=== PATIENT | female | born 1995 | race Caucasian/White ===

== ENCOUNTER 2017-06-08 09:34 | Emergency (ER) | payer OTHER, MEDICAID, SELFPAY ==
[2017-06-08 09:35] VITALS: BP 121/68; PULSE 123; RESP 18; TEMP 36.9; O2SAT 100; BMI 26.0
--- NOTE | 2017-06-08 10:43 | ED.VISSUMM ---
- ER Visit Summary Date of Service: 06/08/17 Chief Complaint: Stuck by a needle History of Present Illness: The patient is a [address] Perez. 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 Reports that she picked up a dish rag and there was a heroin needle underneath this. Stuck her right thumb. It was an insulin syringe. She denies any pain or complaints. She is a at [address] Dionte Weaver for this. She denies any vaginal bleeding or discharge. She has had normal movement. Physical Examination: Vitals: Stable. Afebrile. General: Well-nourished and well-developed. Head: Normocephalic atraumatic. Neck: Supple, no lymphadenopathy. No JVD. Nontender. Cardiovascular: Regular rate and rhythm. No murmurs. Respiratory: No respiratory distress. Clear to auscultation bilaterally. Abdominal: Soft, nontender, nondistended, normal bowel sounds. No guarding, rebound, or peritoneal signs. Back: Nontender. Extremities: Nontender, no edema. Skin: Normal color, no rash. Neurologic: Alert and oriented ?3. Cranial nerves II through XII are intact. Normal strength and sensation. Psych: Normal affect. Test Results: HIV and hepatitis panel were sent. Emergency Department Course and Treatment: Patient is resting comfortably. At this time I do not think postexposure prophylaxis is indicated. Treatment Plan: She will be discharged instructions to follow-up with [facility] for further evaluation. Return to the emergency department for any worsening symptoms. Disposition: To home in improved and stable condition. Impression: 1. Needlestick right thumb. 2. Third trimester . This note was generated with [employer] dictation software. It may contain incorrect words, spelling, and punctuation that were not noted in review of the chart prior to signing ED Disposition - Plan for ED Patient: Chief Complaint: Occup Expose Instructions: ED Body Fluid Exp HC Worker Referrals: [facility] [GROUP OF PHYSICIANS] - 1 Week
[2017-06-08 12:22] LABS: HIV - WCH Non-Reactive (Nonreactive)
[2017-06-09 08:25] LABS: HEPATITIS B SURFACE AG Negative (Negative); Hep B Surface Antibodies EMP Non Reactive (.); Hep C Antibodies <0.1 s/co ratio (0.0-0.9)
== END 2017-06-08 11:35 | disposition home or self-care (01) ==
LOC: ED 10:26
PROVIDERS: Emergency Provider Emergency Medicine; Family Provider Family Medicine; PCP Family Medicine
DX: O9A.212 Injury, poisoning and certain other consequences of external causes complicating pregnancy, second trimester (principal); Z3A.28 28 weeks gestation of pregnancy; W46.0XXA Contact with hypodermic needle, initial encounter; Y93.9 Activity, unspecified; Y92.009 Unspecified place in unspecified non-institutional (private) residence as the place of occurrence of the external cause; Y99.0 Civilian activity done for income or pay; O99.332 Smoking (tobacco) complicating pregnancy, second trimester; F17.210 Nicotine dependence, cigarettes, uncomplicated
CPT/HCPCS: 36415; 86703; 86803; 87340; 99282

== ENCOUNTER → 2017-06-15 09:11 | Outpatient (CLI) | payer MEDICAID, SELFPAY ==
[2017-06-15 11:14] LABS: Hematocrit 32.4 % (37-47); Hemoglobin 10.8 g/dl (12.0-15.0); Mean Corp Hgb Conc 33.3 g/gl (32-36); Mean Corpuscular Hgb 29.9 pg (27.0-32.0); Mean Corpuscular Volume 89.8 fL (81-99); Mean Platelet Vol. 10.9 fl (6.2-12.0); Platelet Count 145 K/mm3 (150-450); RBC Distribution Width CV 12.6 % (11.6-14.6); RBC Distribution Width SD 40.8 fl (35.1-43.9); Red Blood Count 3.61 M/mm3 (4.2-5.4); White Blood Count 8.8 K/mm3 (4.4-11.0)
[2017-06-15 11:17] LABS: Scan Indicated on CBC? Y/N NO
[2017-06-15 11:24] LABS: Glucose Challenge Gest 1H 50g 100 mg/dL (70-140)
[2017-06-16 17:50] LABS: Ferritin 11 ng/mL (8-252)
== END ==
PROVIDERS: Family Provider Family Medicine; PCP Family Medicine; Visit Provider Obstetrics & Gynecology
DX: Z34.82 Encounter for supervision of other normal pregnancy, second trimester (principal)
CPT/HCPCS: 36415; 82728; 82950; 85027; 86850

== ENCOUNTER 2017-06-26 19:22 | Outpatient (CLI) | payer MEDICAID, SELFPAY ==
[2017-06-26 20:51] LABS: Hematocrit 31.3 % (37-47); Hemoglobin 10.7 g/dl (12.0-15.0); Mean Corp Hgb Conc 34.2 g/gl (32-36); Mean Corpuscular Hgb 30.1 pg (27.0-32.0); Mean Corpuscular Volume 88.2 fL (81-99); Mean Platelet Vol. 10.3 fl (6.2-12.0); Platelet Count 155 K/mm3 (150-450); RBC Distribution Width CV 12.4 % (11.6-14.6); RBC Distribution Width SD 40.3 fl (35.1-43.9); Red Blood Count 3.55 M/mm3 (4.2-5.4); White Blood Count 11.3 K/mm3 (4.4-11.0)
[2017-06-26 20:52] LABS: Scan Indicated on CBC? Y/N NO
[2017-06-26 20:59] LABS: Prothrombin Time (Protime)PT. 12.9 SECONDS (11.7-14.9)
[2017-06-26 21:00] LABS: Partial Thromboplast Time 28.1 Seconds (24.1-36.2)
[2017-06-26 21:01] LABS: Bacteria 0 SEEN /hpf (None Seen); Red Blood Cells-Urine 0 SEEN /hpf (0-5); White Blood Cells 0 SEEN /hpf (0-5)
[2017-06-26 21:08] LABS: Color, Urine Yellow (Yellow); Glucose, Dipstick Normal (Normal); Ketone-Dipstick 5 mg/dl (Negative); Leukocyte Esterase-Dipstick 25 /ul (Negative); Nitrite-Dipstick Negative (Negative); Occult Blood-Urine Negative /ul (Negative); Protein-Dipstick 15 mg/dl (Negative); Urine Bilirubin Dipstick Negative (Negative); Urine Clarity Clear (Clear); Urine Urobilinogen 4 mg/dl (Normal)
[2017-06-26 21:08] LABS: AST(SGOT) 11 U/L (15-37); Alanine Aminotransfer ALT/SGPT 15 U/L (13-56); Creatinine, Serum 0.34 mg/dL (0.55-1.02); EST Glomerular Filtration Rate 253 mL/min (>60); Est Glom Filt Rate - Afr Amer 306 mL/min (>60); Uric Acid 2.6 mg/dL (2.6-6.0)
[2017-06-26 21:11] LABS: ROM Internal Control Test YES-OK TO RESULT pt. (Internal QC); ROM Patient Test Negative (Negative)
[2017-06-26 21:12] LABS: Protein:Creat Ratio 77 mg/g CRE (0-200)
[2017-06-26 21:15] LABS: Mucous, Urine 1+ /hpf (<or=2+); Squamous Epithelial Cells - UA 0-5 SEEN /hpf (5-10)
[2017-06-26 21:58] VITALS: BMI 27.3
--- NOTE | 2017-06-28 09:12 | OB.TRI.NOTE ---
History of Present Illness Date of Service: 06/26/17 Reason For Visit: R/O LABOR Date of Service: 06/26/17 Final MERRY: 09/11/17 Final MERRY Source: US <20 weeks Gestational age: 29 Weeks and 2 Days History of Present Illness: 29 week intrauterine reports mucus discharge in the morning with some dark red blood in it. Patient reports having gelatinous discharge for 2 weeks. She started having contractions earlier in the evening. She is unable to time these but feels that they are irregular was rating her pain 3-4 on a 1-10 pain scale. Patient also reported persistent headache and has been taking Fioricet daily. She indicated her pain was in the right upper quadrant. Home Medications Medication Instructions Recorded Dextroamphetamine/Amphetamine 25 mg PO DAILY 05/14/17 [Adderall 20 mg Tablet] 1 tab PO QDAY 06/15/17 vitamin,calcium,kmotwtqf-eocb-vuvrt acid tablet Ferrous Gluconate 1 tab PO DAILY 06/26/17 Fioricet 1 tab PO DAILY PRN 06/26/17 Allergies No Known Allergies Allergy (Verified 06/26/17 21:59) NST - FHR Rate Baby A NST Reactive:: Yes Impression/Plan 29+ week intrauterine with transient contractions. Cervix is closed and thick and high and no blood was noted. ROM plus was negative. PIH labs were negative. After a period of time of observation the nonstress test was reactive and the patient denied headaches or spotty vision and only reported a dull ache across her lower abdomen. She felt comfortable going home at this time. Patient to follow-up with physician in the office in 1-2 days.
== END 2017-06-26 22:50 | disposition home or self-care (01) ==
LOC: WPOUT 19:46 → WP 19:47
PROVIDERS: Family Provider Family Medicine; PCP Family Medicine; Visit Provider Obstetrics & Gynecology
DX: O26.893 Other specified pregnancy related conditions, third trimester (principal); R51 Headache; N89.8 Other specified noninflammatory disorders of vagina; Z3A.29 29 weeks gestation of pregnancy
CPT/HCPCS: 59025; 59050; 81001; 82565; 82570; 84112; 84156; 84450; 84460; 84550; 85027; 85610; 85730; 99218; G0378

== ENCOUNTER → 2017-06-27 16:58 | Outpatient (CLI) | payer MEDICAID, SELFPAY ==
[2017-06-27 17:20] LABS: ALB/GLOB Ratio 0.8 RATIO (0.9-2.4); AST(SGOT) 13 U/L (15-37); Alanine Aminotransfer ALT/SGPT 18 U/L (13-56); Albumin, Serum 3.1 g/dL (3.2-5.0); Alkaline Phosphatase 70 U/L (45-117); Anion Gap 7 (5-15); BUN 4 mg/dL (7-18); Calcium,Total 8.5 mg/dL (8.5-10.1); Chloride 107 mmol/L (98-107); Creatinine, Serum 0.36 mg/dL (0.55-1.02); EST Glomerular Filtration Rate 235 mL/min (>60); Est Glom Filt Rate - Afr Amer 284 mL/min (>60); Globulin 3.8 g/dL (2.2-4.2); Glucose 73 mg/dL (74-106); Potassium 3.7 mmol/L (3.5-5.1); Protein, Total 6.9 g/dL (6.4-8.2); Sodium Level 138 mmol/L (136-145)
[2017-06-27 17:33] LABS: Absolute Lymphocyte Count 2.21 X10^3/ul (0.83-4.51); Absolute Neutrophil Count 9.1 X10^3/uL (2.0-7.7); Basophil# 0.05 X10^3/uL; Basophil% 0.4 % (0-1); Eosinophil# 0.06 X10^3/uL; Eosinophils% 0.5 % (0-5); Hematocrit 32.2 % (37-47); Hemoglobin 11.1 g/dl (12.0-15.0); Lymphocyte # 2.21 X10^3/ul (4.0); Lymphocyte % 18.5 % (19-41); Mean Corp Hgb Conc 34.5 g/gl (32-36); Mean Corpuscular Hgb 30.4 pg (27.0-32.0); Mean Corpuscular Volume 88.2 fL (81-99); Mean Platelet Vol. 11.3 fl (6.2-12.0); Monocyte# 0.45 X10^3/uL; Monocyte% 3.8 % (0-10); Neutrophil # 9.09 X10^3/uL (2.7-7.7); Neutrophil % 75.9 % (47-70); Platelet Count 131 K/mm3 (150-450); RBC Distribution Width CV 12.1 % (11.6-14.6); RBC Distribution Width SD 38.3 fl (35.1-43.9); Red Blood Count 3.65 M/mm3 (4.2-5.4)
[2017-06-27 17:53] LABS: POSITIVE COUNT NO; POSITIVE DIFFERENTIAL NO; POSITIVE MORPHOLOGY NO
== END ==
PROVIDERS: Family Provider Family Medicine; PCP Family Medicine; Visit Provider Obstetrics & Gynecology
DX: Z34.83 Encounter for supervision of other normal pregnancy, third trimester (principal); R10.11 Right upper quadrant pain
CPT/HCPCS: 80053; 85025

== ENCOUNTER 2017-06-29 13:45 | Outpatient (CLI) | payer MEDICAID, SELFPAY ==
[2017-06-29 14:10] VITALS: BMI 26.7
--- NOTE | 2017-06-29 14:11 | CT_ITS ---
STUDY: CT ABDOMEN AND PELVIS WITH CONTRAST REASON FOR EXAM: Female, 22 years old. Chest pain, shortness of breath and cough. Patient is . RADIATION DOSAGE (If Supplied By Facility): CTDIvol = ( 10.07 ) mGy, DLP = ( 968.36 ) mGycm TECHNIQUE: Transaxial images were obtained from the dome of the diaphragm to the symphysis pubis without oral contrast. 75 ml of Isovue 370 contrast was administered. Sagittal and coronal images were reconstructed. Individualized dose optimization techniques were used for this CT. COMPARISON: None. FINDINGS: The visualized lung bases are unremarkable. The visualized portions of the heart are within normal limits. Normal liver. Normal gallbladder and extrahepatic biliary system. Normal spleen. Normal pancreas. Normal bilateral adrenal glands. Normal right kidney. Normal left kidney. Normal visualized stomach. There is no evidence for dilated bowel, ascites or pneumoperitoneum. Small bowel has a grossly normal appearance. Normal colon. The appendix is visualized and appears normal. Normal abdominal aorta. Normal inferior vena cava. Normal retroperitoneum. Normal urinary bladder. The third trimester gestation is visible with cephalic presentation. The placenta is posterior and has a generally normal appearance. Normal abdominal wall. Normal osseous structures. CT/Abdomen/Pelvis WITH Contrast IMPRESSION: No CT evidence of acute intra-abdominal disease in a patient. Electronically Signed: Nicole Núñez MD at 18:02 EST , Service support ,
--- NOTE | 2017-06-29 14:43 | CT_ITS ---
STUDY: CTA CHEST REASON FOR EXAM: Female, 22 years old. Chest pain, shortness of breath and cough for 2 days. RADIATION DOSAGE (If Supplied By Facility): CTDIvol = ( 10.07 ) mGy, DLP = ( 968.36 ) mGycm TECHNIQUE: The examination was performed with the intravenous administration of 75 ml of Isovue 370 contrast material. Post-processing of the angiographic images was performed, with multiplanar reformation and 3D reconstruction. Individualized dose optimization techniques were used for this CT. COMPARISON: CT of the chest dated December 01, 2015. FINDINGS: Normal enhancement of the main pulmonary artery and right and left pulmonary arteries. Normal enhancement of the bilateral peripheral pulmonary arteries. There is no demonstrated pulmonary embolism. Normal thoracic aorta and visualized great vessels. There is no demonstrated aortic dissection. Normal heart and pericardium. Normal mediastinum. Normal hilar regions. Normal visualized trachea and bronchi. The lungs are hyper expanded, with flattening of the hemidiaphragms. Normal pulmonary parenchyma. Normal pleura. Normal chest wall structures. Normal osseous structures. Patient motion artifact mimics fractures of the right lateral ribs. No definite rib fracture is identified however. Normal visualized upper abdomen. CT/CTA Chest W/WO Contrast IMPRESSION: 1. No CTA demonstrated pulmonary embolism or arterial dissection. 2. Motion artifact mimics right-sided rib fractures. Clinical correlation is suggested. Electronically Signed: Nicole Núñez MD at 18:12 EST , Service support ,
[2017-06-29 15:06] LABS: Absolute Lymphocyte Count 2.13 X10^3/ul (0.83-4.51); Basophil# 0.02 X10^3/uL; Basophil% 0.2 % (0-1); Eosinophil# 0.08 X10^3/uL; Eosinophils% 0.7 % (0-5); Hematocrit 30.8 % (37-47); Hemoglobin 10.8 g/dl (12.0-15.0); Lymphocyte # 2.13 X10^3/ul (4.0); Lymphocyte % 18.2 % (19-41); Mean Corp Hgb Conc 35.1 g/gl (32-36); Mean Corpuscular Hgb 30.9 pg (27.0-32.0); Mean Corpuscular Volume 88.3 fL (81-99); Mean Platelet Vol. 10.8 fl (6.2-12.0); Monocyte# 0.46 X10^3/uL; Monocyte% 3.9 % (0-10); Neutrophil # 8.97 X10^3/uL (2.7-7.7); Neutrophil % 76.7 % (47-70); POSITIVE COUNT NO; POSITIVE DIFFERENTIAL NO; POSITIVE MORPHOLOGY NO; Platelet Count 135 K/mm3 (150-450); RBC Distribution Width CV 12.1 % (11.6-14.6); RBC Distribution Width SD 37.7 fl (35.1-43.9); Red Blood Count 3.49 M/mm3 (4.2-5.4); White Blood Count 11.7 K/mm3 (4.4-11.0)
[2017-06-29 15:19] LABS: ALB/GLOB Ratio 0.8 RATIO (0.9-2.4); AST(SGOT) 9 U/L (15-37); Alanine Aminotransfer ALT/SGPT 14 U/L (13-56); Albumin, Serum 2.9 g/dL (3.2-5.0); Alkaline Phosphatase 65 U/L (45-117); Anion Gap 10 (5-15); BUN 4 mg/dL (7-18); BUN/Creat Ratio 10.8 RATIO (10-20); Calcium,Total 8.5 mg/dL (8.5-10.1); Chloride 107 mmol/L (98-107); Creatinine, Serum 0.37 mg/dL (0.55-1.02); EST Glomerular Filtration Rate 229 mL/min (>60); Est Glom Filt Rate - Afr Amer 277 mL/min (>60); Estimated Creatinine Clearance 195.61 ml/min; Globulin 3.8 g/dL (2.2-4.2); Glucose 80 mg/dL (74-106); LDH 126 U/L (84-246); Potassium 3.5 mmol/L (3.5-5.1); Protein, Total 6.7 g/dL (6.4-8.2); Sodium Level 137 mmol/L (136-145)
--- NOTE | 2017-06-29 16:00 | OB.TRI.NOTE ---
History of Present Illness Date of Service: 06/29/17 Was patient seen by the physician?: Yes Reason For Visit: R/O PIH Date of Service: 06/29/17 Final MERRY: 09/01/17 Final MERRY Source: US <20 weeks Gestational age: 30 Weeks and 6 Days History of Present Illness: 22yo @ 29 2/7wga sent from office with c/o headache, vision changes, abdominal pain, and shortness of breath. She was previously seen in office on 06/27/17 with c/o abdominal pain, headache and vision changes. RUQ and RLQ tenderness was noted with 3+ DTRs. Otherwise, exam unremarkable with no CVA tenderness or clonus. A CT A/P was ordered, but she was unable to obtain it at that time. She had loose stool for 2-3 days, but now resolved; She was seen in office today with continued headache, vision changes, abdominal pain, as well as shortness of breath. Denies fever, chills, vomiting, dysuria, frequency, cough, congestion, ear pain or sore throat. Home Medications Medication Instructions Recorded Dextroamphetamine/Amphetamine 25 mg PO DAILY 05/14/17 [Adderall 20 mg Tablet] 1 tab PO QDAY 06/15/17 vitamin,calcium,aiybscox-gvoi-uzrjq acid tablet Ferrous Gluconate 1 tab PO DAILY 06/26/17 Fioricet 1 tab PO DAILY PRN 06/26/17 Allergies No Known Allergies Allergy (Verified 06/26/17 21:59) - Pertinent Past Medical History Pertinent Past Medical History: SAB x 3 in first trimester Prior 38w IOL for gestational HTN vs. preeclampsia without severe features, VAVD Anxiety Smoker ADD Physical Exam Vitals: AVSS NST - FHR Rate Baby A Baseline: 140 Variability:: Moderate Accelerations:: 15 x 15 Decelerations:: None NST Reactive:: Yes FHR Category:: Category I Uterine Activity:: irritability Impression/Plan 22yo with right abdominal tenderness, chest pain, shortness of breath and tachycardia. -dfdx preeclampsia/HELLP, viral syndrome, appendicitis, hepatitis, reflux or gastritis -prior h/o gestational HTN/preeclampsia - 12h urine collection, serial BPs. -CBC, uric acid, LDH, CMP -Obtain CT A/P to r/o appendicitis. Given presence of chest pain, SOB, tachycardia will also perform CTA to r/o PE.
--- NOTE | 2017-06-29 19:04 | OB.TRI.PN ---
Progress Notes Date of Service: 06/29/17 Progress Note: TRIAGE PROGRESS NOTE Sterling samia headache persists despite Tylenol and Fiorecet taken at home. She denies chest pain but has some shortness of breath. Reviewed with patient laboratory results and normal CT findings with no evidence of appendicitis, hepatic or gallbladder abnormality, and no PE. No laboratory or radiographic evidence of preeclampsia. WBC remains slightly elevated with left shift. Likely viral enteritis. Will give IV Reglan for headache and complete 12h urine collection for baseline given prior. PO hydration, regular diet and NST qshift.
--- NOTE | 2017-06-29 19:27 | OB.TRI.HP_ITS ---
History of Present Illness Date of Service: 06/29/17 Was patient seen by the physician?: Yes Reason For Visit: R/O PIH Date of Service: 06/29/17 Final MERRY: 09/01/17 Final MERRY Source: US <20 weeks Gestational age: 30 Weeks and 6 Days History of Present Illness: 22yo @ 29 2/7wga sent from office with c/o headache, vision changes, abdominal pain, and shortness of breath. She was previously seen in office on with c/o abdominal pain, headache and vision changes. RUQ and RLQ tenderness was noted with 3+ DTRs. Otherwise, exam unremarkable with no CVA tenderness or clonus. A CT A/P was ordered, but she was unable to obtain it at that time. She had loose stool for 2-3 days, but now resolved; She was seen in office today with continued headache, vision changes, abdominal pain, as well as shortness of breath. Denies fever, chills, vomiting, dysuria, frequency, cough, congestion, ear pain or sore throat. Home Medications Medication Instructions Recorded Dextroamphetamine/Amphetamine 25 mg PO DAILY 05/14/17 [Adderall 20 mg Tablet] 1 tab PO QDAY 06/15/17 vitamin,calcium,enqkltrl-ljar-vxuuo acid tablet Ferrous Gluconate 1 tab PO DAILY 06/26/17 Fioricet 1 tab PO DAILY PRN 06/26/17 Allergies No Known Allergies Allergy (Verified 06/26/17 21:59) - Pertinent Past Medical History Pertinent Past Medical History: SAB x 3 in first trimester Prior 38w IOL for gestational HTN vs. preeclampsia without severe features, VAVD Anxiety Smoker ADD Physical Exam Vitals: AVSS NST - FHR Rate Baby A Baseline: 140 Variability:: Moderate Accelerations:: 15 x 15 Decelerations:: None NST Reactive:: Yes FHR Category:: Category I Uterine Activity:: irritability Impression/Plan 22yo with right abdominal tenderness, chest pain, shortness of breath and tachycardia. -dfdx preeclampsia/HELLP, viral syndrome, appendicitis, hepatitis, reflux or gastritis -prior h/o gestational HTN/preeclampsia - 12h urine collection, serial BPs. -CBC, uric acid, LDH, CMP -Obtain CT A/P to r/o appendicitis. Given presence of chest pain, SOB, tachycardia will also perform CTA to r/o PE.
[2017-06-30 20:32] LABS: Urine Protein (24 Hour) 10.9 mg/dL (<11.9)
[2017-06-30 20:33] LABS: 24 Hour Urine Protein 152.6 mg/24HR (<150 MG/24HR); 24HR. UA Prot. Total Volume 1400 mL
== END 2017-06-29 19:45 | disposition home or self-care (01) ==
LOC: WPOUT 13:57 → WP 13:58
PROVIDERS: Family Provider Family Medicine; PCP Family Medicine; Visit Provider Obstetrics & Gynecology
DX: O26.893 Other specified pregnancy related conditions, third trimester (principal); R51 Headache; R10.9 Unspecified abdominal pain; R06.02 Shortness of breath; O99.333 Smoking (tobacco) complicating pregnancy, third trimester; Z3A.30 30 weeks gestation of pregnancy; R00.0 Tachycardia, unspecified
CPT/HCPCS: 36415; 59025; 59050; 71275; 74177; 80053; 83615; 84156; 84550; 85025; 99218; Q9967; A4216; G0378

== ENCOUNTER → 2017-06-30 | Outpatient (CLI) | payer MEDICAID, SELFPAY | END | disposition home or self-care (01) | LOC: LABSPEC 14:49 | PROVIDERS: Family Provider Family Medicine; PCP Family Medicine; Visit Provider Obstetrics & Gynecology | DX: Z34.93 Encounter for supervision of normal pregnancy, unspecified, third trimester (principal); R51 Headache ==

== ENCOUNTER → 2017-07-05 14:14 | Outpatient (CLI) | payer MEDICAID, SELFPAY ==
--- NOTE | 2017-07-05 14:40 | US_ITS ---
STUDY: SECOND AND THIRD TRIMESTER OBSTETRICAL ULTRASOUND - LIMITED REASON FOR EXAM: Female, 22 years old. Routine survey. LMP: December 05, 2016. PRIOR ULTRASOUND: None. TECHNIQUE: Transabdominal and transvaginal ultrasound evaluation was performed. FINDINGS: There is a single intrauterine fetus. The fetus is in a cephalic presentation. There is demonstrated cardiac activity with a heart rate of 144 bpm. There is a normal amniotic fluid volume. The largest amniotic fluid pocket measures 2.9 cm x 3.8 cm. The amniotic fluid index (EDWARD) is 11.2 cm. The placenta is posterior in location and is not low lying. There are Grade 1 placental changes. The cervix measures 4.3 cm in length. Please note that the umbilical cord is seen along the posterior aspect of the neck and crossing the anterior aspect of the chest. BIOMETRY: BPD: 8.0 cm: 32 weeks, 3 days HC: 28.9 cm: 32 weeks, 0 days AC: 27.7 cm: 31 weeks, 6 days FL: 6.1 cm: 31 weeks, 6 days Age by LMP: 30 weeks, 2 days. MERRY by LMP: September 11, 2017. age by current US: 32 weeks, 1 days. MERRY by current US: August 29, 2017. Estimated weight: 1847 grams, +/- 270 grams, 87 percentile. Gender: Indeterminant US/OB Limited With Biometrics IMPRESSION: Single live intrauterine gestation with a mean gestational age of 32 weeks and 1 day. The umbilical cord is seen along the posterior aspect of the neck and crossing the anterior aspect of the chest. Electronically Signed: Curry Means MD at 8:21 EST Tel [phone], Service support ,
== END ==
PROVIDERS: Family Provider Family Medicine; PCP Family Medicine; Visit Provider Obstetrics & Gynecology
DX: O44.20 Partial placenta previa NOS or without hemorrhage, unspecified trimester (principal); Z3A.00 Weeks of gestation of pregnancy not specified
CPT/HCPCS: 76816

== ENCOUNTER 2017-07-18 15:38 | Emergency (ER) | payer MEDICAID, SELFPAY ==
[2017-07-18 15:38] VITALS: BP 137/64; PULSE 116; RESP 26; TEMP 37.1; O2SAT 100; BMI 27.3
--- NOTE | 2017-07-18 15:55 | EKG12_ITS ---
Test Reason : SOB Blood Pressure : / mmHG Vent. Rate : 099 BPM Atrial Rate : 099 BPM P-R Int : 132 ms QRS Dur : 076 ms QT Int : 342 ms P-R-T Axes : 046 065 043 degrees QTc Int : 438 ms Normal sinus rhythm Normal ECG Confirmed by JOVANNI JONES, WAYNE ([id number]), dictionary editor CARLOS ROSENTHAL ([id number]) on 07/21/2017 2:49:21 PM Referred By: COOPER Confirmed By:WAYNE BAIG MD
--- NOTE | 2017-07-18 15:58 | ED.DCSUM_ITS ---
- ER Visit Summary Date of Service: 07/18/17 Chief Complaint: Shortness of breath History of Present Illness: The patient is a 22 F 33 weeks . She is . She is a patient of Dr. Meza. She was seen in the office today by Dr. Vasquez. Patient notes shortness of breath ?2 days. She denies any cough. Dr. Vasquez stated that the baby appeared well. Patient's never had prior DVT. She was treated for preeclampsia with her first has been doing well this . No cough. No recent URI symptoms. Is a smoker and she smoked yesterday. She is on Adderall as vitamins and iron for anemia. June 29 the patient had a CTA of her chest and a abdominal CT. These were negative. Physical Examination: Heart rate 100 respiratory rate is 18 pulse ox is 99% on room air. Temperature is 98.6. Blood pressure 120/73 Gen: Well-nourished well-developed Head: Normocephalic atraumatic Eyes: Perrl EOMI ENT: TMs clear no rhinorrhea moist mucous membranes Neck: Supple no lymphadenopathy no JVD nontender CVS: Regular rate rhythm no murmurs normal S1-S2 Respiratory: No distress clear to auscultation bilaterally chest nontender Abdomen: Soft nontender nondistended normal bowel sounds no masses Back: Nontender Extremity: Nontender no edema Skin: Normal color no rash Neuro: alert orientated ?3 CN II-XII intact normal strength sensation reflexes gait cerebellar Psych: Normal affect normal mood Test Results: EKG shows a sinus rhythm at a rate of 99. White count 13.2 hemoglobin 10.6. Troponin negative. Chest x-ray no acute Emergency Department Course and Treatment: Patient ambulates without difficulty. She is eating and drinking in the room. Heart rate has been down and her breathing is better. I believe her symptoms are most likely related to she will follow-up as scheduled return if worsening. Impression: 1. Dyspnea 2. Third trimester This note was generated with [employer] acquired [employer] dictation software. It may contain incorrect words, spelling, and punctuation that were not noted in review of the chart prior to signing ED Disposition - Plan for ED Patient: Disposition: Home or Assisted Living Chief Complaint: Shortness of Breath Instructions: ED Dyspnea Shortness of Breath Referrals: Jhon Perez MD [Primary Care Provider] - Mariia Vasquez MD [STAFF PHYSICIAN] - Keep Soy appointment
--- NOTE | 2017-07-18 16:00 | RAD_ITS ---
STUDY: X-RAY CHEST REASON FOR EXAM: Female, 22 years old. Shortness of breath. Palpitations and spotty vision TECHNIQUE: Single AP portable view of the chest. COMPARISON: 10/16/16 FINDINGS: There is hyperinflation of the lungs consistent with chronic obstructive lung disease (COPD). Lungs are clear. There is no demonstrated pleural abnormality. Normal size heart. Normal mediastinum and miguel. Normal visualized pulmonary arteries. Normal visualized aortic arch and descending thoracic aorta. Normal visualized thoracic spine. Normal visualized ribs, clavicles, and shoulders. There is no demonstrated abnormality of the visualized soft tissue structures of the upper abdomen. RAD/Chest 1 View IMPRESSION: COPD without acute findings Electronically Signed: Everardo Ambriz DO at 16:28 EST Tel , Service support ,
[2017-07-18 16:25] LABS: Absolute Lymphocyte Count 2.62 X10^3/ul (0.83-4.51); Absolute Neutrophil Count 9.9 X10^3/uL (2.0-7.7); Basophil# 0.03 X10^3/uL; Basophil% 0.2 % (0-1); Eosinophil# 0.07 X10^3/uL; Eosinophils% 0.5 % (0-5); Hematocrit 30.9 % (37-47); Hemoglobin 10.6 g/dl (12.0-15.0); Lymphocyte # 2.62 X10^3/ul (4.0); Lymphocyte % 19.8 % (19-41); Mean Corp Hgb Conc 34.3 g/gl (32-36); Mean Corpuscular Hgb 29.8 pg (27.0-32.0); Mean Corpuscular Volume 86.8 fL (81-99); Mean Platelet Vol. 10.8 fl (6.2-12.0); Monocyte# 0.52 X10^3/uL; Monocyte% 3.9 % (0-10); Neutrophil # 9.91 X10^3/uL (2.7-7.7); Neutrophil % 75.1 % (47-70); Platelet Count 123 K/mm3 (150-450); RBC Distribution Width CV 12.4 % (11.6-14.6); RBC Distribution Width SD 39.7 fl (35.1-43.9); Red Blood Count 3.56 M/mm3 (4.2-5.4); White Blood Count 13.2 K/mm3 (4.4-11.0)
[2017-07-18 16:35] LABS: POSITIVE COUNT NO; POSITIVE DIFFERENTIAL NO; POSITIVE MORPHOLOGY NO
[2017-07-18 16:38] LABS: ALB/GLOB Ratio 0.9 RATIO (0.9-2.4); AST(SGOT) 13 U/L (15-37); Alanine Aminotransfer ALT/SGPT 16 U/L (13-56); Albumin, Serum 3.2 g/dL (3.2-5.0); Alkaline Phosphatase 84 U/L (45-117); Anion Gap 10 (5-15); BUN 5 mg/dL (7-18); BUN/Creat Ratio 13.1 RATIO (10-20); Calcium,Total 8.3 mg/dL (8.5-10.1); Chloride 108 mmol/L (98-107); Creatinine, Serum 0.38 mg/dL (0.55-1.02); EST Glomerular Filtration Rate 222 mL/min (>60); Est Glom Filt Rate - Afr Amer 269 mL/min (>60); Estimated Creatinine Clearance 190.47 ml/min; Globulin 3.7 g/dL (2.2-4.2); Glucose 70 mg/dL (74-106); Potassium 3.3 mmol/L (3.5-5.1); Protein, Total 6.9 g/dL (6.4-8.2); Sodium Level 139 mmol/L (136-145)
[2017-07-18] MEDS: 0.9% Normal Saline 1,000 ML 1000 ML IV (16:49)
[2017-07-18 17:10] VITALS: BP 114/61; PULSE 77; RESP 16; O2SAT 100
[2017-07-18 17:24] LABS: Bacteria 0 SEEN /hpf (None Seen); Mucous, Urine 0 SEEN /hpf (<or=2+); Red Blood Cells-Urine 0 SEEN /hpf (0-5); White Blood Cells 0 SEEN /hpf (0-5)
[2017-07-18 17:33] LABS: Color, Urine Yellow (Yellow); Glucose, Dipstick Normal (Normal); Ketone-Dipstick 15 mg/dl (Negative); Leukocyte Esterase-Dipstick Negative /ul (Negative); Nitrite-Dipstick Negative (Negative); Occult Blood-Urine Negative /ul (Negative); Protein-Dipstick Negative (Negative); Urine Bilirubin Dipstick Negative (Negative); Urine Clarity Clear (Clear); Urine Urobilinogen Normal (Normal)
[2017-07-18 17:41] LABS: Squamous Epithelial Cells - UA 0-5 SEEN /hpf (5-10)
[2017-07-18 17:47] VITALS: PULSE 75; RESP 16; O2SAT 99
[2017-07-18 17:50] LABS: Amphetamine Urine VISTA POSITIVE (<1000 ng/mL); Barbiturate Urine VISTA NEGATIVE (< 200 ng/mL); Benzodiazepine Urine VISTA NEGATIVE (< 200 ng/mL); Cocaine Urine VISTA NEGATIVE (< 300 ng/mL); Ecstacy Urine VISTA NEGATIVE (< 500 ng/mL); Methadone Urine VISTA NEGATIVE (< 300 ng/mL); PCP Urine VISTA NEGATIVE (< 25 ng/mL); THC Urine VISTA NEGATIVE (< 50 ng/mL); Vista UDS pH Range 7
== END 2017-07-18 17:47 | disposition home or self-care (01) ==
PROVIDERS: Emergency Provider Emergency Medicine; Family Provider Family Medicine; PCP Family Medicine
DX: O26.893 Other specified pregnancy related conditions, third trimester (principal); R06.00 Dyspnea, unspecified; O99.333 Smoking (tobacco) complicating pregnancy, third trimester; Z3A.33 33 weeks gestation of pregnancy; F98.8 Other specified behavioral and emotional disorders with onset usually occurring in childhood and adolescence
CPT/HCPCS: 71045; 80053; 80307; 81001; 84484; 85025; 87086; 87088; 93005; 96360; 99284; J7030

== ENCOUNTER 2017-07-20 14:05 | Outpatient (CLI) | payer MEDICAID, SELFPAY ==
[2017-07-20 14:28] VITALS: BMI 27.3
[2017-07-20 15:42] LABS: ROM Internal Control Test YES-OK TO RESULT pt. (Internal QC); ROM Patient Test Negative (Negative)
--- NOTE | 2017-07-26 09:41 | OB.TRI.NOTE ---
History of Present Illness Date of Service: 07/20/17 Was patient seen by the physician?: No Reason For Visit: CHON Date of Service: 07/20/17 Gestational age: 33 History of Present Illness: ptl Home Medications Medication Instructions Recorded 1 tab PO QDAY 06/15/17 vitamin,calcium,ravmfszw-ieib-rodrw acid tablet Ferrous Gluconate 1 tab PO DAILY 06/26/17 Dextroamphetamine/Amphetamine 25 mg PO DAILY 07/18/17 [Adderall Xr 25 mg Capsule] Allergies No Known Allergies Allergy (Verified 07/25/17 15:48) NST - FHR Rate Baby A Baseline: 140 Variability:: Moderate Accelerations:: 15 x 15 Decelerations:: None NST Reactive:: Yes FHR Category:: Category I Uterine Activity:: irregular ctx Impression/Plan no cervical change, no ptl just threatened ptl with irregular ctx. dc home labor precautions
== END 2017-07-20 16:50 | disposition home or self-care (01) ==
LOC: WPOUT 14:14 → WP 14:16
PROVIDERS: Family Provider Family Medicine; PCP Family Medicine; Visit Provider Obstetrics & Gynecology
DX: O47.03 False labor before 37 completed weeks of gestation, third trimester (principal); Z3A.33 33 weeks gestation of pregnancy
CPT/HCPCS: 59025; 59050; 84112; 99218; G0378

== ENCOUNTER → 2017-07-25 18:09 | Outpatient (CLI) | payer MEDICAID, SELFPAY | PROVIDERS: Family Provider Family Medicine; PCP Family Medicine; Visit Provider Obstetrics & Gynecology | DX: O09.93 Supervision of high risk pregnancy, unspecified, third trimester (principal); Z3A.00 Weeks of gestation of pregnancy not specified | CPT/HCPCS: 87086; 87088 ==

== ENCOUNTER → 2017-07-31 13:10 | Outpatient (CLI) | payer MEDICAID, SELFPAY | PROVIDERS: Family Provider Family Medicine; PCP Family Medicine; Visit Provider Nurse Practitioner Women's Health | DX: R30.0 Dysuria (principal) | CPT/HCPCS: 87086 ==

== ENCOUNTER 2017-08-03 18:36 | Outpatient (CLI) | payer MEDICAID, SELFPAY ==
[2017-08-03 18:54] VITALS: BMI 27.6
[2017-08-03 20:21] LABS: Hematocrit 31.8 % (37-47); Hemoglobin 10.8 g/dl (12.0-15.0); Mean Corpuscular Hgb 29.8 pg (27.0-32.0); Mean Corpuscular Volume 87.6 fL (81-99); Mean Platelet Vol. 10.6 fl (6.2-12.0); Platelet Count 167 K/mm3 (150-450); RBC Distribution Width CV 12.2 % (11.6-14.6); RBC Distribution Width SD 37.7 fl (35.1-43.9); Red Blood Count 3.63 M/mm3 (4.2-5.4); Scan Indicated on CBC? Y/N NO; White Blood Count 12.7 K/mm3 (4.4-11.0)
[2017-08-03 20:23] LABS: International Normalized Ratio 0.9; Prothrombin Time (Protime)PT. 12.6 SECONDS (11.7-14.9)
[2017-08-03 20:24] LABS: Partial Thromboplast Time 27.8 Seconds (24.1-36.2)
[2017-08-03 20:33] LABS: Creatinine, Serum 0.49 mg/dL (0.55-1.02); EST Glomerular Filtration Rate 168 mL/min (>60); Est Glom Filt Rate - Afr Amer 203 mL/min (>60)
[2017-08-03 20:33] LABS: Protein, Urine (Random) 9.8 mg/dL (<11.9); Protein:Creat Ratio 127 mg/g CRE (0-200)
[2017-08-03 20:36] LABS: AST(SGOT) 15 U/L (15-37); Alanine Aminotransfer ALT/SGPT 15 U/L (13-56); Uric Acid 3.3 mg/dL (2.6-6.0)
--- NOTE | 2017-08-03 21:07 | NURSING ---
has been to see the pt, she has ordered flexeril for the pt, she will pick it up from the pharmacy tomorrow.
--- NOTE | 2017-08-08 01:46 | OB.TRI.NOTE ---
History of Present Illness Date of Service: 08/03/17 Was patient seen by the physician?: Yes Reason For Visit: R/O PRE ECLAMPSIA Date of Service: 08/03/17 Final MERRY: 09/11/17 Gestational age: 35 Weeks and 1 Days History of Present Illness: 22 yo presents at 35 weeks with RUQ pain, blurry vision, intermittent headache, and SOB. She has had these complaints on and off for the last few months but they were increasing in the last 24 hours Home Medications Medication Instructions Recorded 1 tab PO QDAY 06/15/17 vitamin,calcium,tdfhtnkm-wwjm-sotql acid tablet Ferrous Gluconate 1 tab PO DAILY 06/26/17 Dextroamphetamine/Amphetamine 25 mg PO DAILY 07/18/17 [Adderall Xr 25 mg Capsule] Cyclobenzaprine [Flexeril] 10 mg PO TID #30 tab 08/03/17 Famotidine [Pepcid] 20 mg PO BID #28 tablet 08/05/17 Allergies No Known Allergies Allergy (Verified 08/05/17 19:45) - Pertinent Past Medical History Pertinent Past Medical History: reviewed, see history tab Physical Exam General: Alert, Oriented x3, No apparent distress Cardiovascular: Regular rate Lungs: Normal air movement Abdomen: Soft, Non Tender, Gravid Extremities:: No edema Estimated gestational size: Appropriate for gestational size NST - FHR Rate Baby A Baseline: 140 Variability:: Moderate Accelerations:: 15 x 15 Decelerations:: None NST Reactive:: Yes FHR Category:: Category I Uterine Activity:: no regular Impression/Plan headache in , abdominal pain. no preeclampsia, stable for dc to home
== END 2017-08-03 21:29 | disposition home or self-care (01) ==
LOC: WPOUT 18:52 → WP 08-04 09:20
PROVIDERS: Family Provider Family Medicine; PCP Family Medicine; Visit Provider Obstetrics & Gynecology
DX: O26.893 Other specified pregnancy related conditions, third trimester (principal); R51 Headache; R10.9 Unspecified abdominal pain; Z3A.35 35 weeks gestation of pregnancy
CPT/HCPCS: 36415; 59025; 59050; 82565; 82570; 84156; 84450; 84460; 84550; 85027; 85610; 85730; 99218; A4216; G0378

== ENCOUNTER 2017-08-05 19:44 | Emergency (ER) | payer MEDICAID, SELFPAY ==
[2017-08-05 19:45] VITALS: BP 122/75; PULSE 96; RESP 20; TEMP 36.4; O2SAT 100; BMI 28.5
--- NOTE | 2017-08-05 20:05 | EKG12_ITS ---
Test Reason : CP Blood Pressure : / mmHG Vent. Rate : 095 BPM Atrial Rate : 095 BPM P-R Int : 128 ms QRS Dur : 082 ms QT Int : 346 ms P-R-T Axes : 041 073 046 degrees QTc Int : 434 ms Normal sinus rhythm Normal ECG Confirmed by WAYNE BAIG MD ([id number]), art editor CARLOS ROSENTHAL ([id number]) on 08/08/2017 1:25:13 PM Referred By: Deysi Kamara Confirmed By:WAYNE BAIG MD
--- NOTE | 2017-08-05 20:05 | RAD_ITS ---
STUDY: X-RAY CHEST REASON FOR EXAM: Female, 22 years old. Chest pain. Short of breath. TECHNIQUE: Single AP portable view of the chest. COMPARISON: 07/18/2017. FINDINGS: The lungs are clear and expanded. There is no demonstrated pleural abnormality. Normal size heart. Normal mediastinum and miguel. Normal visualized pulmonary arteries. Normal visualized aortic arch and descending thoracic aorta. Normal visualized thoracic spine. Normal visualized ribs, clavicles, and shoulders. There is no demonstrated abnormality of the visualized soft tissue structures of the upper abdomen. RAD/Chest 1 View (Portable) IMPRESSION: Normal x-ray examination of the chest. Electronically Signed: Leonel Coleman MD at 20:57 EDT , Service support ,
[2017-08-05 20:15] LABS: Absolute Neutrophil Count 10.4 X10^3/uL (2.0-7.7); Basophil# 0.03 X10^3/uL; Basophil% 0.2 % (0-1); Eosinophil# 0.15 X10^3/uL; Hematocrit 29.4 % (37-47); Hemoglobin 10.3 g/dl (12.0-15.0); Lymphocyte % 21.3 % (19-41); Mean Corpuscular Hgb 30.4 pg (27.0-32.0); Mean Corpuscular Volume 86.7 fL (81-99); Mean Platelet Vol. 10.9 fl (6.2-12.0); Monocyte# 0.84 X10^3/uL; Monocyte% 5.8 % (0-10); Neutrophil # 10.38 X10^3/uL (2.7-7.7); Neutrophil % 71.2 % (47-70); Platelet Count 180 K/mm3 (150-450); RBC Distribution Width CV 11.9 % (11.6-14.6); RBC Distribution Width SD 36.1 fl (35.1-43.9); Red Blood Count 3.39 M/mm3 (4.2-5.4); White Blood Count 14.6 K/mm3 (4.4-11.0)
[2017-08-05 20:16] LABS: POSITIVE COUNT NO; POSITIVE DIFFERENTIAL NO; POSITIVE MORPHOLOGY NO
[2017-08-05] MEDS: proMETHazine 25 MG/ML Syringe 12.5 MG IV (20:18)
[2017-08-05] MEDS: 0.9% Normal Saline 1,000 ML 150 ML IV (20:18)
[2017-08-05] MEDS: Acetaminophen 325 MG Tablet 650 MG PO (20:19)
[2017-08-05] MEDS: Famotidine 20 MG Tablet 40 MG PO (20:20)
[2017-08-05 20:25] LABS: Anion Gap 10 (5-15); BUN 6 mg/dL (7-18); BUN/Creat Ratio 13.6 RATIO (10-20); Calcium,Total 8.6 mg/dL (8.5-10.1); Chloride 110 mmol/L (98-107); Creatinine, Serum 0.44 mg/dL (0.55-1.02); EST Glomerular Filtration Rate 187 mL/min (>60); Est Glom Filt Rate - Afr Amer 226 mL/min (>60); Estimated Creatinine Clearance 164.49 ml/min; Glucose 86 mg/dL (74-106); Potassium 3.5 mmol/L (3.5-5.1); Sodium Level 142 mmol/L (136-145)
--- NOTE | 2017-08-05 21:59 | ED.DCSUM_ITS ---
- ER Visit Summary Date of Service: 08/05/17 Chief Complaint: Chest pain and shortness of breath History of Present Illness: The patient is a 22 F who is currently 35 weeks . She reports intermittent chest pressure and shortness of breath since noon today. She points in the center of her sternum. She states symptoms last approximately 30 seconds and then resolved. She is feeling normal movement today. She denies cough or congestion. She has been having intermittent chest pain issues and had a CTA of her chest done last month was unremarkable. Patient is also complaining of a migraine that is been present for last several days. She is a history of similar and was evaluated in OB 2 days ago for this. Physical Examination: Vital signs are unremarkable. Patient sitting upright in bed no acute distress. Head neck examination is unremarkable. Heart is regular rate and rhythm. Lung sounds are clear. Abdomen is soft, gravid, nontender. Active bowel sounds are noted. Neuro exam is unremarkable. Test Results: EKG is sinus at 95 with no sign of acute ischemia. Chest x-ray is unremarkable. CBC was a white count of 14.6 with 71% neutrophils. Hemoglobin is 10.3. Chemistry studies normal. Troponin is negative. Emergency Department Course and Treatment: Patient was treated with Tylenol, Phenergan, IV fluids, and Pepcid. On repeat evaluation she states her chest pain is not coming nearly as frequently as it was previously. Her headache is also improving. Patient was discussed with Dr. Vasquez as she had sent the patient to the emergency room. Patient will be given a prescription for Pepcid for home to try. Treatment Plan: [] Disposition: Discharge Impression: 1. Migraine, improved 2. Atypical chest pain 3. 35 week This note was generated with [employer] dictation software. It may contain incorrect words, spelling, and punctuation that were not noted in review of the chart prior to signing ED Disposition - Plan for ED Patient: Disposition: Home or Assisted Living Chief Complaint: Chest Pain Instructions: ED Chest Pain Atypical Unkn Cause Prescriptions: Famotidine [Pepcid] 20 mg PO BID #28 tablet Referrals: Jhon Perez MD [Primary Care Provider] - Mariia Vasquez MD [STAFF PHYSICIAN] - 1 Week
[2017-08-05 22:05] VITALS: BP 98/74; PULSE 82; RESP 16; O2SAT 98
== END 2017-08-05 22:07 | disposition home or self-care (01) ==
PROVIDERS: Emergency Provider Emergency Medicine; Family Provider Family Medicine; PCP Family Medicine
DX: O26.893 Other specified pregnancy related conditions, third trimester (principal); G43.909 Migraine, unspecified, not intractable, without status migrainosus; R07.89 Other chest pain; O99.333 Smoking (tobacco) complicating pregnancy, third trimester; Z3A.35 35 weeks gestation of pregnancy
CPT/HCPCS: 71045; 80048; 84484; 85025; 93005; 99285; J7030; A4216

== ENCOUNTER → 2017-08-08 14:36 | Outpatient (CLI) | payer MEDICAID, SELFPAY ==
[2017-08-08 10:20] LABS: ROM Internal Control Test YES-OK TO RESULT pt. (Internal QC); ROM Patient Test Negative (Negative)
--- NOTE | 2017-08-08 14:38 | US_ITS ---
STUDY: SECOND AND THIRD TRIMESTER OBSTETRICAL ULTRASOUND - LIMITED REASON FOR EXAM: Female, 22 years old. Evaluate growth, small for dates, history of cord around neck LMP: 12/04/2016 PRIOR ULTRASOUND: Previous study of 07/05/2017 TECHNIQUE: Transabdominal ultrasound evaluation was performed. FINDINGS: There is a single intrauterine fetus. The fetus is in a cephalic presentation. There is demonstrated cardiac activity with a heart rate of 140 bpm. There is a normal amniotic fluid volume. The largest amniotic fluid pocket measures 4.6 cm. The amniotic fluid index (EDWARD) is 13.4 cm. The placenta is posterior in location and is not low lying. There are Grade 1 placental changes. The cervix measures 3.8 cm in length. BIOMETRY: BPD: 8.75 cm: 35 weeks, 3 days HC: 31.68 cm: 35 weeks, 5 days AC: 31.71 cm: 35 weeks, 5 days FL: 7.01 cm: 36 weeks, 0 days Age by LMP: 35 weeks, 2 days. MERRY by LMP: 09/10/2017. age by prior US: 37 weeks, 0 days. MERRY by prior US: . age by current US: 35 weeks, 5 days. MERRY by current US: 09/07/2017. Estimated weight: 2740 grams, +/- 400 grams, 60 percentile. The umbilical cord is still seen around the neck. US/OB Limited With Biometrics IMPRESSION: Single viable intrauterine of approximately 35 weeks 5 days gestational age by current ultrasound. A heart rate of 140 bpm is noted. The EDWARD is within normal limits. The umbilical cord is again noted around the neck. Electronically Signed: Beni Wilhelm MD at 0:01 EDT , Service support ,
== END ==
PROVIDERS: Family Provider Family Medicine; PCP Family Medicine; Visit Provider Nurse Practitioner Women's Health
DX: N89.8 Other specified noninflammatory disorders of vagina (principal)
CPT/HCPCS: 76816; 84112

== ENCOUNTER 2017-08-17 13:50 | Outpatient (CLI) | payer MEDICAID, SELFPAY ==
[2017-08-17 14:02] VITALS: BMI 28.8
[2017-08-17 14:34] LABS: Hematocrit 32.1 % (37-47); Hemoglobin 10.6 g/dl (12.0-15.0); Mean Corpuscular Hgb 29.4 pg (27.0-32.0); Mean Corpuscular Volume 88.9 fL (81-99); Mean Platelet Vol. 10.6 fl (6.2-12.0); Platelet Count 174 K/mm3 (150-450); RBC Distribution Width CV 12.5 % (11.6-14.6); RBC Distribution Width SD 39.5 fl (35.1-43.9); Red Blood Count 3.61 M/mm3 (4.2-5.4); White Blood Count 13.7 K/mm3 (4.4-11.0)
[2017-08-17 14:35] LABS: Scan Indicated on CBC? Y/N NO
[2017-08-17 14:43] LABS: International Normalized Ratio 1.1; Prothrombin Time (Protime)PT. 13.7 SECONDS (11.7-14.9)
[2017-08-17 14:44] LABS: Partial Thromboplast Time 28.9 Seconds (24.1-36.2)
[2017-08-17 14:56] LABS: AST(SGOT) 15 U/L (15-37); Alanine Aminotransfer ALT/SGPT 15 U/L (13-56); Creatinine, Serum 0.52 mg/dL (0.55-1.02); EST Glomerular Filtration Rate 155 mL/min (>60); Est Glom Filt Rate - Afr Amer 188 mL/min (>60); Estimated Creatinine Clearance 139.19 ml/min; Uric Acid 3.8 mg/dL (2.6-6.0)
[2017-08-17 14:57] LABS: Protein:Creat Ratio 123 mg/g CRE (0-200)
--- NOTE | 2017-08-23 05:01 | OB.TRI.NOTE ---
History of Present Illness Date of Service: 08/17/17 Was patient seen by the physician?: Yes Reason For Visit: R/O PREECLAMPSIA Date of Service: 08/17/17 Final MERRY: 09/11/17 Gestational age: 36 Weeks and 1 Days History of Present Illness: 22 yo presents at 36 weeks with headache, nausea and vomiting. she has had these complaints intermittently throughout the and has had multiple workups which have been negative. denies any VB LOF admits good FM no regualr ctx ROS: general: negative : see hpi GI: negative Home Medications Medication Instructions Recorded 1 tab PO QDAY 06/15/17 vitamin,calcium,rvptnhhm-xfvq-vvile acid tablet Ferrous Gluconate 1 tab PO DAILY 06/26/17 Dextroamphetamine/Amphetamine 25 mg PO DAILY 07/18/17 [Adderall Xr 25 mg Capsule] Cyclobenzaprine [Flexeril] 10 mg PO TID #30 tab 08/03/17 Famotidine [Pepcid] 20 mg PO BID #28 tab 08/05/17 Acetaminophen [Tylenol Extra 500 mg PO Q8H 08/18/17 Strength] Allergies No Known Allergies Allergy (Verified 08/18/17 21:19) - Pertinent Past Medical History Pertinent Past Medical History: Past Medical History (Last Reviewed 08/17/17 @ 13:21 by Carolynn Fernandez) ADD (attention deficit disorder) (Acute) Anemia affecting (Acute) History of pre-eclampsia in prior , currently (Acute) Migraine (Acute) Sleep apnea (Acute) Past Surgical History (Last Reviewed 08/17/17 @ 13:21 by Carolynn Fernandez) Tonsil, abscess (Acute) All Active Problems (Last Reviewed 08/17/17 @ 13:21 by Carolynn Fernandez) LGSIL on Pap smear of cervix (Acute) Shortness of breath (Acute) Supervision of high risk in third trimester (Acute) Contraception management (Acute) Anxiety (Acute) History of oligohydramnios (Acute) History of pre-eclampsia in prior , currently in third trimester (Acute) Anemia during in third trimester (Acute) Gestational thrombocytopenia (Acute) Headache in (Acute) Rh negative status during in third trimester (Acute) Physical Exam General: Alert, Oriented x3 Cardiovascular: Regular rate Lungs: Normal air movement Abdomen: Soft, Non Tender, Gravid Extremities:: No edema Estimated gestational size: Appropriate for gestational size NST - FHR Rate Baby A Baseline: 140 Variability:: Moderate Accelerations:: 15 x 15 Decelerations:: None NST Reactive:: Yes FHR Category:: Category I Uterine Activity:: none Impression/Plan 22 yo 36 weeks with headache normal preeclampsia labs and evaluation- dc home preeclampsia precautions
== END 2017-08-17 16:15 | disposition home or self-care (01) ==
LOC: WPOUT 13:58 → WP 08-18 13:13
PROVIDERS: Family Provider Family Medicine; PCP Family Medicine; Visit Provider Obstetrics & Gynecology
DX: O26.893 Other specified pregnancy related conditions, third trimester (principal); R51 Headache; O99.113 Other diseases of the blood and blood-forming organs and certain disorders involving the immune mechanism complicating pregnancy, third trimester; D69.6 Thrombocytopenia, unspecified; Z3A.36 36 weeks gestation of pregnancy
CPT/HCPCS: 36415; 59025; 59050; 82565; 82570; 84156; 84450; 84460; 84550; 85027; 85610; 85730; 87081; 87653; 99218; G0378

== ENCOUNTER → 2017-08-17 16:17 | Outpatient (CLI) | payer MEDICAID, SELFPAY ==
[2017-08-17 17:52] LABS: Group B Strep DNA By PCR Negative (Negative); Internal Control PASS; Probe Check PASS; Specimen Processing Control PASS
== END ==
PROVIDERS: Family Provider Family Medicine; PCP Family Medicine; Visit Provider Nurse Practitioner Women's Health
DX: O09.93 Supervision of high risk pregnancy, unspecified, third trimester (principal); Z3A.00 Weeks of gestation of pregnancy not specified
CPT/HCPCS: 87081; 87653

== ENCOUNTER 2017-08-18 20:50 | Outpatient (CLI) | payer MEDICAID, SELFPAY ==
[2017-08-18 21:19] VITALS: BMI 28.9
[2017-08-18] MEDS: 0.9% NaCl Peripheral Flush Adult/Peds IV (22:30)
[2017-08-18 22:45] LABS: Bacteria 0 SEEN /hpf (None Seen); Mucous, Urine 0 SEEN /hpf (<or=2+); Red Blood Cells-Urine 0 SEEN /hpf (0-5); White Blood Cells 0 SEEN /hpf (0-5)
[2017-08-18 22:47] LABS: Hematocrit 29.5 % (37-47); Mean Corp Hgb Conc 33.9 g/gl (32-36); Mean Corpuscular Hgb 29.5 pg (27.0-32.0); Mean Platelet Vol. 10.6 fl (6.2-12.0); Platelet Count 204 K/mm3 (150-450); RBC Distribution Width CV 12.7 % (11.6-14.6); RBC Distribution Width SD 40.8 fl (35.1-43.9); Red Blood Count 3.39 M/mm3 (4.2-5.4); White Blood Count 12.9 K/mm3 (4.4-11.0)
[2017-08-18 22:48] LABS: Color, Urine Yellow (Yellow); Glucose, Dipstick Normal (Normal); Ketone-Dipstick Negative (Negative); Leukocyte Esterase-Dipstick Negative /ul (Negative); Nitrite-Dipstick Negative (Negative); Occult Blood-Urine Negative /ul (Negative); Protein-Dipstick Negative (Negative); Urine Bilirubin Dipstick Negative (Negative); Urine Clarity Sl. Cloudy (Clear); Urine Urobilinogen 1 mg/dl (Normal); Urine pH 6.5 (5.0 - 8.0)
[2017-08-18 22:51] LABS: Scan Indicated on CBC? Y/N NO
[2017-08-18 22:58] LABS: Protein, Urine (Random) 11.3 mg/dL (<11.9); Protein:Creat Ratio 102 mg/g CRE (0-200)
[2017-08-18 23:04] LABS: Amorphous Sediment 1+; Squamous Epithelial Cells - UA 0-5 SEEN /hpf (5-10)
[2017-08-18 23:09] LABS: ALB/GLOB Ratio 0.7 RATIO (0.9-2.4); AST(SGOT) 14 U/L (15-37); Alanine Aminotransfer ALT/SGPT 14 U/L (13-56); Albumin, Serum 2.8 g/dL (3.2-5.0); Alkaline Phosphatase 120 U/L (45-117); Anion Gap 12 (5-15); BUN 7 mg/dL (7-18); BUN/Creat Ratio 16.5 RATIO (10-20); Calcium,Total 8.5 mg/dL (8.5-10.1); Chloride 108 mmol/L (98-107); Creatinine, Serum 0.42 mg/dL (0.55-1.02); EST Glomerular Filtration Rate 196 mL/min (>60); Est Glom Filt Rate - Afr Amer 237 mL/min (>60); Estimated Creatinine Clearance 172.33 ml/min; Glucose 81 mg/dL (74-106); Potassium 3.9 mmol/L (3.5-5.1); Protein, Total 6.8 g/dL (6.4-8.2); Sodium Level 141 mmol/L (136-145)
[2017-08-19 00:56] VITALS: RESP 18
--- NOTE | 2017-08-23 05:20 | OB.TRI.NOTE ---
History of Present Illness Date of Service: 08/18/17 Was patient seen by the physician?: Yes Reason For Visit: CRAMPING AND SPOTTING Date of Service: 08/18/17 Final MERRY: 09/11/17 Gestational age: 37 Weeks and 2 Days History of Present Illness: 22 yo 36 weeks presents with vaginal bleeding and cramping. she admits some contractions, feels good fm and no lof ROS: generla: negative GI: no n v d Home Medications Medication Instructions Recorded 1 tab PO QDAY 06/15/17 vitamin,calcium,pernxbrf-vfff-draqr acid tablet Ferrous Gluconate 1 tab PO DAILY 06/26/17 Dextroamphetamine/Amphetamine 25 mg PO DAILY 07/18/17 [Adderall Xr 25 mg Capsule] Cyclobenzaprine [Flexeril] 10 mg PO TID #30 tab 08/03/17 Famotidine [Pepcid] 20 mg PO BID #28 tab 08/05/17 Acetaminophen [Tylenol Extra 500 mg PO Q8H 08/18/17 Strength] Allergies No Known Allergies Allergy (Verified 08/18/17 21:19) - Pertinent Past Medical History Pertinent Past Medical History: Past Medical History (Last Reviewed 08/17/17 @ 13:21 by Carolynn Fernandez) ADD (attention deficit disorder) (Acute) Anemia affecting (Acute) History of pre-eclampsia in prior , currently (Acute) Migraine (Acute) Sleep apnea (Acute) Past Surgical History (Last Reviewed 08/17/17 @ 13:21 by Carolynn Fernandez) Tonsil, abscess (Acute) Physical Exam Vitals: Vital Signs Resp 18 08/19/17 00:56 General: Alert Cardiovascular: Regular rate Lungs: Normal air movement Abdomen: Soft, Non Tender, Gravid NST - FHR Rate Baby A Baseline: 130 Variability:: Moderate Accelerations:: 15 x 15 Decelerations:: None NST Reactive:: Yes FHR Category:: Category I Uterine Activity:: no regular Impression/Plan vaginal bleeding false labor reassuring fht and no cervical change dc home labor precautions
== END 2017-08-19 00:56 | disposition home or self-care (01) ==
LOC: WPOUT 21:14 → WP 21:15
PROVIDERS: Family Provider Family Medicine; PCP Family Medicine; Visit Provider Obstetrics & Gynecology
DX: O46.93 Antepartum hemorrhage, unspecified, third trimester (principal); O47.03 False labor before 37 completed weeks of gestation, third trimester; Z3A.36 36 weeks gestation of pregnancy
CPT/HCPCS: 36415; 59025; 59050; 80053; 81001; 82570; 84156; 85027; 99218; A4216; G0378

== ENCOUNTER → 2017-08-24 12:22 | Outpatient (CLI) | payer MEDICAID, SELFPAY ==
[2017-08-24 12:42] LABS: ROM Internal Control Test YES-OK TO RESULT pt. (Internal QC)
[2017-08-24 12:43] LABS: ROM Patient Test Negative (Negative)
== END ==
PROVIDERS: Visit Provider Obstetrics & Gynecology
DX: O09.93 Supervision of high risk pregnancy, unspecified, third trimester (principal); Z3A.00 Weeks of gestation of pregnancy not specified
CPT/HCPCS: 84112

== ENCOUNTER 2017-08-28 08:35 | Outpatient (CLI) | payer MEDICAID, SELFPAY ==
[2017-08-28 09:01] VITALS: BMI 29.5
[2017-08-28] MEDS: 0.9% Saline Lock 10 ML Syringe IV ×2 (09:10→09:30)
[2017-08-28 09:43] LABS: Hematocrit 31.4 % (37-47); Hemoglobin 10.5 g/dl (12.0-15.0); Mean Corp Hgb Conc 33.4 g/gl (32-36); Mean Corpuscular Volume 86.7 fL (81-99); Mean Platelet Vol. 10.7 fl (6.2-12.0); Platelet Count 152 K/mm3 (150-450); RBC Distribution Width CV 12.7 % (11.6-14.6); RBC Distribution Width SD 40.7 fl (35.1-43.9); Red Blood Count 3.62 M/mm3 (4.2-5.4); Scan Indicated on CBC? Y/N NO; White Blood Count 13.5 K/mm3 (4.4-11.0)
[2017-08-28 09:47] LABS: International Normalized Ratio 0.9; Prothrombin Time (Protime)PT. 12.3 SECONDS (11.7-14.9)
[2017-08-28 09:48] LABS: Partial Thromboplast Time 26.2 Seconds (24.1-36.2)
[2017-08-28 09:53] LABS: Creatinine, Serum 0.45 mg/dL (0.55-1.02); EST Glomerular Filtration Rate 184 mL/min (>60); Estimated Creatinine Clearance 160.84 ml/min
[2017-08-28 09:54] LABS: AST(SGOT) 13 U/L (15-37); Alanine Aminotransfer ALT/SGPT 16 U/L (13-56); Est Glom Filt Rate - Afr Amer 223 mL/min (>60); Protein, Urine (Random) 86.3 mg/dL (<11.9); Protein:Creat Ratio 719 mg/g CRE (0-200); Uric Acid 3.3 mg/dL (2.6-6.0)
--- NOTE | 2017-08-28 10:29 | OB.TRI.NOTE ---
History of Present Illness Date of Service: 08/28/17 Was patient seen by the physician?: No Reason For Visit: R/O PIH Date of Service: 08/28/17 Final MERRY: 09/11/17 Gestational age: 38 Weeks and 0 Days History of Present Illness: 22 yo @ 38 weeks presents with borderline elevated bps in the office- now normal on l and d Home Medications Medication Instructions Recorded 1 tab PO QDAY 06/15/17 vitamin,calcium,jmvrreye-lvti-caszg acid tablet Ferrous Gluconate 1 tab PO DAILY 06/26/17 Dextroamphetamine/Amphetamine 25 mg PO DAILY 07/18/17 [Adderall Xr 25 mg Capsule] Acetaminophen [Tylenol Extra 500 mg PO PRN PRN 08/18/17 Strength] Acetaminophen/Butalbital/Caffe 1 tablet PO PRN PRN 08/28/17 [Fioricet] Allergies No Known Allergies Allergy (Verified 08/28/17 08:49) NST - FHR Rate Baby A Baseline: 140 Variability:: Moderate Accelerations:: 15 x 15 Decelerations:: None NST Reactive:: Yes FHR Category:: Category I Uterine Activity:: no regular Impression/Plan proteinuria on labs but otherwise normal labwork, fu in 2 days for repeat bp in office, reviewed preeclampsia precautions
== END 2017-08-28 10:30 | disposition home or self-care (01) ==
LOC: WPOUT 08:41 → WP 08:42
PROVIDERS: Visit Provider Obstetrics & Gynecology
DX: O26.893 Other specified pregnancy related conditions, third trimester (principal); Z3A.38 38 weeks gestation of pregnancy; R80.9 Proteinuria, unspecified
CPT/HCPCS: 59025; 59050; 82565; 82570; 84156; 84450; 84460; 84550; 85027; 85610; 85730; 86850; 86900; 99218; A4216; G0378

== ENCOUNTER 2017-08-29 14:45 | Outpatient (CLI) | payer MEDICAID, SELFPAY ==
[2017-08-29 14:59] VITALS: BMI 29.2
--- NOTE | 2017-08-30 13:45 | OB.TRI.HP_ITS ---
History of Present Illness Date of Service: 08/29/17 Was patient seen by the physician?: Yes Reason For Visit: ROL Date of Service: 08/29/17 Final MERRY: 09/11/17 Gestational age: 38 Weeks and 2 Days History of Present Illness: 38w1d presents with regular ctx and some spotting no lof good fm Home Medications Medication Instructions Recorded 1 tab PO QDAY 06/15/17 vitamin,calcium,blvsdcme-prku-clyeg acid tablet Ferrous Gluconate 1 tab PO DAILY 06/26/17 Dextroamphetamine/Amphetamine 25 mg PO DAILY 07/18/17 [Adderall Xr 25 mg Capsule] Acetaminophen [Tylenol Extra 500 mg PO PRN PRN 08/18/17 Strength] Acetaminophen/Butalbital/Caffe 1 tablet PO PRN PRN 08/28/17 [Fioricet] Allergies No Known Allergies Allergy (Verified 08/28/17 08:49) - Pertinent Past Medical History Pertinent Past Medical History: Past Medical History (Last Reviewed 08/28/17 @ 07:59 by Joi Gallo) ADD (attention deficit disorder) (Acute) Anemia affecting (Acute) History of pre-eclampsia in prior , currently (Acute) Migraine (Acute) Sleep apnea (Acute) Past Surgical History (Last Reviewed 08/28/17 @ 07:59 by Joi Gallo) Tonsil, abscess (Acute) ROS: General: negative Director Emergency Services: see hpi GI: otherwise negative unless documented in hpi Physical Exam General: Alert, Oriented x3 Cardiovascular: Regular rate Lungs: Normal air movement NST - FHR Rate Baby A Baseline: 130 Variability:: Moderate Accelerations:: 15 x 15 Decelerations:: None NST Reactive:: Yes FHR Category:: Category I Uterine Activity:: irregular Impression/Plan false labor 38 weeks normal bps fu in office
== END 2017-08-29 17:55 | disposition home or self-care (01) ==
LOC: WPOUT 14:56 → WP 14:57
PROVIDERS: Visit Provider Obstetrics & Gynecology
DX: O47.1 False labor at or after 37 completed weeks of gestation (principal); Z3A.38 38 weeks gestation of pregnancy; F98.8 Other specified behavioral and emotional disorders with onset usually occurring in childhood and adolescence
CPT/HCPCS: 59025; 59050; 99218; G0378

== ENCOUNTER 2017-08-31 11:15 | Inpatient (IN) | payer MEDICAID, SELFPAY ==
[2017-08-31 10:57] VITALS: BMI 29.5
[2017-08-31 11:10] LABS: ROM Internal Control Test YES-OK TO RESULT pt. (Internal QC)
[2017-08-31 11:11] LABS: ROM Patient Test POSITIVE (Negative)
[2017-08-31] MEDS: Lactated Ringers 1,000 ML 50 ML IV ×2 (11:15→16:35)
[2017-08-31 11:46] LABS: Hematocrit 31.9 % (37-47); Hemoglobin 10.5 g/dl (12.0-15.0); Mean Corp Hgb Conc 32.9 g/gl (32-36); Mean Corpuscular Volume 88.1 fL (81-99); Mean Platelet Vol. 11.2 fl (6.2-12.0); Platelet Count 153 K/mm3 (150-450); RBC Distribution Width CV 12.7 % (11.6-14.6); RBC Distribution Width SD 39.6 fl (35.1-43.9); Red Blood Count 3.62 M/mm3 (4.2-5.4); Scan Indicated on CBC? Y/N NO; White Blood Count 11.5 K/mm3 (4.4-11.0)
[2017-08-31] MEDS: Oxytocin 30 units/NS 500 ml 30 UNITS/500 ML IV.SOLN IV (11:55)
[2017-08-31] MEDS: fentaNYL-bupivacaine (epidural) 100 ML BAG EPIDURAL (19:04)
[2017-08-31] MEDS: Oxytocin 30 units/NS 500 ml 30 UNITS/500 ML IV.SOLN 334 UNITS IV (21:43)
[2017-08-31] MEDS: Oxytocin 30 units/NS 500 ml 30 UNITS/500 ML IV.SOLN 167 UNITS IV (22:14)
--- NOTE | 2017-08-31 22:17 | HP.PCM_ITS ---
- Problem List (1) Supervision of high risk in third trimester Status: Acute Comment: PRR MERRY 09/11/17 shay Carrasqu[place] callum CHRISTIANSON Jb atwood (2) Contraception management Status: Acute Qualifiers: Comment: PPTL title 19 signed (3) History of oligohydramnios Status: Acute Comment: prior check growth and fluid at 36 weeks (4) History of pre-eclampsia in prior , currently in third trimester Status: Acute Comment: not on baby ASA, no baseline labs (5) Anemia during in third trimester Status: Acute Comment: iron (6) Gestational thrombocytopenia Status: Acute Qualifiers: Comment: 135 check monthly (7) Headache in Status: Acute Qualifiers: (8) Rh negative status during in third trimester Status: Acute Comment: rhogam at 28 weeks and PRN History Date of Admission: 08/31/17 Final MERRY: 09/11/17 Gestational age: 38 Weeks and 3 Days History of this : 22 yo @ 38w4d presents with PROM 2-3 cm dilated and clear fluid. she has had a complicated by headaches and proteinuria. Pertinent Past Medical History: Past Medical History (Last Reviewed 08/28/17 @ 07:59 by Joi Gallo) ADD (attention deficit disorder) (Acute) Anemia affecting (Acute) History of pre-eclampsia in prior , currently (Acute) Migraine (Acute) Sleep apnea (Acute) Past Surgical History (Last Reviewed 08/28/17 @ 07:59 by Joi Gallo) Tonsil, abscess (Acute) Mom's Labs & Results 08/31/17 08/31/17 08/31/17 10:45 11:30 11:30 WBC 11.5 H RBC 3.62 L Hgb 10.5 L Hct 31.9 L MCV 88.1 MCH 29.0 MCHC 32.9 RDW 12.7 RDW Differential 39.6 Plt Count 153 MPV 11.2 Vag Amniotic Fld Detect POSITIVE H Blood Type A NEGATIVE Antibody Screen NEGATIVE Course Did the patient receive Yes care? Labs Blood Type: A RH: NEGATIVE RPR/VDRL/Syphilis Nonreactive Rubella status Immune HbSAg Negative Date Done: 02/16/17 Chlamydia Negative Gonorrhea Negative HIV/AIDS Non-Reactive Group B Strep: Negative Current Obstetrical History Gestational Diabetes No Incompetent Cervix No Infertility No IUGR No Macrosomia No Hypertension/Pre-eclampsia No: had some issues with headaches and BPs Placenta Previa/Abruption No: cleared up PTL/PROM No Uterine anomaly No Oligohydramnios No Polyhydramnios No Multiple gestation No Past Medical History Asthma No Diabetes No Hypertension No Heart disease No Mitral valve prolapse No Neurologic/Seizure disorder/ No Migraines Kidney disease No Liver disease No Varicosities No Clotting disorders/Hx of DVT No Thyroid Dysfunction No Other medical diseases No Psychiatric disorders No Major trauma No Abnormal PAP smear Yes Sleep apnea No Mammogram in the last 2 years No Social History Marital Status: Alleged father Loco Hx Smoking Yes Smoking Status Current some day smoker All Active Problems (Last Reviewed 08/28/17 @ 07:59 by Joi Gallo) Puncture wound of right thumb without foreign body without damage to nail (Acute ) LGSIL on Pap smear of cervix (Acute) Shortness of breath (Acute) Supervision of high risk in third trimester (Acute) Contraception management (Acute) Anxiety (Acute) History of oligohydramnios (Acute) History of pre-eclampsia in prior , currently in third trimester (Acute) Anemia during in third trimester (Acute) Gestational thrombocytopenia (Acute) Headache in (Acute) Rh negative status during in third trimester (Acute) Allergies No Known Allergies Allergy (Verified 08/31/17 10:59) Current Medications Acetaminophen (Tylenol) 325 - 650 mg PO Q4H PRN PRN PRN Reason: PAIN OR FEVER >100.4F Al Hydroxide/Mg Hydroxide (Mylanta Ii) 15 - 30 ml PO Q4H PRN PRN PRN Reason: INDIGESTION Citric Acid/Sodium Citrate (Bicitra) 30 ml PO UD PRN Oxytocin/Sodium Chloride () 30 units in 500 mls @ 1 mls/hr IV .Q500H [facility] Last Admin: 08/31/17 11:55 Dose: 1 mls/hr Lactated Ringer's () 1,000 mls @ 50 mls/hr IV .Q20H [facility] Last Admin: 08/31/17 16:35 Dose: 50 mls/hr Naloxone HCl 4 mg/ Dextrose 504 mls @ 0 mls/hr IV PRN PRN; Protocol PRN Reason: TO MAINTAIN RR>10 Nalbuphine HCl (Nubain) 5 - 10 mg IV Q3H PRN PRN PRN Reason: PAIN (4-10/10) Nalbuphine HCl (Nubain) 5 mg IV Q3H PRN PRN Reason: ITCHING Stop: 09/01/17 20:52 Naloxone HCl (Narcan) 0.2 mg IV Q1M PRN PRN Reason: RR<10 AND PT UNRESPONSIVE Stop: 09/01/17 20:52 Nicotine (Nicoderm Cq (Pbkc)) 21 mg TRANSDERM. DAILY FABIOLA Ondansetron HCl (Zofran) 4 mg IV Q8H PRN PRN PRN Reason: NAUSEA Promethazine HCl (Phenergan) 6.25 - 12.5 mg IV Q4H PRN PRN; Protocol PRN Reason: IF NAUSEA PERSISTS Sodium Chloride () 5 - 15 ml IV UD FABIOLA Last Admin: 08/31/17 15:40 Dose: Not Given Smoking Status: Current every day smoker Alcohol: None Drug Use: none Number of Fetus(es): 1 - fht 130s moderate variability Review of Systems Constitutional: Denies: Chills, Fever, Weight Change HEENT: Denies: Head Aches, Sinus Congestion, Sinus Drainage Cardiovascular: Denies: Chest Pain, Palpitations Respiratory: Denies: Cough, Shortness of breath at rest, Sputum production Gastrointestinal: Reports: Abdominal Pain, Nausea. Denies: Vomiting Genitourinary: Denies: Dysuria Gynecological: Reports: Vaginal bleeding, Vaginal discharge Musculoskeletal: Denies: Joint Pain, Joint Tenderness Skin: Denies: Rash, Wounds Neurological: Denies: Numbness, Tingling, Focal weakness Psychiatric: Denies: Anxiety, Depression, Homicidal Ideations, Suicidal Ideations Hematologic/ Lymphatic: Denies: Easy Bruising, Easy Bleeding Physical Exam General: Alert Cardiovascular: Regular rate Lungs: Normal air movement Abdomen: Soft, Non Tender, Gravid Estimated gestational size: Appropriate for gestational size Presentation: Cephalic Cervix Dilation (cm): 2.5 Assessment/Plan 22 yo @ 38w4d presents PROM plan pit IOL due to PROM epidural PRN
--- NOTE | 2017-08-31 22:18 | PCM.OB.VAG ---
- Problem List (1) Supervision of high risk in third trimester Status: Acute Comment: PRR MERRY 09/11/17 shay [place]rasqu[place] callum CHRISTIANSON Jb atwood (2) Contraception management Status: Acute Qualifiers: Comment: PPTL title 19 signed (3) History of oligohydramnios Status: Acute Comment: prior check growth and fluid at 36 weeks (4) History of pre-eclampsia in prior , currently in third trimester Status: Acute Comment: not on baby ASA, no baseline labs (5) Anemia during in third trimester Status: Acute Comment: iron (6) Gestational thrombocytopenia Status: Acute Qualifiers: Comment: 135 check monthly (7) Headache in Status: Acute Qualifiers: (8) Rh negative status during in third trimester Status: Acute Comment: rhogam at 28 weeks and PRN Vaginal Delivery Maternal Presentation: Active Labor, Medically Indicated Induction prom 38w4d Method of Induction: Pitocin Medical Reason for Induction: Premature Rupture of Membranes Amniotic Membrane Rupture Type: Spontaneous at home Amniotic Fluid Description: Clear Final MERRY: 09/11/17 Gestational age: 38 Weeks and 3 Days Date of Procedure: 08/31/17 Pre-Operative Diagnosis: prom Post-Operative Diagnosis: same Surgery/ Procedure Performed: Spontaneous Vaginal Delivery Type of Anesthesia: Epidural Description of Procedure: Patient began pushing and delivered the head in the OSMANI presentation. The head was delivered atraumatically . The anterior and posterior shoulders delivered without complication followed by the rest of the and the infant was placed on the maternal abdomen. Delayed cord clamping was employed for approximately 60 seconds. Cord was clamped and cut and gentle traction was applied to the cord and the placenta delivered spontaneously immediately following it was noted to be intact with three-vessel cord. The perineum and vagina were inspected and noted to have no laceration. EBL was 300 cc. Patient and infant tolerated delivery well. Presentation: OSMANI Placental Delivery Description: Spontaneous Placenta Disposition: [facility] Cord Vessel Description: 3 Vessels Cord Entanglement: None Estimated Blood Loss: 300 Infant A gender: Male Episiotomy Description: None Laceration: None Medications given after delivery: IV Pitocin Complications: None
[2017-08-31] MEDS: Lactated Ringers 1,000 ML 125 ML IV (23:58)
[2017-09-01] VITALS (9 sets, daily range): BP systolic 99–117; BP diastolic 53–78; PULSE 74–90; RESP 14–16; TEMP 36.4–37; O2SAT 95–100; BMI 29.5
[2017-09-01] MEDS: Lactated Ringers 1,000 ML 125 ML IV (08:44)
[2017-09-01] MEDS: Ondansetron 4 MG/2 ML Vial IV (09:38)
[2017-09-01] MEDS: HYDROmorphone 0.5 MG/0.5 ML SYRINGE IV ×2 (09:39→14:57)
--- NOTE | 2017-09-01 12:48 | PCM.OPRPT ---
Problem List (1) Supervision of high risk in third trimester Status: Acute Comment: PRR MERRY 09/11/17 shay Carrasquillo callum SAMMY Jb obchristy (2) Contraception management Status: Acute Qualifiers: Comment: PPTL title 19 signed (3) History of oligohydramnios Status: Acute Comment: prior check growth and fluid at 36 weeks (4) History of pre-eclampsia in prior , currently in third trimester Status: Acute Comment: not on baby ASA, no baseline labs (5) Anemia during in third trimester Status: Acute Comment: iron (6) Gestational thrombocytopenia Status: Acute Qualifiers: Comment: 135 check monthly (7) Headache in Status: Acute Qualifiers: (8) Rh negative status during in third trimester Status: Acute Comment: rhogam at 28 weeks and PRN Report of Operation Date of Procedure: 09/01/17 Pre-Operative Diagnosis: sterilization Post-Operative Diagnosis: same Surgery/Procedure Performed:: minilaparotomy tubal ligation Type of Anesthesia:: Epidural Drains: leon Estimated Blood Loss (mL): 300 Fluids Replaced: crystalloid Description of Procedure: Patient was taken to the operating room and epidural anesthesia was found to be adequate. Patient was placed in the dorsal supine position was prepped and draped in normal sterile fashion. Leon catheter was used to drain the bladder. Infra umbilical incision was made with a scalpel after injecting with marcaine and carried through the underlying layer of the fascia with a scalpel fascial incision was extended bilaterally with Du scissors and bowel packed away and the right fallopian tube identified confirmed to be fallopian tube by following it out to the fimbria and a Filshie clip was applied in the mid interstitial portion of the fallopian tube noting to completely transect the tube. This was repeated on the left side where the tube was identified and followed out to the fimbria and confirmed to be fallopian tube and then the mid interstitial portion of the tube was completely transected with the Filshie clip. Excellent hemostasis was noted. Fascia was closed with 0 Vicryl and skin closed with 3-0 Monocryl. No complications. Patient was taken recovery in stable condition. Grafts/Implants Used: filshie clips - Complications none
[2017-09-01] MEDS: Bupivacaine Mpf 0.5% 30 ML VIAL (13:07)
[2017-09-01] MEDS: 0.9% Saline Lock 10 ML Syringe IV (14:57)
--- NOTE | 2017-09-01 16:30 | CASEMGMT ---
Social Work Brief Assessment completed. Refer documentation below for further details. Date of Referral/Notification: 09/01/2017 Time of Referral: 08 Referred By: verbal referral from Dr. Moise Reason for Referral: Maternal history of Anxiety and ADD Date of Intervention: 09/01/2017 Time of Intervention: 1630 Informant: Medical record and patient/mother of baby (MOB) History: MOB is G4, P1 to 2 after delivering Sumit Prieto. MOB is to father of baby (FOB) Loco Prieto for 1 year now, but together for 3 years. MOB and FOB have one older child together, Foreign Prieto, born 12/11/2015. MOB with reported history of anxiety and ADD. MOB reports had some baby blues after Foreign was born, but this lasted only a short time. MOB denies any need for counseling at that time and no medication. Chart does indicate that MOB takes Adderall for ADD, which is consistent with toxicology screens done this , positive 10-15-17 and 3-6-18 for amphetamines. No other drugs of abuse reported or indicated verbally or in lab testing. MOB is primary caregiver to the children, and FOB works outside of the home at [employer]. MOB reports plan to be start nursing school in the fall, attending the [employer]. MOB reports to have Medicaid, but no other involvement with other agencies or supportive programs. Assessment: Met with MOB in room, also in room at [facility] permission was FOB, and MOBs parents. MOB and this signwriter talked quietly while the rest of the family had their own conversation. However, MOBs father was intrusive, at times interrupting this writers conversation, making jokes that wanted to eat an edible gift MOB had received as a congratulations on of Sumit. MOB reports to have needed baby supplies, to have adequate support and that mostly FOBs family will be helping out. FOB has a week off of work to help as well. MOB denies any concerns with mood at this time, no reports of any bonding issues, and listened to social work education on risk for mood and anxiety issues. MOB accepted resource information offered and thanked social sciences instructor. MOB held good eye contact, with appropriate and congruent mood and affect to content discussed. Provided MOB with resources list of [facility]. Provided packet on mood and anxiety disorders, tips to care for self, online resources for supports, as well as local mental health providers should MOB want to access additional support outside of family. Plan: MOB and baby to home with family support. Resources provided for home going. No further needs requested or indicated. -BEVERLY Arreola, CLAIMS ADMINISTRATOR
[2017-09-01] MEDS: oxyCODONE 5 MG Tablet PO (21:05)
[2017-09-02 01:40] VITALS: BP 121/74; PULSE 66; RESP 18; TEMP 36.8
[2017-09-02] MEDS: Naproxen 250 MG Tablet PO (06:48)
--- NOTE | 2017-09-02 07:26 | PCM.PN.OB ---
Subjective: doing well no complaints - Physical Exam General: Alert, Oriented x3 Vital Signs Temp Pulse Resp BP Pulse Ox 98.2 F 66 18 121/74 H 100 09/02/17 01:40 09/02/17 01:40 09/02/17 01:40 09/02/17 01:40 09/01/17 14:06 Oxygen Delivery Method Room Air Weight: 166 lb 12.8 oz Body Mass Index (BMI) 29.5 Intake and Output for Last 24 Hours 08/31/17 09/01/17 09/02/17 23:59 23:59 23:59 Intake Total 2538 / 2538 500 / 500 Output Total 1800 / 1800 800 / 800 Balance 738 / 738 -300 / -300 Medical Necessity - Tobacco Use Smoking Status: Current every day smoker Assessment/Plan s/p pptl doing well dc home
--- NOTE | 2017-09-02 07:33 | DCINST_ITS ---
Discharge Diet: No Restrictions Discharge Activity: Return to Normal Activity, May not drive while taking narcotic pain medications., May Shower May resume sexual activity in: 4-6 weeks Call your doctor if your incision/area has: Continuous Slow Oozing, Sudden Increased Bleeding, Increased Pain/ Swelling, Increased Redness, Foul Smelling Discharge Additional Instructions: If you experience any of the following, contact your healthcare provider. * Bleeding that soaks a pad every hour for 2 hours * Fever 100.4 or higher * Unrelieved incision or abdominal pain * Swelling, redness, discharge or bleeding from your incision or episiotomy site * Your incision begins to separate * Problems urinating (including inability to urinate or burning while urinating) . * Visual changes * Severe headache * Flu-like symptoms * Pain or redness in one of both of your breasts * Pain, warmth, tenderness or swelling in your legs, especially the calf area * Frequent nausea and vomiting * Symptoms of depression or anxiety If you experience any of the following, call 911 or go to the nearest Emergency Room. * Chest pain * Problems breathing * Seizure activity * Partial or complete paralysis of a body part, slurred speech, weakness or drooping of the face, or a sudden inability to walk or hold your balance Allergies/Adverse Reactions: Allergies No Known Allergies Allergy (Verified 08/31/17 10:59) Medications to take at Discharge vitamin,calcium,rgcnkxye-vszv-zechf acid tablet 1 tab PO QDAY 06/15/17 Ferrous Gluconate 1 tab PO DAILY 06/26/17 Dextroamphetamine/Amphetamine [Adderall Xr 25 mg Capsule] 25 mg PO DAILY Acetaminophen [Tylenol Extra Strength] 500 mg PO PRN PRN 08/18/17 Acetaminophen/Butalbital/Caffe [Fioricet] 1 tablet PO PRN PRN 08/28/17 Naproxen [Naprosyn] 250 - 500 mg PO Q8H PRN PRN #30 tab 09/02/17 Oxycodone HCl/Acetaminophen [Percocet 5-325] 1 - 2 tablet PO Q4H PRN PRN 7 Days #15 tablet 09/02/17 The following prescriptions were given: Oxycodone HCl/Acetaminophen [Percocet 5-325] 1 - 2 tablet PO Q4H PRN PRN 7 Days #15 tablet PRN Reason: Pain Naproxen [Naprosyn] 250 - 500 mg PO Q8H PRN PRN #30 tab PRN Reason: MILD PAIN Orders to be completed after discharge: Electric breast pump Location: None Selected Please Follow Up With: Mariia Vasquez MD - [phone] When: Call to make an appointment with your doctor in 6 weeks. If you had elevated Blood pressure or 4th degree laceration you will need to be seen in 2 weeks. Primary Care Physician: Care Physician,No Primary [Primary Care Provider] -
[2017-09-02 09:00] VITALS: BP 116/68; PULSE 85; RESP 16; TEMP 36.6; O2SAT 100
[2017-09-02] MEDS: Acetaminophen 500 MG Tablet 1000 MG PO (11:17)
--- NOTE | 2017-09-02 13:43 | NURSING ---
0016 While rounding, Mom states that nursing has been going pretty well and has been borrowing a breast pump from a friend to use while here at the hospital. Mom states that insurance covers a breast pump so a pump was given and instructed on it's use. Mom encouraged to call if she would be interested in a follow up consult or a telehealth meeting. Kinsey GAMBOA
== END 2017-09-02 13:45 | disposition home or self-care (01) | DRG 374 ==
LOC: WPOUT 11:21
PROVIDERS: Admitting Provider Obstetrics & Gynecology; Visit Provider Obstetrics & Gynecology
PROC: 0UL70ZZ Occlusion of Bilateral Fallopian Tubes, Open Approach (ICD-10-PCS; principal; 2017-09-01 08:40)
DX: O42.92 Full-term premature rupture of membranes, unspecified as to length of time between rupture and onset of labor (principal); O99.113 Other diseases of the blood and blood-forming organs and certain disorders involving the immune mechanism complicating pregnancy, third trimester; D69.6 Thrombocytopenia, unspecified; O99.013 Anemia complicating pregnancy, third trimester; D64.9 Anemia, unspecified; O99.334 Smoking (tobacco) complicating childbirth; Z30.2 Encounter for sterilization; Z3A.38 38 weeks gestation of pregnancy; Z37.0 Single live birth
CPT/HCPCS: 59025; 59050; 82565; 82570; 84112; 84156; 84450; 84460; 84550; 85027; 85461; 85610; 85730; 86850; 86900; 90384; 99218; J7120; A4216; G0378; J2405; J2790

== ENCOUNTER 2018-03-13 13:45 | Observation (INO) | payer MEDICAID, SELFPAY ==
[2018-03-13 13:46] VITALS: BP 114/69; PULSE 55; RESP 18; TEMP 36.6; O2SAT 100; BMI 22.8
[2018-03-13 14:14] LABS: Absolute Lymphocyte Count 1.05 X10^3/ul (0.83-4.51); Absolute Neutrophil Count 10.6 X10^3/uL (2.0-7.7); Basophil# 0.02 X10^3/uL; Basophil% 0.2 % (0-1); Hematocrit 40.5 % (37-47); Hemoglobin 13.8 g/dl (12.0-15.0); Lymphocyte # 1.05 X10^3/ul (4.0); Lymphocyte % 8.7 % (19-41); Mean Corp Hgb Conc 34.1 g/gl (32-36); Mean Corpuscular Hgb 29.9 pg (27.0-32.0); Mean Corpuscular Volume 87.9 fL (81-99); Mean Platelet Vol. 10.9 fl (6.2-12.0); Monocyte# 0.41 X10^3/uL; Monocyte% 3.4 % (0-10); Neutrophil % 87.6 % (47-70); POSITIVE COUNT NO; POSITIVE DIFFERENTIAL NO; POSITIVE MORPHOLOGY NO; Platelet Count 179 K/mm3 (150-450); RBC Distribution Width CV 12.5 % (11.6-14.6); RBC Distribution Width SD 39.7 fl (35.1-43.9); Red Blood Count 4.61 M/mm3 (4.2-5.4); White Blood Count 12.1 K/mm3 (4.4-11.0)
[2018-03-13 14:26] LABS: Anion Gap 5 (5-15); BUN 7 mg/dL (7-18); BUN/Creat Ratio 9.8 RATIO (10-20); Chloride 106 mmol/L (98-107); Creatinine, Serum 0.71 mg/dL (0.55-1.02); EST Glomerular Filtration Rate 107 mL/min (>60); Est Glom Filt Rate - Afr Amer 130 mL/min (>60); Estimated Creatinine Clearance 101.94 ml/min; Glucose 105 mg/dL (74-106); Sodium Level 138 mmol/L (136-145)
[2018-03-13 14:33] LABS: Pregnancy, Serum, hCG Quali. NEGATIVE Negative (0-9 Nonpreg)
--- NOTE | 2018-03-13 14:55 | CT_ITS ---
STUDY: CT ABDOMEN AND PELVIS WITH CONTRAST REASON FOR EXAM: Female, 22 years old. Right lower quadrant pain RADIATION DOSAGE (If Supplied By Facility): CTDIvol = ( 9.95 ) mGy, DLP = ( 381.44 ) mGycm TECHNIQUE: Transaxial images were obtained from the dome of the diaphragm to the symphysis pubis without oral contrast. 100ML ml of Isovue 300 contrast was administered. Sagittal and coronal images were reconstructed. Individualized dose optimization techniques were used for this CT. COMPARISON: 06/29/2017 FINDINGS: The visualized lung bases are clear. The visualized portions of the heart and pericardium are within normal limits. There are no calcified gallstones present. The liver is within normal limits. There are no suspicious hepatic lesions. The spleen is normal in size. The pancreas is within normal limits. The adrenal glands are within normal limits. There are no renal or ureteral stones. There is no hydronephrosis. There are no focal renal lesions. Normal visualized stomach. There is no bowel obstruction or inflammation. The appendix is hyperemic and fluid filled. However, it measures at the upper limits of normal in size (6 mm; best seen on image 59 series 601). There is minimal adjacent stranding. This is suspicious for early/mild acute appendicitis and clinical correlation is recommended. If indicated, a repeat study with oral contrast can be performed. The aorta is normal in caliber. There are bilateral adnexal clips, consistent with tubal ligation. There are bilateral adnexal cysts. There is a small amount of free fluid. There is no free air, fluid collection or lymphadenopathy. There are no destructive osseous lesions. CT/Abdomen/Pelvis W IV Cont ONLY IMPRESSION: Hyperemic, fluid-filled appendix with minimal adjacent stranding. However, the appendix is not dilated as it measures at the upper limits of normal in size (6 mm). This is suspicious for early/mild acute appendicitis and clinical correlation is recommended. If indicated, a repeat study with oral contrast can be performed. Bilateral adnexal cysts with a small amount of pelvic free fluid. N.B. : The above information has been verbally conveyed by Kevin Badillo to Gregory Blair MD, MD, on 03/13/2018 16:29:27 (ET). Electronically Signed: Kevin Badillo, at 16:22 EDT Tel , Service support ,
--- NOTE | 2018-03-13 14:56 | ED.VISSUMM ---
- ER Visit Summary Date of Service: 03/13/18 Chief Complaint: Right lower quadrant abdominal pain History of Present Illness: The patient is a 22 F of ADHD. No prior abdominal surgeries except a tubal ligation. Patient states yesterday morning around 5:30 AM started having mild right-sided abdominal pain more so in the right lower quadrant. Today increasing pain with associated nausea vomiting. No diarrhea. No constipation. No dysuria. Subjectively she felt like she may have had a fever but no documented temperature. She denies any history of kidney stones. No vaginal bleeding or discharge. Last menstrual period approximately 3 weeks ago. Physical Examination: Young female no acute distress. Vital signs stable. Afebrile. She does not look septic or toxic. H EENT exam unremarkable. Neck nontender. Lungs clear to auscultation bilaterally. Heart regular rhythm no murmur. Abdomen is soft. Nondistended. She is tender in the right upper quadrant but only mildly. No Galarza sign. She is much more tender in the right lower quadrant. Normal bowel sounds. Left side of the abdomen is nontender. Moving all 4 extremities. They are neurovascularly intact. Back is nontender. No CVA tenderness. Neurologically she is awake and alert with no focal motor deficits. Test Results: CBC shows a white count 12.1. Hemoglobin 13. No bands. Chemistries normal. Gap of 5. Normal creatinine. Serum test is negative. Urinalysis is normal. Hepatic panel is negative. CT abdomen pelvis with IV contrast only shows an early appendicitis also some small ovarian cyst with pelvic fluid. Radiologist did call me and I discussed the CAT scan and he does believe this is an early appendicitis Emergency Department Course and Treatment: Treated with IV Zofran and IV morphine. Also IV fluids. Reevaluation of patient she remains tender in the right lower quadrant. Some mild guarding and rebound. She will be started on IV Zosyn. She will also be given the another dose of IV morphine. Treatment Plan: I spoke with Dr. Gerry Escalona excavation laborer for general surgery and he will be down to evaluate the patient. I gave the patient options of surgical consultation and she is comfortable Dr. Escalona. Disposition: To the OR for acute appendectomy Impression: Right lower quadrant abdominal pain secondary to acute appendicitis This note was generated with [employer] software. It may contain incorrect words, spelling, and punctuation that were not noted in review of the chart prior to signing ED Disposition - Plan for ED Patient: Chief Complaint: Abd Pain Referrals: Jhon Perez MD [Primary Care Provider] -
--- NOTE | 2018-03-13 15:00 | ED.DCSUM_ITS ---
- ER Visit Summary Date of Service: 03/13/18 Chief Complaint: Right lower quadrant abdominal pain History of Present Illness: The patient is a 22 F of ADHD. No prior abdominal surgeries except a tubal ligation. Patient states yesterday morning around 5:30 AM started having mild right-sided abdominal pain more so in the right lower quadrant. Today increasing pain with associated nausea vomiting. No diarrhea. No constipation. No dysuria. Subjectively she felt like she may have had a fever but no documented temperature. She denies any history of kidney stones. No vaginal bleeding or discharge. Last menstrual period approximately 3 weeks ago. Physical Examination: Young female no acute distress. Vital signs stable. Afebrile. She does not look septic or toxic. H EENT exam unremarkable. Neck nontender. Lungs clear to auscultation bilaterally. Heart regular rhythm no murmur. Abdomen is soft. Nondistended. She is tender in the right upper quadrant but only mildly. No Galarza sign. She is much more tender in the right lower quadrant. Normal bowel sounds. Left side of the abdomen is nontender. Moving all 4 extremities. They are neurovascularly intact. Back is nontender. No CVA tenderness. Neurologically she is awake and alert with no focal motor d eficits. Test Results: CBC shows a white count 12.1. Hemoglobin 13. No bands. Chemistries normal. Gap of 5. Normal creatinine. Serum test is negative. Urinalysis is normal. Hepatic panel is negative. CT abdomen pelvis with IV contrast only shows an early appendicitis also some small ovarian cyst with pelvic fluid. Radiologist did call me and I discussed the CAT scan and he does believe this is an early appendicitis Emergency Department Course and Treatment: Treated with IV Zofran and IV morphine. Also IV fluids. Reevaluation of patient she remains tender in the right lower quadrant. Some mild guarding and rebound. She will be started on IV Zosyn. She will also be given the another dose of IV morphine. Treatment Plan: I spoke with Dr. Gerry Escalona front end driver for general surgery and he will be down to evaluate the patient. I gave the patient options of surgical consultation and she is comfortable Dr. Escalona. Disposition: To the OR for acute appendectomy Impression: Right lower quadrant abdominal pain secondary to acute appendicitis This note was generated with [employer] software. It may contain incorrect words, spelling, and punctuation that were not noted in review of the chart prior to signing ED Disposition - Plan for ED Patient: Chief Complaint: Abd Pain Referrals: Jhon Perez MD [Primary Care Provider] -
[2018-03-13 15:02] LABS: Red Blood Cells-Urine 0 SEEN /hpf (0-5)
[2018-03-13 15:09] LABS: Color, Urine Yellow (Yellow); Glucose, Dipstick Normal (Normal); Ketone-Dipstick 15 mg/dl (Negative); Leukocyte Esterase-Dipstick 25 /ul (Negative); Nitrite-Dipstick Negative (Negative); Occult Blood-Urine Negative /ul (Negative); Protein-Dipstick 15 mg/dl (Negative); Specific Gravity, Urine 1.025 (1.002-1.030); Urine Bilirubin Dipstick Negative (Negative); Urine Clarity Sl. Cloudy (Clear); Urine Urobilinogen 1 mg/dl (Normal)
[2018-03-13] MEDS: Ketorolac 30 MG/ML Syringe IV (15:13)
[2018-03-13] MEDS: Ondansetron 4 MG/2 ML Vial IV (15:13)
[2018-03-13] MEDS: morphine 8 MG/ML Syringe 6 MG IV (15:13)
[2018-03-13 15:15] LABS: Bacteria 1+ /hpf (None Seen); Mucous, Urine 1+ /hpf (<or=2+); Squamous Epithelial Cells - UA 0-5 SEEN /hpf (5-10); White Blood Cells 0-5 SEEN /hpf (0-5)
[2018-03-13 15:20] LABS: AST(SGOT) 10 U/L (15-37); Alanine Aminotransfer ALT/SGPT 18 U/L (13-56); Albumin, Serum 3.9 g/dL (3.2-5.0); Alkaline Phosphatase 47 U/L (45-117); Bilirubin, Direct 0.17 mg/dL (0.00-0.30); Globulin 3.3 g/dL (2.2-4.2); Protein, Total 7.2 g/dL (6.4-8.2)
--- NOTE | 2018-03-13 16:38 | NURSING ---
DR LOOMIS PAGED
--- NOTE | 2018-03-13 17:12 | NURSING ---
DR LOOMIS IN ROOM
--- NOTE | 2018-03-13 17:21 | PCM.CONS.GEN ---
Problem List (1) Appendicitis Status: Acute Qualifiers: Appendicitis type: acute appendicitis Acute appendicitis type: with localized peritonitis Appendicitis gangrene presence: unspecified whether gangrene present Appendicitis perforation presence: unspecified whether perforation present Appendicitis abscess presence: unspecified whether abscess present Qualified Code(s): K35.30 - Acute appendicitis with localized peritonitis, without perforation or gangrene Reason for Consult Date of Consultation: 03/13/18 History of Present Illness: The patient is a 22 F of ADHD. No prior abdominal surgeries except a tubal ligation. Patient states yesterday morning around 5:30 AM started having mild right-sided abdominal pain more so in the right lower quadrant. Today increasing pain with associated nausea vomiting. No diarrhea. No constipation. No dysuria. Subjectively she felt like she may have had a fever but no documented temperature. She denies any history of kidney stones. No vaginal bleeding or discharge. Last menstrual period approximately [address] scan impression: IMPRESSION: Hyperemic, fluid-filled appendix with minimal adjacent stranding. However, the appendix is not dilated as it measures at the upper limits of normal in size (6 mm). This is suspicious for early/mild acute appendicitis and clinical correlation is recommended. If indicated, a repeat study with oral contrast can be performed. Bilateral adnexal cysts with a small amount of pelvic free fluid. I plan is to perform a laparoscopic appendectomy on the patient. Past Medical History Medical History: Medical History (Last Reviewed 08/28/17 @ 07:59 by Joi Gallo) ADD (attention deficit disorder) F98.8 Anemia affecting O99.019 History of pre-eclampsia in prior , currently O09.299 Migraine G43.909 Sleep apnea G47.30 Allergies No Known Allergies Allergy (Verified 03/13/18 13:48) Home Medications: Ambulatory Orders Medication Instructions Recorded Dextroamphetamine/Amphetamine 25 mg PO DAILY 07/18/17 [Adderall Xr 25 mg Capsule] Surgical History: Surgical History (Last Reviewed 08/28/17 @ 07:59 by Joi Gallo) Tonsil, abscess J36 removed at age 11 Smoking Status: Current every day smoker Review of Systems Constitutional: Reports: Fever Cardiovascular: Denies: Chest Pain, Chest Pressure, Chest Tightness, Palpitations Respiratory: Denies: Cough, Hemoptysis, Shortness of breath at rest, Shortness of breath upon exertion, Wheezing Gastrointestinal: Reports: Abdominal Pain, Nausea, Vomiting Genitourinary: Denies: Dysuria, Frequency, Hematuria, Urgency Musculoskeletal: Denies: Joint Pain Patient Problems: Active and Suspected Problems (Last Reviewed 08/28/17 @ 07:59 by Joi Gallo) Appendicitis (Acute) - Physical Exam General: Alert, Oriented x3 Lungs: Clear to auscultation Cardiovascular: Regular rate, Regular Rhythm, No murmurs Abdomen: Bowel Sounds Present, Soft, Tender - Patient has tenderness in the right lower quadrant. There is voluntary guarding. There is no Rovsing sign. Musculoskeletal: No Tenderness to Palpation of Joints or Extremities Neurological: Cranial nerves II-XII grossly intact Vital Signs Temp Pulse Resp BP Pulse Ox 97.8 F 55 L 18 114/69 100 03/13/18 13:46 03/13/18 13:46 03/13/18 13:46 03/13/18 13:46 03/13/18 13:46 Oxygen Delivery Method Room Air Weight: 129 lb 3.054 oz Body Mass Index (BMI) 22.8 Laboratory Tests Past 24 Hrs 03/13/18 03/13/18 03/13/18 14:05 14:05 14:05 WBC 12.1 H RBC 4.61 Hgb 13.8 Hct 40.5 MCV 87.9 MCH 29.9 MCHC 34.1 RDW 12.5 RDW Differential 39.7 Plt Count 179 MPV 10.9 Immature Gran % (Auto) 0.100 Neut % (Auto) 87.6 H Lymph % (Auto) 8.7 L [place] % (Auto) 3.4 Eos % (Auto) 0.0 Baso % (Auto) 0.2 Absolute Neuts (auto) 10.6 H Absolute Lymphs (auto) 1.05 Total Counted Not Reportable Sodium 138 Potassium 4.0 Chloride 106 Carbon Dioxide 27.0 Anion Gap 5 BUN 7 Creatinine 0.71 Estim Creat Clear Calc 101.94 Est GFR (MDRD) Af Amer 130 Est GFR (MDRD) Non-Af 107 BUN/Creatinine Ratio 9.8 L Glucose 105 Calcium 9.0 Total Bilirubin Direct Bilirubin AST ALT Alkaline Phosphatase Total Protein Albumin Globulin Serum , Qual NEGATIVE Urine Color Urine Clarity Urine pH Ur Specific [place] Urine Protein Urine Glucose (UA) Urine Ketones Urine Occult Blood Urine Nitrite Urine Bilirubin Urine Urobilinogen Ur Leukocyte Esterase Urine RBC Urine WBC Ur Squamous Epith Cells Urine Bacteria Urine Mucus 03/13/18 03/13/18 14:50 14:54 WBC RBC Hgb Hct MCV MCH MCHC RDW RDW Differential Plt Count MPV Immature Gran % (Auto) Neut % (Auto) Lymph % (Auto) [place] % (Auto) Eos % (Auto) Baso % (Auto) Absolute Neuts (auto) Absolute Lymphs (auto) Total Counted Sodium Potassium Chloride Carbon Dioxide Anion Gap BUN Creatinine Estim Creat Clear Calc Est GFR (MDRD) Af Amer Est GFR (MDRD) Non-Af BUN/Creatinine Ratio Glucose Calcium Total Bilirubin 0.60 Direct Bilirubin 0.17 AST 10 L ALT 18 Alkaline Phosphatase 47 Total Protein 7.2 Albumin 3.9 Globulin 3.3 Serum , Qual Urine Color Yellow Urine Clarity Sl. Cloudy Urine pH 6.0 Ur Specific [place] 1.025 Urine Protein 15 H Urine Glucose (UA) Normal Urine Ketones 15 H Urine Occult Blood Negative Urine Nitrite Negative Urine Bilirubin Negative Urine Urobilinogen 1 H Ur Leukocyte Esterase 25 H Urine RBC 0 SEEN Urine WBC 0-5 SEEN Ur Squamous Epith Cells 0-5 SEEN Urine Bacteria 1+ Urine Mucus 1+ Assessment/Plan All Active Problems (Last Reviewed 08/28/17 @ 07:59 by Joi Gallo) Appendicitis (Acute) Puncture wound of right thumb without foreign body without damage to nail (Acute) LGSIL on Pap smear of cervix (Acute) Shortness of breath (Acute) Supervision of high risk in third trimester (Acute) Anxiety (Acute) Gestational thrombocytopenia (Acute) Plan is to perform a laparoscopic appendectomy on the patient. Risk benefits have been reviewed in great detail with her and her mother. They include bleeding infection possible delayed abscess possible injury to underlying structures. They had the opportunity ask questions all the questions have been answered and they are willing to proceed.
[2018-03-13] MEDS: Morphine 4 MG/ML Syringe IV (17:45)
[2018-03-13 17:50] VITALS: BP 107/73; PULSE 61; RESP 16; O2SAT 99; BMI 22.8
--- NOTE | 2018-03-13 18:30 | APP_PTH ---
PATIENT: CHEYENNE MILNER LOC: [facility] U#:[id number] AGE/SX: 22/F ROOM: [facility]316 RE03/13/[address]: Dr. Kenneth Escalona MD : 1995 BED: 1 DIS: 03/14/2018 SPEC #: [id number] RECD: 03/14/18 09:03 STATUS: JUAN MIGUEL RELo #: [id number] JOHNSON: 03/13/18 18:[address]: Kenneth Escalona DEPT: SURGICAL PATHOLOGY RECD BY: Octavio Denny ENTERED: 03/14/18 09:51 SP TYPE: APPENDIX OTHR DR: Dr. Jhon Perez MD Tissues: Appendix, NOS Procedures: Surgery Specimen Level III HEADER OPERATION: Laparoscopic, appendectomy PRE-OP DIAGNOSIS: Acute appendicitis TISSUE SUBMITTED: Appendix MICROSCOPIC DIAGNOSIS Appendix, appendectomy: Acute necrotizing appendicitis. Acute serositis. AM:lit 03/15/18 MICROSCOPIC DESCRIPTION Slides are reviewed. GROSS DESCRIPTION Received is one container labeled with the patient's name and designated appendix. The specimen consists of an appendix measuring 7 cm in length and up to 0.5 cm in diameter. The attached periappendiceal adipose tissue measures up to 1.5 cm in width. The serosa is congested. No obvious perforation is identified. The lumen contains fecal material. No fecalith is identified. Laborer General sections are submitted in one cassette. / SJ:lit 03/14/18 TC:2 [facility]: [id number]
[2018-03-13] MEDS: Bupivacaine Mpf 0.5% 30 ML VIAL (19:02)
--- NOTE | 2018-03-13 19:05 | PCM.OPRPT ---
Problem List (1) Appendicitis Status: Acute Qualifiers: Appendicitis type: acute appendicitis Acute appendicitis type: with localized peritonitis Appendicitis gangrene presence: without gangrene Appendicitis perforation presence: without perforation Appendicitis abscess presence: without abscess Qualified Code(s): K35.30 - Acute appendicitis with localized peritonitis, without perforation or gangrene Report of Operation Date of Procedure: 03/13/18 Pre-Operative Diagnosis: acute appendicitis Post-Operative Diagnosis: Same Surgery/Procedure Performed:: Laparoscopic appendectomy Type of Anesthesia:: General Anesthesiologist: Jessica Gaspar Estimated Blood Loss (mL): < 25 cc Fluids Replaced: 500 cc lr Description of Procedure: Patient was brought into the operating room. Placed in the supine position. Under excellent general anesthetic a Vitale catheter was placed. The abdomen was sterilely prepped and draped in the usual fashion. Local was injected infraumbilically. Dissection was carried down to the fascia. The fascia was grasped with a Toni. Varies needle was placed inside the abdomen and the abdomen was insufflated to 15 torr. A 10/12 trocar was placed. Under direct visualization or suprapubic #5 trocar was placed in the left lower quadrant trocar was placed no injury to underlying structures was noted. Patient was placed in the headdown and rotated to the left position. The appendix was slightly dilated I took the mesoappendix down with the Enseal and I transected the base of the appendix with a 45 linear cutter. I placed in a specimen bag and delivered through the umbilical port without difficulty. Pelvis was irrigated. Small adhesion was noted to be on the Filshie clip I took this down with the Enseal. I ran the small bowel. No Meckel's diverticulum was identified. I removed the trochars under direct visualization. Good hemostasis was noted. I closed the fascia the umbilical port with a [id number] stitch of 0 Vicryl. Skin incisions were closed with septicum stitches of 4-0 Monocryl. Steri-Strips are applied sterile dressings were applied patient tolerated the procedure well. - Admit VTE Documentation VTE Present on Admission: No VTE Mechan Device Prophylaxis: SCD's VTE Pharm Prophylaxis ordered?: No Reason prophylaxis not ordered:: Treatment Not Indicated
[2018-03-13 19:29] VITALS: BP 107/73; BP 112/60; PULSE 77; RESP 18; TEMP 36.6; O2SAT 100
[2018-03-13 19:46] VITALS: BP 107/73; BP 114/79; PULSE 63; RESP 18; TEMP 36.6; O2SAT 100
[2018-03-13 20:02] VITALS: BMI 22.8; BMI 22.9
[2018-03-13] MEDS: Lactated Ringers 1,000 ML 60 ML IV (20:15)
[2018-03-13 20:17] VITALS: BP 117/78; PULSE 65; RESP 16; TEMP 36.6; O2SAT 100
[2018-03-13] MEDS: Piperacil/Tazobactam 3.375 GM/50 ML ML IV (22:13)
[2018-03-13 22:15] VITALS: BP 108/67; PULSE 71; RESP 16; TEMP 36.8; O2SAT 100
[2018-03-14] MEDS: HYDROcodone Bitartrate/Apap 5/325 Tablet PO (00:02)
[2018-03-14 00:20] VITALS: BP 105/68; PULSE 66; RESP 16; TEMP 36.3; O2SAT 100
[2018-03-14] MEDS: Piperacil/Tazobactam 3.375 GM/50 ML ML IV (06:05)
[2018-03-14 06:08] VITALS: BP 105/68; PULSE 63; RESP 16; TEMP 36.5; O2SAT 100
--- NOTE | 2018-03-14 07:18 | DCINST_ITS ---
Discharge Diet: Light diet - advance as tolerated Discharge Activity: May Not Drive - for 3-5 days or while taking narcotic pain meds. May shower in (days): 1 Call your doctor if your incision/area has: Continuous Slow Oozing, Sudden Increased Bleeding, Increased Pain/ Swelling, Increased Redness, Foul Smelling Discharge Call your doctor if you observe: Fever of 101 or Higher Suture Line Care: Avoid Pulling/Pushing, Avoid Pinching/Bending Additional Dressing/Incision Instructions:: Keep dressing clean and dry. Change or remove dressing in 2 days. Leave steri strips for 1 week. May protect with a gauze bandaid. Medications to take at Discharge Dextroamphetamine/Amphetamine [Adderall Xr 25 mg Capsule] 25 mg PO DAILY 07/18/17 Hydrocodone Bitart/Apap 5-325 [[place] 5/325] 1 tablet PO Q6H PRN PRN 2 Days #5 tablet 03/14/18 Allergies/Adverse Reactions: Allergies No Known Allergies Allergy (Verified 03/13/18 13:48) The following prescriptions were given: Hydrocodone Bitart/Apap 5-325 [[place] 5/325] 1 tablet PO Q6H PRN PRN 2 Days #5 tablet PRN Reason: Mild-Moderate (pain scale 1-5) Primary Care Physician: Jhon Perez MD [Primary Care Provider] - Test Results: Test results from this visit will be discussed in further detail at your follow- up appointment, if applicable. Please Follow Up With: Leela Simms PA-C - [phone] When: 10 days Proposed Discharge Date: 03/14/18
--- NOTE | 2018-03-14 07:18 | PCM.DC.SUM ---
Discharge Date and Diagnosis - Problem List Patient Problems: Active and Suspected Problems (Last Reviewed 08/28/17 @ 07:59 by Joi Gallo) Appendicitis (Acute) Date of Admission: 03/13/18 Date of Discharge: 03/14/18 - Primary Discharge Diagnosis Active and Suspected Problems (Last Reviewed 08/28/17 @ 07:59 by Joi Gallo) Appendicitis (Acute) Hospital Course and Treatment Operations: appendectomy Summary of Care Provided: The patient is a 22 year old F who presented with RLQ abdominal pain. Dr. Escalona performed a laparoscopic appendectomy on 03/13/2018. Patient tolerated the procedure well. Patient notes minimal incisional discomfort with movement. She denies nausea, vomiting, fever. She is tolerating a diet well. She notes positive flatus and BM. She is urinating well. Discharge instructions were reviewed. Prescriptions were given. Patient Problems: Active and Suspected Problems (Last Reviewed 08/28/17 @ 07:59 by Joi Gallo) Appendicitis (Acute) - Physical Exam General: Alert, Oriented x3, Cooperative Lungs: Clear to auscultation, Normal air movement Cardiovascular: Regular rate, No murmurs Abdomen: Bowel Sounds Present, Soft, Distended - slightly, Tender - generalized, - - Incisions c/d/i. No erythema or infection noted Vital Signs Temp Pulse Resp BP Pulse Ox 97.7 F L 63 16 105/68 100 03/14/18 06:08 03/14/18 06:08 03/14/18 06:08 03/14/18 06:08 03/14/18 06:08 Oxygen Delivery Method Room Air Weight: 129 lb 3.054 oz Body Mass Index (BMI) 22.8 Intake and Output for Last 24 Hours 03/12/18 03/13/18 03/14/18 23:59 23:59 23:59 Intake Total 1923 601 / 601 Balance 1923 601 / 601 Laboratory Tests Past 24 Hrs 03/13/18 03/13/18 03/13/18 14:05 14:05 14:05 WBC 12.1 H RBC 4.61 Hgb 13.8 Hct 40.5 MCV 87.9 MCH 29.9 MCHC 34.1 RDW 12.5 RDW Differential 39.7 Plt Count 179 MPV 10.9 Immature Gran % (Auto) 0.100 Neut % (Auto) 87.6 H Lymph % (Auto) 8.7 L [place] % (Auto) 3.4 Eos % (Auto) 0.0 Baso % (Auto) 0.2 Absolute Neuts (auto) 10.6 H Absolute Lymphs (auto) 1.05 Total Counted Not Reportable Sodium 138 Potassium 4.0 Chloride 106 Carbon Dioxide 27.0 Anion Gap 5 BUN 7 Creatinine 0.71 Estim Creat Clear Calc 101.94 Est GFR (MDRD) Af Amer 130 Est GFR (MDRD) Non-Af 107 BUN/Creatinine Ratio 9.8 L Glucose 105 Calcium 9.0 Total Bilirubin Direct Bilirubin AST ALT Alkaline Phosphatase Total Protein Albumin Globulin Serum , Qual NEGATIVE Urine Color Urine Clarity Urine pH Ur Specific [place] Urine Protein Urine Glucose (UA) Urine Ketones Urine Occult Blood Urine Nitrite Urine Bilirubin Urine Urobilinogen Ur Leukocyte Esterase Urine RBC Urine WBC Ur Squamous Epith Cells Urine Bacteria Urine Mucus 03/13/18 03/13/18 14:50 14:54 WBC RBC Hgb Hct MCV MCH MCHC RDW RDW Differential Plt Count MPV Immature Gran % (Auto) Neut % (Auto) Lymph % (Auto) [place] % (Auto) Eos % (Auto) Baso % (Auto) Absolute Neuts (auto) Absolute Lymphs (auto) Total Counted Sodium Potassium Chloride Carbon Dioxide Anion Gap BUN Creatinine Estim Creat Clear Calc Est GFR (MDRD) Af Amer Est GFR (MDRD) Non-Af BUN/Creatinine Ratio Glucose Calcium Total Bilirubin 0.60 Direct Bilirubin 0.17 AST 10 L ALT 18 Alkaline Phosphatase 47 Total Protein 7.2 Albumin 3.9 Globulin 3.3 Serum , Qual Urine Color Yellow Urine Clarity Sl. Cloudy Urine pH 6.0 Ur Specific [place] 1.025 Urine Protein 15 H Urine Glucose (UA) Normal Urine Ketones 15 H Urine Occult Blood Negative Urine Nitrite Negative Urine Bilirubin Negative Urine Urobilinogen 1 H Ur Leukocyte Esterase 25 H Urine RBC 0 SEEN Urine WBC 0-5 SEEN Ur Squamous Epith Cells 0-5 SEEN Urine Bacteria 1+ Urine Mucus 1+ Discharge Diet: Light diet - advance as tolerated Discharge Activity: May Not Drive - for 3-5 days or while taking narcotic pain meds. May shower in (days): 1 Call your doctor if your incision/area has: Continuous Slow Oozing, Sudden Increased Bleeding, Increased Pain/ Swelling, Increased Redness, Foul Smelling Discharge Call your doctor if you observe: Fever of 101 or Higher Suture Line Care: Avoid Pulling/Pushing, Avoid Pinching/Bending Additional Dressing/Incision Instructions:: Keep dressing clean and dry. Change or remove dressing in 2 days. Leave steri strips for 1 week. May protect with a gauze bandaid. Home Medications: Medications to take at Discharge Dextroamphetamine/Amphetamine [Adderall Xr 25 mg Capsule] 25 mg PO DAILY 07/18/17 Hydrocodone Bitart/Apap 5-325 [[place] 5/325] 1 tablet PO Q6H PRN PRN 2 Days #5 tablet 03/14/18 Following Prescrptions Were Given to Patient: Hydrocodone Bitart/Apap 5-325 [[place] 5/325] 1 tablet PO Q6H PRN PRN 2 Days #5 tablet PRN Reason: Mild-Moderate (pain scale 1-5) Primary Care Physician: Jhon Perez MD [Primary Care Provider] - Please Follow Up With: Leela Simms PA-C - [phone] When: 10 days Disposition: Home Minutes spent on discharge:: 20 Patient Condition:: Good Medical Necessity - Tobacco Use Smoking Status: Current every day smoker Meaningful Use Info Meaningful Use Diagnoses (Choose all that apply): None applicable Code Visit Inpatient E&M: 17070 Disch Hosp
[2018-03-14 08:20] VITALS: BP 122/73; PULSE 84; RESP 16; TEMP 37.1; O2SAT 100
== END 2018-03-14 08:53 | disposition home or self-care (01) ==
LOC: ED 15:08 → SDC 17:37 → MS3 20:00
PROVIDERS: Admitting Provider Surgery; Emergency Provider Emergency Medicine; Family Provider Family Medicine; PCP Family Medicine; Visit Provider Surgery
PROC: 0DTJ4ZZ Resection of Appendix, Percutaneous Endoscopic Approach (ICD-10-PCS; CPT 44970; principal; 2018-03-13 18:30)
DX: K35.30 Acute appendicitis with localized peritonitis, without perforation or gangrene (principal); F90.9 Attention-deficit hyperactivity disorder, unspecified type; G47.30 Sleep apnea, unspecified; F17.200 Nicotine dependence, unspecified, uncomplicated; Z79.899 Other long term (current) drug therapy; K21.9 Gastro-esophageal reflux disease without esophagitis
CPT/HCPCS: 00840; 44970; 74177; 80048; 80076; 81001; 84703; 85025; 88304; 96365; 96366; 96374; 96375; 96376; 99218; 99282; J7030; J7040; J7120; Q9967; A4216; C1760; G0378; J2405

== ENCOUNTER → 2018-06-12 14:19 | Outpatient (CLI) | payer MEDICAID, SELFPAY ==
[2018-05-22 12:07] VITALS: BMI 26.4
[2018-06-12 15:47] LABS: hCG Titer Quant., Serum < 1 mIU/mL (<9 non-preg)
== END ==
PROVIDERS: Family Provider Family Medicine; PCP Family Medicine; Referring Provider Obstetrics & Gynecology; Visit Provider Obstetrics & Gynecology
DX: Z34.90 Encounter for supervision of normal pregnancy, unspecified, unspecified trimester (principal)
CPT/HCPCS: 36415; 84702

== ENCOUNTER → 2018-09-10 15:09 | Outpatient (CLI) | payer MEDICAID, SELFPAY ==
[2018-05-22 12:07] VITALS: BMI 26.4
[2018-09-10 16:25] LABS: hCG Titer Quant., Serum < 1 mIU/mL (1-3)
== END ==
PROVIDERS: Family Provider Family Medicine; PCP Family Medicine; Referring Provider Nurse Practitioner Women's Health; Visit Provider Nurse Practitioner Women's Health
DX: Z32.01 Encounter for pregnancy test, result positive (principal)
CPT/HCPCS: 36415; 84702

== ENCOUNTER 2018-12-22 19:35 | Emergency (ER) | payer MEDICAID, SELFPAY ==
[2018-05-22 12:07] VITALS: BMI 26.4
[2018-12-22 19:36] VITALS: BP 123/74; PULSE 73; RESP 16; TEMP 36.7; O2SAT 95; BMI 22.4
--- NOTE | 2018-12-22 20:06 | US_ITS ---
STUDY: FIRST TRIMESTER OBSTETRICAL ULTRASOUND REASON FOR EXAM: Female, 23 years old. Bleeding with . LMP: November 07, 2018 TECHNIQUE: Transabdominal and Transvaginal TECHNICAL QUALITY: Adequate. PRIOR ULTRASOUND: None. FINDINGS: There is no demonstrated intrauterine gestational sac. The uterus measures 6.5 x 4.4 x 4.7 cm. The endometrial stripe measures 9.7 mm and is hyperechoic. There is no demonstrated uterine fibroid. The cervix is closed. The right ovary measures 4.2 x 3.4 x 2.6 cm. There is no right ovarian cyst. There is no visualized right adnexal mass or complex lesion. The left ovary measures 4.0 x 3.0 x 2.9 cm. There is no left ovarian cyst. There is no visualized left adnexal mass or complex lesion. There is no fluid in the cul de sac. US/Transvaginal w/Preg US IMPRESSION: No intrauterine identified. Electronically Signed: Louise Schroeder MD at 22:18 EDT Tel , Service support ,
[2018-12-22 20:25] LABS: Color, Urine Yellow (Yellow); Glucose, Dipstick Normal (Normal); Ketone-Dipstick 5 mg/dl (Negative); Leukocyte Esterase-Dipstick 25 /ul (Negative); Mucous, Urine 0 SEEN /hpf (<or=2+); Nitrite-Dipstick Negative (Negative); Occult Blood-Urine 250 /ul (Negative); Protein-Dipstick 30 mg/dl (Negative); Urine Bilirubin Dipstick Negative (Negative); Urine Clarity Sl. Cloudy (Clear); Urine Urobilinogen 1 mg/dl (Normal); Urine pH 6.5 (5.0 - 8.0)
[2018-12-22 20:34] LABS: Absolute Lymphocyte Count 2.31 X10^3/uL (0.83-4.51); Absolute Neutrophil Count 3.4 X10^3/uL (2.0-7.7); Basophil# 0.03 X10^3/uL; Basophil% 0.5 % (0-1); Eosinophil# 0.07 X10^3/uL; Eosinophils% 1.1 % (0-5); Hematocrit 38.5 % (37-47); Hemoglobin 13.1 g/dL (12.0-15.0); Lymphocyte # 2.31 X10^3/ul (4.0); Lymphocyte % 37.6 % (19-41); Mean Corpuscular Hgb 29.8 pg (27.0-32.0); Mean Corpuscular Volume 87.7 fL (81-99); Mean Platelet Vol. 10.9 fl (6.2-12.0); Monocyte# 0.34 X10^3/uL; Monocyte% 5.5 % (0-10); NRBC Flagged by Analyzer 0 % (0-5); Neutrophil # 3.38 X10^3/uL (2.7-7.7); Neutrophil % 55.1 % (47-70); Platelet Count 151 K/mm3 (150-450); RBC Distribution Width CV 11.8 % (11.6-14.6); RBC Distribution Width SD 38.1 fl (35.1-43.9); Red Blood Count 4.39 M/mm3 (4.2-5.4); White Blood Count 6.1 K/mm3 (4.4-11.0)
[2018-12-22 20:35] LABS: Bacteria RARE /hpf (None Seen); Red Blood Cells-Urine > 100 SEEN /hpf (0-5); Squamous Epithelial Cells - UA 5-10 SEEN /hpf (5-10); White Blood Cells 5-10 SEEN /hpf (0-5)
[2018-12-22 20:53] LABS: hCG Titer Quant., Serum < 1 mIU/mL (1-3)
--- NOTE | 2018-12-22 22:38 | ED.VISSUMM ---
- ER Visit Summary Date of Service: 12/22/18 Chief Complaint: Vaginal bleeding History of Present Illness: The patient is a 23 F who presents with vaginal bleeding that began today. Patient states she is approximately 5 to 6 weeks . Patient states her last menstrual period was 11/03/2018. Patient denies any urinary complaints. Patient denies any vaginal discharge. States she has been having some cramping over her lower abdomen. Patient states this has resolved. Patient admits to some nausea but denies any vomiting. Patient denies any fevers or chills. Physical Examination: Vital signs are stable. Patient is afebrile. Patient is in no acute distress. Oral mucosa is pink and moist. Neck is supple. Trachea is midline. There is no JVD. Heart was regular rate and rhythm. Lungs are clear and equal bilaterally. Abdomen is soft. Bowel sounds are normal. There is some lower abdominal tenderness. There is no rebound or guarding noted. Cranial nerves II through XII are intact. There are no focal motor or sensory deficits noted. Test Results: Quantitative hCG was negative. CBC and basic metabolic profile were within normal limits. Pelvic ultrasound was ordered prior to hCG results. There is no acute abnormality. Emergency Department Course and Treatment: Patient is feeling better on reevaluation. Patient was instructed to follow-up with her director check in 5 to 7 days. Patient understood and was agreeable with the plan. All questions were answered. Disposition: Discharge home Impression: Pelvic pain This note was generated with [employer] dictation software. It may contain incorrect words, spelling, and punctuation that were not noted in review of the chart prior to signing ED Disposition - Plan for ED Patient: Disposition: Home or Assisted Living Diagnosis: Pelvic pain Instructions: PELVIC PAIN, Unknown Cause Referrals: Jhon Perez MD [Primary Care Provider] - 5-7 Days
[2018-12-22 22:54] VITALS: BP 113/76; PULSE 72; RESP 16; O2SAT 100
== END 2018-12-22 22:55 | disposition home or self-care (01) ==
PROVIDERS: Emergency Provider Emergency Medicine; Family Provider Family Medicine; PCP Family Medicine
DX: O26.891 Other specified pregnancy related conditions, first trimester (principal); R10.2 Pelvic and perineal pain; Z3A.01 Less than 8 weeks gestation of pregnancy
CPT/HCPCS: 76817; 81001; 84702; 85025; 99283; A4216

== ENCOUNTER 2019-03-05 12:12 | Emergency (ER) | payer MEDICAID, SELFPAY ==
[2019-03-05 12:12] VITALS: BP 127/69; PULSE 107; RESP 18; TEMP 36.6; O2SAT 97; BMI 23.2
[2019-03-05] MEDS: 0.9% Normal Saline 1,000 ML 1000 ML IV (13:30)
[2019-03-05 13:32] LABS: Bacteria 0 SEEN /hpf (None Seen); Mucous, Urine 0 SEEN /hpf (<or=2+); Red Blood Cells-Urine 0 SEEN /hpf (0-5); Squamous Epithelial Cells - UA 0 SEEN /hpf (5-10); White Blood Cells 0 SEEN /hpf (0-5)
[2019-03-05 13:33] LABS: Absolute Lymphocyte Count 2.03 X10^3/uL (0.83-4.51); Absolute Neutrophil Count 3.3 X10^3/uL (2.0-7.7); Basophil# 0.04 X10^3/uL; Basophil% 0.7 % (0-1); Eosinophil# 0.03 X10^3/uL; Eosinophils% 0.5 % (0-5); Hematocrit 42.8 % (37-47); Hemoglobin 14.6 g/dL (12.0-15.0); Lymphocyte # 2.03 X10^3/ul (4.0); Lymphocyte % 35.4 % (19-41); Mean Corp Hgb Conc 34.1 g/dL (32-36); Mean Corpuscular Hgb 30.2 pg (27.0-32.0); Mean Corpuscular Volume 88.6 fL (81-99); Mean Platelet Vol. 11.1 fl (6.2-12.0); Monocyte# 0.34 X10^3/uL; Monocyte% 5.9 % (0-10); NRBC Flagged by Analyzer 0 % (0-5); Neutrophil # 3.27 X10^3/uL (2.7-7.7); Neutrophil % 57.2 % (47-70); Platelet Count 146 K/mm3 (150-450); RBC Distribution Width CV 11.9 % (11.6-14.6); RBC Distribution Width SD 38.3 fl (35.1-43.9); Red Blood Count 4.83 M/mm3 (4.2-5.4); White Blood Count 5.7 K/mm3 (4.4-11.0)
[2019-03-05 13:34] LABS: Color, Urine Yellow (Yellow); Glucose, Dipstick Normal (Normal); Ketone-Dipstick Negative (Negative); Leukocyte Esterase-Dipstick Negative /ul (Negative); Nitrite-Dipstick Negative (Negative); Occult Blood-Urine Negative /ul (Negative); Protein-Dipstick Negative (Negative); Urine Bilirubin Dipstick Negative (Negative); Urine Clarity Clear (Clear); Urine Urobilinogen Normal (Normal)
[2019-03-05 13:43] LABS: Transitional Epithelial - Ur 0-5 SEEN /hpf (0-5)
[2019-03-05 13:54] LABS: hCG Titer Quant., Serum 15 mIU/mL (1-3)
--- NOTE | 2019-03-05 14:26 | ED.DCSUM_ITS ---
- ER Visit Summary Date of Service: 03/05/19 Chief Complaint: [Vaginal bleeding] History of Present Illness: The patient is a 23 F [the emergency department complaint of vaginal bleeding that started 2 days ago. Patient states initially she just started with some mild spotting. The bleeding became more severe last evening. Patient is passing clots and went through about a pad every hour and a half. Patient feels somewhat fatigued. Also she had some diarrhea started last evening. Patient had 4 5 bouts of the diarrhea. She denies any blood in her stool. Patient did have a positive home test last week. Patient's last menstrual period was January 22. Patient is G5, P2 with 2 prior miscarriages. Patient tells me that she had a tubal ligation reversal procedure about 6 months ago. Patient has history of sleep apnea and history of ADD.] Physical Examination: [HEENT-PERRLA, EOMI. Cranial nerves II through XII grossly intact. TMs clear. Mucous membranes moist. No adenopathy. Cardiovascular-regular rate and rhythm without murmur or ectopy Lungs-clear to auscultation, chest wall stable without crepitus or subcu emphysema Abdomen-normoactive bowel sounds, soft. Patient has mild diffuse tenderness on palpation. There is no rebound, rigidity, or perineal signs. Extremities-intact ?4, normal range of motion, normal pulses, atraumatic] Test Results: [CBC with differential obtained showed a white count of 5.7, hemoglobin 14.6, hematocrit 43, platelets 146. Urinalysis was normal. Quantitative hCG was 15. Patient is a negative.] Patient had a pelvic ultrasound that showed no intrauterine and had a small right ovarian cyst. Emergency Department Course and Treatment: [Treatment case was discussed with Dr. Tawanna Weaver. Patient is not a candidate for RhoGam. Patient will follow-up with the CHEMICAL WORKER in the office for serial quant's.] Patient has had no further bleeding in the emergency department. Treatment Plan: [Outpatient follow-up.] Disposition: [Discharged to home in stable condition] Impression: [Threatened first trimester] This note was generated with [employer] software. It may contain incorrect words, spelling, and punctuation that were not noted in review of the chart prior to signing ED Disposition - Plan for ED Patient: Referrals: Jhon Perez MD [Primary Care Provider] -
--- NOTE | 2019-03-05 14:40 | US_ITS ---
STUDY: FIRST TRIMESTER OBSTETRICAL ULTRASOUND REASON FOR EXAM: Female, 23 years old bleeding with early . LMP: January 22, 2019. TECHNIQUE: Transvaginal TECHNICAL QUALITY: Adequate. PRIOR ULTRASOUND: Comparison is made with prior examination December 22, 2018. FINDINGS: There is no demonstrated intrauterine gestational sac. There is no demonstrated yolk sac. The placenta is non-visualized. There is no demonstrated embryo ( pole). The estimated gestation age (EGA) by LMP is 6 weeks, 0 days. The estimated date of delivery (MERRY) by LMP is October 29, 2019.. The uterus measures 7.9 cm x 5.3 cm x 4.3 cm. The endometrium measures 4.1 mm. There is no demonstrated uterine fibroid. The cervix is closed. The right ovary measures 3.9 cm x 1.9 cm x 2.2 cm. There is a 2 cm x 2 cm x 1.1 cm dominant cyst. There is no visualized right adnexal mass or complex lesion. The left ovary measures 3.2 cm x 3.3 cm x 1.4 cm. There is no left ovarian cyst. There is no visualized left adnexal mass or complex lesion. There is no fluid in the cul de sac. US/Transvaginal w/Preg US IMPRESSION: No intrauterine gestation is seen. Small right ovarian cyst. Electronically Signed: Curry Means, at 15:44 EDT , Service support ,
--- NOTE | 2019-03-05 15:58 | ED.DEP ---
ED Disposition - Plan for ED Patient: Instructions: POSSIBLE MISCARRIAGE (Threatened ) Referrals: Jhon Perez MD [Primary Care Provider] - Kary Ruiz MD [STAFF PHYSICIAN] - 2 Days
[2019-03-05 16:14] VITALS: BP 117/76; PULSE 77; RESP 16; O2SAT 100
--- NOTE | 2019-03-05 16:15 | ED.RN ---
IV DC'ED, CATHETER INTACT, SMALL GAUZE DRESSING PLACED. DISCHARGE INSTRUCTIONS GIVEN TO AND REVIEWED WITH PATIENT, PATIENT DENIES QUESTIONS OR CONCERNS AND VOICES UNDERSTANDING OF DISCHARGE INSTRUCTIONS. PT AMBULATES OUT OF ROOM WITHOUT DIFFICULTY.
== END 2019-03-05 16:15 | disposition home or self-care (01) ==
LOC: ED 13:00
PROVIDERS: Emergency Provider Emergency Medicine; Family Provider Family Medicine; PCP Family Medicine
DX: O20.0 Threatened abortion (principal); N83.201 Unspecified ovarian cyst, right side; G47.30 Sleep apnea, unspecified; F98.8 Other specified behavioral and emotional disorders with onset usually occurring in childhood and adolescence; Z79.899 Other long term (current) drug therapy; Z72.0 Tobacco use
CPT/HCPCS: 76817; 81001; 84702; 85025; 86900; 86901; 96360; 99283

== ENCOUNTER → 2019-03-07 08:38 | Outpatient (CLI) | payer MEDICAID, SELFPAY ==
[2019-03-05 12:12] VITALS: BMI 23.2
[2019-03-07 11:23] LABS: hCG Titer Quant., Serum 9 mIU/mL (1-3)
== END ==
PROVIDERS: Family Provider Family Medicine; PCP Family Medicine; Visit Provider Obstetrics & Gynecology
DX: O20.0 Threatened abortion (principal)
CPT/HCPCS: 36415; 84702

== ENCOUNTER → 2019-03-18 08:43 | Outpatient (CLI) | payer MEDICAID, SELFPAY ==
[2019-03-05 12:12] VITALS: BMI 23.2
[2019-03-18 10:29] LABS: Internal QC Validated? YES +Cl - CLEAR BKGD; Pregnancy, Urine Negative Negative
== END ==
PROVIDERS: Family Provider Family Medicine; PCP Family Medicine; Referring Provider Dermatology Pediatric Dermatology; Visit Provider Dermatology Pediatric Dermatology
DX: L70.0 Acne vulgaris (principal); Z79.899 Other long term (current) drug therapy
CPT/HCPCS: 81025

== ENCOUNTER → 2019-04-22 08:49 | Outpatient (CLI) | payer MEDICAID, SELFPAY ==
[2019-04-22 10:23] LABS: Internal QC Validated? YES +Cl - CLEAR BKGD; Pregnancy, Urine Negative Negative
== END ==
PROVIDERS: Family Provider Family Medicine; PCP Family Medicine
DX: L70.5 Acne excoriee (principal); Z79.899 Other long term (current) drug therapy
CPT/HCPCS: 81025

== ENCOUNTER → 2019-05-13 11:22 | Outpatient (CLI) | payer MEDICAID, SELFPAY ==
[2019-05-13 13:55] LABS: Internal QC Validated? YES +Cl - CLEAR BKGD; Pregnancy, Urine Negative Negative
== END ==
PROVIDERS: Family Provider Family Medicine; PCP Family Medicine
DX: L70.0 Acne vulgaris (principal); Z79.899 Other long term (current) drug therapy; L90.5 Scar conditions and fibrosis of skin
CPT/HCPCS: 81025

== ENCOUNTER → 2019-06-17 09:25 | Outpatient (CLI) | payer MEDICAID, SELFPAY ==
[2019-06-17 12:14] LABS: Internal QC Validated? YES +Cl - CLEAR BKGD
[2019-06-17 12:17] LABS: Pregnancy, Urine Negative Negative
[2019-06-17 12:24] LABS: Absolute Lymphocyte Count 1.79 X10^3/uL (0.83-4.51); Absolute Neutrophil Count 1.9 X10^3/uL (2.0-7.7); Basophil# 0.03 X10^3/uL; Basophil% 0.7 % (0-1); Eosinophil# 0.04 X10^3/uL; Hematocrit 39.5 % (37-47); Hemoglobin 13.2 g/dL (12.0-15.0); Lymphocyte # 1.79 X10^3/ul (4.0); Lymphocyte % 44.4 % (19-41); Mean Corp Hgb Conc 33.4 g/dL (32-36); Mean Corpuscular Hgb 29.2 pg (27.0-32.0); Mean Corpuscular Volume 87.4 fL (81-99); Mean Platelet Vol. 11.8 fl (6.2-12.0); Monocyte# 0.28 X10^3/uL; Monocyte% 6.9 % (0-10); NRBC Flagged by Analyzer 0 % (0-5); Neutrophil # 1.87 X10^3/uL (2.7-7.7); Neutrophil % 46.5 % (47-70); Platelet Count 147 K/mm3 (150-450); RBC Distribution Width SD 38.8 fl (35.1-43.9); Red Blood Count 4.52 M/mm3 (4.2-5.4)
[2019-06-17 12:26] LABS: AST(SGOT) 19 U/L (15-37); Alanine Aminotransfer ALT/SGPT 23 U/L (13-56); Alkaline Phosphatase 55 U/L (45-117); Bilirubin, Direct 0.11 mg/dL (0.00-0.30); Cholesterol 150 mg/dL (200); Globulin 3.4 g/dL (2.2-4.2); High Density Lipoprotein 60 mg/dL; Protein, Total 7.4 g/dL (6.4-8.2); Triglycerides 70 mg/dL; Very Low Density Lipoprotein 14 mg/dL (5-40)
== END ==
PROVIDERS: PCP Family Medicine; Referring Provider Dermatology; Visit Provider Dermatology
DX: L70.0 Acne vulgaris (principal); Z79.899 Other long term (current) drug therapy
CPT/HCPCS: 36415; 80061; 80076; 81025; 85025

== ENCOUNTER → 2019-07-16 | Outpatient (CLI) | payer MEDICAID, SELFPAY ==
--- NOTE | 2019-07-16 16:30 | CER_PTH ---
PATIENT: CHEYENNE MILNER LOC: [facility] U#:[id number] AGE/SX: 24/F ROOM: RE07/16/[address]: Dr. Kary Weaver MD : [id number] BED: DIS: 07/16/2019 SPEC #: [id number] RECD: 07/16/19 17:11 STATUS: JUAN MIGUEL RELo #: [id number] JOHNSON: 07/16/19 16:[address]: Kary Enrique DEPT: SURGICAL PATHOLOGY RECD BY: Octavio Denny ENTERED: 07/17/19 09:20 SP TYPE: CERV OTHR DR: Dr. Jhon Perez MD Tissues: A - Uterine cervix, NOS B - Endocervical Procedures: Surgery Specimen Level IV HEADER OPERATION: Colposcopy PRE-OP DIAGNOSIS: LGSIL pap TISSUE SUBMITTED: A. Cervical at 2 o'clock, B. ECC MICROSCOPIC DIAGNOSIS A. Cervix, 2 o'clock, biopsy: Fragments of benign endocervical mucosa with moderate acute and chronic inflammation. Negative for dysplasia. B. ECC: Fragments of benign endocervical epithelium, blood and mucous, negative for dysplasia. RACHEL:lit 07/18/19 COMMENT Clinical correlation and appropriate follow up are necessary. MICROSCOPIC DESCRIPTION Slides are reviewed. GROSS DESCRIPTION A - Received in fixative is one container labeled with the patient's name and designated 2 o'clock cervical. The specimen consists of two irregular fragments of light sterling soft tissue that in aggregate measure 0.5 x 0.2 x 0.1 cm. The specimen is totally submitted in one cassette. B - Received in fixative is one container labeled with the patient's name and designated ECC. The specimen consists of multiple irregular fragments of sterling mucoid tissue that in aggregate measure 3 x 2.5 x 0.1 cm. The specimen is totally submitted in one cassette. / RACHEL:lit 07/17/19 TC:2 CPT: 71708 x2
== END | disposition home or self-care (01) ==
PROVIDERS: PCP Family Medicine; Referring Provider Obstetrics & Gynecology; Visit Provider Obstetrics & Gynecology
DX: R87.612 Low grade squamous intraepithelial lesion on cytologic smear of cervix (LGSIL) (principal)
CPT/HCPCS: 88305

== ENCOUNTER → 2019-07-22 09:50 | Outpatient (CLI) | payer MEDICAID, SELFPAY ==
[2019-07-22 12:44] LABS: Internal QC Validated? YES +Cl - CLEAR BKGD; Pregnancy, Urine Negative Negative
== END ==
PROVIDERS: PCP Family Medicine; Referring Provider Dermatology; Visit Provider Dermatology
DX: L70.0 Acne vulgaris (principal); L20.89 Other atopic dermatitis; Z79.899 Other long term (current) drug therapy
CPT/HCPCS: 81025

== ENCOUNTER 2019-09-23 19:54 | Emergency (ER) | payer MEDICAID, SELFPAY ==
[2019-09-23 19:55] VITALS: BP 153/82; PULSE 103; RESP 18; TEMP 36.8; O2SAT 96; BMI 23.0
[2019-09-23 20:23] VITALS: BP 153/82; PULSE 103; RESP 18; TEMP 36.8; O2SAT 96
--- NOTE | 2019-09-23 20:51 | EKG12_ITS ---
Test Reason : SOB Blood Pressure : / mmHG Vent. Rate : 084 BPM Atrial Rate : 084 BPM P-R Int : 124 ms QRS Dur : 082 ms QT Int : 384 ms P-R-T Axes : 047 078 063 degrees QTc Int : 453 ms Normal sinus rhythm Normal ECG Confirmed by RICK MARTIN ([id number]), loan expeditor CARLOS ROSENTHAL ([id number]) on 09/30/2019 1:46:26 PM Referred By: MINGO Confirmed By:RICK MARTIN
[2019-09-23 21:13] LABS: Absolute Lymphocyte Count 0.96 X10^3/uL (0.83-4.51); Absolute Neutrophil Count 7.8 X10^3/uL (2.0-7.7); Basophil# 0.03 X10^3/uL; Basophil% 0.3 % (0-1); Eosinophil# 0.01 X10^3/uL; Eosinophils% 0.1 % (0-5); Hematocrit 39.5 % (37-47); Lymphocyte # 0.96 X10^3/ul (4.0); Lymphocyte % 10.7 % (19-41); Mean Corp Hgb Conc 35.4 g/dL (32-36); Mean Corpuscular Hgb 29.9 pg (27.0-32.0); Mean Corpuscular Volume 84.4 fL (81-99); Mean Platelet Vol. 11.1 fl (6.2-12.0); Monocyte# 0.13 X10^3/uL; Monocyte% 1.4 % (0-10); NRBC Flagged by Analyzer 0 % (0-5); Neutrophil # 7.81 X10^3/uL (2.7-7.7); Neutrophil % 87.1 % (47-70); POSITIVE COUNT YES; Platelet Count 139 K/mm3 (150-450); RBC Distribution Width CV 11.7 % (11.6-14.6); RBC Distribution Width SD 35.3 fl (35.1-43.9); Red Blood Count 4.68 M/mm3 (4.2-5.4)
[2019-09-23 21:14] LABS: AST(SGOT) 16 U/L (15-37); Alanine Aminotransfer ALT/SGPT 22 U/L (13-56); Albumin, Serum 4.2 g/dL (3.2-5.0); Alkaline Phosphatase 54 U/L (45-117); Anion Gap 10 (5-15); BUN 9 mg/dL (7-18); BUN/Creat Ratio 11.4 RATIO (10-20); Bilirubin, Direct 0.15 mg/dL (0.00-0.30); Calcium,Total 9.5 mg/dL (8.5-10.1); Chloride 113 mmol/L (98-107); Creatinine, Serum 0.79 mg/dL (0.55-1.02); EST Glomerular Filtration Rate 94 mL/min (>60); Est Glom Filt Rate - Afr Amer 113 mL/min (>60); Estimated Creatinine Clearance 90.05 ml/min; Globulin 3.3 g/dL (2.2-4.2); Glucose 109 mg/dL (74-106); Lipase 89 U/L (73-393); Potassium 3.6 mmol/L (3.5-5.1); Protein, Total 7.5 g/dL (6.4-8.2); Sodium Level 142 mmol/L (136-145)
[2019-09-23 21:16] LABS: Differential Indicated SCAN CRITERIA MET
--- NOTE | 2019-09-23 21:36 | RAD_ITS ---
STUDY: X-RAY CHEST REASON FOR EXAM: Female, 24 years old. COUGH, SOB -- *PT RECENTLY HAD NIPPLES PIERCED AND UNABLE TO REMOVE* TECHNIQUE: AP portable COMPARISON: August 05, 2017 FINDINGS: The lungs are clear and expanded. There is no demonstrated pleural abnormality. Normal size heart. Normal mediastinum and miguel. Normal visualized pulmonary arteries. Normal visualized aortic arch and descending thoracic aorta. Normal visualized thoracic spine. Normal visualized ribs, clavicles, and shoulders. There is no demonstrated abnormality of the visualized soft tissue structures of the upper abdomen. No significant change since prior exam RAD/Chest 1 View (Portable) IMPRESSION: Normal x-ray examination of the chest. Electronically Signed: Gregory Giles MD at 22:07 EDT , Service support ,
[2019-09-23 21:42] LABS: D-Dimer Quantitative (DVT/PE) < 0.27 FEU/ug/m (0.27-0.49)
[2019-09-23] MEDS: 0.9% Normal Saline 1,000 ML 150 ML IV (21:42)
[2019-09-23 21:43] VITALS: BP 130/74; PULSE 86; RESP 18; TEMP 36.8; O2SAT 99
[2019-09-23 21:49] LABS: Platelet Estimate SLT DEC (ADEQ); Platelet Morphology LARGE; Red Cell Morphology NORM C+C NORMAL (NORM C&C)
--- NOTE | 2019-09-23 22:59 | ED.VIS.GEN ---
History of Present Illness Chief Complaint: Shortness of Breath Detail of Chief Complaint: Short of breath, cough, chest pain Informant: Patient Onset: Yesterday Current Severity: Mild Maximum Severity: Mild Narrative: Patient presents state that she started not feeling well last evening. She complains of some mild body aches, shortness of breath, and cough with clear mucus. She reports some intermittent chest pain. She states that she is currently out of her reflux medication. When asked about fever or chills she states that she felt warm but did not have a thermometer to check her temperature. She does not have any known contact with anyone with Covid. - Past Medical History (1) Anxiety Status: Chronic Comment: no meds doing well (2) GERD (gastroesophageal reflux disease) Status: Chronic Past Medical History - Allergies and Home Meds Allergies/Adverse Reactions: Allergies No Known Allergies Allergy (Verified 09/23/19 20:24) Primary Care Physician: Jhon Perez MD [Primary Care Provider] - 1 Week if not improving () Prior records reviewed: Yes Lives: Spouse/ Significant Other Smoking Status: Current every day smoker Review of Systems General: Reports: Fever - [place] warm. Denies: Chills Eyes: Denies: Visual changes - bilaterally ENT: Denies: Bilateral ear pain Cardiovascular: Reports: Chest pain. Denies: Palpitations, Heart racing Respiratory: Reports: Dyspnea, Cough, Sputum. Denies: Paroxysmal nocturnal dyspnea Gastrointestinal: Denies: Abdominal pain, Vomiting, Diarrhea Musculoskeletal: Reports: Myalgias Skin: Denies: Rash Neurological: Denies: Headache Hematologic: Denies: Easy bruising Physical Exam Vital Signs/Narrative: Vital Signs Temp Pulse Resp BP Pulse Ox 09/23/19 21:43 98.3 F 86 18 130/74 H 99 09/23/19 20:23 98.3 F 103 H 18 153/82 H 96 09/23/19 19:55 98.3 F 103 H 18 153/82 H 96 Inital Vital Signs reviewed: Yes General: Well nourished, Well developed Head: Normocephalic ENT: Moist mucous membranes Neck: Supple Cardiovascular: Regular rate, Regular rhythm Respiratory: No distress, CTA bilaterally, Chest nontender Abdomen: Soft, Tender - Mild epigastric tenderness to palpation.. Negative for: Guarding, Rebound tenderness Extremities: Nontender, No edema Skin: Normal color Neurological: Alert, Oriented x3 Psychological: Normal affect Diagnostic/Tx/Re-eval Impressions Chest X-Ray 09/23/19 21:36 IMPRESSION: Normal x-ray examination of the chest. Electronically Signed: Gregory Giles MD at 22:07 EDT , Service support , 09/23/19 21:36 Chest 1 View (Portable) [RAD] Stat Laboratory Results 09/23/19 09/23/19 09/23/19 20:39 20:39 20:39 WBC 9.0 RBC 4.68 Hgb 14.0 Hct 39.5 MCV 84.4 MCH 29.9 MCHC 35.4 RDW Std Deviation 35.3 RDW Coeff of Radha 11.7 Plt Count 139 L MPV 11.1 Immature Gran % (Auto) 0.400 Neut % (Auto) 87.1 H Lymph % (Auto) 10.7 L [place] % (Auto) 1.4 Eos % (Auto) 0.1 Baso % (Auto) 0.3 Absolute Neuts (auto) 7.8 H Absolute Lymphs (auto) 0.96 Nucleated RBC % 0 Platelet Estimate SLT DEC Plt Morphology Comment LARGE RBC Morphology NORM C+C D-Dimer Quant (PE/DVT) < 0.27 L Sodium 142 Potassium 3.6 Chloride 113 H Carbon Dioxide 19.0 L Anion Gap 10 BUN 9 Creatinine 0.79 Estim Creat Clear Calc 90.05 Est GFR (MDRD) Af Amer 113 Est GFR (MDRD) Non-Af 94 BUN/Creatinine Ratio 11.4 Glucose 109 H Calcium 9.5 Total Bilirubin 0.40 Direct Bilirubin 0.15 AST 16 ALT 22 Alkaline Phosphatase 54 Troponin I < 0.015 Total Protein 7.5 Albumin 4.2 Globulin 3.3 Lipase 89 - EKG Initial EKG Interpretation: Sinus Rhythm - Sinus 84 with no acute ischemia. - Medical Decision Making Patient was initially ordered IV fluids along with IV Pepcid. I was later notified that IV Pepcid was not available and she was given p.o. Protonix. Work-up at this time is unremarkable. I did discuss with patient that her symptoms may be reflux related. She will be given a prescription for Prilosec. We also discussed the possibility of coronavirus infection. This time she does not meet criteria for testing and will continue to monitor her symptoms. She is given return instructions. ED Disposition - Plan for ED Patient: Disposition: Home or Assisted Living Diagnosis: GERD (gastroesophageal reflux disease), Atypical chest pain, Viral syndrome Instructions: Gastroesophageal Reflux Disease (GERD), ED URI Viral Prescriptions: Omeprazole [Prilosec] 20 mg PO DAILY #30 cap Transmission Status: Received by [id number] Referrals: Jhon Perez MD [Primary Care Provider] - 1 Week if not improving ()
[2019-09-23 23:02] VITALS: BP 131/82; PULSE 84; RESP 16; TEMP 36.8; O2SAT 99
[2019-09-23] MEDS: Famotidine 200 MG/20 ML MDV 20 MG in 0.9% Normal Saline (Pres. free 8 ML 300 MG IV (23:04)
[2019-09-23] MEDS: Pantoprazole Sodium 40 MG Tablet PO (23:16)
== END 2019-09-23 23:16 | disposition home or self-care (01) ==
PROVIDERS: Emergency Provider Emergency Medicine; PCP Family Medicine
DX: K21.9 Gastro-esophageal reflux disease without esophagitis (principal); R07.89 Other chest pain; B34.9 Viral infection, unspecified; F41.9 Anxiety disorder, unspecified; F17.200 Nicotine dependence, unspecified, uncomplicated
CPT/HCPCS: 71045; 80048; 80076; 83690; 84484; 85025; 85379; 93005; 99285; J7030; A4216; J3490

== ENCOUNTER → 2019-09-30 10:56 | Outpatient (CLI) | payer MEDICAID, SELFPAY ==
[2019-09-23 19:55] VITALS: BMI 23.0
[2019-09-30 14:09] LABS: hCG Titer Quant., Serum 23 mIU/mL (1-3)
== END ==
PROVIDERS: PCP Family Medicine; Visit Provider Obstetrics & Gynecology
DX: O20.0 Threatened abortion (principal); Z3A.00 Weeks of gestation of pregnancy not specified
CPT/HCPCS: 36415; 84702

== ENCOUNTER → 2019-10-02 08:38 | Outpatient (CLI) | payer MEDICAID, SELFPAY ==
[2019-09-23 19:55] VITALS: BMI 23.0
[2019-10-02 12:27] LABS: hCG Titer Quant., Serum 67 mIU/mL (1-3)
== END ==
PROVIDERS: PCP Family Medicine; Visit Provider Obstetrics & Gynecology
DX: Z32.01 Encounter for pregnancy test, result positive (principal)
CPT/HCPCS: 36415; 84702

== ENCOUNTER → 2019-10-04 09:05 | Outpatient (CLI) | payer MEDICAID, SELFPAY ==
[2019-09-23 19:55] VITALS: BMI 23.0
[2019-10-04 12:10] LABS: hCG Titer Quant., Serum 180 mIU/mL (1-3)
== END ==
PROVIDERS: PCP Family Medicine; Visit Provider Obstetrics & Gynecology
DX: R87.612 Low grade squamous intraepithelial lesion on cytologic smear of cervix (LGSIL) (principal); N96 Recurrent pregnancy loss
CPT/HCPCS: 84702

== ENCOUNTER → 2019-10-16 14:35 | Outpatient (CLI) | payer MEDICAID, SELFPAY ==
[2019-09-23 19:55] VITALS: BMI 23.0
[2019-10-16 15:57] LABS: Absolute Lymphocyte Count 1.84 X10^3/uL (0.83-4.51); Absolute Neutrophil Count 4.1 X10^3/uL (2.0-7.7); Basophil# 0.02 X10^3/uL; Basophil% 0.3 % (0-1); Eosinophil# 0.04 X10^3/uL; Eosinophils% 0.6 % (0-5); Hemoglobin 12.5 g/dL (12.0-15.0); Lymphocyte # 1.84 X10^3/ul (4.0); Lymphocyte % 28.8 % (19-41); Mean Corp Hgb Conc 33.8 g/dL (32-36); Mean Corpuscular Volume 88.9 fL (81-99); Monocyte# 0.34 X10^3/uL; Monocyte% 5.3 % (0-10); NRBC Flagged by Analyzer 0 % (0-5); Neutrophil # 4.12 X10^3/uL (2.7-7.7); Neutrophil % 64.7 % (47-70); POSITIVE COUNT YES; Platelet Count 142 K/mm3 (150-450); RBC Distribution Width CV 11.8 % (11.6-14.6); RBC Distribution Width SD 37.9 fl (35.1-43.9); Red Blood Count 4.16 M/mm3 (4.2-5.4); White Blood Count 6.4 K/mm3 (4.4-11.0)
[2019-10-16 15:58] LABS: Differential Indicated SCAN CRITERIA MET
[2019-10-16 16:02] LABS: Color, Urine Yellow (Yellow); Glucose, Dipstick Normal (Normal); Ketone-Dipstick Negative (Negative); Leukocyte Esterase-Dipstick Negative /ul (Negative); Nitrite-Dipstick Negative (Negative); Occult Blood-Urine Negative /ul (Negative); Protein-Dipstick Negative (Negative); Specific Gravity, Urine 1.025 (1.002-1.030); Urine Bilirubin Dipstick Negative (Negative); Urine Clarity Clear (Clear); Urine Urobilinogen Normal (Normal)
[2019-10-16 16:14] LABS: Amphetamine Urine VISTA POSITIVE (<1000 ng/mL); Barbiturate Urine VISTA NEGATIVE (< 200 ng/mL); Benzodiazepine Urine VISTA NEGATIVE (< 200 ng/mL); Cocaine Urine VISTA NEGATIVE (< 300 ng/mL); Ecstacy Urine VISTA NEGATIVE (< 500 ng/mL); Methadone Urine VISTA NEGATIVE (< 300 ng/mL); PCP Urine VISTA NEGATIVE (< 25 ng/mL); THC Urine VISTA NEGATIVE (< 50 ng/mL); Vista UDS pH Range 5
[2019-10-16 16:35] LABS: Platelet Estimate SLT DEC (ADEQ); Red Cell Morphology NORM C+C NORMAL (NORM C&C)
[2019-10-16 16:36] LABS: Thyroid Stim Hormone (TSH) 0.69 uIU/mL (0.358-3.74)
[2019-10-16 18:40] LABS: Chlamydia Trachomatis by PCR Negative (Negative); Neisserai gonorrhoeae by PCR Negative (Negative); Probe Check PASS; Sample Adequacy Control PASS; Specimen Processing Control PASS
[2019-10-17 00:55] LABS: Prenatal RPR NONREACTIVE (NONREACTIVE)
[2019-10-17 09:45] LABS: HIV - WCH Non-Reactive (Nonreactive); Hepatitis B Surface Antigen Non-Reactive (Nonreactive); Hepatitis C Antibody Non-Reactive (Nonreactive); Rubella IgG 37.6 IU/mL
[2019-10-18 09:30] LABS: Internal QC Validated? YES +Cl - CLEAR BKGD
[2019-10-18 09:31] LABS: Pregnancy, Serum, hCG Quali. POSITIVE Negative
== END ==
PROVIDERS: PCP Family Medicine; Visit Provider Obstetrics & Gynecology
DX: Z11.3 Encounter for screening for infections with a predominantly sexual mode of transmission (principal); Z32.01 Encounter for pregnancy test, result positive
CPT/HCPCS: 36415; 80307; 81002; 84443; 84703; 85025; 86703; 86762; 86803; 87340; 87491; 87591

== ENCOUNTER 2019-12-10 18:21 | Emergency (ER) | payer MEDICAID, SELFPAY ==
[2019-12-10 18:22] VITALS: BP 135/65; PULSE 119; RESP 18; TEMP 37.2; O2SAT 97; BMI 24.4
--- NOTE | 2019-12-10 18:51 | US_ITS ---
STUDY: SECOND AND THIRD TRIMESTER OBSTETRICAL ULTRASOUND - LIMITED REASON FOR EXAM: Female, 24 years old BLUNT ABD TRAUMA WITH TENDERNESS OVER [place] LMP: 09/03/2019 PRIOR ULTRASOUND: 07/05/2017 TECHNIQUE: Transabdominal TECHNICAL QUALITY: Adequate. FINDINGS: There is a single intrauterine fetus. The fetus is in a breech presentation. There is demonstrated cardiac activity with a heart rate of 185 bpm. There is a normal amniotic fluid volume. The largest amniotic fluid pocket measures 4.3 cm. . The placenta is posterior with a marginal previa. There are Grade 0 placental changes. The cervix measures 3.6 cm in length. BIOMETRY: BPD: 2.71 cm: 14 weeks, 6 days HC: 10.21 cm: 14 weeks, 6 days AC: 8.50 cm: 14 weeks, 6 days FL: 1.30 cm: 13 weeks, 6 days Age by LMP: 14 weeks, 0 days. MERRY by LMP: 06/09/2020. age by current US: 14 weeks, 5 days. MERRY by current US: 06/04/2020. Estimated weight: 96 grams, +/- 14 grams, 61 percentile. US/OB Limited With Biometrics IMPRESSION: Single viable intrauterine of approximately 14 weeks 5 days gestational age. The fetus is presently in breech presentation. There is a posterior marginal previa. Electronically Signed: Beni Wilhelm MD at 20:06 EDT , Service support ,
[2019-12-10 19:23] LABS: Mucous, Urine 0 SEEN /hpf (<or=2+); Red Blood Cells-Urine 0 SEEN /hpf (0-5)
[2019-12-10 19:24] LABS: Color, Urine Yellow (Yellow); Glucose, Dipstick Normal (Normal); Ketone-Dipstick Negative (Negative); Leukocyte Esterase-Dipstick Negative /ul (Negative); Nitrite-Dipstick Negative (Negative); Occult Blood-Urine Negative /ul (Negative); Protein-Dipstick Negative (Negative); Specific Gravity, Urine 1.015 (1.002-1.030); Urine Bilirubin Dipstick Negative (Negative); Urine Clarity Sl. Cloudy (Clear); Urine Urobilinogen Normal (Normal)
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
[2019-12-10 19:47] LABS: Bacteria RARE /hpf (None Seen); Squamous Epithelial Cells - UA 0-5 SEEN /hpf (5-10); White Blood Cells 0-5 SEEN /hpf (0-5)
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
[2019-12-10 21:00] VITALS: RESP 18
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
[2019-12-10 22:21] VITALS: BP 114/71; PULSE 71; RESP 18; O2SAT 99
[2019-12-12 09:30] LABS: Kleihauer-Betke Negative
== END 2019-12-10 22:30 | disposition home or self-care (01) ==
PROVIDERS: Emergency Provider Emergency Medicine; PCP Family Medicine
DX: O9A.212 Injury, poisoning and certain other consequences of external causes complicating pregnancy, second trimester (principal); Y04.2XXA Assault by strike against or bumped into by another person, initial encounter; O32.1XX0 Maternal care for breech presentation, not applicable or unspecified; S20.211A Contusion of right front wall of thorax, initial encounter; S40.011A Contusion of right shoulder, initial encounter; S30.1XXA Contusion of abdominal wall, initial encounter; O99.342 Other mental disorders complicating pregnancy, second trimester; F41.9 Anxiety disorder, unspecified; Z3A.14 14 weeks gestation of pregnancy
CPT/HCPCS: 73000; 76816; 81001; 85460; 90384; 96372; 99284; A4216; J2790

== ENCOUNTER → 2019-12-27 09:36 | Outpatient (CLI) | payer MEDICAID, SELFPAY ==
[2019-12-10 18:22] VITALS: BMI 24.4
[2019-12-27 13:21] LABS: Platelet Count 123 K/mm3 (150-450)
== END ==
PROVIDERS: PCP Family Medicine; Visit Provider Obstetrics & Gynecology
DX: O99.112 Other diseases of the blood and blood-forming organs and certain disorders involving the immune mechanism complicating pregnancy, second trimester (principal); D69.6 Thrombocytopenia, unspecified; Z3A.00 Weeks of gestation of pregnancy not specified
CPT/HCPCS: 36415; 85049

== ENCOUNTER → 2020-03-18 13:10 | Outpatient (CLI) | payer MEDICAID, SELFPAY ==
[2020-03-18 16:23] LABS: Hematocrit 32.8 % (37-47); Mean Corp Hgb Conc 33.5 g/dL (32-36); Mean Corpuscular Hgb 30.4 pg (27.0-32.0); Mean Corpuscular Volume 90.6 fL (81-99); Platelet Count 130 K/mm3 (150-450); RBC Distribution Width SD 39.9 fl (35.1-43.9); Red Blood Count 3.62 M/mm3 (4.2-5.4); White Blood Count 8.7 K/mm3 (4.4-11.0)
[2020-03-18 16:30] LABS: Glucose Challenge Gest 1H 50g 95 mg/dL (70-140)
== END ==
PROVIDERS: PCP Family Medicine; Visit Provider Obstetrics & Gynecology
DX: Z34.83 Encounter for supervision of other normal pregnancy, third trimester (principal)
CPT/HCPCS: 36415; 82950; 85027; 86850

== ENCOUNTER → 2020-04-29 11:22 | Outpatient (CLI) | payer MEDICAID, SELFPAY ==
[2020-04-29 13:50] LABS: Hematocrit 34.1 % (37-47); Hemoglobin 11.2 g/dL (12.0-15.0); Mean Corp Hgb Conc 32.8 g/dL (32-36); Mean Corpuscular Hgb 29.7 pg (27.0-32.0); Mean Corpuscular Volume 90.5 fL (81-99); Mean Platelet Vol. 11.5 fl (6.2-12.0); Platelet Count 141 K/mm3 (150-450); RBC Distribution Width CV 11.9 % (11.6-14.6); RBC Distribution Width SD 39.3 fl (35.1-43.9); Red Blood Count 3.77 M/mm3 (4.2-5.4); White Blood Count 10.7 K/mm3 (4.4-11.0)
[2020-04-29 14:02] LABS: ALB/GLOB Ratio 0.8 RATIO (0.9-2.4); AST(SGOT) 11 U/L (15-37); Alanine Aminotransfer ALT/SGPT 21 U/L (13-56); Alkaline Phosphatase 104 U/L (45-117); Anion Gap 5 (5-15); BUN 6 mg/dL (7-18); BUN/Creat Ratio 13.7 RATIO (10-20); Calcium,Total 8.9 mg/dL (8.5-10.1); Chloride 108 mmol/L (98-107); Creatinine, Serum 0.44 mg/dL (0.55-1.02); EST Glomerular Filtration Rate 184 mL/min (>60); Est Glom Filt Rate - Afr Amer 223 mL/min (>60); Globulin 3.8 g/dL (2.2-4.2); Glucose 91 mg/dL (74-106); Potassium 3.8 mmol/L (3.5-5.1); Protein, Total 6.8 g/dL (6.4-8.2); Sodium Level 138 mmol/L (136-145)
[2020-04-30 02:39] LABS: Rapid Plasmin Reagin (RPR) NONREACTIVE (NONREACTIVE)
== END ==
PROVIDERS: PCP Family Medicine; Visit Provider Obstetrics & Gynecology
DX: O26.893 Other specified pregnancy related conditions, third trimester (principal); L28.2 Other prurigo; L30.9 Dermatitis, unspecified; Z3A.00 Weeks of gestation of pregnancy not specified
CPT/HCPCS: 36415; 80053; 85027; 86592

== ENCOUNTER 2020-05-10 11:20 | Outpatient (CLI) | payer MEDICAID, SELFPAY ==
[2020-05-10 11:28] VITALS: BP 126/71; PULSE 113; TEMP 37.3; O2SAT 98
[2020-05-10 11:29] VITALS: BMI 31.2
[2020-05-10 12:10] LABS: ROM Internal Control Test YES-OK TO RESULT pt. (Internal QC); ROM Patient Test Negative (Negative)
[2020-05-10 12:42] VITALS: BP 131/66; PULSE 99
[2020-05-10 13:35] LABS: Absolute Neutrophil Count 6.5 X10^3/uL (2.0-7.7); Basophil# 0.04 X10^3/uL; Basophil% 0.4 % (0-1); Eosinophil# 0.06 X10^3/uL; Eosinophils% 0.7 % (0-5); Hematocrit 32.7 % (37-47); Hemoglobin 10.8 g/dL (12.0-15.0); Lymphocyte % 20.7 % (19-41); Mean Corpuscular Hgb 29.5 pg (27.0-32.0); Mean Corpuscular Volume 89.3 fL (81-99); Monocyte# 0.56 X10^3/uL; Monocyte% 6.1 % (0-10); NRBC Flagged by Analyzer 0 % (0-5); Neutrophil # 6.52 X10^3/uL (2.7-7.7); Neutrophil % 71.2 % (47-70); Platelet Count 164 K/mm3 (150-450); RBC Distribution Width CV 12.2 % (11.6-14.6); RBC Distribution Width SD 39.8 fl (35.1-43.9); Red Blood Count 3.66 M/mm3 (4.2-5.4); White Blood Count 9.2 K/mm3 (4.4-11.0)
[2020-05-10 14:08] LABS: Thyroid Stim Hormone (TSH) 0.75 uIU/mL (0.358-3.74)
[2020-05-10 14:35] VITALS: BP 113/59; PULSE 95; TEMP 37.5
--- NOTE | 2020-05-15 09:16 | OB.TRI.HP_ITS ---
History of Present Illness Date of Service: 05/10/20 Was patient seen by the physician?: No Reason For Visit: RULE OUT SROM Date of Service: 05/10/20 Final MERRY: 06/10/20 Final MERRY Source: US <20 weeks Gestational age: 35 Weeks and 4 Days History of Present Illness: 35+ week intrauterine presents with some leaking of fluid. Concerned that she might be ruptured. Good movement. heart tones in the 180s upon presentation. Allergies No Known Allergies Allergy (Verified 05/10/20 11:32) - Pertinent Past Medical History Medical History: Past Medical History (Last Reviewed 08/28/17 @ 07:59 by Joi Gallo) ADD (attention deficit disorder) Anemia affecting History of pre-eclampsia in prior , currently Migraine Sleep apnea Surgical History: Past Surgical History (Last Reviewed 08/28/17 @ 07:59 by Joi Gallo) Tonsil, abscess removed at age 11 Laboratory Studies: Laboratory Tests 05/10/20 05/10/20 05/10/20 Range/Units 13:25 13:25 11:45 WBC 9.2 (4.4-11.0) K/mm3 RBC 3.66 L (4.2-5.4) M/mm3 Hgb 10.8 L (12.0-15.0) g/dL Hct 32.7 L (37-47) % MCV 89.3 (81-99) fL MCH 29.5 (27.0-32.0) pg MCHC 33.0 (32-36) g/dL RDW Std Deviation 39.8 (35.1-43.9) fl RDW Coeff of Radha 12.2 (11.6-14.6) % Plt Count 164 (150-450) K/mm3 MPV 11.0 (6.2-12.0) fl Immature Gran % (Auto) 0.900 (0.0-0.9) % Neut % (Auto) 71.2 H (47-70) % Lymph % (Auto) 20.7 (19-41) % [place] % (Auto) 6.1 (0-10) % Eos % (Auto) 0.7 (0-5) % Baso % (Auto) 0.4 (0-1) % Absolute Neuts (auto) 6.5 (2.0-7.7) X10^3/uL Absolute Lymphs (auto) 1.90 (0.83-4.51) X10^3/uL Nucleated RBC % 0 (0-5) % TSH 0.75 (0.358-3.74) uIU/mL Vag Amniotic Fld Detect Negative (Negative) Physical Exam Vitals: Vital Signs Temp Pulse BP Pulse Ox 99.5 F H 95 113/59 L 98 05/10/20 14:35 05/10/20 14:35 05/10/20 14:35 05/10/20 11:28 NST - FHR Rate Baby A NST Reactive:: Yes FHR Category:: Category I Impression/Plan 35+ week intrauterine with some leaking of fluid. ROM test is negative so this was likely urine. heart tones initially in the 180s and after IV hydration and monitoring over period of several hours heart tones were in the 150s and reactive. Will release to home with routine instructions.
== END 2020-05-10 15:40 | disposition home or self-care (01) ==
LOC: WPOUT 11:24 → OBT 11:24
PROVIDERS: PCP Family Medicine; Visit Provider Obstetrics & Gynecology
DX: O42.913 Preterm premature rupture of membranes, unspecified as to length of time between rupture and onset of labor, third trimester (principal); Z3A.35 35 weeks gestation of pregnancy; O99.013 Anemia complicating pregnancy, third trimester; D64.9 Anemia, unspecified
CPT/HCPCS: 96360; 36415; 59025; 59050; 84112; 84443; 85025; 87426; 99218; J7030; G0378

== ENCOUNTER → 2020-05-12 16:03 | Outpatient (CLI) | payer MEDICAID, SELFPAY ==
[2020-05-10 11:29] VITALS: BMI 31.2
[2020-05-12 17:53] LABS: Protein, Urine (Random) 12.1 mg/dL (<11.9); Protein:Creat Ratio 170 mg/g CRE (0-200)
[2020-05-12 18:02] LABS: ALB/GLOB Ratio 0.8 RATIO (0.9-2.4); AST(SGOT) 14 U/L (15-37); Alanine Aminotransfer ALT/SGPT 17 U/L (13-56); Albumin, Serum 2.7 g/dL (3.2-5.0); Alkaline Phosphatase 108 U/L (45-117); Anion Gap 6 (5-15); BUN 6 mg/dL (7-18); BUN/Creat Ratio 12.2 RATIO (10-20); Calcium,Total 8.5 mg/dL (8.5-10.1); Chloride 108 mmol/L (98-107); Creatinine, Serum 0.49 mg/dL (0.55-1.02); EST Glomerular Filtration Rate 161 mL/min (>60); Est Glom Filt Rate - Afr Amer 195 mL/min (>60); Globulin 3.6 g/dL (2.2-4.2); Glucose 79 mg/dL (74-106); Potassium 3.6 mmol/L (3.5-5.1); Protein, Total 6.3 g/dL (6.4-8.2); Sodium Level 139 mmol/L (136-145)
== END ==
PROVIDERS: PCP Family Medicine; Visit Provider Obstetrics & Gynecology
DX: Z34.83 Encounter for supervision of other normal pregnancy, third trimester (principal)
CPT/HCPCS: 36415; 80053; 82570; 84156; 84550

== ENCOUNTER → 2020-05-19 14:55 | Outpatient (CLI) | payer MEDICAID, SELFPAY ==
[2020-05-10 11:29] VITALS: BMI 31.2
== END ==
PROVIDERS: PCP Family Medicine; Visit Provider Obstetrics & Gynecology
DX: Z36.85 Encounter for antenatal screening for Streptococcus B (principal)
CPT/HCPCS: 87081

== ENCOUNTER 2020-05-20 20:00 | Outpatient (CLI) | payer MEDICAID, SELFPAY ==
[2020-05-20 20:05] VITALS: BMI 31.6
[2020-05-20 20:14] VITALS: BP 119/77; TEMP 37
[2020-05-20 20:15] VITALS: PULSE 106; O2SAT 100
[2020-05-20 22:56] LABS: Group B Strep DNA By PCR Negative (Negative); Internal Control PASS; Probe Check PASS; Specimen Processing Control PASS
--- NOTE | 2020-05-21 09:58 | OB.TRI.NOTE ---
History of Present Illness Was patient seen by the physician?: No Reason For Visit: DECREASED MOVEMENT, CONTRACTIONS Date of Service: 05/20/20 Final MERRY: 06/10/20 Final MERRY Source: US <20 weeks Gestational age: 37 Weeks and 0 Days History of Present Illness: 37-week intrauterine presents for decreased movement a few contractions. Allergies latex Allergy (Verified 05/20/20 20:07) Rash nickel Adverse Reaction (Verified 05/20/20 20:07) Rash - Pertinent Past Medical History Medical History: Past Medical History (Last Reviewed 08/28/17 @ 07:59 by Joi Gallo) ADD (attention deficit disorder) Anemia affecting History of pre-eclampsia in prior , currently Migraine Sleep apnea Surgical History: Past Surgical History (Last Reviewed 08/28/17 @ 07:59 by Joi Gallo) Tonsil, abscess removed at age 11 Laboratory Studies: Laboratory Tests 05/20/20 Range/Units 20:20 Group B Strep DNA Negative (Negative) Specimen Comment Not Reportable Physical Exam Vitals: Vital Signs Temp Pulse BP Pulse Ox 98.6 F 106 H 119/77 100 05/20/20 20:14 05/20/20 20:15 05/20/20 20:14 05/20/20 20:15 NST - FHR Rate Baby A NST Reactive:: Yes FHR Category:: Category I Impression/Plan 37-week intrauterine with decreased movement. Some uterine irritability noted on monitor strip but baby is reactive. Released to home with routine antepartum follow-up.
== END 2020-05-20 22:05 | disposition home or self-care (01) ==
LOC: WPOUT 20:01 → WP 20:02
PROVIDERS: PCP Family Medicine; Visit Provider Obstetrics & Gynecology
DX: O36.8120 Decreased fetal movements, second trimester, not applicable or unspecified (principal); Z91.040 Latex allergy status; Z3A.37 37 weeks gestation of pregnancy; O99.013 Anemia complicating pregnancy, third trimester; D64.9 Anemia, unspecified
CPT/HCPCS: 59025; 59050; 87081; 87653; 99218; G0378

== ENCOUNTER 2020-05-24 15:55 | Outpatient (CLI) | payer MEDICAID, SELFPAY ==
[2020-05-24 16:02] VITALS: BP 137/76; PULSE 103; TEMP 37.4
[2020-05-24 16:03] VITALS: BP 137/76; PULSE 103
[2020-05-24 16:04] VITALS: BMI 32.5
[2020-05-24 16:39] LABS: ROM Internal Control Test YES-OK TO RESULT pt. (Internal QC); ROM Patient Test Negative (Negative)
--- NOTE | 2020-05-25 06:21 | OB.TRI.NOTE ---
History of Present Illness Date of Service: 05/24/20 Was patient seen by the physician?: No Reason For Visit: RULE OUT RUPTURE Date of Service: 05/24/20 Final MERRY: 06/10/20 Final MERRY Source: US <20 weeks Gestational age: 37 Weeks and 5 Days Allergies latex Allergy (Verified 05/20/20 20:07) Rash nickel Adverse Reaction (Verified 05/20/20 20:07) Rash - Pertinent Past Medical History Medical History: Past Medical History (Last Reviewed 08/28/17 @ 07:59 by Joi Gallo) ADD (attention deficit disorder) Anemia affecting History of pre-eclampsia in prior , currently Migraine Sleep apnea Surgical History: Past Surgical History (Last Reviewed 08/28/17 @ 07:59 by Joi Gallo) Tonsil, abscess removed at age 11 Laboratory Studies: Laboratory Tests 05/24/20 Range/Units 16:05 Vag Amniotic Fld Detect Negative (Negative) Physical Exam Vitals: Vital Signs Temp Pulse BP 99.4 F H 103 H 137/76 H 05/24/20 16:02 05/24/20 16:03 05/24/20 16:03 NST - FHR Rate Baby A Baseline: 150 Variability:: Moderate Accelerations:: 15 x 15 Decelerations:: None NST Reactive:: Yes FHR Category:: Category I Uterine Activity:: few contractions Impression/Plan 25-year-old at 37 weeks and 4 days with leakage of fluid ruled out rupture. Okay to discharge home. Follow-up at scheduled appointments
== END 2020-05-24 17:00 | disposition home or self-care (01) ==
LOC: WPOUT 15:58 → WP 15:59
PROVIDERS: PCP Family Medicine; Referring Provider Obstetrics & Gynecology; Visit Provider Obstetrics & Gynecology
DX: O26.893 Other specified pregnancy related conditions, third trimester (principal); R32 Unspecified urinary incontinence; Z91.040 Latex allergy status; Z3A.37 37 weeks gestation of pregnancy; F98.8 Other specified behavioral and emotional disorders with onset usually occurring in childhood and adolescence; O99.013 Anemia complicating pregnancy, third trimester; D64.9 Anemia, unspecified
CPT/HCPCS: 59025; 59050; 84112; 99218; G0378

== ENCOUNTER 2020-05-26 14:00 | Inpatient (IN) | payer MEDICAID, SELFPAY ==
[2020-05-26] VITALS (48 sets, daily range): BP systolic 98–133; BP diastolic 51–84; PULSE 73–115; TEMP 36.7–37.8; O2SAT 98–100; BMI 32.4
[2020-05-26 11:31] LABS: Hematocrit 32.8 % (37-47); Mean Corp Hgb Conc 33.5 g/dL (32-36); Mean Corpuscular Hgb 29.2 pg (27.0-32.0); Mean Platelet Vol. 11.6 fl (6.2-12.0); Platelet Count 156 K/mm3 (150-450); RBC Distribution Width CV 12.1 % (11.6-14.6); RBC Distribution Width SD 38.8 fl (35.1-43.9); Red Blood Count 3.77 M/mm3 (4.2-5.4); White Blood Count 8.8 K/mm3 (4.4-11.0)
[2020-05-26 11:48] LABS: Protein, Urine (Random) < 6.0 mg/dL (<11.9); Protein:Creat Ratio 195 mg/g CRE (0-200)
[2020-05-26 11:51] LABS: ALB/GLOB Ratio 0.7 RATIO (0.9-2.4); AST(SGOT) 30 U/L (15-37); Alanine Aminotransfer ALT/SGPT 21 U/L (13-56); Albumin, Serum 2.7 g/dL (3.2-5.0); Alkaline Phosphatase 135 U/L (45-117); Anion Gap 6 (5-15); BUN 6 mg/dL (7-18); BUN/Creat Ratio 11.6 RATIO (10-20); Calcium,Total 8.9 mg/dL (8.5-10.1); Chloride 107 mmol/L (98-107); Creatinine, Serum 0.52 mg/dL (0.55-1.02); EST Glomerular Filtration Rate 152 mL/min (>60); Est Glom Filt Rate - Afr Amer 184 mL/min (>60); Estimated Creatinine Clearance 135.62 ml/min; Globulin 3.9 g/dL (2.2-4.2); Glucose 75 mg/dL (74-106); Potassium 4.4 mmol/L (3.5-5.1); Protein, Total 6.6 g/dL (6.4-8.2); Sodium Level 137 mmol/L (136-145)
[2020-05-26] MEDS: Metoclopramide 10 MG/2 ML Vial 5 MG IV (11:56)
[2020-05-26 12:02] LABS: Uric Acid 4.6 mg/dL (2.6-6.0)
[2020-05-26] MEDS: 0.9% Saline Lock 10 ML Syringe IV (15:13)
[2020-05-26] MEDS: Oxytocin 30 units/NS 500 ml 30 UNITS/500 ML IV.SOLN IV (15:13)
[2020-05-26] MEDS: Lactated Ringers 1,000 ML 50 ML IV (15:13)
[2020-05-26 16:07] LABS: Amphetamine Urine VISTA POSITIVE (<1000 ng/mL); Barbiturate Urine VISTA NEGATIVE (< 200 ng/mL); Benzodiazepine Urine VISTA NEGATIVE (< 200 ng/mL); Cocaine Urine VISTA NEGATIVE (< 300 ng/mL); Ecstacy Urine VISTA NEGATIVE (< 500 ng/mL); Methadone Urine VISTA NEGATIVE (< 300 ng/mL); PCP Urine VISTA NEGATIVE (< 25 ng/mL); THC Urine VISTA NEGATIVE (< 50 ng/mL); Vista UDS pH Range 6
--- NOTE | 2020-05-26 18:31 | HP.PCM_ITS ---
- Problem List (1) 37 weeks gestation of Status: Acute (2) Gestational hypertension Status: Acute Qualifiers: Trimester: third trimester Qualified Code(s): O13.3 - Gestational [-induced] hypertension without significant proteinuria, third trimester History Date of Admission: 05/26/20 Final MERRY: 06/10/20 Final MERRY Source: US <20 weeks Gestational age: 38 Weeks and 0 Days History of this : This is a 25 year-old, G [7], P [204], at 37 6/7 weeks gestational age sent from office for elevated BPs and c/o headache x 1 week. Denies vision changes. Medical History: Medical History (Last Reviewed 08/28/17 @ 07:59 by Joi Gallo) ADD (attention deficit disorder) F98.8 Anemia affecting O99.019 History of pre-eclampsia in prior , currently O09.299 Migraine G43.909 Sleep apnea G47.30 Surgical History: Surgical History (Last Reviewed 08/28/17 @ 07:59 by Joi Gallo) Tonsil, abscess J36 removed at age 11 Allergies latex Allergy (Verified 05/20/20 20:07) Rash nickel Adverse Reaction (Verified 05/20/20 20:07) Rash Home Medications: Home Medications Pnv No.95/Ferrous Fum/Folic AC [ Caplet] 1 ea PO DAILY 03/05/19 Aspirin [Adult Aspirin Regimen] 81 mg PO DAILY 05/10/20 Ferrous Sulfate [Iron] 325 mg PO DAILY 05/20/20 Butalb/Acetaminophen/Caffeine [Fioricet 50-300-40 mg Capsule] 1 ea PO DAILY 05/24/20 Dextroamphetamine/Amphetamine [Adderall 30 mg Tablet] 30 mg PO DAILY 05/26/20 Smoking Status: Former smoker Alcohol: None Substance Use Type: Amphetamines, Barbituates Number of Fetus(es): 1 NST - FHR Rate Baby A Baseline: 150 Variability:: Moderate Accelerations:: 15 x 15 Decelerations:: None NST Reactive:: Yes FHR Category:: Category I Uterine Activity:: 3/10 min History Past Pregnancies: Past Pregnancies Delivery Date Name GA/ Weeks Outcome Route Wt Sex Labor Length Anesthesia Delivery Location Provider FOB 05/2012 4 12/2014 4 01/2016 4 11/2015 38 IOL for gTHN vs Preeclampsia VAVD [id number] F 16 Epidural [facility] Dionte Pena 08/2017 37 SROM, pitocin augmentation, gHTN [id number] M 12 Epidural [facility] Miki Jean 06/2019 6 SAB Labs: Mom's Microbiology 05/26/20 14:15 Mucosa - Nose SARS-CoV-2 Antigen (Rapid) - Final Mom's Problem List Problem Status Onset Code 37 weeks gestation of Acute Z3A.37 Gestational hypertension Acute O13.9 Mom's Labs & Results 05/26/20 05/26/20 05/26/20 11:15 11:15 11:15 WBC 8.8 RBC 3.77 L Hgb 11.0 L Hct 32.8 L MCV 87.0 MCH 29.2 MCHC 33.5 RDW Std Deviation 38.8 RDW Coeff of Radha 12.1 Plt Count 156 MPV 11.6 Sodium Potassium Chloride Carbon Dioxide Anion Gap BUN Creatinine Estim Creat Clear Calc Est GFR (MDRD) Af Amer Est GFR (MDRD) Non-Af BUN/Creatinine Ratio Glucose Uric Acid 4.6 Calcium Total Bilirubin AST ALT Alkaline Phosphatase Total Protein Albumin Globulin Albumin/Globulin Ratio U Random Total Protein < 6.0 Urine Creatinine 30.20 Protein/Creatinin Ratio 195 Urine Opiates Screen Urine Methadone Screen Ur Barbiturates Screen Ur Phencyclidine Scrn Ur Amphetamines Screen U Amphetamines Confirm U Methamphetamin-MDMA U Benzodiazepines Scrn Urine Cocaine Screen U Cannabinoids Screen Ur Drug Screen Comment Blood Type Antibody Screen 05/26/20 05/26/20 05/26/20 11:15 14:15 15:15 WBC RBC Hgb Hct MCV MCH MCHC RDW Std Deviation RDW Coeff of Radha Plt Count MPV Sodium 137 Potassium 4.4 Chloride 107 Carbon Dioxide 24.0 Anion Gap 6 BUN 6 L Creatinine 0.52 L Estim Creat Clear Calc 135.62 Est GFR (MDRD) Af Amer 184 Est GFR (MDRD) Non-Af 152 BUN/Creatinine Ratio 11.6 Glucose 75 Uric Acid Calcium 8.9 Total Bilirubin 0.40 AST 30 ALT 21 Alkaline Phosphatase 135 H Total Protein 6.6 Albumin 2.7 L Globulin 3.9 Albumin/Globulin Ratio 0.7 L U Random Total Protein Urine Creatinine Protein/Creatinin Ratio Urine Opiates Screen NEGATIVE Urine Methadone Screen NEGATIVE Ur Barbiturates Screen NEGATIVE Ur Phencyclidine Scrn NEGATIVE Ur Amphetamines Screen POSITIVE H U Amphetamines Confirm U Methamphetamin-MDMA NEGATIVE U Benzodiazepines Scrn NEGATIVE Urine Cocaine Screen NEGATIVE U Cannabinoids Screen NEGATIVE Ur Drug Screen Comment Blood Type A NEGATIVE Antibody Screen NEGATIVE 05/26/20 15:15 WBC RBC Hgb Hct MCV MCH MCHC RDW Std Deviation RDW Coeff of Radha Plt Count MPV Sodium Potassium Chloride Carbon Dioxide Anion Gap BUN Creatinine Estim Creat Clear Calc Est GFR (MDRD) Af Amer Est GFR (MDRD) Non-Af BUN/Creatinine Ratio Glucose Uric Acid Calcium Total Bilirubin AST ALT Alkaline Phosphatase Total Protein Albumin Globulin Albumin/Globulin Ratio U Random Total Protein Urine Creatinine Protein/Creatinin Ratio Urine Opiates Screen Urine Methadone Screen Ur Barbiturates Screen Ur Phencyclidine Scrn Ur Amphetamines Screen U Amphetamines Confirm Pending U Methamphetamin-MDMA U Benzodiazepines Scrn Urine Cocaine Screen U Cannabinoids Screen Ur Drug Screen Comment Blood Type Antibody Screen Course Did the patient receive Yes care? Labs Blood Type: A RH: NEGATIVE RPR/VDRL/Syphilis Nonreactive Rubella status Immune HbSAg Negative Date Done: 10/16/19 Chlamydia Negative Gonorrhea Negative HIV/AIDS Non-Reactive Group B Strep: Negative Current Obstetrical History Gestational Diabetes No Incompetent Cervix No Infertility No IUGR No Macrosomia No Hypertension/Pre-eclampsia Yes Placenta Previa/Abruption No PTL/PROM No Uterine anomaly No Oligohydramnios No Polyhydramnios No Multiple gestation No Past Medical History Asthma No Diabetes No Hypertension No Heart disease No Mitral valve prolapse No Neurologic/Seizure disorder/ Yes: Migraines Migraines Kidney disease No Liver disease No Varicosities No Clotting disorders/Hx of DVT No Thyroid Dysfunction No Other medical diseases No Psychiatric disorders Yes: ADHD, Anxiety Major trauma No Abnormal PAP smear Yes: Colposcopy 2019 Sleep apnea Yes Mammogram in the last 2 years No Social History Marital Status: SINGLE Alleged father Ezra Garcia Hx Smoking Yes Smoking Status Former smoker Substance Use Type Amphetamines,Barbituates How long have you used Adderall substances (years)? Fiorcet What date/time did you last Adderall 2 weeks ago use any of the above? Fiorcet 0709 05/26/20 Have you had any previous no inpatient or outpatient treatment Expected Delivery Method: Spontaneous Vaginal Number of Visits: 11 Physical Exam Vitals: Vital Signs Temp Pulse BP Pulse Ox 98.2 F 77 126/72 H 99 05/26/20 17:57 05/26/20 17:57 05/26/20 17:57 05/26/20 17:57 General: Alert, Oriented x3, Cooperative, No apparent distress HEENT: Atraumatic, Normocephalic Cardiovascular: Regular rate, Regular Rhythm, Normal S1, Normal S2, No murmurs Lungs: Clear to auscultation, Normal air movement, No rhonchi, No wheeze, No rales Abdomen: Soft, Non Tender, Non-Distended, Gravid Extremities:: No edema Neurological: Deep Tendon Reflexes 2+/4 and Symmetrical, Neuro grossly intact, - - no clonus PHARMACOVIGILANCE SPECIALIST: Normal external genitalia Estimated gestational size: Appropriate for gestational size Presentation: Cephalic Cervix Dilation (cm): 3 Station: -3 Effacement (%): 75 Assessment/Plan All Active Problems (Last Reviewed 08/28/17 @ 07:59 by Joi Gallo) 37 weeks gestation of (Acute) Gestational hypertension (Acute) LGSIL on Pap smear of cervix (Acute) This is a 25 year-old, G [7], P [2041], at 37 6/7 weeks gestational age. -IOL for gTHN vs. preeclampsia -Pitocin started, amniotomy performed with clear fluid -Cat I FHR
[2020-05-26] MEDS: Lactated Ringers 500 ML 999 ML IV (19:49)
[2020-05-26] MEDS: fentaNYL-bupivacaine (epidural) 100 ML BAG EPIDURAL (20:43)
[2020-05-27] VITALS (23 sets, daily range): BP systolic 99–120; BP diastolic 55–74; PULSE 69–96; RESP 16–18; TEMP 35.5–37.2; O2SAT 97–100
[2020-05-27] MEDS: Lactated Ringers 1,000 ML 200 ML IV (00:13)
[2020-05-27] MEDS: Oxytocin 30 units/NS 500 ml 30 UNITS/500 ML IV.SOLN 334 UNITS IV (01:13)
--- NOTE | 2020-05-27 01:33 | PCM.OPRPT ---
Problem List (1) 37 weeks gestation of Status: Acute (2) Gestational hypertension Status: Acute Qualifiers: Trimester: third trimester Qualified Code(s): O13.3 - Gestational [-induced] hypertension without significant proteinuria, third trimester Vaginal Delivery Maternal Presentation: Medically Indicated Induction Method of Induction: Pitocin, Amniotomy Amniotic Membrane Rupture Type: Artificial Rupture of Membrane time: 05/26/20 1825h Amniotic Fluid Description: Clear Final MERRY: 06/10/20 Gestational age: 38 Weeks and 0 Days Date of Procedure: 05/27/20 Pre-Operative Diagnosis: 38wga, gestational hypertension Post-Operative Diagnosis: 38wga, gestational hypertension Surgery/ Procedure Performed: Spontaneous Vaginal Delivery Anesthesiologist: Jessica Gaspar Type of Anesthesia: Epidural Description of Procedure: Patient was FD/+2 on my arrival and pushed to deliver a vigorous male infant over an intact perineum. Nuchal cord x 1 reduced at perineum. Infant was placed on the maternal abdomen and further attended by nursery personnel. The cord was doubly clamped and cut at 3 minutes of life. Cord blood specimen was obtained. The placenta delivered spontaneously and appeared intact on inspection. Perineum intact. Sponge counts correct x 2. Presentation: Vertex Placental Delivery Description: Spontaneous Placenta Disposition: [facility] Cord Vessel Description: 3 Vessels Nuchal Cord Compression: Without compression Cord Entanglement: Around neck x 1, loose Drain: Vitale to straight drain Estimated Blood Loss: 300 ml A gender: Male (1 minute): 8 (5 minute): 9 Episiotomy Description: None Laceration: None Medications given after delivery: IV Pitocin Complications: None
--- NOTE | 2020-05-27 01:39 | DCINST_ITS ---
<Chad Núñez - Last Filed: 05/28/20 08:47> Additional Instructions: If you experience any of the following, contact your healthcare provider. * Bleeding that soaks a pad every hour for 2 hours * Fever 100.4 or higher * Unrelieved incision or abdominal pain * Swelling, redness, discharge or bleeding from your incision or epis iotomy site * Your incision begins to separate * Problems urinating (including inability to urinate or burning while urinating). * Visual changes * Severe headache * Flu-like symptoms * Pain or redness in one of both of your breasts * Pain, warmth, tenderness or swelling in your legs, especially the calf area * Frequent nausea and vomiting * Symptoms of depression or anxiety If you experience any of the following, call 911 or go to the nearest Emergency Room. * Chest pain * Problems breathing * Seizure activity * Partial or complete paralysis of a body part, slurred speech, weakness or drooping of the face, or a sudden inability to walk or hold your balance Allergies/Adverse Reactions: Allergies latex Allergy (Verified 05/20/20 20:07) Rash nickel Adverse Reaction (Verified 05/20/20 20:07) Rash Medications to take at Discharge Pnv No.95/Ferrous Fum/Folic AC [ Caplet] 1 ea PO DAILY 03/05/19 Ferrous Sulfate [Iron] 325 mg PO DAILY 05/20/20 Dextroamphetamine/Amphetamine [Adderall 30 mg Tablet] 30 mg PO DAILY 05/26/20 Please Follow Up With: Jane Núñez DO Primary Care Physician: Jhon Perez MD [Primary Care Provider] - Test Results: Test results from this visit will be discussed in further detail at your follow- up appointment, if applicable. <Kary Enrique - Last Filed: 06/05/20 17:24> Discharge Diet: No Restrictions Discharge Activity: Return to Normal Activity, May Shower, May Take a Tub Bath May resume sexual activity in: 4-6 weeks Lifting Restrictions: 20-25lb Additional Activity Instructions:: Nothing in the vagina for 4-6 weeks. You may return to work/school in 6 weeks. Call your doctor if you observe: Fever of 101 or Higher, Inability to urinate, Inability to have a bowel movement, Using more than one pad per hour, Shortness of breath, Calf discomfort, Uncontrolled pain Additional Instructions: If you experience any of the following, contact your healthcare provider. * Bleeding that soaks a pad every hour for 2 hours * Fever 100.4 or higher * Unrelieved incision or abdominal pain * Swelling, redness, discharge or bleeding from your incision or episiotomy site * Your incision begins to separate * Problems urinating (including inability to urinate or burning while urinating). * Visual changes * Severe headache * Flu-like symptoms * Pain or redness in one of both of your breasts * Pain, warmth, tenderness or swelling in your legs, especially the calf area * Frequent nausea and vomiting * Symptoms of depression or anxiety If you experience any of the following, call 911 or go to the nearest Emergency Room. * Chest pain * Problems breathing * Seizure activity * Partial or complete paralysis of a body part, slurred speech, weakness or drooping of the face, or a sudden inability to walk or hold your balance Please Follow Up With: Kary Enrique MD When: 1-2 weeks for blood pressure and mood check Please Follow Up With: Chad Núñez MD - follow up When: 6 weeks Test Results: Test results from this visit will be discussed in further detail at your follow-up appointment, if applicable.
[2020-05-27] MEDS: 0.9% Saline Lock 10 ML Syringe IV (04:05)
--- NOTE | 2020-05-27 08:01 | PCM.PN.OB ---
Patient Problems: Active and Suspected Problems (Last Reviewed 08/28/17 @ 07:59 by Joi Gallo) 37 weeks gestation of (Acute) Gestational hypertension (Acute) Subjective: No issues overnight. Denies heavy lochia. No headache, vision changes. Infant is tongue tied, but latches and nurses well. Objective: AVSS - Physical Exam Vitals/I&O's: Vital Signs Temp Pulse Resp BP Pulse Ox 99.0 F 93 18 104/57 L 99 05/27/20 03:41 05/27/20 03:40 05/27/20 03:40 05/27/20 03:40 05/27/20 03:40 Oxygen Delivery Method Room Air Weight: 83.1 kg Body Mass Index (BMI) 32.4 Intake and Output for Last 24 Hours 05/25/20 05/26/20 05/27/20 23:59 23:59 23:59 Intake Total 788.21 / 788.21 1483.87 / 1483.87 Output Total 700 / 700 Balance 88.21 / 88.21 1483.87 / 1483.87 General: Alert, Oriented x3, Cooperative, No apparent distress HEENT: Atraumatic, Normocephalic Psych/Mental Status: Normal Affect, Appropriate, Alert and oriented to time, place, person, mood and affect Microbiology Past 72 Hours 05/26/20 14:15 Mucosa - Nose SARS-CoV-2 Antigen (Rapid) - Final Laboratory Results 05/26/20 11:15: WBC 8.8, RBC 3.77 L, Hgb 11.0 L, Hct 32.8 L, MCV 87.0, MCH 29.2, MCHC 33.5, RDW Std Deviation 38.8, RDW Coeff of Radha 12.1, Plt Count 156, MPV 11.6 05/26/20 11:15: U Random Total Protein < 6.0, Urine Creatinine 30.20, Protein/Creatinin Ratio 195 05/26/20 11:15: Uric Acid 4.6 05/26/20 11:15: Sodium 137, Potassium 4.4, Chloride 107, Carbon Dioxide 24.0, Anion Gap 6, BUN 6 L, Creatinine 0.52 L, Estim Creat Clear Calc 135.62, Est GFR (MDRD) Af Amer 184, Est GFR (MDRD) Non-Af 152, BUN/Creatinine Ratio 11.6, Glucose 75, Calcium 8.9, Total Bilirubin 0.40, AST 30, ALT 21, Alkaline Phosphatase 135 H, Total Protein 6.6, Albumin 2.7 L, Globulin 3.9, Albumin/Globulin Ratio 0.7 L 05/26/20 14:15: Blood Type A NEGATIVE, Antibody Screen NEGATIVE 05/26/20 15:15: Urine Opiates Screen NEGATIVE, Urine Methadone Screen NEGATIVE, Ur Barbiturates Screen NEGATIVE, Ur Phencyclidine Scrn NEGATIVE, Ur Amphetamines Screen POSITIVE H, U Methamphetamin-MDMA NEGATIVE, U Benzodiazepines Scrn NEGATIVE, Urine Cocaine Screen NEGATIVE, U Cannabinoids Screen NEGATIVE, Ur Drug Screen Comment 05/26/20 15:15: U Amphetamines Confirm Pending 05/27/20 04:04: Screen NEGATIVE, Baby's Blood Type A POSITIVE, Baby's RADHA NEGATIVE Current Medications Acetaminophen (Acetaminophen 500 Mg Tablet) 1,000 mg PO Q8H PRN PRN PRN Reason: Pain Score 1-3 Bisacodyl (Bisacodyl 10 Mg Suppository) 10 mg RECTAL UD PRN PRN Reason: If no BM Dibucaine (Dibucaine 30 Gm Tube) 1 applic TOPICAL TID PRN PRN; Protocol PRN Reason: Discomfort Hydrocortisone (Hydrocortisone 2.5% Crm) 1 applic TOPICAL TID PRN PRN; Protocol PRN Reason: Discomfort Ibuprofen (Ibuprofen 600 Mg Tablet) 600 mg PO Q6H PRN PRN PRN Reason: Pain Score 1-3 Methylergonovine Maleate (Methylergonovine 0.2 Mg/Ml Ampul) 0.2 mg IM X1 PRN PRN Reason: Excess bleeding/uterine atony Ondansetron HCl (Ondansetron 4 Mg/2 Ml Vial) 4 mg IV Q4H PRN PRN PRN Reason: Nausea Senna/Docusate Sodium (Senna/Docusate Sodium 1 Tablet) 1 - 2 tablet PO DAILY PRN PRN PRN Reason: Constipation Simethicone (Simethicone 80 Mg Tablet) 80 mg PO PCHS PRN PRN Reason: Indigestion/Stomach pain Sodium Chloride (0.9% Saline Lock 10 Ml Syringe) 5 - 15 ml IV UD PRN PRN Reason: SALINE FLUSH Last Admin: 05/27/20 04:05 Dose: 10 ml Documented by: Medical Necessity - Tobacco Use Smoking Status: Former smoker Assessment/Plan All Active Problems (Last Reviewed 08/28/17 @ 07:59 by Joi Gallo) 37 weeks gestation of (Acute) Gestational hypertension (Acute) This is a 25 year-old, G [7], P [3043] s/p , IOL for gHTN, headache resolved in labor. -Rh negative, infant Rh positive - for Rhogam - -Routine care
[2020-05-27] MEDS: Ibuprofen 600 MG Tablet PO ×2 (15:05→22:54)
[2020-05-28 01:47] VITALS: BP 108/64; PULSE 73; RESP 18; TEMP 36.6
[2020-05-28 04:18] VITALS: BP 133/82; PULSE 91; RESP 18; TEMP 36.6
[2020-05-28 07:56] VITALS: BP 142/67; PULSE 100; RESP 16; TEMP 35.8
--- NOTE | 2020-05-28 08:45 | PCM.PN.OB ---
Patient Problems: Active and Suspected Problems (Last Reviewed 08/28/17 @ 07:59 by Joi Gallo) 37 weeks gestation of (Acute) Gestational hypertension (Acute) Subjective: No overnight complaints. Pain well controlled. Minimal lochia. - Physical Exam Vitals/I&O's: Vital Signs Temp Pulse Resp BP Pulse Ox 96.5 F L 100 16 142/67 H 98 05/28/20 07:56 05/28/20 07:56 05/28/20 07:56 05/28/20 07:56 05/27/20 16:00 Oxygen Delivery Method Room Air Weight: 183 lb 3.266 oz Body Mass Index (BMI) 32.4 Intake and Output for Last 24 Hours 05/26/20 05/27/20 05/28/20 23:59 23:59 23:59 Intake Total 788.21 / 788.21 1483.87 / 1483.87 Output Total 700 / 700 600 / 600 Balance 88.21 / 88.21 883.87 / 883.87 General: Alert, Oriented x3, Cooperative, No apparent distress HEENT: Atraumatic, PERRLA Oral: Moist Mucosa Neck: Supple Abdomen: Soft, Non Tender, - - Fundus firm and below umbilicus Extremities: No clubbing, No cyanosis Neurological: Neuro grossly intact Psych/Mental Status: Normal Affect, Appropriate, Alert and oriented to time, place, person, mood and affect Microbiology Past 72 Hours 05/26/20 14:15 Mucosa - Nose SARS-CoV-2 Antigen (Rapid) - Final Current Medications Acetaminophen (Acetaminophen 500 Mg Tablet) 1,000 mg PO Q8H PRN PRN PRN Reason: Pain Score 1-3 Bisacodyl (Bisacodyl 10 Mg Suppository) 10 mg RECTAL UD PRN PRN Reason: If no BM Dibucaine (Dibucaine 30 Gm Tube) 1 applic TOPICAL TID PRN PRN; Protocol PRN Reason: Discomfort Hydrocortisone (Hydrocortisone 2.5% Crm) 1 applic TOPICAL TID PRN PRN; Protocol PRN Reason: Discomfort Ibuprofen (Ibuprofen 600 Mg Tablet) 600 mg PO Q6H PRN PRN PRN Reason: Pain Score 1-3 Last Admin: 05/27/20 22:54 Dose: 600 mg Documented by: Methylergonovine Maleate (Methylergonovine 0.2 Mg/Ml Ampul) 0.2 mg IM X1 PRN PRN Reason: Excess bleeding/uterine atony Ondansetron HCl (Ondansetron 4 Mg/2 Ml Vial) 4 mg IV Q4H PRN PRN PRN Reason: Nausea Senna/Docusate Sodium (Senna/Docusate Sodium 1 Tablet) 1 - 2 tablet PO DAILY PRN PRN PRN Reason: Constipation Simethicone (Simethicone 80 Mg Tablet) 80 mg PO PCHS PRN PRN Reason: Indigestion/Stomach pain Sodium Chloride (0.9% Saline Lock 10 Ml Syringe) 5 - 15 ml IV UD PRN PRN Reason: SALINE FLUSH Last Admin: 05/27/20 04:05 Dose: 10 ml Documented by: Medical Necessity - Tobacco Use Smoking Status: Former smoker Assessment/Plan All Active Problems (Last Reviewed 08/28/17 @ 07:59 by Jio Gallo) 37 weeks gestation of (Acute) Gestational hypertension (Acute) day 1. Breast-feeding with bottlefeeding supplement with tongue-tie. Gestational hypertension. Discharge home today
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
[2020-05-31 12:07] LABS: Amphetamine Positive (.); AmphetamineGC/MS Conf >3000 ng/mL (Cutoff=500)
[2020-06-01 11:17] LABS: Amphetamine Ur Confirm Positive (.); Methamphetamines Negative (Cutoff=500)
== END 2020-05-28 12:45 | disposition home or self-care (01) | DRG 560 ==
LOC: WPOUT 14:05 → WP 14:05
PROVIDERS: Admitting Provider Obstetrics & Gynecology; PCP Family Medicine; Referring Provider Obstetrics & Gynecology; Visit Provider Obstetrics & Gynecology
DX: O13.4 Gestational [pregnancy-induced] hypertension without significant proteinuria, complicating childbirth (principal); O26.23 Pregnancy care for patient with recurrent pregnancy loss, third trimester; O69.81X0 Labor and delivery complicated by cord around neck, without compression, not applicable or unspecified; Z3A.38 38 weeks gestation of pregnancy; Z37.0 Single live birth; Z87.891 Personal history of nicotine dependence; Z87.59 Personal history of other complications of pregnancy, childbirth and the puerperium; F90.9 Attention-deficit hyperactivity disorder, unspecified type; G43.909 Migraine, unspecified, not intractable, without status migrainosus; O75.89 Other specified complications of labor and delivery
CPT/HCPCS: 59025; 59050; 80053; 80307; 82570; 84112; 84156; 84550; 85027; 85461; 86850; 86900; 86901; 87426; 90384; 99218; J7120; A4216; G0378; J2790

== ENCOUNTER → 2020-11-03 11:46 | Outpatient (CLI) | payer MEDICAID, SELFPAY ==
[2020-05-26 10:55] VITALS: BMI 32.4
[2020-11-03 12:44] LABS: Absolute Lymphocyte Count 1.67 X10^3/uL (0.83-4.51); Absolute Neutrophil Count 4.9 X10^3/uL (2.0-7.7); Basophil# 0.04 X10^3/uL; Basophil% 0.6 % (0-1); Eosinophil# 0.05 X10^3/uL; Eosinophils% 0.7 % (0-5); Hemoglobin 12.8 g/dL (12.0-15.0); Lymphocyte # 1.67 X10^3/ul (0.83-4.51); Lymphocyte % 23.7 % (19-41); Mean Corp Hgb Conc 34.6 g/dL (32-36); Mean Corpuscular Volume 86.9 fL (81-99); Mean Platelet Vol. 10.9 fl (6.2-12.0); Monocyte# 0.36 X10^3/uL; Monocyte% 5.1 % (0-10); NRBC Flagged by Analyzer 0 % (0-5); Neutrophil # 4.89 X10^3/uL (2.7-7.7); Neutrophil % 69.5 % (47-70); Platelet Count 147 K/mm3 (150-450); RBC Distribution Width SD 38.3 fl (35.1-43.9); Red Blood Count 4.26 M/mm3 (4.2-5.4)
[2020-11-03 12:51] LABS: Color, Urine Straw (Yellow); Glucose, Dipstick Normal (Normal); Ketone-Dipstick Negative (Negative); Leukocyte Esterase-Dipstick Negative /ul (Negative); Nitrite-Dipstick Negative (Negative); Occult Blood-Urine Negative /ul (Negative); Protein-Dipstick Negative (Negative); Specific Gravity, Urine 1.005 (1.002-1.030); Urine Bilirubin Dipstick Negative (Negative); Urine Clarity Clear (Clear); Urine Urobilinogen Normal (Normal)
[2020-11-03 13:10] LABS: Thyroid Stim Hormone (TSH) 0.18 uIU/mL (0.358-3.74)
[2020-11-03 13:17] LABS: Amphetamine Urine VISTA POSITIVE (<1000 ng/mL); Barbiturate Urine VISTA NEGATIVE (< 200 ng/mL); Benzodiazepine Urine VISTA NEGATIVE (< 200 ng/mL); Cocaine Urine VISTA NEGATIVE (< 300 ng/mL); Ecstacy Urine VISTA NEGATIVE (< 500 ng/mL); Methadone Urine VISTA NEGATIVE (< 300 ng/mL); PCP Urine VISTA NEGATIVE (< 25 ng/mL); THC Urine VISTA NEGATIVE (< 50 ng/mL); Vista UDS pH Range 7
[2020-11-03 13:42] LABS: HIV - WCH Non-Reactive (Nonreactive); Hepatitis B Surface Antigen Non-Reactive (Nonreactive); Hepatitis C Antibody Non-Reactive (Nonreactive); Rubella IgG Reactive (Nonreactive); Syphilis Antibodies Non-reactive
[2020-11-04 14:03] LABS: T4 Free Direct 1.27 ng/dL (0.76-1.46)
[2020-11-04 20:08] LABS: Chlamydia By Nucleic Acid AMP Negative (Negative)
[2020-11-04 22:11] LABS: Gonococcus By Nucleic Acid AMP Negative (Negative)
[2020-11-08 12:20] LABS: HPV Reflexed? NOT INDICATED
== END ==
PROVIDERS: PCP Family Medicine; Visit Provider Obstetrics & Gynecology
DX: Z12.4 Encounter for screening for malignant neoplasm of cervix (principal); Z11.3 Encounter for screening for infections with a predominantly sexual mode of transmission; Z32.01 Encounter for pregnancy test, result positive
CPT/HCPCS: 36415; 80307; 81002; 84439; 84443; 85025; 86703; 86762; 86780; 86803; 87340; 87491; 87591; 88175; G0145

== ENCOUNTER → 2021-03-22 13:43 | Outpatient (CLI) | payer MEDICAID, SELFPAY ==
[2021-03-22 14:02] LABS: Hematocrit 29.9 % (37-47); Hemoglobin 10.4 g/dL (12.0-15.0); Mean Corp Hgb Conc 34.8 g/dL (32-36); Mean Platelet Vol. 10.8 fl (6.2-12.0); Platelet Count 188 K/mm3 (150-450); RBC Distribution Width CV 11.8 % (11.6-14.6); RBC Distribution Width SD 37.9 fl (35.1-43.9); Red Blood Count 3.36 M/mm3 (4.2-5.4); White Blood Count 10.9 K/mm3 (4.4-11.0)
[2021-03-22 14:18] LABS: Glucose Challenge Gest 1H 50g 117 mg/dL (70-140)
[2021-03-23 14:58] LABS: Ferritin 6 ng/mL (8-252)
== END ==
PROVIDERS: PCP Family Medicine; Visit Provider Obstetrics & Gynecology
DX: Z34.83 Encounter for supervision of other normal pregnancy, third trimester (principal)
CPT/HCPCS: 36415; 82728; 82950; 85027; 86850

== ENCOUNTER → 2021-05-03 13:46 | Outpatient (CLI) | payer MEDICAID, SELFPAY ==
[2021-05-03 13:50] LABS: Bacteria 0 SEEN /hpf (None Seen); Mucous, Urine 0 SEEN /hpf (<or=2+); Red Blood Cells-Urine 0 SEEN /hpf (0-5); White Blood Cells 0 SEEN /hpf (0-5)
[2021-05-03 15:25] LABS: Hematocrit 28.3 % (37-47); Hemoglobin 9.3 g/dL (12.0-15.0); Mean Corp Hgb Conc 32.9 g/dL (32-36); Mean Corpuscular Hgb 28.6 pg (27.0-32.0); Mean Corpuscular Volume 87.1 fL (81-99); Platelet Count 189 K/mm3 (150-450); RBC Distribution Width CV 12.3 % (11.6-14.6); RBC Distribution Width SD 39.4 fl (35.1-43.9); Red Blood Count 3.25 M/mm3 (4.2-5.4); White Blood Count 8.7 K/mm3 (4.4-11.0)
[2021-05-03 15:38] LABS: Color, Urine Straw (Yellow); Glucose, Dipstick Normal (Normal); Ketone-Dipstick Negative (Negative); Leukocyte Esterase-Dipstick Negative /ul (Negative); Nitrite-Dipstick Negative (Negative); Occult Blood-Urine Negative /ul (Negative); Protein-Dipstick Negative (Negative); Urine Bilirubin Dipstick Negative (Negative); Urine Clarity Clear (Clear); Urine Urobilinogen Normal (Normal)
[2021-05-03 15:45] LABS: Squamous Epithelial Cells - UA 0-5 SEEN /hpf (5-10)
[2021-05-03 15:50] LABS: ALB/GLOB Ratio 0.7 RATIO (0.9-2.4); AST(SGOT) 21 U/L (15-37); Alanine Aminotransfer ALT/SGPT 21 U/L (13-56); Albumin, Serum 2.5 g/dL (3.2-5.0); Alkaline Phosphatase 123 U/L (45-117); Anion Gap 10 (5-15); BUN 4 mg/dL (7-18); BUN/Creat Ratio 9.8 RATIO (10-20); Calcium,Total 8.6 mg/dL (8.5-10.1); Chloride 108 mmol/L (98-107); Creatinine, Serum 0.41 mg/dL (0.55-1.02); EST Glomerular Filtration Rate 198 mL/min (>60); Est Glom Filt Rate - Afr Amer 240 mL/min (>60); Globulin 3.8 g/dL (2.2-4.2); Glucose 88 mg/dL (74-106); LDH 173 U/L (84-246); Potassium 3.8 mmol/L (3.5-5.1); Protein, Total 6.3 g/dL (6.4-8.2); Sodium Level 139 mmol/L (136-145)
[2021-05-03 15:57] LABS: Creatinine, Urine (random) < 13.00 mg/dL (NO RANGE EST.); Protein, Urine (Random) < 6.0 mg/dL (<11.9)
== END ==
PROVIDERS: PCP Family Medicine; Visit Provider Obstetrics & Gynecology
DX: O26.893 Other specified pregnancy related conditions, third trimester (principal); R51.9 Headache, unspecified; Z3A.00 Weeks of gestation of pregnancy not specified
CPT/HCPCS: 80053; 81001; 82570; 83615; 84156; 85027

== ENCOUNTER 2021-05-05 22:00 | Outpatient (CLI) | payer MEDICAID, SELFPAY ==
[2021-05-05 22:24] VITALS: BP 127/74; PULSE 96; TEMP 36.9; O2SAT 99
[2021-05-05 22:26] VITALS: BMI 32.1
[2021-05-05 22:29] VITALS: PULSE 105; O2SAT 99
[2021-05-05 22:34] VITALS: PULSE 101; O2SAT 99
[2021-05-05 22:39] VITALS: PULSE 96; O2SAT 99
[2021-05-05 22:40] VITALS: BP 120/68; PULSE 99
[2021-05-05 23:32] LABS: Protein, Urine (Random) 16.4 mg/dL (<11.9); Protein:Creat Ratio 179 mg/g CRE (0-200)
[2021-05-05 23:42] LABS: Hematocrit 26.9 % (37-47); Mean Corp Hgb Conc 33.5 g/dL (32-36); Mean Corpuscular Hgb 28.5 pg (27.0-32.0); Mean Corpuscular Volume 85.1 fL (81-99); Mean Platelet Vol. 11.1 fl (6.2-12.0); Platelet Count 180 K/mm3 (150-450); RBC Distribution Width CV 12.3 % (11.6-14.6); RBC Distribution Width SD 37.8 fl (35.1-43.9); Red Blood Count 3.16 M/mm3 (4.2-5.4); White Blood Count 9.8 K/mm3 (4.4-11.0)
[2021-05-05 23:48] LABS: AST(SGOT) 20 U/L (15-37); Alanine Aminotransfer ALT/SGPT 20 U/L (13-56); Creatinine, Serum 0.51 mg/dL (0.55-1.02); EST Glomerular Filtration Rate 154 mL/min (>60); Est Glom Filt Rate - Afr Amer 187 mL/min (>60); Estimated Creatinine Clearance 138.28 ml/min; Uric Acid 4.5 mg/dL (2.6-6.0)
[2021-05-06 00:16] VITALS: BP 125/69; PULSE 90
--- NOTE | 2021-05-06 08:55 | OB.TRI.NOTE ---
HPI - General HPI Narrative CHEYENNE MILNER, is a 25 F who presents to labor and delivery with decreased movement headache and right upper quadrant pain. She has had the headache for about 2 weeks and it is relieved with Tylenol but then returns after about 1/2-hour. PFSH PFSH Medical History (Updated 05/06/21 @ 08:[address] Renny Stark MD) ADD (attention deficit disorder) Anemia affecting History of pre-eclampsia in prior , currently Migraine Sleep apnea Home Medications PNV cmb#95-ferrous fumarate-FA 1 ea PO DAILY 03/05/19 [History Last Taken 05/05/21] ferrous sulfate 325 mg PO DAILY 05/20/20 [History Last Taken 05/05/21] dextroamphetamine-amphetamine 30 mg PO DAILY 05/26/20 [History Last Taken 05/05/21] [id number] [Fioricet] 1 cap PO DAILY 05/05/21 [History Last Taken 05/05/21] dextroamphetamine-amphetamine 10 mg PO DAILY 05/05/21 [History Last Taken 05/04/21] omeprazole 20 mg PO DAILY 05/05/21 [History Last Taken 05/05/21] Allergy/AdvReac Type Severity Reaction Status Date / Time latex Allergy Rash Verified 05/20/20 20:07 nickel AdvReac Rash Verified 05/20/20 20:07 Family History Father Diabetes Uncle Heart disease Grandmother Cancer brain cancer Surgical History (Updated 03/13/18 @ 19:[address] 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 Date Name GA/Weeks Outcome Route Bth Weight Infant Gen Labor Lgth Anesthesia Del Locatn Provider FOB Unknown 12/01/2015 [place] NST FHR Rate Baby A NST Reactive:: Yes FHR Category:: Category I Uterine Activity:: Minimal irritability Assessment & Plan (1) Headache in , antepartum: (2) Decreased movement: PLAN: 34 weeks 6-day gestation with decreased movement and headache with some right upper quadrant pain. heart tones reactive. Blood pressure is normal upon admission. Will check pre-E and discharge patient to home. Instructed to continue use of Tylenol and Fioricet as needed. Keep next appointment.
== END 2021-05-06 00:26 | disposition home or self-care (01) ==
LOC: WPOUT 22:06 → WP 22:07
PROVIDERS: PCP Family Medicine; Visit Provider Obstetrics & Gynecology
DX: O36.8130 Decreased fetal movements, third trimester, not applicable or unspecified (principal); Z3A.34 34 weeks gestation of pregnancy; D64.9 Anemia, unspecified; O99.013 Anemia complicating pregnancy, third trimester; Z79.899 Other long term (current) drug therapy; Z87.59 Personal history of other complications of pregnancy, childbirth and the puerperium; Z87.891 Personal history of nicotine dependence; O09.293 Supervision of pregnancy with other poor reproductive or obstetric history, third trimester; O99.353 Diseases of the nervous system complicating pregnancy, third trimester; G47.30 Sleep apnea, unspecified
CPT/HCPCS: 36415; 59025; 59050; 82565; 82570; 84156; 84450; 84460; 84550; 85027; 99218; G0378

== ENCOUNTER 2021-05-12 18:10 | Outpatient (CLI) | payer MEDICAID, SELFPAY ==
[2021-05-12] VITALS (11 sets, daily range): BP systolic 126–149; BP diastolic 65–90; PULSE 96–125; TEMP 36.9–37.6; O2SAT 99–100; BMI 33.3
[2021-05-12 19:17] LABS: Bacteria 0 SEEN /hpf (None Seen); Mucous, Urine 0 SEEN /hpf (<or=2+); Red Blood Cells-Urine 0 SEEN /hpf (0-5); Squamous Epithelial Cells - UA 0 SEEN /hpf (5-10); White Blood Cells 0 SEEN /hpf (0-5)
[2021-05-12 19:19] LABS: Mean Corp Hgb Conc 33.3 g/dL (32-36); Mean Corpuscular Hgb 28.8 pg (27.0-32.0); Mean Corpuscular Volume 86.5 fL (81-99); Mean Platelet Vol. 11.3 fl (6.2-12.0); Platelet Count 157 K/mm3 (150-450); RBC Distribution Width CV 12.9 % (11.6-14.6); RBC Distribution Width SD 39.8 fl (35.1-43.9); Red Blood Count 3.47 M/mm3 (4.2-5.4); White Blood Count 10.5 K/mm3 (4.4-11.0)
[2021-05-12 19:24] LABS: Color, Urine Yellow (Yellow); Glucose, Dipstick Normal (Normal); Ketone-Dipstick Negative (Negative); Leukocyte Esterase-Dipstick Negative /ul (Negative); Nitrite-Dipstick Negative (Negative); Occult Blood-Urine Negative /ul (Negative); Protein-Dipstick Negative (Negative); Specific Gravity, Urine 1.015 (1.002-1.030); Urine Bilirubin Dipstick Negative (Negative); Urine Clarity Sl. Cloudy (Clear); Urine Urobilinogen Normal (Normal)
[2021-05-12] MEDS: Acetaminophen 500 MG Tablet 1000 MG PO (19:27)
[2021-05-12] MEDS: 0.9 % NaCl (Sterile) Posiflush 10 mL IV (19:28)
[2021-05-12 19:32] LABS: Protein, Urine (Random) 6.8 mg/dL (<11.9); Protein:Creat Ratio 227 mg/g CRE (0-200)
[2021-05-12 19:39] LABS: AST(SGOT) 37 U/L (15-37); Alanine Aminotransfer ALT/SGPT 24 U/L (13-56); EST Glomerular Filtration Rate 127 mL/min (>60); Est Glom Filt Rate - Afr Amer 153 mL/min (>60); Estimated Creatinine Clearance 117.54 ml/min; Uric Acid 5.1 mg/dL (2.6-6.0)
[2021-05-12] MEDS: Lactated Ringers 1,000 ML 999 ML IV (20:24)
--- NOTE | 2021-05-16 09:58 | OB.TRI.HP_ITS ---
HPI - General HPI Narrative CHEYENNE MILNER, is a 25 F who presents at 36 weeks gestation with headache. This headache has persisted for the last 2 weeks. PFSH PFS Medical History (Updated 05/14/21 @ 08:[address] Kary Weaver MD) ADD (attention deficit disorder) Anemia affecting Anxiety History of pre-eclampsia in prior , currently Migraine Sleep apnea Home Medications PNV cmb#95-ferrous fumarate-FA 1 ea PO DAILY 03/05/19 [History Last Taken 1 Day Ago ~05/13/21] ferrous sulfate 325 mg PO BID 05/20/20 [History Last Taken 1 Day Ago ~05/13/21] dextroamphetamine-amphetamine 30 mg PO DAILY 05/26/20 [History Last Taken 1 Day Ago ~05/13/21] spktatxocn-nfjyldbduaiep-gejj [Fioricet] 1 cap PO DAILY 05/05/21 [History Last Taken 1 Day Ago ~05/13/21] dextroamphetamine-amphetamine 10 mg PO DAILY 05/05/21 [History Last Taken 1 Day Ago ~05/13/21] omeprazole 20 mg PO DAILY 05/05/21 [History Last Taken 1 Day Ago ~05/13/21] Allergy/AdvReac Type Severity Reaction Status Date / Time latex Allergy Rash Verified 05/12/21 18:26 nickel AdvReac Rash Verified 05/12/21 18:26 Family History Father Diabetes Uncle Heart disease Grandmother Cancer brain cancer Surgical History (Updated 05/14/21 @ 10:23 by Сергей Ivory) History of appendectomy Tonsil, abscess Social History (Updated 03/22/18 @ 15:52 by Leela LACY, PA-C) Smoking Status: Former smoker second hand exposure: Yes quit status: not considering quitting alcohol intake: never substance use type: does not use what type of physical activity do you participate in: none seatbelt use: sometimes do you feel safe at home: Yes 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 PIH work-up negative. Patient indicates headache is severe but she is talking on the phone and texting without any apparent distress. Reactive nonstress test. Will discharge to home with follow-up the next day.
== END 2021-05-12 21:35 | disposition home or self-care (01) ==
LOC: WPOUT 18:20 → WP 18:20
PROVIDERS: Obstetrics & Gynecology; PCP Family Medicine; Visit Provider Obstetrics & Gynecology
DX: O26.893 Other specified pregnancy related conditions, third trimester (principal); R51.9 Headache, unspecified; Z3A.36 36 weeks gestation of pregnancy; Z87.891 Personal history of nicotine dependence; Z87.59 Personal history of other complications of pregnancy, childbirth and the puerperium; O99.340 Other mental disorders complicating pregnancy, unspecified trimester; F41.9 Anxiety disorder, unspecified; G47.30 Sleep apnea, unspecified
CPT/HCPCS: 96360; 59025; 59050; 81001; 82565; 82570; 84156; 84450; 84460; 84550; 85027; 99218; J7120; G0378

== ENCOUNTER 2021-05-14 07:55 | Inpatient (IN) | payer MEDICAID, SELFPAY ==
[2021-05-13] VITALS (10 sets, daily range): BP systolic 106–144; BP diastolic 60–82; PULSE 77–113; TEMP 36.8–36.9; O2SAT 98–99; BMI 32.9
[2021-05-13] MEDS: 0.9% Saline Lock 10 ML Syringe IV ×2 (13:30→13:34)
[2021-05-13] MEDS: Metoclopramide 10 MG/2 ML Vial IV (13:34)
[2021-05-13 13:48] LABS: Group B Strep DNA By PCR Negative (Negative); Internal Control PASS; Probe Check PASS; Specimen Processing Control PASS
[2021-05-13] MEDS: Acetaminophen 500 MG Tablet 1000 MG PO (21:11)
[2021-05-14] VITALS (83 sets, daily range): BP systolic 98–131; BP diastolic 53–77; PULSE 69–110; RESP 16–22; TEMP 36.3–37.2; O2SAT 85–100
[2021-05-14] MEDS: 0.9% Saline Lock 10 ML Syringe IV ×3 (00:16→09:44)
[2021-05-14] MEDS: Metoclopramide 10 MG/2 ML Vial IV (00:16)
[2021-05-14 03:14] LABS: 24 Hour Urine Protein 299.6 mg/24HR (<150 MG/24HR); 24HR. UA Prot. Total Volume 1400 mL; Urine Protein (24 Hour) 10.7 mg/dL (<11.9)
--- NOTE | 2021-05-14 07:57 | HP.PCM.OB_ITS ---
HPI - General HPI Narrative STERLING MILNER, is a 25 F admitted at 36 1/7 weeks gestational age for induction of labor. She was sent from office yesterday morning for c/o elevated BP at home and chronic headache x 2 weeks. She had initial improvement of headache with Reglan on observation, however, recent recurrence and 12h urine protein resulted 299mg. She reports vision changes. No abdominal pain. ACOG ANTEPARTUM RECORD - HISTORY AND PHYSICAL (05/14/2021) OB Physician: Kary Weaver MD 's Physician: TAB ...................................................................... : 1995 Age: 25 Address: [address] [place] [address] Phone: H) [phone] (O) [phone] Insurance Carrier: [employer] [id number] Emergency Contact: ROSA CARTER [phone] ...................................................................... Final MERRY: 06/10/21 By Ultrasound: 8 weeks 5 days PARITY: (G-Total Pregnancies P-Fullterm,Premature,Induced AB,Spont AB, Ectopics, Multiple,Living) MERRY CONFIRMATION: By LMP: 08/15/20 Initial Exam: 06/10/21 By First Ultrasound Exam: 06/10/20 Final MERRY: 06/10/21 OB PROBLEM LIST: A-Negative! All of her labors were induced d/t HTN ALLERGIC: ADHESIVES, LATEX, MEHDI Declines genetic and carrier screening Four 1st trimester SAB's Gestational hyperthyroidism Recurrent gestational thrombocytopenia Short interval between pregnancies Sleep apnea Smokes, trying to quit. 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 Drug Use - denies use of street drugs Sexual Activity - Residence - lives with Place of - [place] Spouse-Sig Other Name - Ezra [facility] Spouse-Sig Other Occupation - [employer] Spouse-Sig Other Phone No - [phone] Children Name(s) - Foreign , Sumit , Eulalia PRIOR DELIVERY HISTORY DEL DATE GEST LAB WT LB WT OZ TYPE ANES LABOR TX __ Dec 15 4 0 0 0 Sab None No 01 Fe 20 6 0 0 0 Sab None No May 13 4 0 0 0 Sab None No 01 Sep 16 4 0 0 0 Sab None No Jun 04 38 10 8 11 Vag Epidural No Aug 18 37 12 6 11 Vag Epidural No Nov 27 38 16 6 10 Vacuu Epidural No ANTEPARTUM FLOW CHART VISIT GE RTC FU F F ID U U DATE WK MD WKS HT PN HR M SS BP ED WT ID GL D EF ST __ ____ ___ __ __ ___ __ __ __ ___ __ __ __ ___ __ 30 Apr SHM 1 36 V + + 138/86 2+ 189 tr ne 3 50 -3 Apr JM 2 34 V + + 124/82 sl 181 - - 06 Apr JM 2 32 V + + 142/86 1+ 178 1+ - 2 Apr 13 JM 2 30 - + + 130/70 0 173 ne ne Apr 10 JMW 3 27 + + 138/78 0 168 - - 13 Mar 07 JMW 3 24 + 108/62 0 163 - - 15 Feb 01 SHM 4 20 ? + ? 110/60 0 154 tr - Dec 28 SHM 4 16 + 106/58 0 144 ne ne Nov 23 SHM 4 pn US 120/76 0 142 tr - ANTEPARTUM NOTE(S): May 13 2021: GBS/LARC signed May 03 2021: generalized edema, vision changes, ROSAS's Apr 19 2021: see note Apr 05 2021: FM good, Feels well. Mar 15 2021: see note Feb 24 2021: Good FM, Glucola Given Jan 27 2021: comp u/s today Dec 30 2020: Dec 02 2020: feeling well COMPREHENSIVE ANTEPARTUM NOTE(S): May 13 2021: Continues with H/A states that Fiorecet provides no relief for migraines. experiences seeing floaters, light sensitivity, getting dizzy. Hospital visits x 2 for upper stomach pain. Had Migraines before in previous resolved after delivery. Feeling pelvic pressure and rula mansfield contractions. GBS/LARC today. FM well. May 13 2021: Reports 2 weeks of headache, worsening, bilateral temporal and frontal. No improvement with Tylenol, Fiorecet. Was seen in overnight with normal labs and discharged to home. BPs overnight and at home yesterday were up to 140s/90s. Pt with intermittent nausea, edema. Exam today with RRR, good air movement, left basilar rhonci, otherwise CTAB, no abdominal tenderness, + 2b/l LE and UE DTRs, no c May 03 2021: Sterling is here for a pnv at 34/4. Good FM. Pt reports generalized swelling over entire body. Notices it most in her face, hands and ankles. 1+ edema in ankles upon examination. States she hasn't been feeling well lately. Nausea has returned. Often has headaches and random occurrences of black spots in her vision. Urine WNL. No other concerns expressed. MK May 03 2021: 34 weeks, headache taking Tylenol. Rx for Fioricet sent. Blood pressure within normal limits otherwise asymptomatic. DTRs +2, negative clonus. HELLP albs today. JM Apr 19 2021: Relates increasing discomfort/pressure since last week. Concerned about increased edema. She is concerned as became 3 months after her last baby was born. B/P is elevated today, 142/86, prior hx of pre- eclampsia. Good mvmt, denies leaking fluiid. Urine long dip is negative.LMT Repeat B/P is 132/80. LMT Apr 19 2021: 32wk, intially elevated BP but repeat wnl. Cramping and fatigue otherwise asymptomatic. CE 1-2cm, all reassuring. JM Apr 05 2021: 30wk, 1hr GTT wnl. CBC with iron def anemia. Platelets wnl. JM Mar 22 2021: Sterling is here for labs incl antibody screen at 28.4 weeks gest. Feeling well. Rhogam 1500 IU full dose given and ronny well. DRC. Mar 15 2021: Sterling is here for visit. She is doing well, no complaints. She does have to have an extraction and wants letter for dentist. Dental protocol letter given. Reviewed Labs later this week or early next week for GCT, CBC, and antibody screen with Rhogam. Encouraged her to have Tdap and Influenza vaccines. LMT Feb 24 2021: Glucola given with instructions, Rhogam and antibody screen at 28 weeks. Encouraged Influenza vaccine and Tdap between 27-36 weeks. LMT Feb 24 2021: Sterling here for 24 week PVN. Pt doing well. FM good. Edema check good. cb Jan 28 2021: Entry for 01/27/21. Anatomy scan today - wnl, EFW 77th%, FEMALE. Low lying placenta a 1.5cm from os. Discussed finding. Plan for repeat US at 28- 32w, anticipate resolution. PTL precautions. Jan 27 2021: Sterling has mild fatigue but otherwise feeling well. Comp u/s today and will discuss further with Dr REEDER. LMT Dec 30 2020: Sterling is here for PNV. Says she is feeling well and has not had any issues with N/V. Eating well and getting adequate fluids. No edema noted today. Voices no concerns. However, does tire due to having 2 toddlers and a 7mo old at home. Urine neg/neg. LSS Dec 30 2020: Discussed PPBC further - pt considering options in addition to tubal sterilization. Anatomy scan next visit. Dec 02 2020: Reviewed labs. ANEG. Rubella immune. Gestational hyperthyroidism. Utox + amphetamines, however, pt long time user of Adderall for ADD. NEW Dec 02 2020: Sterling is here for her NOB visit following US and PNV with Dr. Dionte Weaver. She is a A 3 with an MERRY of 06/10/2021, and current GA is 12 w 6 d. She resides with her , Ezra, and children, Foreign, Sumit, and Eulalia. Past history updated. She states that this was a surprise, but that they are happy about it. Her youngest child was born in May of 2020. Delivery Nov 19 2020: Sterling is here for colposcopy. She has LGSIL pap at missed menses. She is 11 weeks . Has had colposcopy prior and is without question today. Consents are signed. LMT Nov 03 2020: Sterling is here today for missed menses appointment. Patient is a . Patient had a positive upt in office today. She states that she is unsure of LMP as she states that she was using the nuvaring for control. She states that if she has to guess on lmp she would say beginning of August. So for dating purposes used 08/15/20 patient states that she stopped the nuvaring beginning of SeptemberNov 03 2020: as above. She feels well overall. s/p 05/2020 and had seen PCP . Was started on NuvaRing. Had nausea initially and home UPT positive. She d/c'd Nuvaring at that time. She was seen at the care center and was told MERRY after an US. She is happy about although it was unexpected. She inquries about tubal sterilization as she would like to have them tied again s REVIEW OF SYSTEMS: GENERAL - Denies fever, or chills SKIN - Denies rash, new skin lesions, or change in moles EYES - Denies blurred vision, or change in visual acuity EARS - Denies ear pain, or difficulty hearing NOSE - Denies nasal congestion, discharge, or bleeding MOUTH - Denies sore throat, or difficulty swallowing NECK - Denies pain or swelling RESPIRATORY - Denies shortness of breath, cough, wheezing CARDIOVASCULAR - Denies palpitations, chest pain, orthopnea, PND, peripheral edema, syncope or claudication GASTROINTESTINAL - Denies nausea, vomiting, diarrhea, constipation, Denies abdominal pain, melena and or bright red blood GENITOURINARY - Denies dysuria, frequency of urination, urgency, or hesitancy MUSCULOSKELETAL - Denies joint or muscle pain, or back pain NEUROLOGICAL - Denies localized numbness, weakness, or tingling PSYCHIATRIC - Denies depression, anxiety, substance abuse or suicide attempts ENDOCRINE - Denies heat or cold intolerance, weight loss or gain, increasing thirst HEMATO-IMMUNOLOGIC - Denies easy bruising, bleeding, oral ulcerations or recurrent infections GENETICS SCREENING: Age 35+ years: No Thalassemia: No Neural Tube Defect: No Down Syndrome: No ALMA DELIA-SACHS: No Sickle Cell Disease: No Hemophilia: No Musc. Dystrophy: No Cystic Fibrosis: No-declines screening Salvatore Chorea: No Mental Retardation: No Fragile X: No Other genetic: No Other defects: No SABs/still births: No Drugs since LMP: Yes INFECTION HISTORY: High risk AIDS: No High risk Hepatitis: No Exposed to TB: No Exposed to Herpes: Yes Rash/viral illness since LMP: No History of STD: No MENSTRUAL HISTORY: *Menses Amount/Duration: 5 daysMenses Regularity: IrregularFrequency: variableMenarche (Age Onset): 10* PAST SUMMARY: PARITY: 1. Total Pregnancies............ 8 2. Full Term Pregnancies........ 3 3. Premature.................... 0 4. Abortions - Induced.......... 0 5. Abortions - Spontaneous...... 4 6. Ectopics..................... 0 7. Multiple Births.............. 0 8. Living Children.............. 3 PAST #1: Date of :.................. 05/15/12 Gestation Weeks:................ 4 Length of labor(hours):......... 0 Sex:............................ UNKNOWN Weight-lbs:............... 0 Weight-oz:................ 0 Type of Delivery:............... Sab Type of Anesthesia:............. None Place of Delivery:.............. none Treatment of Labor?:.... No Comment: DATE APPROX PAST #2: Date of :.................. 12/13/14 Gestation Weeks:................ 4 Length of labor(hours):......... 0 Sex:............................ Weight-lbs:............... 0 Weight-oz:................ 0 Type of Delivery:............... Sab Type of Anesthesia:............. None Place of Delivery:.............. none Treatment of Labor?:.... No Comment: PAST #3: Date of :.................. 01/14/16 Gestation Weeks:................ 4 Length of labor(hours):......... 0 Sex:............................ Weight-lbs:............... 0 Weight-oz:................ 0 Type of Delivery:............... Sab Type of Anesthesia:............. None Place of Delivery:.............. none Treatment of Labor?:.... No Comment: DATE APPROX PAST #4: Date of :.................. 12/01/15 Gestation Weeks:................ 38 Length of labor(hours):......... 16 Sex:............................ F Weight-lbs:............... 6 Weight-oz:................ 10 Type of Delivery:............... Vacuum Type of Anesthesia:............. Epidural Place of Delivery:.............. Jb Treatment of Labor?:.... No Comment: IOL - GHTN VS. PREECLAMPSIA PAST #5: Date of :.................. 08/31/17 Gestation Weeks:................ 37 Length of labor(hours):......... 12 Sex:............................ M Weight-lbs:............... 6 Weight-oz:................ 11 Type of Delivery:............... Vag Type of Anesthesia:............. Epidural Place of Delivery:.............. [place] Treatment of Labor?:.... No Comment: SROM, [facility] AUG, HIGH B/P PAST #6: Date of :.................. 06/15/19 Gestation Weeks:................ 6 Length of labor(hours):......... 0 Sex:............................ Weight-lbs:............... 0 Weight-oz:................ 0 Type of Delivery:............... Sab Type of Anesthesia:............. None Place of Delivery:.............. none Treatment of Labor?:.... No Comment: NO D+C, DATE APPROX PAST #7: Date of :.................. 05/27/20 Gestation Weeks:................ 38 Length of labor(hours):......... 10 Sex:............................ M Weight-lbs:............... 8 Weight-oz:................ 11 Type of Delivery:............... Vag Type of Anesthesia:............. Epidural Place of Delivery:.............. Jb Treatment of Labor?:.... No Comment: IOL - HTN, RAPID 2ND STAGE PHYSICAL EXAMINATION General Appearence: 25 yo female in no acute distress Vital Signs: AF, VSS Heart: RRR without rubs or gallops Lungs: CTA x 2 Breasts: deferred Abdomen: gravid Pelvis: Cervix: Presentation: cephalic Station: Fetus: Size: AGA Movement: present Heart: present LAB TEST(S) ORDERED SINCE:09/13/20 05/14/2021 PROTEIN, URINE 24HR 05/13/2021 GROUP B STREP DNA BY PCR 05/12/2021 URINALYSIS, COMPLETE 05/12/2021 URIC ACID 05/12/2021 SERUM CREATININE AND GFR 05/12/2021 PROTEIN+CREATININE RATIO,URINE 05/12/2021 CBC-COMPLETE BLOOD CNT NO DIFF 05/12/2021 AST(SGOT) 05/12/2021 ALANINE AMINOTRANSFERAS (SGPT) 05/05/2021 URIC ACID 05/05/2021 SERUM CREATININE AND GFR 05/05/2021 PROTEIN+CREATININE RATIO,URINE 05/05/2021 CBC-COMPLETE BLOOD CNT NO DIFF 05/05/2021 AST(SGOT) 05/05/2021 ALANINE AMINOTRANSFERAS (SGPT) 05/03/2021 URINALYSIS, COMPLETE 05/03/2021 PROTEIN+CREATININE RATIO,URINE 05/03/2021 LDH 05/03/2021 COMPREHENSIVE METABOLIC PROFIL 05/03/2021 CBC-COMPLETE BLOOD CNT NO DIFF 03/23/2021 FERRITIN 03/22/2021 GLUCOSE CHALLENGE GEST 1H 50G 03/22/2021 CBC-COMPLETE BLOOD CNT NO DIFF 03/22/2021 [id number] 11/08/2020 PAP I-G W/RFX HRHPV-APTIMA 11/04/2020 T4 FREE DIRECT 11/04/2020 CHLAMYDIA/GC DAVID APTIMA 11/03/2020 URINE DRUG SCREEN (VISTA) 11/03/2020 URINALYSIS, ROUTINE (DIPSTICK) 11/03/2020 THYROID STIM HORMONE (TSH) 11/03/2020 RUBELLA IGG 11/03/2020 T AND S-NO CHARGE W/PNP 11/03/2020 L509.8000 11/03/2020 HIV - WC 11/03/2020 HEPATITIS C ANTIBODY 11/03/2020 HEPATITIS B SURFACE ANTIGEN 11/03/2020 CBC W/DIFF, AUTOMATED == ==== Order Observation Description Value Ref_Range A* Site == ==== PROTEIN, URINE NOTE SIMEON PROTEIN, URINE UR COLLECT TIME 12.0 HOURS 24.0 LL ML PROTEIN, URINE UR TOTAL VOLUME 1400 mL ML PROTEIN, URINE URINE PROTEIN 10.7 mg/dL <11.9 ML PROTEIN, URINE 24HR UR PROTEIN 299.6 mg/24HR <150 MG/24HR H ML GROUP B STREP D NOTE SIMEON GROUP B STREP D GBS DNA ASSAY Negative Negative ML ALANINE AMINOTR NOTE SIMEON ALANINE AMINOTR ALT 24 U/L 13-56 ML AST(SGOT) NOTE SIMEON AST(SGOT) AST 37 U/L 15-37 ML Moderate Hemolysis, Result may be falsely increased. URIC ACID NOTE SIMEON URIC ACID URIC 5.1 mg/dL 2.6-6.0 ML The drugs N-Acetylcysteine and Metamizole may falsely depress this assay. SERUM CREATININ NOTE SIMEON SERUM CREATININ CREAT,SERUM 0.60 mg/dL 0.55-1.02 ML The validity of the calculated GFR GFRAA in patients over 70 years has not been determined. Clinical correlation is essential. SERUM CREATININ EST GFR 127 mL/min >60 ML Non- GFR Calc SERUM CREATININ EST GFR - AA 153 mL/min >60 ML GFR Calc SERUM CREATININ ECRCL 117.54 ml/min ML PROTEIN+CREATIN NOTE SIMEON PROTEIN+CREATIN UR CREAT 29.90 mg/dL NO RANGE EST. ML PROTEIN+CREATIN PROTEIN,UR.RAN. 6.8 mg/dL <11.9 ML PROTEIN+CREATIN PROT:CRE RATIO 227 mg/g CRE 0-200 H ML URINALYSIS, COM NOTE SIMEON URINALYSIS, COM WBC 0 SEEN /hpf 0-5 ML URINALYSIS, COM RBC 0 SEEN /hpf 0-5 ML URINALYSIS, COM EPI,SQUAMOUS 0 SEEN /hpf 5-10 ML URINALYSIS, COM BACTERIA 0 SEEN /hpf None Seen ML URINALYSIS, COM MUCUS 0 SEEN /hpf <or=2+ ML CBC-COMPLETE BL NOTE SIMEON CBC-COMPLETE BL WBC 10.5 K/mm3 4.4-11.0 ML CBC-COMPLETE BL RBC 3.47 M/mm3 4.2-5.4 L ML CBC-COMPLETE BL HGB 10.0 g/dL 12.0-15.0 L ML CBC-COMPLETE BL HCT 30.0 37-47 L ML CBC-COMPLETE BL MCV 86.5 fL 81-99 ML CBC-COMPLETE BL MCH 28.8 pg 27.0-32.0 ML CBC-COMPLETE BL MCHC 33.3 g/dL 32-36 ML CBC-COMPLETE BL RDW CV 12.9 11.6-14.6 ML CBC-COMPLETE BL RDW SD 39.8 fl 35.1-43.9 ML CBC-COMPLETE BL PLT 157 K/mm3 150-450 ML CBC-COMPLETE BL MPV 11.3 fl 6.2-12.0 ML PROTEIN+CREATIN NOTE SIMEON PROTEIN+CREATIN UR CREAT mg/dL NO RANGE EST. ML DUPLICATE PROTEIN+CREATIN PROTEIN,UR.RAN. mg/dL <11.9 ML DUPLICATE PROTEIN+CREATIN PROT:CRE RATIO mg/g CRE 0-200 ML DUPLICATE ALANINE AMINOTR NOTE SIMEON ALANINE AMINOTR ALT 20 U/L 13-56 ML AST(SGOT) NOTE SIMEON AST(SGOT) AST 20 U/L 15-37 ML URIC ACID NOTE SIMEON URIC ACID URIC 4.5 mg/dL 2.6-6.0 ML The drugs N-Acetylcysteine and Metamizole may falsely depress this assay. SERUM CREATININ NOTE SIMEON SERUM CREATININ CREAT,SERUM 0.51 mg/dL 0.55-1.02 L ML The validity of the calculated GFR GFRAA in patients over 70 years has not been determined. Clinical correlation is essential. SERUM CREATININ EST GFR 154 mL/min >60 ML Non- GFR Calc SERUM CREATININ EST GFR - AA 187 mL/min >60 ML GFR Calc SERUM CREATININ ECRCL 138.28 ml/min ML CBC-COMPLETE BL NOTE SIMEON CBC-COMPLETE BL WBC 9.8 K/mm3 4.4-11.0 ML CBC-COMPLETE BL RBC 3.16 M/mm3 4.2-5.4 L ML CBC-COMPLETE BL HGB 9.0 g/dL 12.0-15.0 L ML CBC-COMPLETE BL HCT 26.9 37-47 L ML CBC-COMPLETE BL MCV 85.1 fL 81-99 ML CBC-COMPLETE BL MCH 28.5 pg 27.0-32.0 ML CBC-COMPLETE BL MCHC 33.5 g/dL 32-36 ML CBC-COMPLETE BL RDW CV 12.3 11.6-14.6 ML CBC-COMPLETE BL RDW SD 37.8 fl 35.1-43.9 ML CBC-COMPLETE BL PLT 180 K/mm3 150-450 ML CBC-COMPLETE BL MPV 11.1 fl 6.2-12.0 ML PROTEIN+CREATIN NOTE SIMEON PROTEIN+CREATIN UR CREAT 91.70 mg/dL NO RANGE EST. ML PROTEIN+CREATIN PROTEIN,UR.RAN. 16.4 mg/dL <11.9 H ML PROTEIN+CREATIN PROT:CRE RATIO 179 mg/g CRE 0-200 ML PROTEIN+CREATIN NOTE SIMEON PROTEIN+CREATIN UR CREAT < 13.00 mg/dL NO RANGE EST. ML PROTEIN+CREATIN PROTEIN,UR.RAN. < 6.0 mg/dL <11.9 ML PROTEIN+CREATIN PROT:CRE RATIO TNP mg/g CRE 0-200 ML LDH NOTE SIMEON LDH LDH 173 U/L 84-246 ML COMPREHENSIVE M NOTE SIMEON COMPREHENSIVE M GLU 88 mg/dL 74-106 ML Please note revised GLUCOSE reference range effective 06/16/2017. COMPREHENSIVE M BUN 4 mg/dL 7-18 L ML COMPREHENSIVE M CREAT,SERUM 0.41 mg/dL 0.55-1.02 L ML The validity of the calculated GFR GFRAA in patients over 70 years has not been determined. Clinical correlation is essential. COMPREHENSIVE M EST GFR 198 mL/min >60 ML Non- GFR Calc COMPREHENSIVE M EST GFR - AA 240 mL/min >60 ML GFR Calc COMPREHENSIVE M BUN/CRE 9.8 RATIO 10-20 L ML COMPREHENSIVE M T PROT 6.3 g/dL 6.4-8.2 L ML COMPREHENSIVE M ALB 2.5 g/dL 3.2-5.0 L ML COMPREHENSIVE M GLOB 3.8 g/dL 2.2-4.2 ML COMPREHENSIVE M A/G 0.7 RATIO 0.9-2.4 L ML COMPREHENSIVE M CA,TOTAL 8.6 mg/dL 8.5-10.1 ML COMPREHENSIVE M AST 21 U/L 15-37 ML COMPREHENSIVE M ALK P 123 U/L 45-117 H ML COMPREHENSIVE M ALT 21 U/L 13-56 ML COMPREHENSIVE M T BILI 0.30 mg/dL 0.20-1.00 ML For patients on eltrombopag therapy, use of [employer] TBIL is not recommended. COMPREHENSIVE M NA 139 mmol/L 136-145 ML COMPREHENSIVE M POTASSIUM 3.8 mmol/L 3.5-5.1 ML COMPREHENSIVE M CL 108 mmol/L 98-107 H ML COMPREHENSIVE M CO2 21.0 mmol/L 21.0-32.0 ML COMPREHENSIVE M GAP 10 5-15 ML URINALYSIS, COM NOTE SIMEON URINALYSIS, COM WBC 0 SEEN /hpf 0-5 ML URINALYSIS, COM RBC 0 SEEN /hpf 0-5 ML URINALYSIS, COM EPI,SQUAMOUS 0-5 SEEN /hpf 5-10 ML URINALYSIS, COM BACTERIA 0 SEEN /hpf None Seen ML URINALYSIS, COM MUCUS 0 SEEN /hpf <or=2+ ML CBC-COMPLETE BL NOTE SIMEON CBC-COMPLETE BL WBC 8.7 K/mm3 4.4-11.0 ML CBC-COMPLETE BL RBC 3.25 M/mm3 4.2-5.4 L ML CBC-COMPLETE BL HGB 9.3 g/dL 12.0-15.0 L ML CBC-COMPLETE BL HCT 28.3 37-47 L ML CBC-COMPLETE BL MCV 87.1 fL 81-99 ML CBC-COMPLETE BL MCH 28.6 pg 27.0-32.0 ML CBC-COMPLETE BL MCHC 32.9 g/dL 32-36 ML CBC-COMPLETE BL RDW CV 12.3 11.6-14.6 ML CBC-COMPLETE BL RDW SD 39.4 fl 35.1-43.9 ML CBC-COMPLETE BL PLT 189 K/mm3 150-450 ML CBC-COMPLETE BL MPV 11.0 fl 6.2-12.0 ML FERRITIN NOTE SIMEON FERRITIN FERRITIN 6 ng/mL 8-252 L ML [facility]~[address] [place], [address]~ [id number] AB SCREEN GEL NEGATIVE ML GLUCOSE CHALLEN NOTE SIMEON GLUCOSE CHALLEN GLU GEST 50G 1H 117 mg/dL 70-140 ML CBC-COMPLETE BL NOTE SIMEON CBC-COMPLETE BL WBC 10.9 K/mm3 4.4-11.0 ML CBC-COMPLETE BL RBC 3.36 M/mm3 4.2-5.4 L ML CBC-COMPLETE BL HGB 10.4 g/dL 12.0-15.0 L ML CBC-COMPLETE BL HCT 29.9 37-47 L ML CBC-COMPLETE BL MCV 89.0 fL 81-99 ML CBC-COMPLETE BL MCH 31.0 pg 27.0-32.0 ML CBC-COMPLETE BL MCHC 34.8 g/dL 32-36 ML CBC-COMPLETE BL RDW CV 11.8 11.6-14.6 ML CBC-COMPLETE BL RDW SD 37.9 fl 35.1-43.9 ML CBC-COMPLETE BL PLT 188 K/mm3 150-450 ML CBC-COMPLETE BL MPV 10.8 fl 6.2-12.0 ML T4 FREE DIRECT NOTE SIMEON T4 FREE DIRECT T4 FREE DIRECT 1.27 ng/dL 0.76-1.46 ML PN N [facility]~[address] [place], [address]~ T AND AB SCREEN GEL NEGATIVE ML HEPATITIS C ANT NOTE SIMEON HEPATITIS C ANT HEPATITIS C AB Non-Reactive Nonreactive ML Non Reactive: < 0.8 Equivocal: >/= 0.8 to < 1.0 Reactive: >/= 1.0 The CDC recommends that a reactive/equivocal HCV antibody result be followed up by the HCV Nucleic Acid Amplification test (089315) HEPATITIS B CANDACE NOTE SIMEON HEPATITIS B CANDACE HEP B SURF AG Non-Reactive Nonreactive ML HIV - [facility] NOTE SIMEON HIV - [facility] HIV Non-Reactive Nonreactive ML L509.8000 NOTE SIMEON L509.8000 SYPHILIS ABS Non-reactive ML RUBELLA IGG NOTE SIMEON RUBELLA IGG RUBELLA IGG Reactive Nonreactive ML Antibody Results Interpretation of Immune Status Non Reactive Presumed Non-Immune Equivocal Equivocal Reactive Presumed Immune URINE DRUG SCRE NOTE SIMEON URINE DRUG SCRE VISTA UDS PH 7 ML URINE DRUG SCRE AMPHETAMINES POSITIVE <1000 ng/mL A ML URINE DRUG SCRE BARBITIURATES NEGATIVE < 200 ng/mL ML URINE DRUG SCRE BENZODIAZIPINE NEGATIVE < 200 ng/mL ML URINE DRUG SCRE COCAINE NEGATIVE < 300 ng/mL ML URINE DRUG SCRE ECSTACY NEGATIVE < 500 ng/mL ML URINE DRUG SCRE METHADONE NEGATIVE < 300 ng/mL ML URINE DRUG SCRE OPIATES NEGATIVE < 300 ng/mL ML URINE DRUG SCRE PCP NEGATIVE < 25 ng/mL ML URINE DRUG SCRE THC NEGATIVE < 50 ng/mL ML THYROID STIM HO NOTE SIMEON THYROID STIM HO TSH 0.18 uIU/mL 0.358-3.74 L ML URINALYSIS, ROU NOTE SIMEON URINALYSIS, ROU COLOR Straw Yellow ML URINALYSIS, ROU URINE CLARITY Clear Clear ML URINALYSIS, ROU GLUCOSE, UR Normal mg/dl Normal ML URINALYSIS, ROU BILIRUBIN URINE Negative mg/dL Negative ML URINALYSIS, ROU KETONE UR Negative mg/dl Negative ML URINALYSIS, ROU SP.GR. DIPSTX 1.005 1.002-1.030 ML URINALYSIS, ROU PH UR 7.0 5.0 - 8.0 ML URINALYSIS, ROU PROT DIPSTX Negative mg/dl Negative ML URINALYSIS, ROU UROBILI Normal mg/dl Normal ML URINALYSIS, ROU NITRITE Negative Negative ML URINALYSIS, ROU OCCULT BLOOD-UR Negative /ul Negative ML URINALYSIS, ROU LEUK ESTERASE Negative /ul Negative ML CBC W/DIFF, AUT NOTE SIMEON CBC W/DIFF, AUT WBC 7.0 K/mm3 4.4-11.0 ML CBC W/DIFF, AUT RBC 4.26 M/mm3 4.2-5.4 ML CBC W/DIFF, AUT HGB 12.8 g/dL 12.0-15.0 ML CBC W/DIFF, AUT HCT 37.0 37-47 ML CBC W/DIFF, AUT MCV 86.9 fL 81-99 ML CBC W/DIFF, AUT MCH 30.0 pg 27.0-32.0 ML CBC W/DIFF, AUT MCHC 34.6 g/dL 32-36 ML CBC W/DIFF, AUT RDW CV 12.0 11.6-14.6 ML CBC W/DIFF, AUT RDW SD 38.3 fl 35.1-43.9 ML CBC W/DIFF, AUT PLT 147 K/mm3 150-450 L ML CBC W/DIFF, AUT MPV 10.9 fl 6.2-12.0 ML CBC W/DIFF, AUT NEUT% 69.5 47-70 ML CBC W/DIFF, AUT LY% 23.7 19-41 ML CBC W/DIFF, AUT MONO% 5.1 0-10 ML CBC W/DIFF, AUT EO% 0.7 0-5 ML CBC W/DIFF, AUT BASO% 0.6 0-1 ML CBC W/DIFF, AUT IG% 0.400 0.0-0.9 ML IG% - Immature Granulocytes (promyelocytes, myelocytes and metamyelocytes) > 1% indicates that a LEFT SHIFT is Present. CBC W/DIFF, AUT ABSOLUTE NEUT 4.9 X10 3/uL 2.0-7.7 ML CBC W/DIFF, AUT ABSOLUTE LYMPH 1.67 X10 3/uL 0.83-4.51 ML CBC W/DIFF, AUT NUCLEATED RBC 0 0-5 ML PAP I-G W/RFX H NOTE SIMEON PAP I-G W/RFX H DIAG Comment . A LCI EPITHELIAL CELL ABNORMALITY. LOW GRADE SQUAMOUS INTRAEPITHELIAL LESION (LSIL). PAP I-G W/RFX H ADEQ Comment . [facility] Satisfactory for evaluation. Endocervical and/or squamous metaplastic cells (endocervical component) are present. PAP I-G W/RFX H PERFORM Comment . [facility] Tammie Salas, Dermatopathologist (ASCP) PAP I-G W/RFX H SIGN Comment . [facility] aSpna Mcgill MD, Pathologist PAP I-G W/RFX H PATH.PROV.IDC-9 Comment . I R87.612 This liquid based ThinPrep(R) pap test was screened with the use of an image guided system. PAP I-G W/RFX H COMM . . [facility] PAP I-G W/RFX H PAPSMR Comment . LCI The Pap smear is a screening test designed to aid in the detection of premalignant and malignant conditions of the uterine cervix. It is not a diagnostic procedure and should not be used as the sole means of detecting cervical cancer. Both false-positive and false-negative reports do occur. PAP I-G W/RFX H HPV RFLX Comment . L[facility] The HPV DNA reflex criteria were not met with this specimen result therefore, no HPV testing was performed. Performed at: [address] [id number] Scanner Supervisor: Renata Bower MD, Phone: [phone] CHLAMYDIA/GC NA NOTE SIMEON CHLAMYDIA/GC NA CHLAMY,NUC ACID Negative Negative LCI CHLAMYDIA/GC NA GC BY NUC ACID Negative Negative LCI Performed at: =[address] [id number] Scanner Supervisor: Renata Bower MD, Phone: [phone] A NEGATIVE [facility] Medical History (Updated 05/14/21 @ 08:[address] Kary Weaver MD) ADD (attention deficit disorder) Anemia affecting Anxiety History of pre-eclampsia in prior , currently Migraine Sleep apnea Home Medications PNV cmb#95-ferrous fumarate-FA 1 ea PO DAILY 03/05/19 [History Last Taken 1 Day Ago ~05/13/21] ferrous sulfate 325 mg PO BID 05/20/20 [History Last Taken 1 Day Ago ~05/13/21] dextroamphetamine-amphetamine 30 mg PO DAILY 05/26/20 [History Last Taken 1 Day Ago ~05/13/21] dzwjonhzmu-ecaowcyciqoaf-zbap [Fioricet] 1 cap PO DAILY 05/05/21 [History Last Taken 1 Day Ago ~05/13/21] dextroamphetamine-amphetamine 10 mg PO DAILY 05/05/21 [History Last Taken 1 Day Ago ~05/13/21] omeprazole 20 mg PO DAILY 05/05/21 [History Last Taken 1 Day Ago ~05/13/21] Allergy/AdvReac Type Severity Reaction Status Date / Time latex Allergy Rash Verified 05/12/21 18:26 nickel AdvReac Rash Verified 05/12/21 18:26 Family History Father Diabetes Uncle Heart disease Grandmother Cancer brain cancer Surgical History (Updated 03/13/18 @ 19:[address] 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 [employer] History 3 Elective abortions Hx Para 2 Spontaneous abortions Hx # Term Pregnancies Ectopic pregnancies Hx # Pregnancies Multiple births # of living children Vital Signs Vital Signs Vital Signs: 05/13/21 12:49 05/13/21 13:05 05/13/21 13:20 Temperature Temperature Source Pulse Rate 99 113 H 103 H Blood Pressure 132/76 H 144/74 H 135/82 H BP Systolic 132 144 135 BP Diastolic 76 74 82 Pulse Ox 05/13/21 13:35 05/13/21 14:33 05/13/21 15:38 Temperature 98.3 F Temperature Source Temporal Pulse Rate 98 88 78 Blood Pressure 137/71 H 114/60 106/60 BP Systolic 137 114 106 BP Diastolic 71 60 60 Pulse Ox 99 05/13/21 15:39 05/13/21 15:52 05/13/21 19:53 Temperature 98.5 F Temperature Source Temporal Pulse Rate 79 77 88 Blood Pressure 106/60 116/65 BP Systolic 106 116 BP Diastolic 60 65 Pulse Ox 99 98 05/13/21 23:02 05/14/21 00:09 05/14/21 03:57 Temperature 98.0 F 98.2 F Temperature Source Temporal Temporal Pulse Rate 87 92 Blood Pressure 122/60 H BP Systolic 122 BP Diastolic 60 Pulse Ox 98 97 05/14/21 03:58 05/14/21 03:59 05/14/21 07:23 Temperature Temperature Source Pulse Rate 82 Blood Pressure 110/64 BP Systolic 110 BP Diastolic 64 Pulse Ox 98 97 05/14/21 07:24 Temperature 98.1 F Temperature Source Pulse Rate 89 Blood Pressure 117/57 L BP Systolic 117 BP Diastolic 57 Pulse Ox 97 Weight Weight: 84.368 kg Body Mass Index (BMI) 32.9 Physical Exam Const alert, oriented x3 and no apparent distress HEENT normocephalic Resp normal respiratory effort, normal air movement and clear to auscultation bilaterally Cardio regular rate and regular rhythm GI normal to inspection, nondistended, normoactive bowel sounds, soft to palpation, non-tender and non-distended Inspection: gravid Neuro deep tendon reflexes 2+ bilaterally Motor Exam: clonus absent Labs Labs Labs: Blood Type A NEGATIVE Antibody Screen NEGATIVE Hct 30.0 % (37-47) L Hgb 10.0 g/dL (12.0-15.0) L Obstetrics US Syphilis Total Ab Non-reactive Rubella IgG Antibody Reactive (Nonreactive) Hep Bs Antigen Non-Reactive (Nonreactive) Neisseria gonorrhoeae DNA (DAVID) Negative (Negative) HIV 1&2 Antibody Non-Reactive (Nonreactive) C.trachomatis DNA (PCR) Negative (Negative) Glucose 1 Hr 50 gm 117 mg/dL (70-140) Group B Strep DNA Negative (Negative) Rhogam given: Yes Assessment & Plan (1) Preeclampsia: QUALIFIERS: Trimester: third trimester Qualified Code(s): O14.93 - Unspecified pre-eclampsia, third trimester PLAN: 12h urine protein c/w significant proteinuria and headache with elevated BPs on more than 1 occasion this week Reviewed findings with MFM, given pt meets criteria for preeclampsia with severe features will induce Magnesium IV Pitocin (2) 36 weeks gestation of : PLAN: Betamethasone Ampicillin (3) Headache in , antepartum: PLAN: Pain management prn hx headaches prior, plan CT head if headache persists after Magnesium
[2021-05-14] MEDS: Betamethasone/Betamethasone 30 MG/5 ML Vial 12 MG IM (08:45)
[2021-05-14] MEDS: Lactated Ringers 1,000 ML 50 ML IV (09:00)
[2021-05-14] MEDS: Magnesium Sulfate 4gm/100mL 4 GM/100 ML IV.SOLN. IV (09:03)
[2021-05-14] MEDS: Magnesium Sulfate 4gm/100mL 2 GM/50 ML IV.SOLN. IV (09:25)
[2021-05-14] MEDS: Oxytocin 30 units/NS 500 ml 30 UNITS/500 ML IV.SOLN IV (09:26)
[2021-05-14 09:37] LABS: ALB/GLOB Ratio 0.6 RATIO (0.9-2.4); AST(SGOT) 25 U/L (15-37); Alanine Aminotransfer ALT/SGPT 24 U/L (13-56); Albumin, Serum 2.2 g/dL (3.2-5.0); Alkaline Phosphatase 141 U/L (45-117); Anion Gap 7 (5-15); BUN 8 mg/dL (7-18); BUN/Creat Ratio 16.2 RATIO (10-20); Calcium,Total 8.5 mg/dL (8.5-10.1); Chloride 108 mmol/L (98-107); Creatinine, Serum 0.49 mg/dL (0.55-1.02); EST Glomerular Filtration Rate 160 mL/min (>60); Est Glom Filt Rate - Afr Amer 194 mL/min (>60); Estimated Creatinine Clearance 143.92 ml/min; Globulin 3.9 g/dL (2.2-4.2); Glucose 113 mg/dL (74-106); LDH 220 U/L (84-246); Potassium 3.8 mmol/L (3.5-5.1); Protein, Total 6.1 g/dL (6.4-8.2); Sodium Level 138 mmol/L (136-145); Uric Acid 4.6 mg/dL (2.6-6.0)
[2021-05-14] MEDS: Magnesium Sulfate 20 GM/500 ML BAG IV (09:40)
[2021-05-14 10:13] LABS: Amphetamine Urine VISTA POSITIVE (<1000 ng/mL); Barbiturate Urine VISTA NEGATIVE (< 200 ng/mL); Benzodiazepine Urine VISTA NEGATIVE (< 200 ng/mL); Cocaine Urine VISTA NEGATIVE (< 300 ng/mL); Ecstacy Urine VISTA NEGATIVE (< 500 ng/mL); Methadone Urine VISTA NEGATIVE (< 300 ng/mL); PCP Urine VISTA NEGATIVE (< 25 ng/mL); THC Urine VISTA NEGATIVE (< 50 ng/mL); Vista UDS pH Range 6
[2021-05-14 11:00] LABS: Absolute Lymphocyte Count 1.51 X10^3/uL (0.83-4.51); Absolute Neutrophil Count 5.2 X10^3/uL (2.0-7.7); Basophil# 0.02 X10^3/uL; Basophil% 0.3 % (0-1); Eosinophil# 0.12 X10^3/uL; Eosinophils% 1.7 % (0-5); Hematocrit 28.9 % (37-47); Hemoglobin 9.2 g/dL (12.0-15.0); Lymphocyte # 1.51 X10^3/ul (0.83-4.51); Lymphocyte % 20.8 % (19-41); Mean Corp Hgb Conc 31.8 g/dL (32-36); Mean Corpuscular Hgb 28.4 pg (27.0-32.0); Mean Corpuscular Volume 89.2 fL (81-99); Mean Platelet Vol. 11.5 fl (6.2-12.0); Monocyte# 0.36 X10^3/uL; NRBC Flagged by Analyzer 0 % (0-5); Neutrophil % 71.4 % (47-70); Platelet Count 146 K/mm3 (150-450); RBC Distribution Width CV 13.3 % (11.6-14.6); RBC Distribution Width SD 43.1 fl (35.1-43.9); Red Blood Count 3.24 M/mm3 (4.2-5.4); White Blood Count 7.3 K/mm3 (4.4-11.0)
[2021-05-14] MEDS: Lactated Ringers 500 ML 999 ML IV (11:55)
[2021-05-14] MEDS: fentaNYL-bupivacaine (epidural) 100 ML BAG EPIDURAL (13:16)
[2021-05-14] MEDS: Oxytocin 30 units/NS 500 ml 30 UNITS/500 ML IV.SOLN 334 UNITS IV (17:40)
[2021-05-14] MEDS: Methylergonovine 0.2 MG/ML Ampul IM (17:45)
--- NOTE | 2021-05-14 18:00 | EX.PCM.OBRPT ---
Maternal Data Information Final MERRY: 06/10/21 Final MERRY Source: US <20 weeks Gestational age: 36 weeks 1 day Vaginal Delivery Maternal Presentation Maternal Presentation: Medically Indicated Induction Operative Information Date of Procedure: 05/14/21 Pre-Operative Diagnosis: IUP, Severe Preeclampsia Post-Operative Diagnosis: IUP, Severe Preeclampsia Surgery / Procedure Performed: Spontaneous Vaginal Delivery Type of Anesthesia: Epidural Drain: Vitale to straight drain Estimated Blood Loss: 250 cc Findings Description of Procedure: Spontaneous vaginal delivery of a viable female with Apgars of 8/9 from an occiput anterior presentation with clear amniotic fluid and normal three-vessel placenta. No episiotomy or laceration. Sponges okay. Delivery physician: Renny Stark MD. Presentation: Vertex Amniotic Membrane Rupture Type: Artificial Amniotic Fluid Description: Clear Placental Delivery Description: Spontaneous Placenta Disposition: [facility] Cord Vessel Description: 3 Vessels Cord Entanglement: None Cord Gases: ABG A Gender: Female (1 minute): 8 (5 minute): 9 Post Vaginal Delivery Medications Given After Delivery: IV Pitocin and IM Methergin Episiotomy Description: None Laceration: None Complication Complications: None
[2021-05-15] VITALS (7 sets, daily range): BP systolic 113–136; BP diastolic 67–76; PULSE 84–102; RESP 14–16; TEMP 36.5–37.4; O2SAT 97–98
[2021-05-15] MEDS: Acetaminophen 500 MG Tablet 1000 MG PO (05:36)
--- NOTE | 2021-05-15 07:30 | NURSING ---
bedside report given to Unique Zavala RN who is assuming care of pt at this time
--- NOTE | 2021-05-15 10:17 | PCM.PN.OB ---
Subjective Subjective Patient without complaints. Plans to breast-feed. Wants to go home later today if baby is able to go. Objective Data Objective Data Vital Signs: Vital Signs Temp Pulse Resp BP Pulse Ox 99.3 F H 95 14 136/72 H 98 05/15/21 08:00 05/15/21 08:00 05/15/21 08:00 05/15/21 08:00 05/15/21 08:00 Oxygen Delivery Method Room Air Weight: 186 lb Body Mass Index (BMI) 32.9 Intake & Output: Intake and Output for Last 24 Hours 05/13/21 05/14/21 05/15/21 23:59 23:59 23:59 Intake Total 3867.07 / 3867.07 Output Total 2350 / 2350 Balance 1517.07 / 1517.07 Lab / Micro Data Result Diagrams: 05/14/21 08:55 05/14/21 08:55 Labs: Laboratory Results - last 24 hr 05/14/21 08:55: WBC 7.3, RBC 3.24 L, Hgb 9.2 L, Hct 28.9 L, MCV 89.2, MCH 28.4, MCHC 31.8 L, RDW Std Deviation 43.1, RDW Coeff of Radha 13.3, Plt Count 146 L, MPV 11.5, Immature Gran % (Auto) 0.800, Neut % (Auto) 71.4 H, Lymph % (Auto) 20.8, [place] % (Auto) 5.0, Eos % (Auto) 1.7, Baso % (Auto) 0.3, Absolute Neuts (auto) 5.2, Absolute Lymphs (auto) 1.51, Nucleated RBC % 0 05/14/21 08:55: Blood Type A NEGATIVE, Antibody Screen NEGATIVE 05/14/21 20:10: Screen NEGATIVE, Baby's Blood Type A POSITIVE, Baby's RADHA NEGATIVE Micro: Microbiology 05/14/21 09:00 Nasal Secretion SARS-CoV-2 Antigen (Rapid) - Final Assessment & Plan (1) 36 weeks gestation of : PLAN: Doing well day #1 status post routine spontaneous vaginal delivery. No evidence of -induced hypertension symptoms. Magnesium was discontinued yesterday afternoon. Will discharge to home later today with routine instructions given if baby is able to go.
--- NOTE | 2021-05-15 10:19 | PCM.DC ---
Discharge Instructions Diet Discharge Diet: No restrictions Activity Discharge Activity: May Drive (In 1 to 2 days if not taking narcotic pain medication), May Shower and May Take a Tub Bath May resume sexual activity in: 4-6 weeks Additional Activity Instructions:: Nothing in the vagina for 4-6 weeks. You may return to work/school in 6 weeks. Dressing / Incision Call your doctor if you observe: Fever of 101 or Higher, Inability to urinate, Inability to have a bowel movement and Using more than 1 pad per hour Follow Up Care Please Follow Up With: Kary Enrique MD When: Call [phone] to make an appointment with your doctor in 6 weeks. Test Results: Test results from this visit will be discussed in further detail at your follow-up appointment, if applicable. Discharge Plan Admission Admit Date/Time: 05/14/21 07:55 Primary Reason for Your Visit: Vaginal Delivery Attending Provider: Kary Enrique Primary Care Provider: Jhon Perez Discharge Orders/Prescriptions Prescriptions: No Action PNV cmb#95-ferrous fumarate-FA 1 EACH tablet 1 ea PO DAILY RF: 0 ferrous sulfate 325 MG tablet 325 mg PO BID RF: 0 dextroamphetamine-amphetamine 30 MG tablet 30 mg PO DAILY RF: 0 dextroamphetamine-amphetamine 10 mg Tablet 10 mg PO DAILY RF: 0 wlbgsgtktj-dmqvjfhbnioqa-eqlf [Fioricet] 50-300-40 mg Capsule 1 cap PO DAILY RF: 0 omeprazole 20 mg capsule,delayed release(DR/EC) 20 mg PO DAILY RF: 0 Referrals / Follow Up: Jhon Perez MD [Primary Care Provider] - Disposition Disposition (needs filled in before D/C Order can be placed): Home, Self Care
[2021-05-15] MEDS: Pantoprazole Sodium 20 MG Tablet PO (12:04)
== END 2021-05-15 19:20 | disposition home or self-care (01) | DRG 560 ==
LOC: WPOUT 08:00 → WP 08:00
PROVIDERS: Admitting Provider Obstetrics & Gynecology; PCP Family Medicine; Visit Provider Obstetrics & Gynecology
DX: O14.14 Severe pre-eclampsia complicating childbirth (principal); Z37.0 Single live birth; O99.02 Anemia complicating childbirth; D50.9 Iron deficiency anemia, unspecified; O99.354 Diseases of the nervous system complicating childbirth; G43.909 Migraine, unspecified, not intractable, without status migrainosus; O99.344 Other mental disorders complicating childbirth; F98.8 Other specified behavioral and emotional disorders with onset usually occurring in childhood and adolescence; Z3A.36 36 weeks gestation of pregnancy; Z87.59 Personal history of other complications of pregnancy, childbirth and the puerperium; Z87.891 Personal history of nicotine dependence
CPT/HCPCS: 59025; 59050; 80053; 80307; 81001; 81050; 82565; 82570; 83615; 84156; 84450; 84460; 84550; 85025; 85027; 85461; 86850; 86900; 86901; 87081; 87426; 87653; 90384; 99218; J7120; A4216; G0378; J0702; J2790

== ENCOUNTER 2021-08-18 18:59 | Emergency (ER) | payer MEDICAID, SELFPAY ==
[2021-08-18 19:01] VITALS: BP 120/76; PULSE 95; RESP 15; TEMP 36.8; O2SAT 98; BMI 24.7
--- NOTE | 2021-08-18 21:17 | EDS_ITS ---
HPI History of Present Illness Chief Complaint: Other, Pain/Inj Informant: patient Narrative Narrative: Patient is a 26-year-old female that had a mommy makeover including abdominal plasty a week and a half ago in [place]. She came back to [place] where she lives. She was on a Zoom call with her surgeon today and instructed her to remove her MARCELO drain herself. She got the stitches out and tried to pull it out but she almost fainted because it hurt so much. She came to the emergency room for further evaluation. No other acute complaints. Denies any change to the drainage is just been clear pink in color. No fever. No drainage from the wounds. [facility] Medical History 36 weeks gestation of ADD (attention deficit disorder) Anemia affecting Anxiety Headache in , antepartum History of pre-eclampsia in prior , currently Migraine Preeclampsia Sleep apnea Home Medications PNV cmb#95-ferrous fumarate-FA 1 ea PO DAILY 03/05/19 [History Last Taken 1 Day Ago ~05/13/21] ferrous sulfate 325 mg PO BID 05/20/20 [History Last Taken 1 Day Ago ~05/13/21] dextroamphetamine-amphetamine 30 mg PO DAILY 05/26/20 [History Last Taken 1 Day Ago ~05/13/21] ymgykfnozg-agcspmmdexwwe-ioll [Fioricet] 1 cap PO DAILY 05/05/21 [History Last T aken 1 Day Ago ~05/13/21] dextroamphetamine-amphetamine 10 mg PO DAILY 05/05/21 [History Last Taken 1 Day Ago ~05/13/21] omeprazole 20 mg PO DAILY 05/05/21 [History Last Taken 1 Day Ago ~05/13/21] Allergy/AdvReac Type Severity Reaction Status Date / Time latex Allergy Rash Verified 08/18/21 19:04 nickel AdvReac Rash Verified 08/18/21 19:04 Family History Father Diabetes Uncle Heart disease Grandmother Cancer brain cancer Surgical History History of appendectomy Tonsil, abscess Social History Smoking Status: Former smoker second hand exposure: Yes quit status: not considering quitting alcohol intake: never substance use type: does not use what type of physical activity do you participate in: none seatbelt use: sometimes do you feel safe at home: Yes 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 [employer] ROS ED Constitutional Constitutional ED: Denies chills or fever(s) Eyes Eyes: Denies change in vision ENT ENT ED: Denies sore throat Cardiovascular Cardiovascular: Denies chest pain Respiratory/Chest Respiratory/Chest: Denies cough or dyspnea Gastrointestinal Gastrointestinal: Denies nausea or vomiting Genitourinary Genitourinary ED: Denies dysuria or hematuria Musculoskeletal Musculoskeletal: Denies arthralgias or myalgias Integumentary Reports other Details: Surgical wound on lower abdomen with [address] ; Denies rash Neurologic Neurologic: Denies headache(s) or weakness EXAM Physical Exam Const Vital Signs: 08/18/21 19:01 Temperature 98.3 F Temperature Source Temporal Pulse Rate 95 Respiratory Rate 15 Blood Pressure 120/76 Blood Pressure Mean 90 Pulse Ox 98 Oxygen Delivery Method Room Air Positive well nourished and well developed General Appearance ED: well developed and NAD HEENT Reports moist mucous membranes Eyes PERRL and EOMs intact bilaterally Neck supple Chest Wall inspection of chest normal Resp normal respiratory effort and clear to auscultation bilaterally Cardio regular rate, regular rhythm and no murmurs GI normal to inspection, nondistended, normoactive bowel sounds and non-tender GI Narrative: To MARCELO drains in place 1 on the right and one in the left lateral aspect below low transverse incision. There is a small amount of serous drainage in the tubes. There is once retained stitch in the left drain. Incisions appear to be clean, dry and intact. They are healing appropriately. Palpation: soft Extremity normal to inspection General Extremety ED: Negative for tenderness Neuro oriented x3 Sensorium / Orientation: alert Motor Exam: Negative for general weakness Psych mental status grossly normal Skin no rashes or lesions noted Skin Narrative: Surgical incision of the transverse lower abdomen with MARCELO drain sites below them. No surrounding erythema, purulence, induration or other signs of infection MDM MDM MDM Narrative Medical decision making narrative: Patient evaluated after trying to remove her MARCELO drains herself and unsuccessful. I did remove 1 stitch in the left lower drain. I attempted to remove all but met resistance. Spoke with surgery on- call, Dr. Odonnell, who came in and removed them. Patient discharged home. Counseled on return precautions including signs of infection or developing seroma. Discharge Plan Triage Chief Complaint: Other, Pain/Inj ED Provider: Ashleigh Arita Dx/Rx/DC Orders Clinical Impression: Encounter for post surgical wound check, Change or removal of drains Instructions: ED Wound Check (No Infection) Prescriptions: No Action PNV cmb#95-ferrous fumarate-FA 1 EACH tablet 1 ea PO DAILY RF: 0 ferrous sulfate 325 MG tablet 325 mg PO BID RF: 0 dextroamphetamine-amphetamine 30 MG tablet 30 mg PO DAILY RF: 0 dextroamphetamine-amphetamine 10 mg Tablet 10 mg PO DAILY RF: 0 hsokfbfwpl-dnlaomyvfflnk-zmeb [Fioricet] 50-300-40 mg Capsule 1 cap PO DAILY RF: 0 omeprazole 20 mg capsule,delayed release(DR/EC) 20 mg PO DAILY RF: 0 Primary Care Provider: Jhon Perez Referrals: Chinmay Odonnell MD [STAFF PHYSICIAN] - Jhon Perez MD [Primary Care Provider] - Disposition Disposition: Home, Self Care
[2021-08-18 21:25] VITALS: BP 120/76; PULSE 95; RESP 15; O2SAT 98
--- NOTE | 2021-08-19 09:17 | EX.PCM.CON.S ---
Assessment & Plan Assessment/Plan (1) Change or removal of drains: PLAN: I was called to the emergency room as the patient presented after being unable to remove her abdominal drains. The Bc-Baltazar drain sutures were already removed and the drains were snugly in place. I did remove suction and applied pressure and I was able to remove both Bc-Baltazar drains. Bandages were applied to both incisions. Patient was discharged from the emergency room. Patient tolerated the procedure well. Chinmay Odonnell MD Pager: [facility] [address] [place] [address], [address] [place] [address] Office: HPI Consult Data Date of Consult: 08/19/21 HPI Narrative HPI Narrative: CHEYENNE MILNER, is a 26 F who presents after difficulty removing her drains. Patient had abdominoplasty in [place] recently. She was attempting to remove her drains via FaceTime with her surgeon and she fainted. She came in after being unable to remove them. The ER doctor was also unable to remove them. [facility] Medical History 36 weeks gestation of ADD (attention deficit disorder) Anemia affecting Anxiety Headache in , antepartum History of pre-eclampsia in prior , currently Migraine Preeclampsia Sleep apnea Home Medications PNV cmb#95-ferrous fumarate-FA 1 ea PO DAILY 03/05/19 [History Last Taken 1 Day Ago ~05/13/21] ferrous sulfate 325 mg PO BID 05/20/20 [History Last Taken 1 Day Ago ~05/13/21] dextroamphetamine-amphetamine 30 mg PO DAILY 05/26/20 [History Last Taken 1 Day Ago ~05/13/21] truwppendf-ubwzgdgjmyoll-xony [Fioricet] 1 cap PO DAILY 05/05/21 [History Last Taken 1 Day Ago ~05/13/21] dextroamphetamine-amphetamine 10 mg PO DAILY 05/05/21 [History Last Taken 1 Day Ago ~05/13/21] omeprazole 20 mg PO DAILY 05/05/21 [History Last Taken 1 Day Ago ~05/13/21] Allergy/AdvReac Type Severity Reaction Status Date / Time latex Allergy Rash Verified 08/18/21 19:04 nickel AdvReac Rash Verified 08/18/21 19:04 Family History Father Diabetes Uncle Heart disease Grandmother Cancer brain cancer Surgical History History of appendectomy Tonsil, abscess Social History Smoking Status: Former smoker second hand exposure: Yes quit status: not considering quitting alcohol intake: never substance use type: does not use what type of physical activity do you participate in: none seatbelt use: sometimes do you feel safe at home: Yes 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 [employer] Constitutional Constitutional: Denies anorexia, chills or fatigue Eyes Eyes: Denies blurry vision ENT HEENT: Denies abnormal hearing Cardiovascular Cardiovascular: Denies chest pain Respiratory/Chest Respiratory/Chest: Denies cough or dyspnea Gastrointestinal Gastrointestinal: Reports abdominal pain Genitourinary Genitourinary: Denies difficulty urinating Musculoskeletal Musculoskeletal: Denies abnormal gait Integumentary Integumentary: Denies jaundice Physical Exam Const alert and oriented x3 HEENT normocephalic Eyes PERRL Neck full ROM Resp normal respiratory effort Cardio Rate: regular rate GI normal to inspection, nondistended, normoactive bowel sounds and soft to palpation
== END 2021-08-18 21:28 | disposition home or self-care (01) ==
PROVIDERS: Emergency Provider Emergency Medicine; PCP Family Medicine; Visit Provider Emergency Medicine
DX: Z48.03 Encounter for change or removal of drains (principal); R55 Syncope and collapse; Z87.891 Personal history of nicotine dependence; F98.8 Other specified behavioral and emotional disorders with onset usually occurring in childhood and adolescence
CPT/HCPCS: 49460; 99282

== ENCOUNTER 2023-06-18 14:25 | Emergency (ER) | payer MEDICAID, SELFPAY ==
[2023-06-18 14:27] VITALS: BP 147/93; PULSE 99; RESP 16; TEMP 36.1; O2SAT 100; BMI 22.6
--- NOTE | 2023-06-18 15:03 | EX.ED.SAOD ---
HPI <REGINO Rosario - Last Filed: 06/18/23 21:48> History of Present Illness Chief Complaint: Mental Health Narrative Narrative: Patient presenting today with her 2 friends and sister with concerns for hallucinations and paranoia. Sister reports that over the past week patient has become increasingly more paranoid, she has been seeing things that nobody else can see and has mentioned that she smells, paint to her sister multiple times when nobody else can smell it. Sister reports that she has always been a little bit paranoid but never this severe. Sister reports that patient does not have any history of mental health conditions and has no history of drug use. I spoke with the patient reports that she has been stressed, confused, fatigued, and has felt intermittently faint over the past year. She reports that she has not showered in 30 days and does feel paranoid. She reports that she has cameras set up all over her house for security purposes. She reports that she will see things on the security cameras that nobody else will see. She denies any history of drug use, recent illness, fevers, and chills. She was a history of anxiety but denies SI/HI. [facility] <REGINO Rosario - Last Filed: 06/18/23 21:48> [facility] Medical History 36 weeks gestation of ADD (attention deficit disorder) Anemia affecting Anxiety Headache in , antepartum History of pre-eclampsia in prior , currently Migraine Preeclampsia Sleep apnea Home Medications dextroamphetamine-amphetamine 30 mg tablet 30 mg PO DAILY ADHD 05/26/20 [History Last Taken 1 Day Ago ~05/13/21] dextroamphetamine-amphetamine 10 mg tablet 10 mg PO DAILY ADHD 05/05/21 [History Last Taken 1 Day Ago ~05/13/21] omeprazole 20 mg capsule,delayed release 20 mg PO DAILY GERD 05/05/21 [History Last Taken 1 Day Ago ~05/13/21] dextroamphetamine-amphetamine 20 mg tablet 20 mg PO DAILY 06/18/23 [History Last Taken Unknown] dextroamphetamine-amphetamine 5 mg tablet 5 mg PO QHS 06/18/23 [History Last Taken Unknown] etonogestrel 0.12 mg-ethinyl estradiol 0.015 mg/24 hr vaginal ring (EluRyng) 1 vag ring vaginal .[id number] 06/18/23 [History Last Taken Unknown] Allergy/AdvReac Type Severity Reaction Status Date / Time nickel AdvReac Rash Verified 08/18/21 19:04 Family History Father Diabetes Uncle Heart disease Grandmother Cancer brain cancer Surgical History History of appendectomy Tonsil, abscess Social History Smoking Status: Former smoker second hand exposure: Yes quit status: not considering quitting alcohol intake: never substance use type: does not use what type of physical activity do you participate in: none seatbelt use: sometimes do you feel safe at home: Yes 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 [employer] <REGINO Rosario - Last Filed: 06/18/23 21:48> ROS ED Constitutional Constitutional ED: Denies chills or fever(s) Cardiovascular Cardiovascular: Denies chest pain Respiratory/Chest Respiratory/Chest: Denies cough or dyspnea Gastrointestinal Gastrointestinal: Denies abdominal pain, nausea or vomiting Genitourinary Genitourinary ED: Denies dysuria, hematuria or urinary urgency Musculoskeletal Musculoskeletal: Denies arthralgias or myalgias Integumentary Denies abscess or rash Neurologic Neurologic: Denies weakness Psychiatric Psychiatric: Reports anxiety, paranoia and visual hallucinations; Denies auditory hallucinations, homicidal ideation, suicidal ideation or suicidal thoughts EXAM <REGINO Rosario - Last Filed: 06/18/23 21:48> Physical Exam Const Vital Signs: 06/18/23 14:27 06/18/23 17:00 06/18/23 19:00 Temperature 97 F L Temperature Source Temporal Pulse Rate 99 Respiratory Rate 16 16 16 Blood Pressure 147/93 H Blood Pressure Mean 111 Pulse Ox 100 Oxygen Delivery Method Room Air 06/18/23 22:19 Temperature Temperature Source Pulse Rate 99 Respiratory Rate 18 Blood Pressure 133/67 H Blood Pressure Mean 89 Pulse Ox 100 Oxygen Delivery Method Room Air Positive well nourished, well developed and no apparent distress General Appearance ED: well developed HEENT Reports normocephalic and head/scalp atraumatic Mouth ED: Yes moist mucous membranes normal Eyes PERRL and EOMs intact bilaterally Neck full ROM and supple Chest Wall inspection of chest normal Resp normal respiratory effort and clear to auscultation bilaterally Cardio regular rate and regular rhythm GI soft to palpation, non-tender, non-distended and no masses Back/Spine normal ROM and normal to inspection Extremity normal to inspection and full ROM Neuro oriented x3, CN's II-XII intact bilaterally, moves all extremities, no focal motor deficits and no sensory deficits noted Sensorium / Orientation: awake and alert Psych mental status grossly normal Attitude: calm Activity / Motor Behavior: appropriate eye contact Speech: normal speech Thought Content: phobia(s) Attention / Concentration: attention grossly intact Skin no rashes or lesions noted and no wounds <Dr. Ashleigh Arita, - Last Filed: 06/19/23 01:30> Physical Exam Const Vital Signs: 06/18/23 14:27 06/18/23 17:00 06/18/23 19:00 Temperature 97 F L Temperature Source Temporal Pulse Rate 99 Respiratory Rate 16 16 16 Blood Pressure 147/93 H Blood Pressure Mean 111 Pulse Ox 100 Oxygen Delivery Method Room Air 06/18/23 22:19 Temperature Temperature Source Pulse Rate 99 Respiratory Rate 18 Blood Pressure 133/67 H Blood Pressure Mean 89 Pulse Ox 100 Oxygen Delivery Method Room Air [facility] <REGINO Rosario - Last Filed: 06/18/23 21:48> [facility] Narrative Medical decision making narrative: Patient presenting with hallucinations and paranoia that have been going on for about a week. Patient reported that she has been feeling this way for about a year but then family said that in fact it has been over the past week. Most of the history was obtained from patient's sister who reports that patient has been seeing things on her security camera that are not there and that she has become increasingly more paranoid. Patient is well-appearing and in no acute distress, she denies SI, HI. She does admit to feeling confused intermittently and feeling paranoid. She does recognize that she is seeing things that other people are not. She denies any history of drug use or personal or family history of mental health conditions. Given her symptoms, head CT will be obtained to rule out intracranial abnormality and is negative. CBC, BMP unremarkable, urine tox screening is positive for amphetamines but patient is on medication for ADHD. Crisis was consulted and will be evaluating patient. Her sister reports that the mom stated that the patient told her she had taken, hillbilly Adderall it is unclear what exactly that is. Crisis felt that patient was intermittently confused and paranoid on exam. She does not feel that patient is fit to go home, especially since she has several children to care for her. Patient will be pink slipped and psychiatric placement is pending. Lab Data Attestation: I reviewed the patient's lab results. Labs: Laboratory Results - last 24 hr 06/18/23 15:30 WBC 6.8 RBC 4.82 Hgb 14.1 Hct 41.6 MCV 86.3 MCH 29.3 MCHC 33.9 RDW Std Deviation 37.4 RDW Coeff of Radha 11.8 Plt Count 195 MPV 10.2 Immature Gran % (Auto) 0.400 Neut % (Auto) 59.5 Lymph % (Auto) 34.9 [place] % (Auto) 4.4 Eos % (Auto) 0.4 Baso % (Auto) 0.4 Absolute Neuts (auto) 4.1 Absolute Lymphs (auto) 2.38 Nucleated RBC % 0 Sodium 140 Potassium 3.7 Chloride 111 H Carbon Dioxide 24.0 Anion Gap 5 BUN 9 Creatinine 0.71 Estim Creat Clear Calc 96.71 Est GFR (MDRD) Af Amer 126 Est GFR (MDRD) Non-Af 104 BUN/Creatinine Ratio 12.7 Glucose 100 Calcium 9.7 Total Creatine Kinase 90 Serum , Qual NEGATIVE Urine Opiates Screen NEGATIVE Urine Methadone Screen NEGATIVE Ur Barbiturates Screen NEGATIVE Ur Phencyclidine Scrn NEGATIVE Ur Amphetamines Screen POSITIVE H MDMA (Ecstasy) Screen NEGATIVE U Benzodiazepines Scrn NEGATIVE Urine Cocaine Screen NEGATIVE U Cannabinoids Screen NEGATIVE Ur Drug Screen Comment Ethyl Alcohol 3.0 Radiography Diagnostic Testing: Clinical Impression(s) from Imaging Studies Brain CT 06/18/23 15:55 IMPRESSION: Normal unenhanced CT scan of the brain. Electronically Signed: Momo King MD at 16:56 EST , <Dr. Ashleigh Arita, DO - Last Filed: 06/19/23 01:30> [facility] MDM Narrative Medical decision making narrative: Patient presenting with hallucinations and paranoia that have been going on for about a week. Patient reported that she has been feeling this way for about a year but then family said that in fact it has been over the past week. Most of the history was obtained from patient's sister who reports that patient has been seeing things on her security camera that are not there and that she has become increasingly more paranoid. Patient is well-appearing and in no acute distress, she denies SI, HI. She does admit to feeling confused intermittently and feeling paranoid. She does recognize that she is seeing things that other people are not. She denies any history of drug use or personal or family history of mental health conditions. Given her symptoms, head CT will be obtained to rule out intracranial abnormality and is negative. CBC, BMP unremarkable, urine tox screening is positive for amphetamines but patient is on medication for ADHD. Crisis was consulted and will be evaluating patient. Her sister reports that the mom stated that the patient told her she had taken, hillbilly Adderall it is unclear what exactly that is. Crisis felt that patient was intermittently confused and paranoid on exam. She does not feel that patient is fit to go home, especially since she has several children to care for her. Patient will be pink slipped and psychiatric placement is pending. I have personally performed a face to face assessment of the patient and have reviewed the [place] Note. I performed a substantive portion of the visit including all aspects of the following. My ulloa findings include: History is patient is a 28-year-old female presenting with increased anxiety, visual hallucinations and paranoia. Patient is reasonably cooperative in the emergency room. Apparently has been also having episodes of intermittent confusion and difficulty concentrating for the past year but is been worsening. Patient does not feel safe at home because she feels like she is being watched her symptoms would not break into her house. Denies any HI or SI. Does not seem internally stimulated at this time. Given his new onset of what sounds like possible anxiety or psychotic features I did also obtain a CT of the brain as part of the medical workup. This is largely negative for any acute process. She does test positive for amphetamines but chart review shows that patient is on ADHD meds which could cause a false positive. In addition she did questionably take hillbilly Adderall which I would assume to be methamphetamines. Given patient's mental status change and psychotic symptoms do think she would benefit from inpatient psychiatric care and this is evaluated with crisis who also is in agreement. I do not think that patient can adequately take care of herself or her children at home. Counselor did ensure that patient's 4 young children do have adequate care at home (2 are with her with her mother and two are with their father). Patient is excepted by Dr. Diego at [facility]. Patient is given a dose of oral Ativan and Lidoderm patch per request for anxiety and nicotine withdrawal. Other additions or changes: [None] Lab Data Labs: Laboratory Results - last 24 hr 06/18/23 15:30 WBC 6.8 RBC 4.82 Hgb 14.1 Hct 41.6 MCV 86.3 MCH 29.3 MCHC 33.9 RDW Std Deviation 37.4 RDW Coeff of Radha 11.8 Plt Count 195 MPV 10.2 Immature Gran % (Auto) 0.400 Neut % (Auto) 59.5 Lymph % (Auto) 34.9 [place] % (Auto) 4.4 Eos % (Auto) 0.4 Baso % (Auto) 0.4 Absolute Neuts (auto) 4.1 Absolute Lymphs (auto) 2.38 Nucleated RBC % 0 Sodium 140 Potassium 3.7 Chloride 111 H Carbon Dioxide 24.0 Anion Gap 5 BUN 9 Creatinine 0.71 Estim Creat Clear Calc 96.71 Est GFR (MDRD) Af Amer 126 Est GFR (MDRD) Non-Af 104 BUN/Creatinine Ratio 12.7 Glucose 100 Calcium 9.7 Total Creatine Kinase 90 Serum , Qual NEGATIVE Urine Opiates Screen NEGATIVE Urine Methadone Screen NEGATIVE Ur Barbiturates Screen NEGATIVE Ur Phencyclidine Scrn NEGATIVE Ur Amphetamines Screen POSITIVE H MDMA (Ecstasy) Screen NEGATIVE U Benzodiazepines Scrn NEGATIVE Urine Cocaine Screen NEGATIVE U Cannabinoids Screen NEGATIVE Ur Drug Screen Comment Ethyl Alcohol 3.0 Radiography Diagnostic Testing: Clinical Impression(s) from Imaging Studies Brain CT 06/18/23 15:55 IMPRESSION: Normal unenhanced CT scan of the brain. 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 Discharge Plan Triage Chief Complaint: Mental Health ED Midlevel Provider: Coretat Khanna ED Provider: Ashleigh Arita Dx/Rx/DC Orders Clinical Impression: Acute paranoia, Anxiety Prescriptions: No Action dextroamphetamine-amphetamine 30 MG tablet 30 mg PO DAILY dextroamphetamine-amphetamine 10 mg Tablet 10 mg PO DAILY Rx Instructions: 10mg at lunch PRN omeprazole 20 mg capsule,delayed release(DR/EC) 20 mg PO DAILY Patient Comments: TAKE 1 CAPSULE BY MOUTH EVERY DAY dextroamphetamine-amphetamine 20 mg tablet 20 mg PO DAILY Patient Comments: take 1 tablet by mouth once daily dextroamphetamine-amphetamine 5 mg tablet 5 mg PO QHS Patient Comments: take 1 tablet by mouth once daily etonogestrel-ethinyl estradiol [EluRyng] 0.12-0.015 mg/24 hr ring 1 vag ring VAGINAL .[id number] Patient Comments: insert 1 ring vaginally for 3 weeks Primary Care Provider: Mirela Neil NP Referrals: Mirela Neil NP, [employer] [Primary Care Provider] -
[2023-06-18 15:43] LABS: Absolute Lymphocyte Count 2.38 X10^3/uL (0.83-4.51); Absolute Neutrophil Count 4.1 X10^3/uL (2.0-7.7); Basophil# 0.03 X10^3/uL; Basophil% 0.4 % (0-1); Eosinophil# 0.03 X10^3/uL; Eosinophils% 0.4 % (0-5); Hematocrit 41.6 % (37-47); Hemoglobin 14.1 g/dL (12.0-15.0); Lymphocyte # 2.38 X10^3/ul (0.83-4.51); Lymphocyte % 34.9 % (19-41); Mean Corp Hgb Conc 33.9 g/dL (32-36); Mean Corpuscular Hgb 29.3 pg (27.0-32.0); Mean Corpuscular Volume 86.3 fL (81-99); Mean Platelet Vol. 10.2 fl (6.2-12.0); Monocyte% 4.4 % (0-10); NRBC Flagged by Analyzer 0 % (0-5); Neutrophil # 4.05 X10^3/uL (2.7-7.7); Neutrophil % 59.5 % (47-70); Platelet Count 195 K/mm3 (150-450); RBC Distribution Width CV 11.8 % (11.6-14.6); RBC Distribution Width SD 37.4 fl (35.1-43.9); Red Blood Count 4.82 M/mm3 (4.2-5.4); White Blood Count 6.8 K/mm3 (4.4-11.0)
--- OUTSIDE RECORDS SUMMARY | 2023-06-18 15:44 | XMS RPT_ITS | CCD ---
Author Name Unknown Address [id number] [place] [address] Organization [facility] Care Team Providers Care Spray Gun Repairer Name Role Phone EL ROGERS Unavailable Unavailable EL ROGERS Unavailable Unavailable EL ROGERS Unavailable Unavailable MAHENDRA KLEIN Unavailable Unavailable MAHENDRA KLEIN Unavailable Unavailable PROVIDER, UNKNOWN Unavailable Unavailable DENA CANTU (LEAF COVERER) Unavailable Unav ailable Mahendra Klein MD Primary Care Provider MAHENDRA KLEIN Primary Care Unavailable MAHENDRA KLEIN Primary Care Unavailable MAHENDRA KLEIN Primary Care Unavailable ALBERTO SOW Referring Unavailable MAHENDRA KLEIN Primary Care Unavailable MAHENDRA KLEIN Primary Care Unavailable Medications Current Medications Medication Drug Class(es) Dates Sig (Normalized) Sig (Original) amoxicillin 875 mg oral tablet (1 source) Penicillin-class Antibacterial Start: 08-29-2022 End: 09-03-2022 take 1 tablet by mouth twice daily amoxicillin (AMOXIL) 875 mg tablet Indications: Pain, dental Take 1 tablet by mouth twice daily for 5 days. 10 tablet 0 08/29/2022 09/03/2022 Active Completed/Discontinued Medications Medication Drug Class(es) Dates Sig (Normalized) Sig (Original) acetaminophen 500 mg oral tablet (3 sources) Start: 11-07-2018 take 2 tablets by mouth every eight hours as needed acetaminophen (TYLENOL EXTRA STRENGTH) 500 mg tablet Take 2 tablets by mouth every 8 hours as needed for Pain. 90 tablet 0 11/07/2018 Active Problems Active Problems Problem Classification Problem Date Documented Date Episodic/Chronic Attention-deficit, conduct, and disruptive behavior disorders (1 source) Attention-deficit hyperactivity disorder, unspecified type; Translations: [Attention-deficit hyperactivity disorder, unspecified type] Onset: 12-07-2016 Chronic Disorders of teeth and jaw (1 source) Toothache; Translations: [Other specified disorders of teeth and supporting structures] Episodic Disorders usually diagnosed in infancy, childhood, or adolescence (3 sources) Attention deficit hyperactivity disorder, predominantly inattentive type; Translations: [Other specified behavioral and emotional disorders with onset usually occurring in childhood and adolescence] Onset: 06-26-2017 06-26-2017 Chronic Esophageal disorders (3 sources) Gastroesophageal reflux disease without esophagitis; Translations: [Gastro-esophageal reflux disease without esophagitis] Onset: 10-31-2018 10-31-2018 Chronic Other endocrine disorders (3 sources) Polycystic ovary syndrome; Translations: [Polycystic ovarian syndrome] Onset: 09-23-2013 09-23-2013 Chronic Other upper respiratory infections (1 source) Bacterial sinusitis; Translations: [Chronic sinusitis, unspecified] Chronic Other upper respiratory infections (3 sources) Sore throat symptom; Translations: [Acute pharyngitis, unspecified] Episodic Residual codes; unclassified (3 sources) Obstructive sleep apnea syndrome; Translations: [Obstructive sleep apnea (adult) (pediatric)] Onset: 06-26-2017 06-26-2017 Chronic Past or Other Problems Problem Classification Problem Date Documented Da te Episodic/Chronic Contraceptive and procreative management (3 sources) Patient encounter status; Translations: [Encounter for reversal of previous sterilization] Onset: 10-31-2018 10-31-2018 Episodic Other injuries and conditions due to external causes (3 sources) Finding of urine substance level; Translations: [Elevated urine levels of drugs, medicaments and biological substances] Onset: 07-16-2018 07-16-2018 Episodic Other skin disorders (3 sources) Acne vulgaris; Translations: [Acne vulgaris] Onset: 10-31-2018 07-19-2021 Episodic Residual codes; unclassified (3 sources) Tobacco user; Translations: [Tobacco use] Onset: 10-31-2018 07-19-2021 Episodic Results Test Name Value Interpretation Reference Range Facil ity Vital Signs Date Time Vital Sign Value Performing Clinician Faci litjoi 09-26-2022 [id number] Body temperature 98.71 [degF] Gregory Guerrero APRN.LEAF COVERER Work Phone: [facility] 09-26-2022 10:09-0400 Body weight 55.34 kg Gregory Guerrero APRN.CNP Work Phone: [facility] 09-26-2022 10:09-0400 Diastolic blood pressure 62 mm[Hg] Gregory Guerrero HUMAN SERVICES WORKER.LEAF COVERER Work Phone: [facility] 09-26-2022 10:09-0400 Heart rate 102 /min Gregory Hoganermias HUMAN SERVICES WORKER.LEAF COVERER Work Phone: [facility] 09-26-2022 10:09-0400 Respiratory rate 16 /min Gregory Guerrero HUMAN SERVICES WORKER.LEAF COVERER Work Phone: [facility] 09-26-2022 10:09-0400 SaO2% (BldA) [Mass fraction] 97 % Gregory Guerrero HUMAN SERVICES WORKER.LEAF COVERER Work Phone: [facility] 09-26-2022 10:09-0400 Systolic blood pressure 116 mm[Hg] Gregory Hoganermias HUMAN SERVICES WORKER.LEAF COVERER Work Phone: [facility] 08-29-2022 10:49-0400 Body temperature 98.4 [degF] Sarai Bonilla HUMAN SERVICES WORKER.LEAF COVERER Work Phone: [facility] 08-29-2022 10:49-0400 Body weight 56.25 kg Sarai Bonilla APRN.LEAF COVERER Work Phone: [facility] 08-29-2022 10:49-0400 Diastolic blood pressure 70 mm[Hg] Sarai Bonilla HUMAN SERVICES WORKER.LEAF COVERER Work Phone: [facility] 08-29-2022 10:49-0400 Heart rate 96 /min Sarai Bonilla HUMAN SERVICES WORKER.LEAF COVERER Work Phone: [facility] 08-29-2022 10:49-0400 Respiratory rate 16 /min Sarai Bonilla HUMAN SERVICES WORKER.LEAF COVERER Work Phone: [facility] 08-29-2022 10:49-0400 SaO2% (BldA) [Mass fraction] 98 % Sarai Bonilla HUMAN SERVICES WORKER.LEAF COVERER Work Phone: [facility] 08-29-2022 10:49-0400 Systolic blood pressure 118 mm[Hg] Sarai Bonilla APRN.LEAF COVERER Work Phone: [facility] 07-20-2022 18:06-0500 Body temperature 99.3 [degF] Tiana Bealsey HUMAN SERVICES WORKER.LEAF COVERER Work Phone: [facility] 07-20-2022 18:06-0500 Body weight 56.7 kg Tiana Beasley HUMAN SERVICES WORKER.LEAF COVERER Work Phone: [facility] 07-20-2022 18:06-0500 Diastolic blood pressure 70 mm[Hg] iTana Rodríguezler-Kaiser HUMAN SERVICES WORKER.LEAF COVERER Work Phone: [facility] 07-20-2022 18:06-0500 Heart rate 105 /min Tiana Beasley HUMAN SERVICES WORKER.LEAF COVERER Work Phone: [facility] 07-20-2022 18:06-0500 Respiratory rate 18 /min iTana Beasley HUMAN SERVICES WORKER.LEAF COVERER Work Phone: [facility] 07-20-2022 18:06-0500 SaO2% (BldA) [Mass fraction] 99 % Tiana Beasley HUMAN SERVICES WORKER.LEAF COVERER Work Phone: [facility] 07-20-2022 18:06-0500 Systolic blood pressure 120 mm[Hg] Tiana Beasley HUMAN SERVICES WORKER.LEAF COVERER Work Phone: [facility] Encounters Encounter Date Encounter Type Care Provider Facility Start: 03-28-2023 End: 03-28-2023 ambulatory [facility] Facility:[facility] Start: 09-26-2022 End: 09-26-2022 ambulatory [facility] Facility:[facility] Start: 09-26-2022 End: 09-26-2022 Office outpatient visit 15 minutes Gregory Guerrero APRN.LEAF COVERER Work Phone: [facility] Procedures Date Procedure Procedure Detail Performing Clinician Start: 09-26-2022 STREP A MOLECULAR (POC) Roxana Schafer HUMAN SERVICES WORKER.LEAF COVERER Work Phone: Start: 03-08-2023 STREP A MOLECULAR (POC) Tiana Beasley APRN.[facility] Work Phone: Plan of Treatment Date Care Activity Detail Author Start: 01-13-2023 Influenza vaccination INFLUENZA (Sea son Ended) [facility] Start: 05-15-2022 DEPRESSION ASSESSMENT DEPRESSION ASS ESSMENT [facility] Start: 01-13-2022 Influenza vaccination INFLUENZA (#1) [facility] Start: 09-20-2015 Urine microalbumin profile DTAP,TDAP,TD (7 - Td or Tdap) [facility] Start: 2000 PNEUMOCOCCAL (1 - PCV) PNEUMOCOCCAL (1 - PCV) [facility] Start: 1994 COVID-19 VACCINE (#1) COVID-19 VACCI NE (#1) [facility] Immunizations Immunization Date Immunization Notes Care Provider Tiffanie figueroa 01-23-2013 Meningococcal, MCV4, unspecified conjugate formulation(groups A, C, Y and W-135) Tiana Beasley APRN.[facility] Work Phone: [facility] 10-19-2007 human papilloma viru s vaccine, quadrivalent Tiana Beasley APRN.[facility] Work Phone: [facility] Work Phone: 12-29-2006 human papilloma viru s vaccine, quadrivalent Tiana Beasley HUMAN SERVICES WORKER.LEAF COVERER Work Phone: [facility] Work Phone: 10-25-2006 human papilloma viru s vaccine, quadrivalent Tiana Beasley HUMAN SERVICES WORKER.[facility] Work Phone: [facility] Work Phone: 09-19-2005 Meningococcal, MCV4, unspecified conjugate formulation(groups A, C, Y and W-135) Tiana Beasley APRN.LEAF COVERER Work Phone: [facility] 09-19-2005 tetanus toxoid, redu jerri diphtheria toxoid, and acellular pertussis vaccine, adsorbed Tiana Beasley APRN.LEAF COVERER Work Phone: [facility] 03-22-2005 influenza virus vaccine, unspecified formulation Tiana Beasley APRN.LEAF COVERER Work Phone: [facility] Work Phone: 04-09-2004 influenza virus vaccine, unspecified formulation Tiana Hutchins-[facility] HUMAN SERVICES WORKER.LEAF COVERER Work Phone: [facility] Work Phone: 03-31-2003 influenza virus vaccine, unspecified formulation Tiana Hutchins-[facility] HUMAN SERVICES WORKER.LEAF COVERER Work Phone: [facility] Work Phone: 02-28-2003 influenza virus vaccine, unspecified formulation Tiana Hutchins-[facility] HUMAN SERVICES WORKER.[facility] Work Phone: [facility] Work Phone: 10-06-1999 diphtheria, tetanus toxoids and acellular pertussis vaccine Tiana Hutchins-[facility] HUMAN SERVICES WORKER.[facility] Work Phone: [facility] Work Phone: 10-06-1999 measles, mumps and rubella virus vaccine Tiana Hutchins-[facility] HUMAN SERVICES WORKER.LEAF COVERER Work Phone: [facility] Work Phone: 10-06-1999 poliovirus vaccine, inactivated Tiana Beasley HUMAN SERVICES WORKER.[facility] Work Phone: [facility] Work Phone: 11-25-1997 diphtheria, tetanus toxoids and acellular pertussis vaccine Tiana [facility]ins-[facility] HUMAN SERVICES WORKER.LEAF COVERER Work Phone: [facility] Work Phone: 1997 chicken pox (disease) Tiana Beasley HUMAN SERVICES WORKER.LEAF COVERER Work Phone: [facility] Work Phone: 08-31-1995 haemophilus influenz ae type b vaccine, HbOC conjugate Tiana Hutchins-[facility] HUMAN SERVICES WORKER.LEAF COVERER Work Phone: [facility] Work Phone: 08-31-1995 measles, mumps and rubella virus vaccine Tiana Hutchins-Wood HUMAN SERVICES WORKER.LEAF COVERER Work Phone: [facility] Work Phone: 02-14-1995 diphtheria, tetanus toxoids and acellular pertussis vaccine Tiana Praisler-Wood HUMAN SERVICES WORKER.LEAF COVERER Work Phone: [facility] Work Phone: 02-14-1995 haemophilus influenz ae type b vaccine, HbOC conjugate Tiana Praisler-Wood HUMAN SERVICES WORKER.[facility] Work Phone: [facility] Work Phone: 02-14-1995 hepatitis B vaccine, pediatric or pediatric/adolescent dosage Tiana Praisler-Wood HUMAN SERVICES WORKER.[facility] Work Phone: [facility] Work Phone: 02-14-1995 trivalent poliovirus vaccine, live, oral Tiana Praisler-Wood HUMAN SERVICES WORKER.[facility] Work Phone: [facility] Work Phone: 1994 diphtheria, tetanus toxoids and acellular pertussis vaccine Tiana Praisler-Wood HUMAN SERVICES WORKER.[facility] Work Phone: [facility] Work Phone: 1994 haemophilus influenz ae type b vaccine, HbOC conjugate Tiana Praisler-Wood HUMAN SERVICES WORKER.[facility] Work Phone: [facility] Work Phone: 1994 trivalent poliovirus vaccine, live, oral Tiana Praisluciano-Wood HUMAN SERVICES WORKER.LEAF COVERER Work Phone: [facility] Work Phone: 1994 diphtheria, tetanus toxoids and acellular pertussis vaccine Tiana Praisler-Wood HUMAN SERVICES WORKER.[facility] Work Phone: [facility] Work Phone: 1994 haemophilus influenz ae type b vaccine, HbOC conjugate Tiana Praisler-Wood HUMAN SERVICES WORKER.[facility] Work Phone: [facility] Work Phone: 1994 trivalent poliovirus vaccine, live, oral Tiana Beasley APRN.LEAF COVERER Work Phone: [facility] Work Phone: 1994 hepatitis B vaccine, pediatric or pediatric/adolescent dosage Tiana Beasley HUMAN SERVICES WORKER.LEAF COVERER Work Phone: [facility] Work Phone: 1994 hepatitis B vaccine, pediatric or pediatric/adolescent dosage Tiana Beasley HUMAN SERVICES WORKER.LEAF COVERER Work Phone: [facility] Work Phone: Payers Date Payer Category Payer Medicaid [id number] 2022 Medicaid [id number] Unknown [id number] Social History Date Type Detail Facility Start: 07-20-2022 Tobacco smoking stat [facility] Occasional tobacco smoker [facility] History of tobacco use Cigarette Smoker [facility] Start: 07-20-2022 End: 09-26-2022 Cigarettes smoked current (pack per day) - Reported 0.5 [facility] Start: 07-20-2022 Tobacco use and exposure Smokeless tobacco non-user [facility] Start: 07-20-2022 End: 09-26-2022 Alcohol intake Current drinker of alcohol (finding) [facility] Start: 07-20-2022 Tobacco Comment patient stated she smokes, mom and moms boyfriend smokes and dad and his girlfriend smoke [facility] Start: 1994 Sex Assigned At Female [facility] Work Phone: Clinical Notes 10-23-2009 to 03-28-2023 Gregory Guerrero APRN.LEAF COVERER - 09/26/2022 10:16 AM EDTSarai Bonilla APRN.LEAF COVERER - 08/29/2022 11:04 AM EDTPatient Katlyn Beasley APRN.MOOKIE - 07/20/2022 6:16 PM EST Note Date & Type Note Facility 03-28-2023 Note HNO ID: [id number] Author: Muriel Schaeffer RT(R) Service: Radiology Author Type: Technologist Type: Progress Notes Filed: 03/28/2023 5:32 PM Note Text: Radiology Service Progress Note PATIENT NAME: Sterling Milner DATE OF SERVICE: March 28, 2023 TIME: 5:24 PM PATIENT IDENTITY VERIFICATION COMPLETED USING TWO (2) IDENTIFIERS: Name and Date of confirmed by patient verbally. FALL SCREENING: Has the patient had 2 falls in the last year or 1 fall with injury or currently using an Ambulatory Assistive Device (Walker, Cane, Wheelchair, Crutches, etc.)? No PATIENT GENDER DATA: Female. status: : No status: NO. PATIENT RELEVANT IMPLANT DATA REVIEWED: Yes RADIOLOGY DEPARTMENT: General X-ray: Exam(s) Completed: Chest X-Ray PERIPHERAL IV DATA: Not applicable SIGNED BY: RT Ryan(R) March 28, 2023 5:24 PM [facility] 03-28-2023 Note HNO ID: [id number] Author: Alberto Sow APRN.LEAF COVERER Service: ? Author Type: Nurse Practitioner Type: Progress Notes Filed: 03/28/2023 5:56 PM Note Text: Subjective HPI HPI Sterling Milner is a 27 year old female who presents today for CC of cough, congestion, fever, body aches. This started 3 days ago. Has tried otc medication for relief. Symptoms are worsened by nothing. Risk factors sick exposures at work. Smoker. Denies possibility of being . .Patient presents with: Cough: Chest congestion, fever, body aches, x 3 days PAST MEDICAL HISTORY Diagnosis Date Foot fracture, left 11/12/2012 LOLLY (obstructive sleep apnea) 2016 Mild - no CPAP Varicella without mention of complication age 2 years PAST SURGICAL HISTORY Procedure Laterality Date APPENDECTOMY 03/13/2018 Dr. Escalona PAST SURGICAL HISTORY OF age 12 yrs Absess taken off of tonsill TUBAL LIGATION HX [address] leonard ALLERGIES Patient has no known allergies. MEDICATIONS omeprazole (PRILOSEC) 20 mg capsule TAKE 1 CAPSULE BY MOUTH EVERY DAY. NEEDED LEO 0.25-35 mg-mcg per tablet Take 1 tablet by mouth once daily. amphetamine-dextroamphetamine XR (ADDERALL XR) 30 mg 24 hr capsule Take 1 capsule by mouth once daily for 30 days. Earliest Fill Date: 11/13/18 tretinoin (RETIN-A) 0.05 % cream Apply pea sized amount to affected areas every day at bedtime. Wash off in the morning. acetaminophen (TYLENOL EXTRA STRENGTH) 500 mg tablet Take 2 tablets by mouth every 8 hours as needed for Pain. (Patient not taking: Reported on 11/13/2019 ) ibuprofen (MOTRIN) 800 mg tablet Take 1 tablet by mouth every 8 hours as needed for Pain. (Patient not taking: Reported on 04/05/2019 ) FAMILY HISTORY Problem Relation Age of Onset COPD Mother Diabetes Father Hypertension Father ADD/ADHD Sister Anxiety disorder Sister Depression Sister ADD/ADHD Brother other (brain tumor) Maternal Grandmother Alzheimer's Disease Maternal Grandfather other (Epilepsy) Paternal Grandmother Hypertension Paternal Grandmother Diabetes Paternal Grandmother No Known Problems Paternal Grandfather Social History Tobacco Use Smoking status: Some Days Packs/day: 0.50 Years: 6.00 Additional pack years: 0.00 Total pack years: 3.00 Types: Cigarettes Smokeless tobacco: Never Tobacco comments: patient stated she smokes, mom and moms boyfriend smokes and dad and his girlfriend smoke Vaping Use Vaping Use: Never used Substance Use Topics Alcohol use: Yes Alcohol/week: 2.5 standard drinks of alcohol Types: 1 Cans of Beer (12oz) per week Drug use: No Review of Systems Constitutional: Negative for fever. HENT: Positive for congestion. Negative for ear pain, nosebleeds and sore throat. Respiratory: Positive for cough and sputum production. Negative for shortness of breath and wheezing. Cardiovascular: Negative for chest pain. Gastrointestinal: Negative for diarrhea and vomiting. Musculoskeletal: Negative for neck pain. Skin: Negative for itching and rash. Objective Blood pressure 116/78, pulse 79, temperature 36.9 ?C (98.5 ?F), resp. rate 20, weight 58.5 kg (129 lb), last menstrual period 03/28/2023, SpO2 100 %, unknown if currently . Physical Exam Constitutional: General: Sterling Milner is not in acute distress. Appearance: Sterling Milner is ill-appearing (mild). Sterling Milner is not toxic-appearing or diaphoretic. HENT: Head: Normocephalic and atraumatic. Cardiovascular: Rate and Rhythm: Normal rate and regular rhythm. Heart sounds: Normal heart sounds, S1 normal and S2 normal. Pulmonary: Effort: Pulmonary effort is normal. Breath sounds: Wheezing (scattered) present. No decreased breath sounds, rhonchi or rales. Lymphadenopathy: Cervical: No cervical adenopathy. Right cervical: No superficial cervical adenopathy. Left cervical: No superficial cervical adenopathy. Neurological: Mental Status: Sterling Milner is alert and oriented to person, place, and time. Gait: Gait is intact. ASSESSMENT/PLAN: 1. URI, acute - ICD9: 465.9, ICD10: J06.9 (primary diagnosis) - Discussed viral etiology and rationale for treatment. - Symptomatic treatment with prn analgesia - Supportive care with fluids and rest - Follow up in 3-5 days if symptoms persist or sooner if worsening of symptoms - COVID AND INFLUENZA A/B NAAT, ROUTINE - PREDNISONE 20 MG TABLET - ALBUTEROL SULFATE HFA 90 MCG/ACTUATION AEROSOL INHALER 2. Wheeze - ICD9: 786.07, ICD10: R06.2 Xray negative - XR CHEST 2V FRONTAL/LAT IMPRESSION: No acute radiographic abnormality. Dictated by : NORBERTO EVERETT DO - PREDNISONE 20 MG TABLET - ALBUTEROL SULFATE HFA 90 MCG/ACTUATION AEROSOL INHALER Alberto Sow APRN.LEAF COVERER [facility] 09-26-2022 Note HNO ID: [id number] Author: Gregory Guerrero APRN.LEAF COVERER Service: ? Author Type: Nurse Practitioner Type: Progress Notes Filed: 09/26/2022 10:29 AM Note Text: Subjective HPI Nontoxic-appearing female presents urgent care chief plaint sore throat body aches chills fever. Duration of symptoms 2 to 3 days. Associated symptoms listed above. Sick contacts children with similar signs symptoms. Has not used any OTC medication recently. Has used Motrin this did help with the pain yesterday. Presents today for evaluation. Denies any difficulty swallowing handling secretions decreased range of motion of neck. Denies any high fevers productive cough chest pain shortness of breath nausea vomiting abdominal pain change in bowel or bladder habits. Past medical history prescription medication use allergies reviewed. Denies chance of . Is not breast-feeding. .Patient presents with: Sore Throat: stiff neck and fever x 2-3 days PAST MEDICAL HISTORY Diagnosis Date Foot fracture, left 11/12/2012 LOLLY (obstructive sleep apnea) 2016 Mild - no CPAP Varicella without mention of complication age 2 years PAST SURGICAL HISTORY Procedure Laterality Date APPENDECTOMY 03/13/2018 Dr. Escalona PAST SURGICAL HISTORY OF age 12 yrs Absess taken off of tonsill TUBAL LIGATION HX [address] leonard ALLERGIES Patient has no known allergies. MEDICATIONS omeprazole (PRILOSEC) 20 mg capsule TAKE 1 CAPSULE BY MOUTH EVERY DAY. NEEDED LEO 0.25-35 mg-mcg per tablet Take 1 tablet by mouth once daily. tretinoin (RETIN-A) 0.05 % cream Apply pea sized amount to affected areas every day at bedtime. Wash off in the morning. amphetamine-dextroamphetamine XR (ADDERALL XR) 30 mg 24 hr capsule Take 1 capsule by mouth once daily for 30 days. Earliest Fill Date: 11/13/18 acetaminophen (TYLENOL EXTRA STRENGTH) 500 mg tablet Take 2 tablets by mouth every 8 hours as needed for Pain. (Patient not taking: Reported on 11/13/2019 ) ibuprofen (MOTRIN) 800 mg tablet Take 1 tablet by mouth every 8 hours as needed for Pain. (Patient not taking: Reported on 04/05/2019 ) FAMILY HISTORY Problem Relation Age of Onset COPD Mother Diabetes Father Hypertension Father ADD/ADHD Sister Anxiety disorder Sister Depression Sister ADD/ADHD Brother other (brain tumor) Maternal Grandmother Alzheimer's Disease Maternal Grandfather other (Epilepsy) Paternal Grandmother Hypertension Paternal Grandmother Diabetes Paternal Grandmother No Known Problems Paternal Grandfather Social History Tobacco Use Smoking status: Some Days Packs/day: 0.50 Years: 6.00 Pack years: 3.00 Types: Cigarettes Smokeless tobacco: Never Tobacco comments: patient stated she smokes, mom and moms boyfriend smokes and dad and his girlfriend smoke Vaping Use Vaping Use: Never used Substance Use Topics Alcohol use: Yes Alcohol/week: 2.5 standard drinks Types: 1 Cans of Beer (12oz) per week Drug use: No BP 116/62 Pulse 102 Temp 37.1 ?C (98.7 ?F) Resp 16 Wt 55.3 kg (122 lb) LMP 08/06/2021 (Exact Date) SpO2 97% BMI 21.61 kg/m? Review of Systems Constitutional: Positive for malaise/fatigue. Negative for chills and fever. HENT: Positive for sore throat. Negative for congestion, ear discharge, ear pain and sinus pain. Eyes: Negative for blurred vision, pain, discharge and redness. Respiratory: Negative for cough, hemoptysis, sputum production, shortness of breath, wheezing and stridor. Cardiovascular: Negative for chest pain. Gastrointestinal: Negative for abdominal pain, diarrhea, nausea and vomiting. Musculoskeletal: Positive for myalgias. Skin: Negative for itching and rash. Neurological: Negative for dizziness and headaches. Objective Physical Exam Constitutional: General: Sterling Milner is not in acute distress. Appearance: Sterling Milner is not diaphoretic. HENT: Head: Normocephalic. Jaw: No trismus, tenderness, swelling or pain on movement. Right Ear: Tympanic membrane, ear canal and external ear normal. Left Ear: Tympanic membrane, ear canal and external ear normal. Mouth/Throat: Lips: [place]. Mouth: Mucous membranes are moist. Pharynx: Oropharynx is clear. Uvula midline. Posterior oropharyngeal erythema present. No pharyngeal swelling, oropharyngeal exudate or uvula swelling. Tonsils: No tonsillar exudate or tonsillar abscesses. Eyes: Conjunctiva/sclera: Conjunctivae normal. Pupils: Pupils are equal, round, and reactive to light. Cardiovascular: Rate and Rhythm: Normal rate and regular rhythm. Heart sounds: Normal heart sounds. Pulmonary: Effort: Pulmonary effort is normal. No tachypnea, accessory muscle usage or respiratory distress. Breath sounds: Normal breath sounds. No stridor. No wheezing, rhonchi or rales. Abdominal: Palpations: Abdomen is soft. Tenderness: There is no abdominal tenderness. There is no guardi (more content not included)... [facility] 09-26-2022 History of Presen t illness Narrative Subjective HPI Nontoxic-appearing female presents urgent care chief plaint sore throat body aches chills fever. Duration of symptoms 2 to 3 days. Associated symptoms listed above. Sick contacts children with similar signs symptoms. Has not used any OTC medication recently. Has used Motrin this did help with the pain yesterday. Presents today for evaluation. Denies any difficulty swallowing handling secretions decreased range of motion of neck. Denies any high fevers productive cough chest pain shortness of breath nausea vomiting abdominal pain change in bowel or bladder habits. Past medical history prescription medication use allergies reviewed. Denies chance of . Is not breast-feeding. .Patient presents with: Sore Throat: stiff neck and fever x 2-3 days PAST MEDICAL HISTORY Diagnosis Date Foot fracture, left 11/12/2012 LOLLY (obstructive sleep apnea) 2016 Mild - no CPAP Varicella without mention of complication age 2 years PAST SURGICAL HISTORY Procedure Laterality Date APPENDECTOMY 03/13/2018 Dr. Escalona PAST SURGICAL HISTORY OF age 12 yrs Absess taken off of tonsill TUBAL LIGATION HX [address] leonard ALLERGIES Patient has no known allergies. MEDICATIONS omeprazole (PRILOSEC) 20 mg capsule TAKE 1 CAPSULE BY MOUTH EVERY DAY. NEEDED LEO 0.25-35 mg-mcg per tablet Take 1 tablet by mouth once daily. tretinoin (RETIN-A) 0.05 % cream Apply pea sized amount to affected areas every day at bedtime. Wash off in the morning. amphetamine-dextroamphetamine XR (ADDERALL XR) 30 mg 24 hr capsule Take 1 capsule by mouth once daily for 30 days. Earliest Fill Date: 11/13/18 acetaminophen (TYLENOL EXTRA STRENGTH) 500 mg tablet Take 2 tablets by mouth every 8 hours as needed for Pain. (Patient not taking: Reported on 11/13/2019 ) ibuprofen (MOTRIN) 800 mg tablet Take 1 tablet by mouth every 8 hours as needed for Pain. (Patient not taking: Reported on 04/05/2019 ) FAMILY HISTORY Problem Relation Age of Onset COPD Mother Diabetes Father Hypertension Father ADD/ADHD Sister Anxiety disorder Sister Depression Sister ADD/ADHD Brother other (brain tumor) Maternal Grandmother Alzheimer's Disease Maternal Grandfather other (Epilepsy) Paternal Grandmother Hypertension Paternal Grandmother Diabetes Paternal Grandmother No Known Problems Paternal Grandfather Social History Tobacco Use Smoking status: Some Days Packs/day: 0.50 Years: 6.00 Pack years: 3.00 Types: Cigarettes Smokeless tobacco: Never Tobacco comments: patient stated she smokes, mom and moms boyfriend smokes and dad and his girlfriend smoke Vaping Use Vaping Use: Never used Substance Use Topics Alcohol use: Yes Alcohol/week: 2.5 standard drinks Types: 1 Cans of Beer (12oz) per week Drug use: No BP 116/62 Pulse 102 Temp 37.1 C (98.7 F) Resp 16 Wt 55.3 kg (122 lb) LMP 08/06/2021 (Exact Date) SpO2 97% BMI 21.61 kg/m Review of Systems Constitutional: Positive for malaise/fatigue. Negative for chills and fever. HENT: Positive for sore throat. Negative for congestion, ear discharge, ear pain and sinus pain. Eyes: Negative for blurred vision, pain, discharge and redness. Respiratory: Negative for cough, hemoptysis, sputum production, shortness of breath, wheezing and stridor. Cardiovascular: Negative for chest pain. Gastrointestinal: Negative for abdominal pain, diarrhea, nausea and vomiting. Musculoskeletal: Positive for myalgias. Skin: Negative for itching and rash. Neurological: Negative for dizziness and headaches. Objective Physical Exam Constitutional: General: Sterling Milner is not in acute distress. Appearance: Sterling Milner is not diaphoretic. HENT: Head: Normocephalic. Jaw: No trismus, tenderness, swelling or pain on movement. Right Ear: Tympanic membrane, ear canal and external ear normal. Left Ear: Tympanic membrane, ear canal and external ear normal. Mouth/Throat: Lips: [place]. Mouth: Mucous membranes are moist. Pharynx: Oropharynx is clear. Uvula midline. Posterior oropharyngeal erythema present. No pharyngeal swelling, oropharyngeal exudate or uvula swelling. Tonsils: No tonsillar exudate or tonsillar abscesses. Eyes: Conjunctiva/sclera: Conjunctivae normal. Pupils: Pupils are equal, round, and reactive to light. Cardiovascular: Rate and Rhythm: Normal rate and regular rhythm. Heart sounds: Normal heart sounds. Pulmonary: Effort: Pulmonary effort is normal. No tachypnea, accessory muscle usage or respiratory distress. Breath sounds: Normal breath sounds. No stridor. No wheezing, rhonchi or rales. Abdominal: Palpations: Abdomen is soft. Tenderness: There is no abdominal tenderness. There is no guarding or rebound. Musculoskeletal: Cervical back: Normal range of motion and neck supple. No rigidity or tenderness. Lymphadenopathy: Cervical: No cervical adenopathy. Skin: General: Skin is warm and dry. Neurological: Mental Status: Sterling Milner is alert and oriented to person, place, and time. ASSESSMENT/PLAN: 1. Sore throat - ICD9: 462, ICD10: J02.9 - STREP A MOLECULAR (POC) Patient diagnosed with pharyngitis. Strep test negative. Supportive therapies discussed. Treat as viral etiology. Red flags prompt reevaluation discussed. Patient was educated on supportive therapies. Patient will follow up with primary care provider as needed. Patient was instructed to immediately proceed to emergency room for any new, worsening, or symptoms lasting longer than anticipated. The patient's clinical presentation is otherwise unremarkable at this time. Based on exam and clinical finding, the patient is stable for discharge. Plan of care was discussed with patient. Patient verbalizes understanding and agrees to plan of care. This note was generated using [employer] software. It may contain errors in wording, punctuation, or spelling. Gregory Guerrero APRN.MOOKIE documented in this encounter [facility] 08-29-2022 Note HNO ID: [id number] Author: Sarai Bonilla APRN.LEAF COVERER Service: ? Author Type: Nurse Practitioner Type: Progress Notes Filed: 08/29/2022 11:12 AM Note Text: CC: Patient presents with: Cough: left ear pain x 3-4 days HPI: Sterling Milner is a 27 year old female who presents to the office with complaint of head congestion, cough, nonproductive, and ear symptoms for a few days. Symptoms are staying the same. Associated symptoms includes tooth pain. Denies fever, nausea, vomiting , and diarrhea. Treatments tried include nothing so far. with no relief of symptoms. Sick contacts: unknown. History of asthma, frequent episodes of bronchitis, chronic bronchitis, bronchiectasis or COPD: No Smoker: No Seasonal/environmental allergies: No The ROS is otherwise negative. The patient's pmh, medications, allergies, and past visits are reviewed. PHYSICAL EXAM: BP 118/70 Pulse 96 Temp 36.9 ?C (98.4 ?F) Resp 16 Wt 56.2 kg (124 lb) LMP 08/06/2021 (Exact Date) SpO2 98% BMI 21.97 kg/m? General appearance: alert, cooperative, pleasant, in no acute distress Head: Normocephalic Eyes: EOM's intact, conjunctiva pink and moist, no icterus, sclera white, non-injected Ears: Right ear: External ear/canal- Normal, TM - clear with good landmarks. Left ear: External ear/canal- Normal, TM - clear with good landmarks Oropharynx:moist without lesions, No erythema, exudates or tonsillar hypertrophy., teeth in poor repair, significant amount of dental carries. Heart: Negative. RRR without obvious murmur, gallop, or rubs. No ectopy. Lungs: clear to auscultation, without rales or wheeze, good air exchange PAST MEDICAL HISTORY Diagnosis Date Foot fracture, left 11/12/2012 LOLLY (obstructive sleep apnea) 2016 Mild - no CPAP Varicella without mention of complication age 2 years PAST SURGICAL HISTORY Procedure Laterality Date APPENDECTOMY 03/13/2018 Dr. Escalona PAST SURGICAL HISTORY OF age 12 yrs Absess taken off of tonsill TUBAL LIGATION HX 2018 TUBOTUBAL ANASTOMOSIS [address] Dr. leonard ALLERGIES Patient has no known allergies. MEDICATIONS omeprazole (PRILOSEC) 20 mg capsule TAKE 1 CAPSULE BY MOUTH EVERY DAY. NEEDED LEO 0.25-35 mg-mcg per tablet Take 1 tablet by mouth once daily. tretinoin (RETIN-A) 0.05 % cream Apply pea sized amount to affected areas every day at bedtime. Wash off in the morning. amphetamine-dextroamphetamine XR (ADDERALL XR) 30 mg 24 hr capsule Take 1 capsule by mouth once daily for 30 days. Earliest Fill Date: 11/13/18 amoxicillin (AMOXIL) 875 mg tablet Take 1 tablet by mouth twice daily for 5 days. acetaminophen (TYLENOL EXTRA STRENGTH) 500 mg tablet Take 2 tablets by mouth every 8 hours as needed for Pain. (Patient not taking: Reported on 11/13/2019 ) ibuprofen (MOTRIN) 800 mg tablet Take 1 tablet by mouth every 8 hours as needed for Pain. (Patient not taking: Reported on 04/05/2019 ) FAMILY HISTORY Problem Relation Age of Onset COPD Mother Diabetes Father Hypertension Father ADD/ADHD Sister Anxiety disorder Sister Depression Sister ADD/ADHD Brother other (brain tumor) Maternal Grandmother Alzheimer's Disease Maternal Grandfather other (Epilepsy) Paternal Grandmother Hypertension Paternal Grandmother Diabetes Paternal Grandmother No Known Problems Paternal Grandfather Social History Tobacco Use Smoking status: Some Days Packs/day: 0.50 Years: 6.00 Pack years: 3.00 Types: Cigarettes Smokeless tobacco: Never Tobacco comments: patient stated she smokes, mom and moms boyfriend smokes and dad and his girlfriend smoke Vaping Use Vaping Use: Never used Substance Use Topics Alcohol use: Yes Alcohol/week: 2.5 standard drinks Types: 1 Cans of Beer (12oz) per week Drug use: No ASSESSMENT/PLAN: 1. Pain, dental - ICD9: 525.9, ICD10: K08.89 - AMOXICILLIN 875 MG TABLET Prescription instructions reviewed with patient as applicable. Potential red flag symptoms discussed with the patient. Reviewed appropriate action plan to take if red flag symptoms occur. Patient agreeable to treatment plan. Will make an appt with a dentist for follow up. Sarai Bonilla APRN.[facility] 08-29-2022 History of Presen t illness Narrative CC: Patient presents with: Cough: left ear pain x 3-4 days HPI: Sterling Milner is a 27 year old female who presents to the office with complaint of head congestion, cough, nonproductive, and ear symptoms for a few days. Symptoms are staying the same. Associated symptoms includes tooth pain. Denies fever, nausea, vomiting , and diarrhea. Treatments tried include nothing so far. with no relief of symptoms. Sick contacts: unknown. History of asthma, frequent episodes of bronchitis, chronic bronchitis, bronchiectasis or COPD: No Smoker: No Seasonal/environmental allergies: No The ROS is otherwise negative. The patient's pmh, medications, allergies, and past visits are reviewed. PHYSICAL EXAM: BP 118/70 Pulse 96 Temp 36.9 C (98.4 F) Resp 16 Wt 56.2 kg (124 lb) LMP 08/06/2021 (Exact Date) SpO2 98% BMI 21.97 kg/m General appearance: alert, cooperative, pleasant, in no acute distress Head: Normocephalic Eyes: EOM's intact, conjunctiva pink and moist, no icterus, sclera white, non-injected Ears: Right ear: External ear/canal- Normal, TM - clear with good landmarks. Left ear: External ear/canal- Normal, TM - clear with good landmarks Oropharynx:moist without lesions, No erythema, exudates or tonsillar hypertrophy., teeth in poor repair, significant amount of dental carries. Heart: Negative. RRR without obvious murmur, gallop, or rubs. No ectopy. Lungs: clear to auscultation, without rales or wheeze, good air exchange PAST MEDICAL HISTORY Diagnosis Date Foot fracture, left 11/12/2012 LOLLY (obstructive sleep apnea) 2016 Mild - no CPAP Varicella without mention of complication age 2 years PAST SURGICAL HISTORY Procedure Laterality Date APPENDECTOMY 03/13/2018 Dr. Escalona PAST SURGICAL HISTORY OF age 12 yrs Absess taken off of tonsill TUBAL LIGATION HX 2018 TUBOT[address] leoanrd ALLERGIES Patient has no known allergies. MEDICATIONS omeprazole (PRILOSEC) 20 mg capsule TAKE 1 CAPSULE BY MOUTH EVERY DAY. NEEDED LEO 0.25-35 mg-mcg per tablet Take 1 tablet by mouth once daily. tretinoin (RETIN-A) 0.05 % cream Apply pea sized amount to affected areas every day at bedtime. Wash off in the morning. amphetamine-dextroamphetamine XR (ADDERALL XR) 30 mg 24 hr capsule Take 1 capsule by mouth once daily for 30 days. Earliest Fill Date: 11/13/18 amoxicillin (AMOXIL) 875 mg tablet Take 1 tablet by mouth twice daily for 5 days. acetaminophen (TYLENOL EXTRA STRENGTH) 500 mg tablet Take 2 tablets by mouth every 8 hours as needed for Pain. (Patient not taking: Reported on 11/13/2019 ) ibuprofen (MOTRIN) 800 mg tablet Take 1 tablet by mouth every 8 hours as needed for Pain. (Patient not taking: Reported on 04/05/2019 ) FAMILY HISTORY Problem Relation Age of Onset COPD Mother Diabetes Father Hypertension Father ADD/ADHD Sister Anxiety disorder Sister Depression Sister ADD/ADHD Brother other (brain tumor) Maternal Grandmother Alzheimer's Disease Maternal Grandfather other (Epilepsy) Paternal Grandmother Hypertension Paternal Grandmother Diabetes Paternal Grandmother No Known Problems Paternal Grandfather Social History Tobacco Use Smoking status: Some Days Packs/day: 0.50 Years: 6.00 Pack years: 3.00 Types: Cigarettes Smokeless tobacco: Never Tobacco comments: patient stated she smokes, mom and moms boyfriend smokes and dad and his girlfriend smoke Vaping Use Vaping Use: Never used Substance Use Topics Alcohol use: Yes Alcohol/week: 2.5 standard drinks Types: 1 Cans of Beer (12oz) per week Drug use: No ASSESSMENT/PLAN: 1. Pain, dental - ICD9: 525.9, ICD10: K08.89 - AMOXICILLIN 875 MG TABLET Prescription instructions reviewed with patient as applicable. Potential red flag symptoms discussed with the patient. Reviewed appropriate action plan to take if red flag symptoms occur. Patient agreeable to treatment plan. Will make an appt with a dentist for follow up. Sarai Bonilla APRN.MOOKIE documented in this encounter [facility] 07-20-2022 Note HNO ID: [id number] Author: Tiana Beasley APRN.MOOKIE Service: ? Author Type: Nurse Practitioner Type: Progress Notes Filed: 07/20/2022 6:58 PM Note Text: Subjective HPI Sterling Milner is a 27 year old female who presents with sore throat, white spots on her throat and nausea today. She has also had nasal congestion and drainage for the past 3 weeks. She has taken Tussin DM and ibuprofen and tylenol at home, and used a Netti pot. Her kids have been sick recently with URI symptoms. Review of Systems Constitutional: Negative for chills and fever. HENT: Positive for congestion, ear pain, sinus pain and sore throat. Respiratory: Positive for cough. Cardiovascular: Negative. Gastrointestinal: Positive for nausea. Negative for diarrhea and vomiting. Musculoskeletal: Negative. BP 120/70 Pulse 105 Temp 37.4 ?C (99.3 ?F) Resp 18 Wt 56.7 kg (125 lb) LMP 08/06/2021 (Exact Date) SpO2 99% BMI 22.14 kg/m? PAST MEDICAL HISTORY Diagnosis Date Foot fracture, left 11/12/2012 LOLLY (obstructive sleep apnea) 2016 Mild - no CPAP Varicella without mention of complication age 2 years PAST SURGICAL HISTORY Procedure Laterality Date APPENDECTOMY 03/13/2018 Dr. Escalona PAST SURGICAL HISTORY OF age 12 yrs Absess taken off of tonsill TUBAL LIGATION HX 2018 TUBOTUBAL ANASTOMOSIS 2019 Dr. leonard ALLERGIES Patient has no known allergies. MEDICATIONS omeprazole (PRILOSEC) 20 mg capsule TAKE 1 CAPSULE BY MOUTH EVERY DAY. NEEDED LEO 0.25-35 mg-mcg per tablet Take 1 tablet by mouth once daily. tretinoin (RETIN-A) 0.05 % cream Apply pea sized amount to affected areas every day at bedtime. Wash off in the morning. amphetamine-dextroamphetamine XR (ADDERALL XR) 30 mg 24 hr capsule Take 1 capsule by mouth once daily for 30 days. Earliest Fill Date: 11/13/18 acetaminophen (TYLENOL EXTRA STRENGTH) 500 mg tablet Take 2 tablets by mouth every 8 hours as needed for Pain. (Patient not taking: Reported on 11/13/2019 ) ibuprofen (MOTRIN) 800 mg tablet Take 1 tablet by mouth every 8 hours as needed for Pain. (Patient not taking: Reported on 04/05/2019 ) FAMILY HISTORY Problem Relation Age of Onset COPD Mother Diabetes Father Hypertension Father ADD/ADHD Sister Anxiety disorder Sister Depression Sister ADD/ADHD Brother other (brain tumor) Maternal Grandmother Alzheimer's Disease Maternal Grandfather other (Epilepsy) Paternal Grandmother Hypertension Paternal Grandmother Diabetes Paternal Grandmother No Known Problems Paternal Grandfather Social History Tobacco Use Smoking status: Some Days Packs/day: 0.50 Years: 6.00 Pack years: 3.00 Types: Cigarettes Smokeless tobacco: Never Tobacco comments: patient stated she smokes, mom and moms boyfriend smokes and dad and his girlfriend smoke Vaping Use Vaping Use: Never used Substance Use Topics Alcohol use: Yes Alcohol/week: 2.5 standard drinks Types: 1 Cans of Beer (12oz) per week Drug use: No Objective Physical Exam Vitals and nursing note reviewed. Constitutional: General: Sterling Milner is not in acute distress. Appearance: Normal appearance. Sterling Milner is ill-appearing. Sterling Milner is not toxic-appearing. HENT: Right Ear: Tympanic membrane, ear canal and external ear normal. Left Ear: Tympanic membrane, ear canal and external ear normal. Nose: Nasal tenderness, mucosal edema, congestion and rhinorrhea present. Mouth/Throat: Lips: [place]. Mouth: Mucous membranes are moist. Pharynx: Oropharynx is clear. Uvula midline. Posterior oropharyngeal erythema present. No oropharyngeal exudate. Tonsils: Tonsillar exudate present. Cardiovascular: Rate and Rhythm: Normal rate and regular rhythm. Heart sounds: Normal heart sounds. Pulmonary: Effort: Pulmonary effort is normal. No respiratory distress. Breath sounds: Normal breath sounds. No wheezing or rales. Musculoskeletal: Cervical back: Neck supple. Lymphadenopathy: Cervical: No cervical adenopathy. Skin: General: Skin is warm and dry. Findings: No erythema or rash. Neurological: Mental Status: Sterling Milner is alert. ASSESSMENT/PLAN: 1. Sore throat - ICD9: 462, ICD10: J02.9 (primary diagnosis) - Alere Strep Test positive, no culture pending - antibiotic as written - Discussed supportive care treatment with fluids, rest and analgesia. - The patient may also use warm salt water gargles, throat lozenges and/or OTC throat spray as needed. - Contagious dz precautions discussed- including considered contagious until on antibiotics for 24 hours - Call back if drooling, increased temperature, symptoms of dehydration and/or still sick in one week - STREP A MOLECULAR (POC) 2. Strep throat - ICD9: 034.0, ICD10: J02.0 - AMOXICILLIN 875 MG-POTASSIUM CLAVULANATE 125 MG TABLET 3. Bacterial sinusitis - ICD9: 473.9, 041.9, ICD10: J32.9, B96.89 - Will begin treatment with as per antibiot (more content not included)... [facility] 07-20-2022 Instructions Tiana Beasley APRN.LEAF COVERER - 07/20/2022 6:30 PM EST Images from the original note were not included. ASSESSMENT/PLAN: 1. Sore throat - ICD9: 462, ICD10: J02.9 (primary diagnosis) - Alere Strep Test positive, no culture pending - antibiotic as written - Discussed supportive care treatment with fluids, rest and analgesia. - The patient may also use warm salt water gargles, throat lozenges and/or OTC throat spray as needed. - Contagious dz precautions discussed- including considered contagious until on antibiotics for 24 hours - Call back if drooling, increased temperature, symptoms of dehydration and/or still sick in one week - STREP A MOLECULAR (POC) 2. Strep throat - ICD9: 034.0, ICD10: J02.0 - AMOXICILLIN 875 MG-POTASSIUM CLAVULANATE 125 MG TABLET 3. Bacterial sinusitis - ICD9: 473.9, 041.9, ICD10: J32.9, B96.89 - Will begin treatment with as per antibiotic as written, see orders - Supportive care with plenty of fluids, rest, and analgesia prn. - AMOXICILLIN 875 MG-POTASSIUM CLAVULANATE 125 MG TABLET - Follow-up with your PCP in 3-5 days if symptoms have not improved or sooner if symptoms worsen - Discussed red flags and need for immediate medical evaluation if any occur. - Discussed supportive care treatment with fluids, rest and analgesia. - Discussed expected course of illness Tiana Beasley APRN.LEAF COVERER STREP INFECTIONS: Streptococcal bacteria can cause a sore throat, ear and sinus infections, and skin diseases. Strep throat is diagnosed by a special throat swab or culture test. These infections require either an antibiotic shot or an oral antibiotic medicine to get rid of all the bacteria and prevent rheumatic fever, a dangerous complication. The symptoms of Strep infection, however, usually get better after just 2-3 days of drug treatment. These infections are very contagious; any close contacts who have a fever, sore throat, or illness symptoms should see their doctor right away. Strep is no longer contagious after 24 hours of antibiotic treatment so you may return to school or work if your fever and pain are better in one day. Strep infections can cause serious complications including throat abscess, rheumatic fever and kidney disease, so be sure to take all your antibiotic medicine. See your doctor or return here if your symptoms worsen or are not improved in 3 days or for difficulty breathing or inability to swallow. Adult Sinusitis Patient Education What is Sinusitis? Sinusitis [[id number]] is inflammation of the sinuses or swelling of the lining of the sinus cavity or nose. During an infection the sinuses become blocked with fluid causing swelling of the lining of the sinuses. Symptoms: (viral and bacterial infections) Stuffy nose Runny nose Postnasal drip Fever Toothache Headache Tiredness Cough Sore throat Face and head pressure and or pain Common causes: 98% of sinus infections are viral caused by viruses. Risk Factors of Sinusitis Include: Allergies, air pollution, indoor humidity and outdoor temperature changes, andstructural changes in the nose may contribute to sinus pain, pressure and congestion. When to get help? Temperature greater than 100.4 F Symptoms lasting more than 10 days or worsening symptoms greater than 7-10 days. If you do not improve or worsen after a course of antibiotics, you should be re-examined. Diagnosis and Treatment: Your healthcare provider will ask a number of questions about your symptoms and how long they have occurred. If symptoms of sinusitis persist greater than 10 days, it is possible you have a bacterial sinus infection and an antibiotic is prescribed. If it is viral, antibiotics will not help. You may be instructed to take [id number] medications for symptoms. including fever reducers acetaminophen or ibuprofen, nasal saline spray, cough and cold preparations and decongestants as prescribed by the physician, nurse practitioner or physician assistant associate professor. Self-Care and Prevention: Rest Fluids for hydration Good hand washing Humidifier Avoid smoking and exposure to second hand smoke Avoid sick contacts documented in this encounter [facility] 07-20-2022 History of Presen t illness Narrative Subjective HPI Sterling Milner is a 27 year old female who presents with sore throat, white spots on her throat and nausea today. She has also had nasal congestion and drainage for the past 3 weeks. She has taken Tussin DM and ibuprofen and tylenol at home, and used a Netti pot. Her kids have been sick recently with URI symptoms. Review of Systems Constitutional: Negative for chills and fever. HENT: Positive for congestion, ear pain, sinus pain and sore throat. Respiratory: Positive for cough. Cardiovascular: Negative. Gastrointestinal: Positive for nausea. Negative for diarrhea and vomiting. Musculoskeletal: Negative. BP 120/70 Pulse 105 Temp 37.4 C (99.3 F) Resp 18 Wt 56.7 kg (125 lb) LMP 08/06/2021 (Exact Date) SpO2 99% BMI 22.14 kg/m PAST MEDICAL HISTORY Diagnosis Date Foot fracture, left 11/12/2012 LOLLY (obstructive sleep apnea) 2016 Mild - no CPAP Varicella without mention of complication age 2 years PAST SURGICAL HISTORY Procedure Laterality Date APPENDECTOMY 03/13/2018 Dr. Escalona PAST SURGICAL HISTORY OF age 12 yrs Absess taken off of tonsill TUBAL LIGATION HX 2018 TUBOTUBAL ANASTOMOSIS 2019 Dr. leonard ALLERGIES Patient has no known allergies. MEDICATIONS omeprazole (PRILOSEC) 20 mg capsule TAKE 1 CAPSULE BY MOUTH EVERY DAY. NEEDED LEO 0.25-35 mg-mcg per tablet Take 1 tablet by mouth once daily. tretinoin (RETIN-A) 0.05 % cream Apply pea sized amount to affected areas every day at bedtime. Wash off in the morning. amphetamine-dextroamphetamine XR (ADDERALL XR) 30 mg 24 hr capsule Take 1 capsule by mouth once daily for 30 days. Earliest Fill Date: 11/13/18 acetaminophen (TYLENOL EXTRA STRENGTH) 500 mg tablet Take 2 tablets by mouth every 8 hours as needed for Pain. (Patient not taking: Reported on 11/13/2019 ) ibuprofen (MOTRIN) 800 mg tablet Take 1 tablet by mouth every 8 hours as needed for Pain. (Patient not taking: Reported on 04/05/2019 ) FAMILY HISTORY Problem Relation Age of Onset COPD Mother Diabetes Father Hypertension Father ADD/ADHD Sister Anxiety disorder Sister Depression Sister ADD/ADHD Brother other (brain tumor) Maternal Grandmother Alzheimer's Disease Maternal Grandfather other (Epilepsy) Paternal Grandmother Hypertension Paternal Grandmother Diabetes Paternal Grandmother No Known Problems Paternal Grandfather Social History Tobacco Use Smoking status: Some Days Packs/day: 0.50 Years: 6.00 Pack years: 3.00 Types: Cigarettes Smokeless tobacco: Never Tobacco comments: patient stated she smokes, mom and moms boyfriend smokes and dad and his girlfriend smoke Vaping Use Vaping Use: Never used Substance Use Topics Alcohol use: Yes Alcohol/week: 2.5 standard drinks Types: 1 Cans of Beer (12oz) per week Drug use: No Objective Physical Exam Vitals and nursing note reviewed. Constitutional: General: Sterling Milner is not in acute distress. Appearance: Normal appearance. Sterling Milner is ill-appearing. Sterling Milner is not toxic-appearing. HENT: Right Ear: Tympanic membrane, ear canal and external ear normal. Left Ear: Tympanic membrane, ear canal and external ear normal. Nose: Nasal tenderness, mucosal edema, congestion and rhinorrhea present. Mouth/Throat: Lips: [place]. Mouth: Mucous membranes are moist. Pharynx: Oropharynx is clear. Uvula midline. Posterior oropharyngeal erythema present. No oropharyngeal exudate. Tonsils: Tonsillar exudate present. Cardiovascular: Rate and Rhythm: Normal rate and regular rhythm. Heart sounds: Normal heart sounds. Pulmonary: Effort: Pulmonary effort is normal. No respiratory distress. Breath sounds: Normal breath sounds. No wheezing or rales. Musculoskeletal: Cervical back: Neck supple. Lymphadenopathy: Cervical: No cervical adenopathy. Skin: General: Skin is warm and dry. Findings: No erythema or rash. Neurological: Mental Status: Sterling iMlner is alert. ASSESSMENT/PLAN: 1. Sore throat - ICD9: 462, ICD10: J02.9 (primary diagnosis) - Alere Strep Test positive, no culture pending - antibiotic as written - Discussed supportive care treatment with fluids, rest and analgesia. - The patient may also use warm salt water gargles, throat lozenges and/or OTC throat spray as needed. - Contagious dz precautions discussed- including considered contagious until on antibiotics for 24 hours - Call back if drooling, increased temperature, symptoms of dehydration and/or still sick in one week - STREP A MOLECULAR (POC) 2. Strep throat - ICD9: 034.0, ICD10: J02.0 - AMOXICILLIN 875 MG-POTASSIUM CLAVULANATE 125 MG TABLET 3. Bacterial sinusitis - ICD9: 473.9, 041.9, ICD10: J32.9, B96.89 - Will begin treatment with as per antibiotic as written, see orders - Supportive care with plenty of fluids, rest, and analgesia prn. - AMOXICILLIN 875 MG-POTASSIUM CLAVULANATE 125 MG TABLET - Follow-up with your PCP in 3-5 days if symptoms have not improved or sooner if symptoms worsen - Discussed red flags and need for immediate medical evaluation if any occur. - Discussed supportive care treatment with fluids, rest and analgesia. - Discussed expected course of illness Tiana Beasley APRN.LEAF COVERER documented in this encounter [facility] documented as of this encounter (statuses as of 07/21/2022) [facility]06-11-2010 History of Past illness Narrative* Problem Noted Date Resolved Date Vulvar lesion 10/23/2009 04/13/2012 documented as of this encounter (statuses as of 08/29/2022) [facility]06-11-2010 History of Past illness Narrative* Problem Noted Date Resolved Date Vulvar lesion 10/23/2009 04/13/2012 documented as of this encounter (statuses as of 09/26/2022) [facility] note* Diagnosis Sore throat- Primary Acute pharyngitis Strep throat Streptococcal sore throat Bacterial sinusitis Unspecified sinusitis (chronic) [facility]* Diagnosis Pain, dental- Primary Unspecified disorder of the teeth and supporting structures documented in this encounter [facility] note* Diagnosis Sore throat- Primary Acute pharyngitis documented in this encounter [facility] Summary Purpose Family History No Family History Records FoundNo Family History Records FoundNo Family History Records FoundNo Family History Records Found Advance Directives No Advanced Directives Records FoundNo Advanced Directives Records FoundNo Advanced Directives Records FoundNo Advanced Directives Records Found Additional Source Comments INFORMATION SOURCE (unrecogn ized section and content) DATE CREATED AUTHOR AUTHOR'S ORGANIZ ATION 11/08/2017 [facility] DATE CREATED AUTHOR AUTHOR'S ORGANIZ ATION 12/11/2019 [facility] ([place]) DATE CREATED AUTHOR AUTHOR'S ORGANIZ ATION 03/30/2023 [facility] Source Comments (unrecognize d section and content) In the event this informatio n is protected by the Federal Confidentiality of Alcohol and Drug Abuse Patient Records regulations: The Federal rules restrict any use of the information to criminally investigate or prosecute any alcohol or drug abuse patient.[facility] the event this information is protected by the Federal Confidentiality of Alcohol and Drug Abuse Patient Records regulations: The Federal rules restrict any use of the information to criminally investigate or prosecute any alcohol or drug abuse patient.[facility] the event this information is protected by the Federal Confidentiality of Alcohol and Drug Abuse Patient Records regulations: The Federal rules restrict any use of the information to criminally investigate or prosecute any alcohol or drug abuse patient.[facility] Reason for Visit (unrecogniz ed section and content) Reason Comments Cough left ear pain x 3-4 days Reason Comments Sore Throat stiff neck and fever x 2-3 days Care Teams (unrecognized sec tion and content) 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 This clinical summary was aggregated from multiple sources. Caution should be exercised in using it in the provision of clinical care. This summary normalizes information from multiple sources, and as a consequence, information in this document may materially change the coding, format and clinical context of patient data. In addition, data may be omitted in some cases. CLINICAL DECISIONS SHOULD BE BASED ON THE PRIMARY CLINICAL RECORDS. [facility]. provides no warranty or guarantee of the accuracy or completeness of information in this document.
[2023-06-18 15:51] LABS: Amphetamine Urine VISTA POSITIVE (<1000 ng/mL); Barbiturate Urine VISTA NEGATIVE (< 200 ng/mL); Benzodiazepine Urine VISTA NEGATIVE (< 200 ng/mL); Cocaine Urine VISTA NEGATIVE (< 300 ng/mL); Ecstacy Urine VISTA NEGATIVE (< 500 ng/mL); Methadone Urine VISTA NEGATIVE (< 300 ng/mL); PCP Urine VISTA NEGATIVE (< 25 ng/mL); THC Urine VISTA NEGATIVE (< 50 ng/mL); Vista UDS pH Range 6
[2023-06-18 15:52] LABS: Anion Gap 5 (5-15); BUN 9 mg/dL (7-18); BUN/Creat Ratio 12.7 RATIO (10-20); Calcium,Total 9.7 mg/dL (8.5-10.1); Chloride 111 mmol/L (98-107); Creatinine, Serum 0.71 mg/dL (0.55-1.02); EST Glomerular Filtration Rate 104 mL/min (>60); Est Glom Filt Rate - Afr Amer 126 mL/min (>60); Estimated Creatinine Clearance 96.71 ml/min; Glucose 100 mg/dL (74-106); Potassium 3.7 mmol/L (3.5-5.1); Sodium Level 140 mmol/L (136-145)
--- NOTE | 2023-06-18 15:55 | CT_ITS ---
STUDY: CT BRAIN WITHOUT CONTRAST REASON FOR EXAM: Female, 28 years old. mental status change RADIATION DOSAGE (If Supplied By Facility): CTDIvol = ( 44.99 ) mGy, DLP = ( 745.49 ) mGycm TECHNIQUE: Transaxial CT imaging of the brain was performed without administration of intravenous contrast material. Individualized dose optimization techniques were used for this CT. COMPARISON: No relevant priors. FINDINGS: Normal soft tissue structures. Normal calvarium. Normal size ventricles and extra-axial spaces for the patient''s age. Normal white matter tracts of the cerebral hemispheres. Normal basal ganglia and thalami. Normal brainstem. Normal cerebellum. There is no intracranial hemorrhage. There are no findings of an acute ischemic infarction. Normal visualized paranasal sinuses. CT/Brain/Head without Contrast IMPRESSION: Normal unenhanced CT scan of the brain. Electronically Signed: Momo King MD at 16:56 EST ,
[2023-06-18 16:05] LABS: Internal QC Validated? YES +Cl - CLEAR BKGD; Pregnancy, Serum, hCG Quali. NEGATIVE Negative
[2023-06-18 17:00] VITALS: RESP 16
--- NOTE | 2023-06-18 17:13 | ED.RN ---
[facility] CALLED, WAITING ON CALLED BACK.
[2023-06-18 17:25] LABS: CPK Total, Creatine Kinase 90 U/L (26-192)
--- NOTE | 2023-06-18 17:47 | ED.RN ---
[facility] RETURNED CALLED, FORMS FAXED.
--- NOTE | 2023-06-18 17:54 | ED.RN ---
LISET AT [facility] GAVE FAX NUMBER, CHART FAXED AND FAX WENT THROUGH. [facility] CALLED BACK AND SAID I GAVE YOU THE WRONG FAX NUMBER .
--- NOTE | 2023-06-18 18:00 | ED.RN ---
CHART FAXED TO THE NEW NUMBER THAT LISET AT [facility] PROVIDE.
[2023-06-18 19:00] VITALS: RESP 16
--- NOTE | 2023-06-18 19:20 | ED.RN ---
Kathrin here to see pt, spoke with Kathrin regarding Lucrecia giving the wrong fax number and the chart going through on that fax. Kathrin informing her cook house supervisor.
--- NOTE | 2023-06-18 20:05 | ED.RN ---
day is investigating the wrong fax number, attempting to find out where it was sent. day sent a fax to the wrong number stating that PHI was faxed to them in error and asked they destroy this information. day provided them with her number for them to contact her.
--- NOTE | 2023-06-18 21:55 | ED.RN ---
2155: MOTHERVÍCTOR CALLED FOR UPDATE ON PATIENT. SHE WAS INSTRUCTED THE PATIENT WAS AWAITING PLACEMENT AT [facility]
[2023-06-18 22:19] VITALS: BP 133/67; PULSE 99; RESP 18; O2SAT 100
[2023-06-18] MEDS: LORazepam 0.5 MG Tablet PO (22:47)
--- NOTE | 2023-06-18 22:47 | ED.RN ---
PT ACCEPTED AT [facility] INTAKE 2 [id number]. PHYSICIANS CALLED ETA GIVEN 6AM.
--- NOTE | 2023-06-18 23:09 | ED.RN ---
CALLED MOTHER, VÍCTOR TO UPDATE HER ABOUT PATIENT TRANSFER TO [facility] AT 6AM
--- NOTE | 2023-06-19 00:48 | ED.RN ---
REPORT CALLED TO [facility] STAFF MEMBER, ALISON MEDEL
[2023-06-19 03:06] VITALS: RESP 16
[2023-06-19 04:51] VITALS: BP 132/60; PULSE 78; RESP 18
== END 2023-06-19 07:02 ==
LOC: ED 15:42
PROVIDERS: Physician Assistant; Emergency Provider Emergency Medicine; PCP Registered Nurse; Visit Provider Emergency Medicine
DX: F22 Delusional disorders (principal); F41.9 Anxiety disorder, unspecified; R41.82 Altered mental status, unspecified; F90.9 Attention-deficit hyperactivity disorder, unspecified type; Z87.891 Personal history of nicotine dependence; Z79.899 Other long term (current) drug therapy
CPT/HCPCS: 70450; 80048; 80307; 80320; 82550; 84703; 85025; 99285; G0480

== ENCOUNTER 2023-09-07 20:47 | Day surgery (SDC) | payer MEDICAID, SELFPAY ==
[2023-09-07 20:52] VITALS: BP 97/56; PULSE 68; RESP 18; TEMP 36.2; O2SAT 100
[2023-09-07 21:15] LABS: Absolute Lymphocyte Count 1.39 X10^3/uL (0.83-4.51); Absolute Neutrophil Count 12.5 X10^3/uL (2.0-7.7); Basophil# 0.06 X10^3/uL; Basophil% 0.4 % (0-1); Hematocrit 36.6 % (37-47); Hemoglobin 12.2 g/dL (12.0-15.0); Lymphocyte # 1.39 X10^3/ul (0.83-4.51); Lymphocyte % 9.7 % (19-41); Mean Corp Hgb Conc 33.3 g/dL (32-36); Mean Corpuscular Hgb 29.7 pg (27.0-32.0); Mean Corpuscular Volume 89.1 fL (81-99); Mean Platelet Vol. 10.3 fl (6.2-12.0); Monocyte# 0.37 X10^3/uL; Monocyte% 2.6 % (0-10); NRBC Flagged by Analyzer 0 % (0-5); Neutrophil # 12.48 X10^3/uL (2.7-7.7); Neutrophil % 86.6 % (47-70); Platelet Count 170 K/mm3 (150-450); RBC Distribution Width SD 39.4 fl (35.1-43.9); Red Blood Count 4.11 M/mm3 (4.2-5.4); White Blood Count 14.4 K/mm3 (4.4-11.0)
--- NOTE | 2023-09-07 21:19 | US_ITS ---
We are attempting to reach an attending provider to discuss findings. An addendum with communication details will be sent when the communication is complete. EXAM: US , TRANSVAGINAL CLINICAL INDICATION: pelvic pain, recent pill TECHNIQUE: Real-time transvaginal obstetrical ultrasound of the maternal pelvis and a first trimester with image documentation. Transvaginal imaging was used for better evaluation of the fetus and adnexa. COMPARISON: No relevant prior studies available. FINDINGS: LIMITATIONS: The study was limited due to patient increased pain. GESTATION: There is no intrauterine gestation. PLACENTA/AMNIOTIC FLUID: There is no intrauterine gestation. UTERUS/CERVIX: The uterus measures 8.5 x 4.7 x 6.4 cm. The endometrium measures 2 mm. No myometrial mass. OVARIES: There is a heterogeneous mass within the adnexa that measures 4 cm on the left. The left ovary measures 2.8 x 1.2 x 2.6 cm. FREE FLUID: No free fluid. US/Transvaginal w/Preg US IMPRESSION: Limited study due to patient''s pain. There is a heterogeneous mass in the left adnexa measuring 4 cm. Possibility of a ruptured ectopic cannot be excluded. Electronically Signed: José Luis Redding MD at 0:02 EDT ,
--- NOTE | 2023-09-07 21:21 | EX.ED.DYSGE1 ---
HPI History of Present Illness Chief Complaint: Abd Pain Informant: patient Onset/Context/Timing Onset: Today Narrative Narrative: Patient presents secondary to suprapubic pain. She reports taking an pill approximate 1 week ago that she bought from a website. She believes she was approximately 8 weeks . She never saw eye doctor had a hormone level drawn, but did have a positive home test. Her blood type is a negative. Patient states she did bleed and passed some clots. Her bleeding is now resolved. Today she has developed suprapubic cramping and pain. She had what sound like a vagal response with cold sweats, lightheadedness, and dizziness. She did take ibuprofen prior to arrival. [facility] Medical History 36 weeks gestation of ADD (attention deficit disorder) Anemia affecting Anxiety Headache in , antepartum History of pre-eclampsia in prior , currently Migraine Preeclampsia Sleep apnea Home Medications dextroamphetamine-amphetamine 30 mg tablet 30 mg PO DAILY ADHD 05/26/20 [History Last Taken 1 Day Ago ~05/13/21] omeprazole 20 mg capsule,delayed release 20 mg PO DAILY GERD 05/05/21 [History Last Taken 1 Day Ago ~05/13/21] dextroamphetamine-amphetamine 20 mg tablet 20 mg PO DAILY 06/18/23 [History Last Taken Unknown] multivitamin (One Daily Multivitamin tablet) 1 tab PO DAILY 09/07/23 [History Last Taken Unknown] Allergy/AdvReac Type Severity Reaction Status Date / Time nickel AdvReac Rash Verified 09/07/23 20:52 Family History Father Diabetes Uncle Heart disease Grandmother Cancer brain cancer Surgical History History of appendectomy Tonsil, abscess Social History (Updated 09/07/23 @ 22:01 by Liz Garcia) household members: children housing: house Smoking Status: Former smoker second hand exposure: Yes quit status: not considering quitting alcohol intake: never substance use type: does not use what type of physical activity do you participate in: none seatbelt use: sometimes do you feel safe at home: Yes additional 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 history: 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 [facility] [employer] [facility] ROS ED Constitutional Constitutional ED: Denies chills or fever(s) Eyes Eyes: Denies change in vision or discharge from eye(s) ENT ENT ED: Denies discharge from eye(s), rhinorrhea or sore throat Cardiovascular Cardiovascular: Denies chest pain or palpitations Respiratory/Chest Respiratory/Chest: Denies cough or dyspnea Gastrointestinal Gastrointestinal: Reports abdominal pain and nausea; Denies diarrhea or vomiting Genitourinary Genitourinary ED: Denies dysuria Musculoskeletal Musculoskeletal: Denies back pain or extremity pain Integumentary Denies Abrasions or rash Neurologic Neurologic: Denies headache(s) or weakness Psychiatric Psychiatric: Denies anxiety or depression Allergic/Immunologic Allergic/Immunologic ED: Denies lip swelling or urticaria EXAM Physical Exam Const Vital Signs: 09/07/23 20:52 09/07/23 22:57 09/08/23 00:00 Temperature 97.2 F L Temperature Source Temporal Pulse Rate 68 70 76 Respiratory Rate 18 14 18 Blood Pressure 97/56 L 97/50 L 112/53 L Blood Pressure Mean 69 65 72 Pulse Ox 100 98 100 Oxygen Delivery Method Room Air Room Air Room Air Positive well nourished and well developed General Appearance ED: well developed HEENT Reports moist mucous membranes Eyes EOMs intact bilaterally Chest Wall inspection of chest normal and palpation of chest normal Resp normal respiratory effort and clear to auscultation bilaterally Cardio regular rate and regular rhythm GI GI Narrative: Abdomen soft with moderate tenderness in the suprapubic region. No guarding at this time. Neuro oriented x3 and no sensory deficits noted Motor Exam: strength 5/5 throughout Psych mental status grossly normal Skin no rashes or lesions noted MDM MDM MDM Narrative Medical decision making narrative: IV line established. Patient given IV fluids. She declines anything for pain at this time. Labwork obtained to evaluate for leukocytosis, anemia, and electrolyte derangement. Urinalysis obtained to evaluate for infection/hematuria. Pelvic ultrasound will be obtained to evaluate for retained products. History & Record Review Discussion w/independent historian: Patient Lab Data Attestation: I reviewed the patient's lab results. Labs: Laboratory Results - last 24 hr 09/07/23 09/07/23 21:00 21:56 WBC 14.4 H RBC 4.11 L Hgb 12.2 Hct 36.6 L MCV 89.1 MCH 29.7 MCHC 33.3 RDW Std Deviation 39.4 RDW Coeff of Radha 12.0 Plt Count 170 MPV 10.3 Immature Gran % (Auto) 0.700 Neut % (Auto) 86.6 H Lymph % (Auto) 9.7 L Webster % (Auto) 2.6 Eos % (Auto) 0.0 Baso % (Auto) 0.4 Absolute Neuts (auto) 12.5 H Absolute Lymphs (auto) 1.39 Nucleated RBC % 0 Sodium 137 Potassium 3.6 Chloride 104 Carbon Dioxide 25.0 Anion Gap 8 BUN 14 Creatinine 0.63 Est GFR (MDRD) Af Amer 144 Est GFR (MDRD) Non-Af 119 BUN/Creatinine Ratio 22.3 H Glucose 129 H Calcium 9.1 Total Bilirubin 0.40 AST 12 L ALT 20 Alkaline Phosphatase 49 Total Protein 6.8 Albumin 3.7 Globulin 3.1 Albumin/Globulin Ratio 1.2 HCG, Quant 2591 H Serum , Qual POSITIVE H Urine Color Yellow Urine Clarity Sl. Cloudy Urine pH 5.0 Ur Specific [place] 1.025 Urine Protein 30 H Urine Glucose (UA) Normal Urine Ketones 15 H Urine Occult Blood 10 H Urine Nitrite Negative Urine Bilirubin Negative Urine Urobilinogen 1 H Ur Leukocyte Esterase 500 H Urine RBC 0-5 SEEN Urine WBC 10-25 SEEN Ur Squamous Epith Cells 5-10 SEEN Urine Bacteria 2+ Urine Mucus RARE Radiography Diagnostic Testing: Clinical Impression(s) from Imaging Studies Obstetrics Ultrasound 09/07/23 21:19 IMPRESSION: Limited study due to patient''s pain. There is a heterogeneous mass in the left adnexa measuring 4 cm. Possibility of a ruptured ectopic cannot be excluded. Electronically Signed: José Luis Redding MD at 0:02 EDT , Treatment and Re-Evaluation :: CBC was a white count of 14.4 with 86% neutrophils. Hemoglobin is 12.2. Chemistry studies unremarkable with a glucose of 129. LFTs unremarkable. Quant is 2591. Urinalysis reveals 2+ bacteria with 5-10 epithelial cells and 10-25 white cells. No nitrites are noted. Pelvic ultrasound is limited secondary to the patient's pain. There is a heterogeneous mass in the left adnexa measuring 4 cm with possibility of ruptured ectopic. Uterus is empty with endometrium measuring 2 [address] I spoke with Dr[address] Jon, on-call for no doc C 40A CREW CHIEF. She will call in the surgical team and be in to see the patient. Discharge Plan Triage Chief Complaint: Abd Pain ED Provider: Carla Solis Dx/Rx/DC Orders Clinical Impression: Ectopic Prescriptions: No Action dextroamphetamine-amphetamine 30 MG tablet 30 mg PO DAILY omeprazole 20 mg capsule,delayed release(DR/EC) 20 mg PO DAILY Patient Comments: TAKE 1 CAPSULE BY MOUTH EVERY DAY dextroamphetamine-amphetamine 20 mg tablet 20 mg PO DAILY Patient Comments: take 1 tablet by mouth once daily multivitamin [One Daily Multivitamin] Tablet 1 tab PO DAILY Primary Care Provider: Mirela Neil NP Referrals: Mirela Neil NP, REGULATORY SPECIALIST-C [Primary Care Provider] -
[2023-09-07 21:34] LABS: Internal QC Validated? YES +Cl - CLEAR BKGD; Pregnancy, Serum, hCG Quali. POSITIVE Negative
[2023-09-07 21:42] LABS: ALB/GLOB Ratio 1.2 RATIO (0.9-2.4); AST(SGOT) 12 U/L (15-37); Alanine Aminotransfer ALT/SGPT 20 U/L (13-56); Albumin, Serum 3.7 g/dL (3.2-5.0); Alkaline Phosphatase 49 U/L (45-117); Anion Gap 8 (5-15); BUN 14 mg/dL (7-18); BUN/Creat Ratio 22.3 RATIO (10-20); Calcium,Total 9.1 mg/dL (8.5-10.1); Chloride 104 mmol/L (98-107); Creatinine, Serum 0.63 mg/dL (0.55-1.02); EST Glomerular Filtration Rate 119 mL/min (>60); Est Glom Filt Rate - Afr Amer 144 mL/min (>60); Globulin 3.1 g/dL (2.2-4.2); Glucose 129 mg/dL (74-106); Potassium 3.6 mmol/L (3.5-5.1); Protein, Total 6.8 g/dL (6.4-8.2); Sodium Level 137 mmol/L (136-145)
[2023-09-07] MEDS: 0.9% Normal Saline (1000mL) 1,000 ML 150 ML IV (21:59)
[2023-09-07 22:06] LABS: Color, Urine Yellow (Yellow); Glucose, Dipstick Normal (Normal); Ketone-Dipstick 15 mg/dl (Negative); Leukocyte Esterase-Dipstick 500 /ul (Negative); Nitrite-Dipstick Negative (Negative); Occult Blood-Urine 10 /ul (Negative); Protein-Dipstick 30 mg/dl (Negative); Specific Gravity, Urine 1.025 (1.002-1.030); Urine Bilirubin Dipstick Negative (Negative); Urine Clarity Sl. Cloudy (Clear); Urine Urobilinogen 1 mg/dl (Normal)
[2023-09-07 22:16] LABS: Bacteria 2+ /hpf (None Seen); Mucous, Urine RARE /hpf (<or=2+); Red Blood Cells-Urine 0-5 SEEN /hpf (0-5); Squamous Epithelial Cells - UA 5-10 SEEN /hpf (5-10); White Blood Cells 10-25 SEEN /hpf (0-5)
[2023-09-07] MEDS: Morphine 2 MG/ML Syringe IV (22:18)
[2023-09-07 22:40] LABS: hCG Titer Quant., Serum 2591 mIU/mL (1-3)
[2023-09-07 22:57] VITALS: BP 97/50; PULSE 70; RESP 14; O2SAT 98
[2023-09-08] VITALS (10 sets, daily range): BP systolic 99–133; BP diastolic 53–79; PULSE 70–86; RESP 16–18; TEMP 36.6–36.7; O2SAT 97–100; BMI 24.8
[2023-09-08] MEDS: Ondansetron 4 MG/2 ML Vial IV (00:01)
[2023-09-08] MEDS: Morphine 4 MG/ML Syringe IV (00:02)
[2023-09-08] MEDS: 0.9% Normal Saline (1000mL) 1,000 ML 999 ML IV (00:07)
--- NOTE | 2023-09-08 00:45 | HP.PCM.OB_ITS ---
HPI - General HPI Narrative CHEYENNE MILNER, is a 28 F who presents to [facility] with the complaint of abominal pain. She took an pill a week ago and stopped bleeding. Ultrasound shows the following INDINGS: LIMITATIONS: The study was limited due to patient increased pain. GESTATION: There is no intrauterine gestation. PLACENTA/AMNIOTIC FLUID: There is no intrauterine gestation. UTERUS/CERVIX: The uterus measures 8.5 x 4.7 x 6.4 cm. The endometrium measures 2 mm. No myometrial mass. OVARIES: There is a heterogeneous mass within the adnexa that measures 4 cm on the left. The left ovary measures 2.8 x 1.2 x 2.6 cm. FREE FLUID: No free fluid. cc: SHAUN Neil; Dr. Carla Solis MD ~* Signed ADDENDUM by Dr. José Luis Redding MD on 09/08/23 at 0002 US/Transvaginal w/Preg US IMPRESSION: Limited study due to patient''s pain. There is a heterogeneous mass in the left adnexa measuring 4 cm. Possibility of a ruptured ectopic cannot be excluded. 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 in the past she had a tubal ligation followed by a reversal. She had 2 babies after her reversal. [facility] Medical History 36 weeks gestation of ADD (attention deficit disorder) Anemia affecting Anxiety Headache in , antepartum History of pre-eclampsia in prior , currently Migraine Preeclampsia Sleep apnea Home Medications dextroamphetamine-amphetamine 30 mg tablet 30 mg PO DAILY ADHD 05/26/20 [History Last Taken 1 Day Ago ~05/13/21] omeprazole 20 mg capsule,delayed release 20 mg PO DAILY GERD 05/05/21 [History Last Taken 1 Day Ago ~05/13/21] dextroamphetamine-amphetamine 20 mg tablet 20 mg PO DAILY 06/18/23 [History Last Taken Unknown] multivitamin (One Daily Multivitamin tablet) 1 tab PO DAILY 09/07/23 [History Last Taken Unknown] Allergy/AdvReac Type Severity Reaction Status Date / Time nickel AdvReac Rash Verified 09/07/23 20:52 Family History Father Diabetes Uncle Heart disease Grandmother Cancer brain cancer Surgical History History of appendectomy Tonsil, abscess Social History (Updated 09/07/23 @ 22:01 by Liz Garcia) household members: children housing: house Smoking Status: Former smoker second hand exposure: Yes quit status: not considering quitting alcohol intake: never substance use type: does not use what type of physical activity do you participate in: none seatbelt use: sometimes do you feel safe at home: Yes additional social history: 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 [employer] [facility] [employer] History 3 Elective abortions Hx Para 3 Spontaneous abortions Hx # Term Pregnancies Ectopic pregnancies Hx # Pregnancies Multiple births # of living children ROS Constitutional Constitutional: Denies change in weight, fatigue, fever(s), headache(s), poor appetite or weakness Eyes Eyes: Denies blurry vision, change in vision, seeing flashes or spots in vision ENT HEENT: Denies dizziness, headache(s), loss taste/smell or sore throat Cardiovascular Cardiovascular: Denies chest pain, dizziness, dyspnea, irregular heart rhythm, leg edema, palpitations, rapid heart rate or vomiting Respiratory/Chest Respiratory/Chest: Denies chest tightness, cough, dyspnea or breast pain Gastrointestinal Gastrointestinal: Denies abdominal pain, anorexia, constipation, cramping, diarrhea, hemorrhoids, vomiting or weight changes Genitourinary Genitourinary: Denies dysuria, flank pain, genital lesions, genital pain, urinary frequency or urinary urgency Musculoskeletal Musculoskeletal: Denies back pain, difficulty walking, joint pain, limited range of motion, muscle cramps or numbness Integumentary Integumentary: Denies lesions or unusual bruising Neurologic Neurologic: Denies abnormal movements, abnormal speech, dizziness, numbness, seizure-like activity or syncope Psychiatric Psychiatric: Denies anxiety, behavioral changes, change in appetite, change in libido, cognitive impairment, confusion, depression, difficulty concentrating, hallucinations or suicidal thoughts Endocrine Endocrinology: Denies excessive sweating, polydipsia or polyuria Hematologic/Lymphatic Hematologic/Lymphatic: Denies easy bleeding, easy bruising or lymphadenopathy Allergic/Immunologic Allergic/Immunologic: Denies itchy eyes, lip swelling, seasonal rhinorrhea, rhinitis, throat swelling, tongue swelling, eczemia, wheezing or asthma Vital Signs Vital Signs Vital Signs: 09/07/23 20:52 09/07/23 22:57 09/08/23 00:00 Temperature 97.2 F L Temperature Source Temporal Pulse Rate 68 70 76 Respiratory Rate 18 14 18 Blood Pressure 97/56 L 97/50 L 112/53 L Blood Pressure Mean 69 65 72 Blood Pressure Source Blood Pressure Position Blood Pressure Location Pulse Ox 100 98 100 Oxygen Delivery Method Room Air Room Air Room Air 09/08/23 00:08 09/08/23 00:39 Temperature 97.9 F 97.9 F Temperature Source Temporal Pulse Rate 73 70 Respiratory Rate 16 18 Blood Pressure 100/54 L 102/60 Blood Pressure Mean 69 74 Blood Pressure Source Monitor Blood Pressure Position Semi-Fowlers Blood Pressure Location Right Arm Pulse Ox 99 97 Oxygen Delivery Method Room Air Weight Weight: 142 lb 10.225 oz Body Mass Index (BMI) 24.8 Physical Exam Const alert, oriented x3, no apparent distress and healthy appearing General Appearance: cooperative; Negative for anxious HEENT normocephalic Face and Sinus: normal facial exam Eyes EOMs intact bilaterally and no scleral icterus General Eye: normal appearance of both eyes Neck full ROM and supple Lymph Lymphatic: no lymphadenopathy noted Chest Chest: abnormal inspection of the chest Resp normal respiratory effort Effort and Inspection: able to speak in complete sentences Cardio regular rate GI soft to palpation GI Narrative: diffusely tender with guarding of both right and left lower quadrants. Back/Spine no CVA tenderness Extremity normal to inspection, full ROM and no clubbing, cyanosis or edema General Extremity: Negative for calf tenderness or edema Skin Lesions: no lesions Rashes: no rashes Psych mental status grossly normal Labs Labs Labs: Blood Type A NEGATIVE Antibody Screen NEGATIVE Hct 36.6 % (37-47) L Hgb 12.2 g/dL (12.0-15.0) Obstetrics Ultrasound Syphilis Total Ab Non-reactive Rubella IgG Antibody Reactive (Nonreactive) Hep Bs Antigen Non-Reactive (Nonreactive) Hepatitis C Antibody Non-Reactive (Nonreactive) Hepatitis C Ab (EIA) <0.1 s/co ratio (0.0-0.9) Chlamydia DNA (DAVID) Negative (Negative) N.gonorrhoeae DNA (DAVID) Negative (Negative) HIV 1&2 Antibody Non-Reactive (Nonreactive) Glucose 1 Hr 50 gm 117 mg/dL (70-140) Group B Strep DNA Negative (Negative) Rhogam given: Yes Assessment & Plan (1) Ectopic : PLAN: After discussing the patient's diagnosis and treatment plan options, patient wishes to proceed with surgical management. I have discussed with the patient the risks, benefits, and alternatives of the procedure which include but are not limited to risks of anesthesia, bleeding, infection, possible damage to bowel, bladder, or surrounding vasculature which could lead to additional surgery to evaluate any complications. Patient agrees to procedure and wishes to proceed. ACOG/uptodate references given for additional information regarding procedure. plan for laparoscopic salpingectomy, removal of the ectopic . radiology states is wrapped around uterus so unsure of laterality.
--- NOTE | 2023-09-08 00:59 | DCINST_ITS ---
Discharge Instructions Diet Discharge Diet: No restrictions Activity Discharge Activity: Return to Normal Activity, May Not Drive (for two weeks or while taking narcotic pain medications.), May Shower and May Take a Tub Bath (in 7 days) May resume sexual activity in: 1 week Weight Bearing Status: Full weight bearing Dressing / Incision Call your doctor if you observe: Using more than 1 pad per hour, Shortness of breath, Chest pain and Uncontrolled pain Suture Line Care: Avoid Pulling/Pushing and Avoid Pinching/Bending Remove Dressing in: 1 week (if present) Cleanse incision/area with: Soap & Water and Keep Dressing Clean & Dry Follow Up Care Please Follow Up With: Carla Jean Baptiste DO When: Call to make an appointment with your doctor for a follow up incision check in 1-2 weeks. Test Results: Test results from this visit will be discussed in further detail at your follow- up appointment, if applicable. Discharge Plan Admission Primary Reason for Your Visit: laparoscopic treatment of ectopic Attending Provider: Carla Jean Baptiste Primary Care Provider: Mirela Neil NP Discharge Orders/Prescriptions Prescriptions: New ibuprofen 800 mg tablet 800 mg PO Q8H PRN (Reason: pain) Qty: 30 0RF ondansetron HCl 4 mg tablet 4 mg PO Q6H PRN (Reason: nausea and vomiting) Qty: 20 0RF oxycodone-acetaminophen [Percocet] 5-325 mg tablet 1 tab PO Q4H PRN (Reason: pain) 7 Days Qty: 15 0RF Rx Instructions: 1-2 tabs q 4 hrs as needed for pain Continued dextroamphetamine-amphetamine 30 MG tablet 30 mg PO DAILY omeprazole 20 mg capsule,delayed release(DR/EC) 20 mg PO DAILY Patient Comments: TAKE 1 CAPSULE BY MOUTH EVERY DAY dextroamphetamine-amphetamine 20 mg tablet 20 mg PO DAILY Patient Comments: take 1 tablet by mouth once daily multivitamin [One Daily Multivitamin] Tablet 1 tab PO DAILY Referrals / Follow Up: Mirela Neil NP, EMPLOYEE RELATIONS ADMINISTRATOR-C [Primary Care Provider] - Disposition Disposition (needs filled in before D/C Order can be placed): Home, Self Care
--- NOTE | 2023-09-08 01:45 | FAL_PTH ---
PATIENT: CHEYENNE MILNER LOC: [facility] [place] U#:[id number] AGE/SX: 28/F ROOM: RE09/08/[address]: Dr. Carla Jean Baptiste DO : 1995 BED: DIS: 09/08/2023 SPEC #: [id number] RECD: 09/08/23 11:09 STATUS: JUAN MIGUEL ABURTOLo #: [id number] JOHNSON: 09/08/23 01:[address]: Carla Jean Baptiste DEPT: SURGICAL PATHOLOGY RECD BY: Celine Vallejo ENTERED: 09/08/23 12:02 SP TYPE: ECTOPIC OTHR DR: Mirela Neil, DIRECTOR OF RESTAURANT-C Tissues: ECTOPIC PREG Procedures: Surgery Specimen Level IV HEADER OPERATION: Laparoscopic, removal ectopic and right fallopian tube PRE-OP DIAGNOSIS: Ruptured ectopic TISSUE SUBMITTED: Right ectopic and fallopian tube MICROSCOPIC DIAGNOSIS Right fallopian tube, salpingectomy: Chorionic villi, decidualized stroma and trophoblastic cells consistent with intratubal . AM: 09/12/2023 MICROSCOPIC DESCRIPTION Slides are reviewed. GROSS DESCRIPTION Received in fixative is one container labeled with the patient's name and designated Right ectopic and fallopian tube. The specimen consists of a fallopian tube measuring 4.5cm in length and 0.5cm in diameter. Fibral end is identified. Also present in the container are two variable size of hemorrhagic soft tissue measuring in aggregate 2.5 x 2.0 x 0.5cm. Section of fallopian tube reveal unremarkable cut surfaces. The entire specimen is submitted in three cassettes as follows: 1&2- fallopian tubes, 3- detached pieces of tissue. RACHEL/ 09/08/23 TC:5 CPT: 36988
--- NOTE | 2023-09-08 02:08 | OP.PCM_ITS ---
Problems Associated Problem List Diagnoses (1) Ectopic : Report of Operation Date of Procedure: 09/08/23 Pre-Operative Diagnosis: ultrasound finding of ruptured ectopic Post-Operative Diagnosis: ruptured right cornual ectopic Surgery/Procedure Performed:: laparoscopic wedge resection of right uterine cornual region and removal of right fallopian tube Surgeon: Carla Jean Baptiste demonstrator electric gas appliances: Onesimo Ross Type of Anesthesia: General Anesthesiologist: Quinn Stark Special Medications: none Specimen's removed: right fallopian tube and part of right uterine cornual region. Drains: none Estimated Blood Loss (mL): 1100cc Description of Procedure: Patient was taken in the operating room and was placed under general anesthesia was prepped and draped in normal sterile fashion in the dorsal lithotomy position. Bladder was drained of clear urine and SCDs were on preoperatively. Uterus was sounded and a uterine manipulator was placed after dilating. Attention was then paid to the abdominal portion of the procedure and the umbilicus was elevated with towel clamps and injected with Marcaine and after a 5 mm incision was made and the Veress needle was entered into the abdomen confirmed to be intra-abdominal with a low opening pressure of less than 5 mmHg. Abdomen was insufflated with CO2 gas and a 5 mm optical trocar was placed under direct visualization. A left lower quadrant 5 mm port and a 5 mm port suprapubically were placed under direct visualization. a large amount of blood was noted in the abdomen and suction irrigation was used. The Uterus was well visualized and upon inspection of the pelvis and ectopic was seen in the right cornual region of the uterus and ruptured. Using a LigaSure device the mesosalpinx was transected and the fallopian tube removed including the ectopic up to the uterine horn. A small wedge resection was performed using the ligasure device and removed through the umbilical port site that was enlarged to allow passage of a laparoscopic bag. Excellent hemostasis was noted and hemoblast was applied to the wedge resection site. approximately 1100 cc of blood was evacuated from the abdomen. The port site was closed through the fascia using a Jake Schaeffer with an 0 Vicryl. Liver and upper abdomen were visualized notably within normal limits and no other gross abnormalities were seen in the abdomen. All instruments removed from the abdomen after gas was desufflated. Port sites were closed with 3-0 Monocryl Steri's and op sites were applied. All instruments removed from the vagina and patient was awoken and taken recovery in stable condition. Procedure Start Time: 01:37 Procedure Stop Time: 02:15 Complications none Admit VTE Documentation VTE Present on Admission: No VTE Mechan Device Prophylaxis: SCD's VTE Pharm Prophylaxis ordered?: No Multi Select Codes Urinary/Genital Urinary/Genital CPT Codes: 88305 Treat ectopic lapro w/ salpingectomy
[2023-09-08] MEDS: Bupivacaine 0.25% 30 ML Vial (02:10)
== END 2023-09-08 03:48 | disposition home or self-care (01) ==
LOC: ED 21:27 → SDC 09-08 00:16 → AC 09-08 00:17
PROVIDERS: Emergency Provider Emergency Medicine; PCP Registered Nurse; Referring Provider Obstetrics & Gynecology; Visit Provider Obstetrics & Gynecology
PROC: 10T24ZZ Resection of Products of Conception, Ectopic, Percutaneous Endoscopic Approach (ICD-10-PCS; CPT 59150; principal; 2023-09-08 01:30)
DX: O00.80 Other ectopic pregnancy without intrauterine pregnancy (principal); Z87.891 Personal history of nicotine dependence
CPT/HCPCS: 59151; 00840; 76817; 80053; 81001; 84702; 84703; 85025; 88305; 99283; J7030; J7120; A4216; J2405

== ENCOUNTER 2024-05-07 12:42 | Emergency (ER) | payer MEDICAID, SELFPAY ==
[2024-05-07 12:44] VITALS: BP 101/70; PULSE 100; RESP 18; TEMP 36.5; O2SAT 99; BMI 22.6
--- NOTE | 2024-05-07 13:12 | EDS_ITS ---
HPI HPI - Psych History of Present Illness Chief Complaint: Mental Health Informant: patient Narrative Narrative: Healthy 28-year-old female with ADHD presenting requesting mental health evaluation. She states she is not suicidal or homicidal, but she is going through a custody valdes with an ex right now and she states that he called child protective services to evaluate her, telling them that I am crazy, CPS told her to come to the hospital for a mental health evaluation. She does not undergo counseling right now. She is feeling depressed because she is in between jobs, does not have a lot of money to buy her kids gifts and it is the day before [place], but she wants to do what ever she needs to do in order to get custody of her children. She denies any recent illness or injury. Denies using any illicit substances. She was not pink slipped here by anyone. [facility] Medical History 36 weeks gestation of Preeclampsia Headache in , antepartum Migraine History of pre-eclampsia in prior , currently Anemia affecting ADD (attention deficit disorder) Sleep apnea Anxiety Home Medications ?Medication ?Instructions ?Recorded ?Last Taken ?Type dextroamphetamine-amphetamine 30 30 mg PO DAILY ADHD 05/26/20 1 Day Ago History mg tablet ~05/13/21 omeprazole 20 mg capsule,delayed 20 mg PO DAILY GERD 05/05/21 1 Day Ago History release ~05/13/21 dextroamphetamine-amphetamine 20 20 mg PO DAILY 06/18/23 Unknown History mg tablet multivitamin (One Daily 1 tab PO DAILY 09/07/23 Unknown History Multivitamin tablet) ibuprofen 800 mg tablet 800 mg PO Q8H PRN pain #30 tabs 09/08/23 Unknown Rx ondansetron HCl 4 mg tablet 4 mg PO Q6H PRN nausea and 09/08/23 Unknown Rx vomiting #20 tabs oxycodone-acetaminophen 5 mg-325 1 tab PO Q4H PRN pain 7 days #15 09/08/23 Unknown Rx mg tablet (Percocet) tabs Allergy/AdvReac Type Severity Reaction Status Date / Time nickel AdvReac Rash Verified 05/07/24 12:43 Family History Father Diabetes Uncle Heart disease Grandmother Cancer brain cancer Surgical History History of appendectomy Tonsil, abscess Social History household members: children housing: house Smoking Status: Current some day smoker tobacco type: cigarettes second hand exposure: Yes quit status: not considering quitting alcohol intake: never substance use type: does not use what type of physical activity do you participate in: none seatbelt use: sometimes do you feel safe at home: Yes 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 ROS ED Constitutional Constitutional ED: Denies chills or fever(s) Eyes Eyes: Denies change in vision or diplopia ENT ENT ED: Denies rhinorrhea or sore throat Cardiovascular Cardiovascular: Denies chest pain or palpitations Respiratory/Chest Respiratory/Chest: Denies cough or dyspnea Gastrointestinal Gastrointestinal: Denies abdominal pain, diarrhea, nausea or vomiting Genitourinary Genitourinary ED: Denies dysuria or hematuria Musculoskeletal Musculoskeletal: Denies back pain or neck pain Integumentary Denies abscess or rash Neurologic Neurologic: Denies headache(s), paresthesias or weakness Psychiatric Psychiatric: Reports depression; Denies anxiety, auditory hallucinations, homicidal ideation, suicidal ideation, suicidal thoughts or visual hallucinations EXAM Physical Exam Const Vital Signs: 05/07/24 12:44 05/07/24 14:42 Temperature 97.7 F L Temperature Source Temporal Pulse Rate 100 78 Respiratory Rate 18 15 Blood Pressure 101/70 112/74 Blood Pressure Mean 80 86 Pulse Ox 99 97 Oxygen Delivery Method Room Air Room Air Positive well nourished and well developed General Appearance ED: well developed and NAD HEENT Reports moist mucous membranes normocephalic and atraumatic Eyes PERRL and EOMs intact bilaterally General Eye ED: Negative for scleral icterus Neck no lymphadenopathy and supple Resp normal respiratory effort and clear to auscultation bilaterally Cardio no murmurs Rate: regular rate Rhythm: regular rhythm GI non-tender and non-distended Auscultation: normoactive bowel sounds Palpation: soft Back/Spine no CVA tenderness and normal ROM Extremity normal to inspection General Extremety ED: Negative for edema General Extremity: Negative for edema Neuro oriented x3, CN's II-XII intact bilaterally, no sensory deficits noted and gait normal Sensorium / Orientation: alert Motor Exam: strength 5/5 throughout Psych mental status grossly normal, thought process normal, cooperative, affect normal, speech normal, activity/motor behavior normal, denies hallucinations, denies homicidal ideation and denies suicidal ideation Appearance: grossly normal, appropriate and well kempt Mood & Affect: depressed Thought Process: normal thought process Skin Lesions: no lesions Rashes: no rashes MDM MDM MDM Narrative Medical decision making narrative: Alcohol is negative, drug screen is negative except for amphetamines likely cross-reactive from the dextroamphetamine that the patient takes. She is medically cleared for social work to evaluate further. I spoke with social work, they evaluated the patient at length, and they feel the patient is stable to follow-up as an outpatient with counseling which the patient is willing to do. She is cooperative and not appearing acutely psychotic in any way objectively right now. SW attempted to contact family members but we are unable, and attempted to discuss w/ CPS, but no one responded for discussion. I agree with social work at this time, we have no information warranting pink slip in her to a psychiatric facility against her will. Lab Data Attestation: I reviewed the patient's lab results. 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 Discharge Plan Triage Chief Complaint: Mental Health ED Provider: Osorio Ventura Dx/Rx/DC Orders Clinical Impression: Depression Instructions: ED Depression Prescriptions: No Action dextroamphetamine-amphetamine 30 MG tablet 30 mg PO DAILY omeprazole 20 mg capsule,delayed release(DR/EC) 20 mg PO DAILY Patient Comments: TAKE 1 CAPSULE BY MOUTH EVERY DAY dextroamphetamine-amphetamine 20 mg tablet 20 mg PO DAILY Patient Comments: take 1 tablet by mouth once daily multivitamin [One Daily Multivitamin] Tablet 1 tab PO DAILY ibuprofen 800 mg tablet 800 mg PO Q8H PRN (Reason: pain) Qty: 30 0RF ondansetron HCl 4 mg tablet 4 mg PO Q6H PRN (Reason: nausea and vomiting) Qty: 20 0RF oxycodone-acetaminophen [Percocet] 5-325 mg tablet 1 tab PO Q4H PRN (Reason: pain) 7 Days Qty: 15 0RF Rx Instructions: 1-2 tabs q 4 hrs as needed for pain Primary Care Provider: Mirela Neil NP Referrals: Mirela Neil NP, [facility] [Primary Care Provider] - Activity Restrictions/Additional Instructions: See counseling contacts given to you by social work. Print Language: Kuwaiti Disposition Disposition: Home, Self Care Discharge Date/Time: 05/07/24 15:45
[2024-05-07 13:46] LABS: Alcohol, Blood (Medical)-Serum < 3.0 mg/dL
[2024-05-07 14:05] LABS: Amphetamine Urine VISTA POSITIVE (<1000 ng/mL); Barbiturate Urine VISTA NEGATIVE (< 200 ng/mL); Benzodiazepine Urine VISTA NEGATIVE (< 200 ng/mL); Cocaine Urine VISTA NEGATIVE (< 300 ng/mL); Ecstacy Urine VISTA NEGATIVE (< 500 ng/mL); Methadone Urine VISTA NEGATIVE (< 300 ng/mL); PCP Urine VISTA NEGATIVE (< 25 ng/mL); THC Urine VISTA NEGATIVE (< 50 ng/mL); Vista UDS pH Range 5
[2024-05-07 14:42] VITALS: BP 112/74; PULSE 78; RESP 15; O2SAT 97
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
--- NOTE | 2024-05-20 08:56 | CM.ED ---
Social work This SW received a call from [facility] staff Liz Ogden (ph: [phone]) today, 05/20/24, stating Liz needed to speak with Cristina BOOTH. This SW stated Cristina was off today and Liz stated Cristina had called [facility] on 05/07/24 regarding patient. Liz stated wanting to know if Cristina needed anything specific regarding patient. This SW had Liz confirm patient's prior to sharing that per Cristina's note, patient denied anything acute and was discharged home with outpatient counseling resources. Liz stated understanding and stated further concerns about patient. Patient reportedly has had difficulty being obsessed with patient's uncle's remains. Patient's uncle reportedly passed in 2013 and patient has reportedly been calling homes asking if patient's uncle is still alive. 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 Liz also shared that patient appears to be abusing patient's Adderall prescription that patient does not really need. Liz stated trying to get in contact with patient's PCP regarding this. Liz denied further needs at this time and denied needing Cristina to call Liz back. Dottie Zepeda, ATHLETE MARKETING AGENT, ANIMAL DOCTOR
== END 2024-05-07 15:45 | disposition home or self-care (01) ==
PROVIDERS: Emergency Provider Emergency Medicine; PCP Registered Nurse; Referring Provider Emergency Medicine; Visit Provider Emergency Medicine
DX: F32.A Depression, unspecified (principal); F90.9 Attention-deficit hyperactivity disorder, unspecified type; F17.210 Nicotine dependence, cigarettes, uncomplicated
CPT/HCPCS: 80307; 82077; 99284

== ENCOUNTER → 2024-05-27 | Outpatient (CLI) | payer MEDICAID, SELFPAY ==
[2024-05-27 16:01] LABS: Hepatitis C Antibody Non-Reactive (Nonreactive); Syphilis Antibodies Non-reactive
[2024-05-29 04:07] LABS: Chlamydia By Nucleic Acid AMP Negative (Negative); Gonococcus By Nucleic Acid AMP Negative (Negative)
[2024-05-29 09:33] LABS: HIV - WCH Non-Reactive (Nonreactive)
[2024-06-03 20:07] LABS: HPV APTIMA, High Risk Positive (Negative); HPV Genotype 16, Aptima Negative (Negative); HPV Genotype 18,45 Aptima Negative (Negative)
== END | disposition home or self-care (01) ==
LOC: BWCLAB 11:07
PROVIDERS: PCP Registered Nurse; Referring Provider Nurse Practitioner Women's Health; Visit Provider Nurse Practitioner Women's Health
DX: Z11.3 Encounter for screening for infections with a predominantly sexual mode of transmission (principal); Z12.4 Encounter for screening for malignant neoplasm of cervix; Z20.2 Contact with and (suspected) exposure to infections with a predominantly sexual mode of transmission

== ENCOUNTER 2024-06-13 12:30 | Outpatient (RCR) | payer MEDICAID, SELFPAY ==
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
--- NOTE | 2024-07-31 13:36 | HP.PT.NRP ---
Patient Information Patient Information: CHEYENNE MILNER was seen in my office for initial evaluation on 05/02/24. The following Plan of Care was established for this patient: POC Established Initial Frequency: 2x /Week Initial Duration: 3-6 weeks Anticipated Interventions Patient/Client Instruction: Educate patient on: Condition and Plan of Care For the Purpose of:: To improve self management Therapeutic Exercise to Include: Strength training, Body mechanics, Postural training, Flexibilty training, Active ROM and Scapular Strength/Stabilization For the Purpose of:: To decrease pain, To increase ROM and To improve muscle performance and motor function Manual Therapy Techniques to Include: Mobilization and Soft tissue mobilization For the Purpose of:: To decrease pain and To increase ROM Last Seen Last Seen: This patient was last seen in our office . Pertinent comments regarding their Physical therapy will appear below: Pt has not returned in greater than 30 days and is discharged at this time. At this point I will be discontinuing this patient from physical therapy. I would be happy to see this patient again in the future if found appropriate by the physician. Thank you! Nicholas Murphy, PT, ATC Balance/Gait/Functional tests Balance/Special Test Scores Oswestry Neck Score: 16
== END 2024-06-13 19:00 | disposition home or self-care (01) ==
LOC: PT 12:30
PROVIDERS: PCP Registered Nurse; Referring Provider Registered Nurse; Visit Provider Registered Nurse
DX: M54.2 Cervicalgia (principal); M54.6 Pain in thoracic spine
CPT/HCPCS: 97110; 97140; 97161; 97530